=== PATIENT | male | born 1965 | race American Indian/Alaskan Native ===

== ENCOUNTER 2020-07-22 11:46 | Inpatient (IN) | payer MEDICARE ==
--- NOTE | 2020-07-22 12:05 | Emergency Department Report ---
ED Lower Extremity HPI - General Stated Complaint: BLOOD CLOT Time Seen by Provider: 07/22/20 11:51 Source: patient, EMS Limitations: No Limitations - History of Present Illness Initial Comments: Chief complaint: Left leg pain HPI: This is a 54-year-old male with history of hypertension, end-stage renal disease on hemodialysis Wednesday, peripheral artery disease who presents with severe left leg pain 10 out of 10. Patient was transported emergently from vascular center of Dr. Hurt. Patient was diagnosed with left popliteal artery thrombosis. Dr. Hurt determined that patient will need surgical intervention. Patient was transported emergently to the emergency department. Due to severe pain patient was given 100 mcg of fentanyl per EMS. Patient explains that his left leg pain involving foot started several days ago. Unclear if gradual sudden onset. Brian left lower extremity is exquisitely tender. He has decreased movement in his foot. Nature of pain: achy burning. Patient last received hemodialysis on Wednesday. He receives dialysis at the [facility]. Environmental Programs Specialist is Dr. Issac Mcadams. Patient's AV fistula is located at the right superior medial thigh. He lives with his and 2 daughters. Complaint: other (Left popliteal artery thrombosis diagnosed at vascular center of Dr. Hurt) -: Gradual, days(s) (2-3 days) Injury: Leg: Left, Foot: Left, Toes: Left Type of Injury: other (Popliteal artery thrombosis) Place: home Severity: severe Severity scale (0 -10): 10 Worsens With: weight bearing, movement, palpation Context: other (Popliteal artery thrombosis) Other Symptoms: other (No other injuries) Associated Symptoms: unable to bear weight Treatments Prior to Arrival: other (Evaluation at vascular center) - Related Data Allergies Allergy/AdvReac Type Severity Reaction Status Date / Time amoxicillin Allergy Unknown Verified 07/22/20 12:14 ED Review of Systems ROS: Stated complaint: BLOOD CLOT Other details as noted in HPI Comment: All other systems reviewed and negative Constitutional: denies: fever, malaise Respiratory: denies: cough, shortness of breath Cardiovascular: denies: chest pain Gastrointestinal: denies: abdominal pain, nausea, vomiting Skin: denies: rash ED Past Medical Hx - Past Medical History Previous Medical History?: Yes Hx Hypertension: Yes Additional medical history: End-stage renal disease on hemodialysis - Surgical History Past Surgical History?: Yes Additional Surgical History: AV fistula - Social History Smoking Status: Smoker, Current Status Unknown ED Physical Exam - General Limitations: No Limitations General appearance: alert, other (Patient is in severe pain) - Head Head exam: Present: atraumatic, normocephalic - Eye Eye exam: Present: normal appearance - ENT ENT exam: Present: mucous membranes moist - Neck Neck exam: Present: normal inspection, full ROM - Respiratory Respiratory exam: Present: normal lung sounds bilaterally. Absent: respiratory distress, wheezes, rales, rhonchi - Cardiovascular Cardiovascular Exam: Present: regular rate, normal rhythm, normal heart sounds. Absent: systolic murmur, diastolic murmur, rubs, gallop - GI/Abdominal GI/Abdominal exam: Present: soft, normal bowel sounds. Absent: distended, tenderness, guarding, rebound - Rectal Rectal exam: Present: deferred - Extremities Exam Extremities exam: Present: other (Left lower extremity: Exquisitely tender from knee to foot, decreased range of motion at the ankle, unable to palpate DP pulse) - Neurological Exam Neurological exam: Present: alert, oriented X3 - Psychiatric Psychiatric exam: Present: normal affect - Skin Skin exam: Present: warm, dry, intact, normal color. Absent: rash ED Lower Extremity MDM - Lab Data Result diagrams: 07/22/20 12:22 07/22/20 12:22 Laboratory Results - last 24 hr 07/22/20 07/22/20 07/22/20 12:22 12:22 12:22 WBC 10.4 RBC 3.22 L Hgb 11.2 L Hct 32.6 L MCV 101 H MCH 35 H MCHC 34 RDW 19.3 H Plt Count 300 Add Manual Diff Complete Total Counted 100 Seg Neutrophils % Motor Vehicle Representative Seg Neuts % (Manual) 99.0 H Lymphocytes % (Manual) 1.0 L Nucleated RBC % Not Reportable Seg Neutrophils # Man 10.3 H Band Neutrophils # 0.0 Lymphocytes # (Manual) 0.1 L Abs React Lymphs (Man) 0.0 Monocytes # (Manual) 0.0 Eosinophils # (Manual) 0.0 Basophils # (Manual) 0.0 Metamyelocytes # 0.0 Myelocytes # 0.0 Promyelocytes # 0.0 Blast Cells # 0.0 WBC Morphology Not Reportable Hypersegmented Neuts Not Reportable Hyposegmented Neuts Not Reportable Hypogranular Neuts Not Reportable Smudge Cells Not Reportable Toxic Granulation 1+ Toxic Vacuolation Not Reportable Dohle Bodies Not Reportable Pelger-Huet Anomaly Not Reportable Svetlana Rods Not Reportable Platelet Estimate Consistent w auto Clumped Platelets Not Reportable Plt Clumps, EDTA Not Reportable Large Platelets Few Giant Platelets Not Reportable Platelet Satelliting Not Reportable Plt Morphology Comment Not Reportable RBC Morphology Not Reportable Dimorphic RBCs Not Reportable Polychromasia Not Reportable Hypochromasia Not Reportable Poikilocytosis Not Reportable Anisocytosis 1+ Microcytosis Not Reportable Macrocytosis Not Reportable Spherocytes Not Reportable Pappenheimer Bodies Not Reportable Sickle Cells Not Reportable Target Cells Not Reportable Tear Drop Cells Not Reportable Ovalocytes Not Reportable Helmet Cells Not Reportable Seth-Elida Bodies Not Reportable [place] Rings Not Reportable Alicia Cells Not Reportable Bite Cells Not Reportable Crenated Cell Not Reportable Elliptocytes Not Reportable Acanthocytes (Spur) Not Reportable Rouleaux Not Reportable Hemoglobin C Crystals Not Reportable Schistocytes Not Reportable Malaria parasites Not Reportable Malachi Bodies Not Reportable Hem Pathologist Commnt No PT 17.9 H INR 1.48 H APTT 69.7 H* Fibrinogen 1029 H Sodium 137 Potassium 6.0 H Chloride 90.4 L Carbon Dioxide 26 Anion Gap 27 BUN 82 H Creatinine 16.8 H Estimated GFR 4 BUN/Creatinine Ratio 5 Glucose 109 H Calcium 10.2 Total Bilirubin 0.50 AST 26 ALT 13 Alkaline Phosphatase 84 Total Protein 6.5 Albumin 3.4 L Albumin/Globulin Ratio 1.1 - Medical Decision Making Clinical impression: Left popliteal artery thrombosis. I spoke with vascular surgeon immediately upon arrival. Dr. Hurt requested the following labs: fibrinogen as well as CBC chemistry PT PTT labs. Dr. Hurt evaluated patient [id number] in the emergency department. I consulted dog track kennel manager Dr. Peña for hemodialysis management. Also consulted hospitalist for admission. Lab review notable for hyperkalemia 6.0, significant uremia 82 BUN Patient has elevated PT INR. Prior to patient's evaluation in the emergency department he received heparin in the vascular center. Critical Care Time: Yes Critical care time in (mins) excluding proc time.: 40 Critical care attestation.: If time is entered above; I have spent that time in minutes in the direct care of this critically ill patient, excluding procedure time. 40 minutes of critical care time excluding procedures were used in the care of the patient. I came immediately to the bedside upon patient's arrival. I obtained history from EMS at the bedside. I discussed treatment plan with the nursing team members. I reviewed electronic record. I spoke with Dr. Hurt vascular surgeon immediately upon patient's arrival patient required multiple interventions and reassessments. ED Disposition Clinical Impression: Thrombosis of left popliteal artery, End stage renal disease, Peripheral artery disease Hypertension Qualifiers: Hypertension type: essential hypertension Qualified Code(s): I10 - Essential (primary) hypertension Disposition: OP ADMIT IP TO THIS HOSP Is pt being admited?: Yes Does the pt Need Aspirin: No Condition: Stable
[2020-07-22 12:32] LABS: Hematocrit 32.6 % (35.5-45.6); Hemoglobin 11.2 gm/dl (11.8-15.2); Mean Corpuscular HGB Conc 34 % (32-34); Mean Corpuscular Volume 101 fl (84-94); Platelet Count 300 K/mm3 (140-440); Red Blood Count 3.22 M/mm3 (3.65-5.03); Red Cell Distribution Width 19.3 % (13.2-15.2)
--- NOTE | 2020-07-22 12:38 | History and Physical Report ---
History of Present Illness Chief complaint: My leg hurts History of present illness: 54 YO Male with ESRD on HD(M,W,F), HTN, Nicotine Dependence, PAD presents to ED for evaluation. Patient states that he has experienced pain in his left leg over the past 2 to 3 days with persistently worsening symptoms over the same timeframe. Patient was seen and evaluated in the office of his vascular surgeon, Dr. Bul wahl. Patient was found to have left popliteal artery thrombosis complicated by left lower limb ischemia. EMS was notified and upon arrival the patient was transported from his vascular surgeon's office to the emergency department. Patient seen and evaluated in the emergency department. All lab and imaging studies reviewed. Patient reports left leg pain that is 10 out of 10 in severity, constant, worsened with weightbearing, movement and palpation, not relieved with rest. Patient is unable to bear weight on his left lower extremity due to pain. The patient was found to have left lower limb isch emia due to popliteal artery thrombosis. Patient initiated on therapeutic anticoagulation. Nephrology team consulted in ED. Vascular surgery service consulted and the patient was taken emergently to the operating room for surgical intervention. No prior admission for review. No medication listed at time of admission for reconciliation. Patient denies fever, chills, chest pain, palpitation, productive cough, skin rash, recent ill contact, or known exposure to COVID-19. All medication listed at time of admission has been reconciled. Past History Past Medical History: ESRD, hypertension, PVD Past Surgical History: Other (Dialysis access) Medications and Allergies Allergies Allergy/AdvReac Type Severity Reaction Status Date / Time amoxicillin Allergy Unknown Verified 07/22/20 12:14 Review of Systems Constitutional: no weight loss, no weight gain, no fever, no chills Ears, nose, mouth and throat: no ear pain, no ear discharge, no tinnitis, no decreased hearing, no nose pain, no nasal congestion Cardiovascular: no chest pain, no rapid/irregular heart beat, no edema, no syncope Respiratory: no cough, no excessive sputum, no hemoptysis, no shortness of breath Gastrointestinal: no nausea, no vomiting, no diarrhea, no constipation, no hematemesis Genitourinary Male: no hematuria, no flank pain, no discharge, no urinary frequency, no urinary hesitancy, no nocturia Rectal: no pain, no incontinence Musculoskeletal: other (Left leg pain), no neck stiffness, no neck pain Integumentary: no rash, no redness, no wounds Neurological: no head injury, no paralysis, no parathesias, no numbness, no tingling, no seizures, no syncope Psychiatric: no anxiety, no memory loss, no sleep disturbances, no hypersomnia, no change in appetite, no change in libido, no suicidal ideation Endocrine: no cold intolerance, no heat intolerance, no excessive thirst, no polydipsia, no nocturia, no excessive sweating Hematologic/Lymphatic: no easy bruising, no easy bleeding, no lymphadenopathy Allergic/Immunologic: no urticaria, no wheezing, no anaphylaxis Exam - Constitutional General appearance: Present: mild distress - EENT Eyes: Present: PERRL ENT: hearing intact, clear oral mucosa - Neck Neck: Present: supple, normal ROM - Respiratory Respiratory effort: normal Respiratory: bilateral: CTA - Cardiovascular Heart Sounds: Present: S1 & S2. Absent: rub, click - Extremities Extremities: pulses symmetrical, No edema Extremity abnormal: cold, pulses diminished, tenderness Peripheral Pulses: abnormal (Diminished left popliteal) - Abdominal General gastrointestinal: Present: soft, non-tender, non-distended, normal bowel sounds Male genitourinary: Present: normal - Integumentary Integumentary: Present: clear, warm, dry - Musculoskeletal Musculoskeletal: gait normal, strength equal bilaterally - Psychiatric Psychiatric: appropriate mood/affect, intact judgment & insight - Neurologic Neurologic: CNII-XII intact, moves all extremities Results - Labs CBC & Chem 7: 07/22/20 12:22 07/22/20 12:22 Labs: Abnormal lab results 07/22/20 Range/Units 12:22 RBC 3.22 L (3.65-5.03) M/mm3 Hgb 11.2 L (11.8-15.2) gm/dl Hct 32.6 L (35.5-45.6) % MCV 101 H (84-94) fl MCH 35 H (28-32) pg RDW 19.3 H (13.2-15.2) % Assessment and Plan - Patient Problems (1) Thrombosis of left popliteal artery Current Visit: Yes Status: Acute Plan to address problem: Patient taken urgently to the operating room for surgical intervention, vascular surgery service consulted, supportive care. (2) End stage renal disease Current Visit: Yes Status: Acute Plan to address problem: Nephrology team consulted in ED, strict I/O, monitor urine output every shift, avoid nephrotoxic agents. Dialysis as per renal team. (3) Hypertension Current Visit: Yes Status: Acute Qualifiers: Hypertension type: essential hypertension Qualified Code(s): I10 - Essential (primary) hypertension Plan to address problem: Monitor blood pressure every shift, continue medical management (4) Nicotine dependence Current Visit: Yes Status: Acute Qualifiers: Nicotine product type: cigarettes Substance use status: in withdrawal Qualified Code(s): F17.213 - Nicotine dependence, cigarettes, with withdrawal Plan to address problem: Smoking cessation counseling, supportive care, behavior change counseling, +15 minutes. (5) Peripheral artery disease Current Visit: Yes Status: Acute Plan to address problem: Supportive care, risk factor reduction, smoking cessation, vascular surgery ser vice consulted. Patient pending surgical intervention. (6) DVT prophylaxis Current Visit: Yes Status: Acute Plan to address problem: SCDs bilateral lower extremities while in bed, continue therapeutic an ticoagulation
[2020-07-22 12:42] LABS: INR 1.48 (0.87-1.13)
[2020-07-22 12:47] LABS: Partial Thromboplastin Time 69.7 Sec. (24.2-36.6)
[2020-07-22] MEDS ORDERED: HEPARIN/NS 5000 UNIT/500ML 500 ML IR ONE ×2 (12:50→13:26)
[2020-07-22] MEDS ORDERED: LIDOCAINE (2%) 20 MG/1 ML VIAL 20 ML MDV INFILTRATI ONE (12:50)
[2020-07-22] MEDS: HEPARIN 10,000 UNITS/10 ML VIAL ONE ×2 (12:55→13:54)
[2020-07-22] MEDS ORDERED: ALTEPLASE 2 MG INJ ONE (12:57)
[2020-07-22] MEDS ORDERED: WATER FOR INJ Sterile (PF) 10 ML ONE (12:57)
[2020-07-22 13:02] LABS: Total Cells Counted 100
[2020-07-22 13:03] LABS: Anisocytosis 1+; Large Platelets Few; Platelet Estimate Consistent w Auto; Toxic Granulation 1+
[2020-07-22 13:09] LABS: Albumin 3.4 g/dL (3.9-5); Calcium 10.2 mg/dL (8.4-10.2)
[2020-07-22] MEDS ORDERED: diphenhydrAMINE 50 MG/ML VIAL ONE (13:17)
[2020-07-22] MEDS ORDERED: FAMOTIDINE 20 MG/2 ML INJ IV ONE (13:19)
[2020-07-22] MEDS: MIDAZOLAM 2 MG/2 ML INJ ONE ×2 (13:38→13:56)
[2020-07-22] MEDS: fentaNYL 100 MCG/2 ML INJ ONE ×3 (13:38→14:31)
[2020-07-22] MEDS: ALTEPLASE 2 MG INJ ONE ×2 (13:45→13:53)
[2020-07-22] MEDS ORDERED: SODIUM CHLORIDE 0.9% 1000 ML 1,000 ML ONE (13:56)
[2020-07-22] MEDS ORDERED: HEPARIN/ 0.45% NACL DRIP 25,000 UNIT/500 ML BAG ONE (13:56)
[2020-07-22] MEDS ORDERED: SODIUM CHLORIDE 0.9% 1000 ML 1,000 ML SHEATH SCH (14:00)
[2020-07-22] MEDS ORDERED: HEPARIN/ 0.45% NACL DRIP 25,000 UNIT/500 ML BAG SHEATH SCH (14:00)
[2020-07-22] MEDS ORDERED: ALTEPLASE 20 MG in SODIUM CHLORIDE 0.9% 500 ML 500 ML EKOSDLUMEN ONE (14:00)
[2020-07-22] MEDS ORDERED: ALBUTEROL 2.5 MG/3 ML NEBU IH PRN (14:00)
[2020-07-22] MEDS ORDERED: SODIUM CHLORIDE 0.9% 1000 ML 1,000 ML EKOSCLUMEN SCH (14:00)
--- NOTE | 2020-07-22 14:08 | Post Operative Note ---
Date of procedure: 07/22/20 Pre-op diagnosis: Thrombosed left popliteal artery Post-op diagnosis: same Procedure: 1. Angiogram of the left lower extremity (clinical change) 2. Third order selection of the left peroneal artery 3. Percutaneous mechanical thrombectomy of the left popliteal artery, tibioperoneal trunk, and left peroneal artery with a CAT-RX penumbra device 4. Infusion of 2 mg of tPA in the left distal peroneal artery 5. Fluoroscopic guided placement of a 135 cm x 30 cm EKOS thrombolytic catheter in the left tibioperoneal trunk, and left peroneal artery Anesthesia: local (w/ conscious sedation) Surgeon: GILMA SHARMA Estimated blood loss: 50-100ml (from penumbra device, 50 mL blood aspirated with thrombus) Condition: stable Disposition: ICU
--- NOTE | 2020-07-22 14:08 | Consultation ---
History of Present Illness - Reason for Consult Consult date: 07/22/20 Left leg popliteal artery occlusion Requesting physician: TRISTAN GOLD - History of Present Illness 54 YO Male with A fib, ESRD on HD(M,W,F), HTN, Nicotine Dependence, PAD presents to ED for evaluation. Patient states that he has experienced pain in his left leg over the past 3 weeks with persistently worsening symptoms over the same timeframe. Patient was seen and evaluated in the office of his vascular surgeon, Dr. Hansen. The patient was seen in the office on 07/16/2020 and was set up for angiogram by Dr. Hansen which was performed today and revascularization was performed of the dorsalis pedis and peroneal artery. Unfortunately, the procedure was complicated by thrombotic occlusion. Dr. Hansen contacted me and we decided to transfer the patient to [facility] for probable thrombolysis to attempt to salvage the situation. EMS was notified and upon arrival the patient was transported from his vascular surgeon's office to the emergency department. Patient seen and evaluated in the emergency department. All lab and imaging studies reviewed. Patient denies fever, chills, chest pain, palpitation, productive cough, skin rash, recent ill contact, or known exposure to COVID-19. Vascular consulted: the patient was sleepy when I met him secondary to previous sedation. His left forefoot was ischemic, but this appeared to be acute on chronic as there was gangrene of the second and third digit, and a tissue ulceration of the dorsum of the left foot. No palpable left pedal pulse. Could not move the toes of the left foot, chronic (for the last 3 weeks), had limited sensation, chronic (for the last 3 weeks). Has left leg and forefoot pain (worse today). Plan for percutaneous mechanical thrombectomy and subsequent thrombolysis. Past History Past Medical History: ESRD, hypertension, PVD Past Surgical History: Other (Dialysis access) Medications and Allergies Allergies Allergy/AdvReac Type Severity Reaction Status Date / Time amoxicillin Allergy Unknown Verified 07/22/20 12:14 Active Meds: Active Medications Albuterol (Albuterol 2.5 Mg/3 Ml Nebu) 2.5 mg IH Q3HRT PRN PRN Reason: Shortness Of Breath Alteplase, Recombinant 20 mg/ (Sodium Chloride) 500 mls @ 25 mls/hr EKOSDLUMEN DIRECT ONE Stop: 07/23/20 09:59 Sodium Chloride (Nacl 0.9% 1000 Ml) 1,000 mls @ 30 mls/hr SHEATH DIRECT AALIYAH Sodium Chloride (Nacl 0.9% 1000 Ml) 1,000 mls @ 35 mls/hr EKOSCLUMEN DIRECT AALIYAH Heparin Sodium/Sodium Chloride (Heparin/ 0.45% Nacl-25,000 Unit/500 Ml) 25,000 unit in 500 mls @ 10 mls/hr SHEATH DIRECT AALIYAH; Protocol Sodium Chloride (Sodium Chloride 0.9% 10 Ml Flush Syringe) 10 ml IV BID AALIYAH Sodium Chloride (Sodium Chloride 0.9% 10 Ml Flush Syringe) 10 ml IV PRN PRN PRN Reason: LINE FLUSH Review of Systems ROS unobtainable: due to mental status (sedation) Exam - Constitutional General appearance: Present: mild distress (left lower extremity pain) - EENT Eyes: Present: EOM intact ENT: hearing intact - Respiratory Respiratory effort: normal - Extremities Extremity abnormal: other (see HPI) Peripheral Pulses: abnormal (nonpalpable pedal pulses) - Psychiatric Psychiatric: cooperative, other (sleepy) Results - Labs CBC & Chem 7: 07/22/20 12:22 07/22/20 12:22 Labs: Abnormal lab results 07/22/20 07/22/20 07/22/20 Range/Units 12:22 12:22 12:22 RBC 3.22 L (3.65-5.03) M/mm3 Hgb 11.2 L (11.8-15.2) gm/dl Hct 32.6 L (35.5-45.6) % MCV 101 H (84-94) fl MCH 35 H (28-32) pg RDW 19.3 H (13.2-15.2) % Seg Neuts % (Manual) 99.0 H (40.0-70.0) % Lymphocytes % (Manual) 1.0 L (13.4-35.0) % Seg Neutrophils # Man 10.3 H (1.8-7.7) K/mm3 Lymphocytes # (Manual) 0.1 L (1.2-5.4) K/mm3 PT 17.9 H (12.2-14.9) Sec. INR 1.48 H (0.87-1.13) APTT 69.7 H* (24.2-36.6) Sec. Fibrinogen 1029 H (211-480) mg/dl Potassium 6.0 H (3.6-5.0) mmol/L Chloride 90.4 L (98-107) mmol/L BUN 82 H (9-20) mg/dL Creatinine 16.8 H (0.8-1.3) mg/dL Glucose 109 H (75-100) mg/dL Albumin 3.4 L (3.9-5) g/dL Assessment and Plan 54-year-old male with end-stage renal disease and left lower extremity CLI who had revascularization procedure performed by Dr. Hansen on 07/22/2020. Patient had no runoff to the foot. Patient has chronic left toe paresis, chronic left toe numbness, and severe pain. Procedure was complicated by thrombotic occlusion requiring transfer to [facility] for mechanical thrombectomy and thrombolysis. Risks, benefits, and alternatives discussed with the patient's as the patient is too somnolent. Patient understands. Plan for percutaneous mechanical thrombectomy and subsequent thrombolysis.
--- NOTE | 2020-07-22 14:08 | Operative Report ---
Operative Report Operative Report: EXAM: 1. Angiogram of the left lower extremity (clinical change) 2. Third order selection of the left peroneal artery 3. Percutaneous mechanical thrombectomy of the left popliteal artery, and left peroneal artery with a CAT-RX penumbra device 4. Infusion of 2 mg of tPA in the left distal peroneal artery 5. Fluoroscopic guided placement of a 135 cm x 30 cm EKOS thrombolytic catheter in the left tibioperoneal trunk, and left peroneal artery DATE: 07/22/2020 SCHOOL OFFICE ASSISTANT: GILMA SHARMA MD INDICATION: Left popliteal artery thrombus, underlying severe chronic limb ischemia, conversion to acute limb ischemia MEDICATIONS: Please see nursing report for full details. DEVICES: CAT Rx penumbra device 2mg tPA 135 cm x 30 cm EKOS thrombolytic catheter placement CONTRAST: Please see salvage laborer report. PROCEDURE: The risks, benefits, and alternatives were discussed with the patient's ; written informed consent was obtained. The patient was brought to the Small Lot [facility] and the existing right groin sheath was prepped and draped in a sterile fashion. 0.018 inch wire was then passed through the existing sheath which was in the left common femoral artery into the superficial femoral artery.. Digital subtraction angiography was performed to the sheath demonstrating patency of the left common femoral artery, profundofemoral artery, and superficial femoral artery. The popliteal artery FINDINGS: [ ] IMPRESSION: [ ]
[2020-07-22] MEDS ORDERED: ONDANSETRON 4 MG/2 ML INJ IV PRN (14:09)
--- NOTE | 2020-07-22 14:12 | Consultation ---
History of Present Illness - Reason for Consult Consult date: 07/22/20 end stage renal disease - History of Present Illness 54 YO Male with ESRD on HD(M,W,F) last tx was Wednesday was admitted today for left popliteal artery thrombosis complicated by left lower limb ischemia. Vascular surgery service consulted and the patient was taken emergently to the operating room for surgical intervention. renal consult requested for ESRD and HD management while inpatient Past History Past Medical History: ESRD, hypertension, PVD Past Surgical History: Other (Dialysis access) Medications and Allergies Allergies Allergy/AdvReac Type Severity Reaction Status Date / Time amoxicillin Allergy Unknown Verified 07/22/20 12:14 Active Meds: Active Medications Albuterol (Albuterol 2.5 Mg/3 Ml Nebu) 2.5 mg IH Q3HRT PRN PRN Reason: Shortness Of Breath Alteplase, Recombinant 20 mg/ (Sodium Chloride) 500 mls @ 25 mls/hr EKOSDLUMEN DIRECT ONE Stop: 07/23/20 09:59 Sodium Chloride (Nacl 0.9% 1000 Ml) 1,000 mls @ 30 mls/hr SHEATH DIRECT AALIYAH Sodium Chloride (Nacl 0.9% 1000 Ml) 1,000 mls @ 35 mls/hr EKOSCLUMEN DIRECT AALIYAH Heparin Sodium/Sodium Chloride (Heparin/ 0.45% Nacl-25,000 Unit/500 Ml) 25,000 unit in 500 mls @ 10 mls/hr SHEATH DIRECT AALIYAH; Protocol Sodium Chloride (Sodium Chloride 0.9% 10 Ml Flush Syringe) 10 ml IV BID AALIYAH Sodium Chloride (Sodium Chloride 0.9% 10 Ml Flush Syringe) 10 ml IV PRN PRN PRN Reason: LINE FLUSH Review of Systems All systems: negative (weakness) Exam - General Appearance General appearance: well-developed, well-nourished, appears stated age Neck: Present: neck supple Respiratory: Clear to Ascultation, Normal Exam Heart: regular, S1S2 Gastrointestinal: Present: normoactive bowel sounds Integumentary: no rash, warm and dry Neurologic: no focal deficit, no asterixis Psychiatric: mood/affect appropriate, cooperative Results - Lab Results 07/22/20 12:22 07/22/20 12:22 Most recent lab results Calcium 10.2 mg/dL (8.4-10.2) 01/11/21 12:22 Assessment and Plan (1) Thrombosis of left popliteal artery (2) End stage renal disease (3) Hypertension (4) Hyperkalemia (5) Peripheral artery disease (6) DVT prophylaxix HD today ordered for clearance and volume removal will assess dialysis need daily Strict I&O daily weight renally dose meds Alexsander Baltazar MD [phone]
[2020-07-22] MEDS ORDERED: SODIUM CHLORIDE 0.9% 1000 ML 1,000 ML IV SCH (14:15)
[2020-07-22] MEDS ORDERED: diazePAM 5 MG TAB ONE (15:13)
[2020-07-22] MEDS: HYDROmorphone 1 MG/1 ML INJ IV PRN ×2 (15:19→22:55)
[2020-07-22] MEDS: METOPROLOL SUCCINATE XL 25 MG TAB PO SCH (16:47)
[2020-07-22] MEDS: HYDROcodone/ACETAMINOPHEN 5-325 MG TAB PO PRN (17:46)
[2020-07-22] MEDS ORDERED: INSULIN REGULAR, HUMAN 100 UNIT/ML 3ML VIAL IV ONE (18:09)
[2020-07-22 18:29] LABS: Hematocrit 36.3 % (35.5-45.6); Hemoglobin 11.5 gm/dl (11.8-15.2); Mean Corpuscular HGB Conc 32 % (32-34); Mean Corpuscular Volume 104 fl (84-94); Platelet Count 329 K/mm3 (140-440); Red Blood Count 3.49 M/mm3 (3.65-5.03); Red Cell Distribution Width 19.2 % (13.2-15.2)
[2020-07-22 18:35] LABS: Calcium 10.2 mg/dL (8.4-10.2)
[2020-07-22 18:41] LABS: Fibrinogen 814 mg/dl (211-480)
[2020-07-22 18:50] LABS: Hepatitis B Surface Antigen Non-Reactive (Negative); Hepatitis C Virus Antibody Non-Reactive (NonReactive)
[2020-07-22] MEDS ORDERED: CALCIUM GLUCONATE 1,000 MG in SODIUM CHLORIDE 0.9% 100 ML IV ONE (19:09)
[2020-07-22 19:12] LABS: Basophils % (Manual) 0 % (0.0-1.8); Eosinophils % (Manual) 0 % (0.0-4.3); Total Cells Counted 100
[2020-07-22 19:14] LABS: Anisocytosis Few
[2020-07-22] MEDS: DEXTROSE 50% IN WATER (25GM) 50 ML SYRINGE IV SCH ×2 (19:18→20:01)
[2020-07-22] MEDS ORDERED: INSULIN REGULAR, HUMAN 100 UNITS/1 ML ONE (19:24)
[2020-07-23 03:16] LABS: Hemoglobin 11.4 gm/dl (11.8-15.2); Mean Corpuscular HGB Conc 33 % (32-34); Mean Corpuscular Volume 102 fl (84-94); Platelet Count 319 K/mm3 (140-440); Red Blood Count 3.43 M/mm3 (3.65-5.03); Red Cell Distribution Width 18.4 % (13.2-15.2)
[2020-07-23 03:26] LABS: Basophils # (Auto) 0.1 K/mm3 (0.0-0.1); Basophils % (Auto) 0.4 % (0.0-1.8); Eosinophils % (Auto) 0.1 % (0.0-4.3); Lymphocytes # (Auto) 0.4 K/mm3 (1.2-5.4); Monocytes # (Auto) 0.7 K/mm3 (0.0-0.8)
[2020-07-23 03:37] LABS: Albumin 3.5 g/dL (3.9-5); Calcium 10.6 mg/dL (8.4-10.2)
--- NOTE | 2020-07-23 07:56 | Progress Note ---
Assessment and Plan (1) Thrombosis of left popliteal artery (2) End stage renal disease (3) Hypertension (4) Hyperkalemia (5) Peripheral artery disease (6) DVT prophylaxix HD STAT today ordered for clearance and volume removal, discussed with dialysis nurse hyperkalemia cocktail ordered including IV inlulin, IV calcium and kayexelate PO with EKG will assess dialysis need daily Strict I&O daily weight renally dose meds Alexsander Baltazar MD [phone] Subjective Date of service: 07/23/20 Principal diagnosis: ESRD on HD Interval history: patient did not receive HD yesterday because there was no bed available in ICU or IMCU Objective - Vital Signs Vital signs: Vital Signs - 12hr 07/22/20 07/22/20 07/22/20 20:00 21:00 22:00 Pulse Rate 114 H 114 H 113 H Respiratory 22 17 11 L Rate Blood Pressure 120/69 121/79 126/80 O2 Sat by Pulse 93 93 98 Oximetry 07/22/20 07/22/20 07/23/20 22:55 23:00 00:00 Pulse Rate 117 H 111 H Respiratory 18 24 16 Rate Blood Pressure 123/74 128/67 O2 Sat by Pulse 98 93 Oximetry 07/23/20 07/23/20 07/23/20 02:00 04:00 06:00 Pulse Rate 107 H 104 H 105 H Respiratory 21 22 19 Rate Blood Pressure 127/73 121/71 117/73 O2 Sat by Pulse 93 97 97 Oximetry - Lab 07/23/20 02:41 07/23/20 02:41 Most recent lab results Calcium 10.6 mg/dL (8.4-10.2) H 07/23/20 02:41 Medications & Allergies - Medications Allergies/Adverse Reactions: Allergies amoxicillin Allergy (Verified 07/22/20 12:14) Unknown Active Medications: Generic Name Dose Route Start Last Admin Trade Name Freq PRN Reason Stop Dose Admin Acetaminophen 650 mg 07/22/20 14:09 Acetaminophen 325 Mg Tab PO Q6H PRN Pain, Mild (1-3) Hydrocodone Bitart/Acetaminophen 2 each 07/22/20 14:09 07/22/20 17:46 Hydrocodone/Acetaminophen 5-325 Mg Tab PO 2 each Q6H PRN Administration Pain, Moderate (4-6) Albuterol 2.5 mg 07/22/20 14:00 Albuterol 2.5 Mg/3 Ml Nebu IH Q3HRT PRN Shortness Of Breath Aspirin 81 mg 07/22/20 15:00 Aspirin Ec 81 Mg Tab PO QDAY AALIYAH Dextrose 25 ml 07/22/20 19:00 07/22/20 20:01 Dextrose 50% In Water (25gm) 50 Ml Syringe IV 07/23/20 19:01 25 ml Q30MIN AALIYAH Administration Protocol Hydromorphone HCl 0.5 mg 07/22/20 14:09 07/22/20 22:55 Hydromorphone 1 Mg/1 Ml Inj IV 0.5 mg Q3H PRN Administration Pain , Severe (7-10) Alteplase, Recombinant 20 mg/ 500 mls @ 12.5 mls/hr 07/22/20 14:00 07/22/20 14:40 Sodium Chloride EKOSDLUMEN 07/24/20 05:59 12.5 mls DIRECT ONE Administration Sodium Chloride 1,000 mls @ 30 mls/hr 07/22/20 14:00 Nacl 0.9% 1000 Ml SHEATH DIRECT AALIYAH Sodium Chloride 1,000 mls @ 35 mls/hr 07/22/20 14:00 07/22/20 14:20 Nacl 0.9% 1000 Ml EKOSCLUMEN 35 mls DIRECT AALIYAH Administration Heparin Sodium/Sodium Chloride 25,000 unit in 500 mls @ 10 mls/hr 07/22/20 14:00 Heparin/ 0.45% Nacl-25,000 Unit/500 Ml SHEATH DIRECT AALIYAH Protocol 500 UNITS/HR Sodium Chloride 1,000 mls @ 30 mls/hr 07/22/20 14:15 Nacl 0.9% 1000 Ml IV DIRECT AALIYAH Metoprolol Succinate 25 mg 07/22/20 17:00 07/22/20 16:47 Metoprolol Succinate Xl 25 Mg Tab PO 25 mg QDAY AALIYAH Administration Ondansetron HCl 4 mg 07/22/20 14:09 Ondansetron 4 Mg/2 Ml Inj IV Q8H PRN Nausea And Vomiting Sodium Chloride 10 ml 07/22/20 13:00 07/22/20 18:36 Sodium Chloride 0.9% 10 Ml Flush Syringe IV Not Given BID AALIYAH Sodium Chloride 10 ml 07/22/20 13:00 Sodium Chloride 0.9% 10 Ml Flush Syringe IV PRN PRN LINE FLUSH
[2020-07-23] MEDS ORDERED: diphenhydrAMINE 50 MG/ML VIAL ONE (08:54)
[2020-07-23] MEDS ORDERED: FAMOTIDINE 20 MG/2 ML INJ IV ONE (08:55)
[2020-07-23] MEDS ORDERED: methylPREDNISolone Sod Succinate 125 MG/2 ML INJ ONE (08:55)
[2020-07-23] MEDS ORDERED: CALCIUM GLUCONATE 1,000 MG in SODIUM CHLORIDE 0.9% 100 ML IV ONE ×2 (10:00→17:30)
[2020-07-23] MEDS ORDERED: INSULIN REGULAR, HUMAN 100 UNIT/ML 3ML VIAL IV SCH (10:00)
[2020-07-23] MEDS ORDERED: SODIUM POLYSTYRENE 15 GM/60 ML ORAL LIQD PO SCH ×2 (10:00→16:00)
[2020-07-23 10:07] LABS: Hematocrit 35.3 % (35.5-45.6); Hemoglobin 11.4 gm/dl (11.8-15.2); Mean Corpuscular HGB Conc 32 % (32-34); Mean Corpuscular Volume 102 fl (84-94); Red Blood Count 3.47 M/mm3 (3.65-5.03); Red Cell Distribution Width 18.8 % (13.2-15.2)
[2020-07-23 10:08] LABS: Platelet Count 304 K/mm3 (140-440)
[2020-07-23 10:17] LABS: Fibrinogen 494 mg/dl (211-480)
[2020-07-23] MEDS ORDERED: INSULIN REGULAR, HUMAN 100 UNITS/1 ML ONE (10:22)
[2020-07-23] MEDS ORDERED: HEPARIN/NS 5000 UNIT/500ML 1,000 ML IR ONE (10:40)
[2020-07-23] MEDS ORDERED: LIDOCAINE (2%) 20 MG/1 ML VIAL 20 ML MDV INFILTRATI ONE (10:40)
[2020-07-23] MEDS ORDERED: fentaNYL 100 MCG/2 ML INJ ONE (10:41)
[2020-07-23] MEDS ORDERED: MIDAZOLAM 2 MG/2 ML INJ ONE (10:41)
[2020-07-23] MEDS ORDERED: SODIUM CHLORIDE 0.9% 500 ML 500 ML ONE (10:49)
[2020-07-23] MEDS: HEPARIN 10,000 UNITS/10 ML VIAL ONE ×2 (11:05→12:05)
[2020-07-23 11:15] LABS: Band Neutrophils # (Manual) 0.2 K/mm3; Total Cells Counted 100
[2020-07-23 11:16] LABS: Anisocytosis 1+; Platelet Estimate Consistent w Auto
[2020-07-23] MEDS ORDERED: WATER FOR INJ Sterile (PF) 10 ML ONE ×3 (11:32→12:41)
[2020-07-23] MEDS ORDERED: ALTEPLASE 2 MG INJ ONE ×3 (11:33→12:41)
[2020-07-23] MEDS ORDERED: CLINDAMYCIN 600 MG/50 mL 600 MG/50 ML BAG IV NR (12:00)
[2020-07-23] MEDS ORDERED: NITROGLYCERIN SYRINGE 3 ML ONE (12:49)
--- NOTE | 2020-07-23 14:04 | Post Operative Note ---
Date of procedure: 07/23/20 Pre-op diagnosis: Acute limb ischemia of the left lower extremity Post-op diagnosis: same Procedure: 1. Fluoroscopic guided removal of the left lower extremity thrombolytic catheter from the left peroneal artery 2. Angiography of the left lower extremity 3. Penumbra CAT 6 mechanical thrombectomy of the left peroneal artery and dorsalis pedis artery 4. Selection of the left peroneal artery, and dorsalis pedis artery with angiography 5. Infusion of 2 mg of tPA in the left dorsalis pedis and 4 mg of tPA in the left peroneal artery 6. Penumbra CAT 6 mechanical thrombectomy of the left peroneal artery and dorsalis pedis artery 7. Angioplasty of the left dorsalis pedis artery, and mid and distal peroneal artery with a 2.5 mm x 220 mm angioplasty balloon 8. Selection of the left posterior tibial artery with crossing to the ankle, but inability to cross into the medial or lateral plantar artery. 9. Prolonged angioplasty of the left dorsalis pedis artery and distal peroneal artery with 2.5 mm x 150 mm angioplasty balloon 10. Infusion of 2 mg of tPA and 600 micrograms of nitroglycerin in the left dorsalis pedis artery 11. Closure of the right common femoral artery with a 6 Fr proglide Anesthesia: local (w/ conscious sedation) Surgeon: GILMA SHARMA Estimated blood loss: other (150 mL blood aspirated) Condition: stable Disposition: floor
--- NOTE | 2020-07-23 15:31 | Progress Note ---
Assessment and Plan Assessment and plan: (1) Acute limb ischemia with thrombosis of left popliteal artery Current Visit: Yes Status: Acute Plan to address problem: s/p angiogram and angioplasty for left popliteal artery occlusion Vascular surgery following Monitor in step down unit (2) End stage renal disease Current Visit: Yes Status: Acute Plan to address problem: Nephrology team on board Plan for HD today Hyperkalemia management as per protocol. (3) Hypertension Current Visit: Yes Status: Acute Qualifiers: Hypertension type: essential hypertension Qualified Code(s): I10 - Essential (primary) hypertension Plan to address problem: Monitor blood pressure every shift, continue medical management (4) Nicotine dependence Current Visit: Yes Status: Acute Qualifiers: Nicotine product type: cigarettes Substance use status: in withdrawal Qualified Code(s): F17.213 - Nicotine dependence, cigarettes, with withdrawal Plan to address problem: Smoking cessation counseling, supportive care, behavior change counseling, +15 minutes. (5) Peripheral artery disease Current Visit: Yes Status: Acute Plan to address problem: Msnagement as above (6) DVT prophylaxis Current Visit: Yes Status: Acute Plan to address problem: SCDs bilateral lower extremities while in bed, continue therapeutic anticoagulation History Interval history: Has acute limb ischemia and will need urgent revascularization Hospitalist Physical - Physical exam Narrative exam: VITAL SIGNS: Reviewed. GENERAL: Awake HEAD: No signs of head trauma. EYES: Pupils are equal. Extraocular motions intact. MOUTH: Oropharynx is normal. NECK: No adenopathy, no JVD. CHEST: Chest with diminished breath sounds bilaterally. No wheezes, rales, or rhonchi. CARDIAC: normal S1 and S2, without murmurs, gallops, or rubs. ABDOMEN: Soft, non tender and non distended. No rebound or guarding, and no masses palpated. Bowel Sounds normal. MUSCULOSKELETAL: No edema NEUROLOGIC EXAM: Alert and oriented x3. No focal neurologic deficits SKIN: No obvious lesions - Constitutional Vitals: Temp Pulse Resp BP Pulse Ox 97.3 F L 101 H 17 113/74 100 07/22/20 15:10 07/23/20 14:00 07/23/20 14:00 07/23/20 14:00 07/23/20 14:00 Results - Labs CBC & Chem 7: 07/23/20 09:46 07/23/20 02:41 Labs: Laboratory Last Values WBC 17.2 K/mm3 (4.5-11.0) H 07/23/20 09:46 RBC 3.47 M/mm3 (3.65-5.03) L 07/23/20 09:46 Hgb 11.4 gm/dl (11.8-15.2) L 07/23/20 09:46 Hct 35.3 % (35.5-45.6) L 07/23/20 09:46 MCV 102 fl (84-94) H 07/23/20 09:46 MCH 33 pg (28-32) H 07/23/20 09:46 MCHC 32 % (32-34) 07/23/20 09:46 RDW 18.8 % (13.2-15.2) H 07/23/20 09:46 Plt Count 304 K/mm3 (140-440) 07/23/20 09:46 Lymph % (Auto) 3.0 % (13.4-35.0) L 07/23/20 02:41 [place] % (Auto) 5.0 % (0.0-7.3) 07/23/20 02:41 Eos % (Auto) 0.1 % (0.0-4.3) 07/23/20 02:41 Baso % (Auto) 0.4 % (0.0-1.8) 07/23/20 02:41 Lymph # (Auto) 0.4 K/mm3 (1.2-5.4) L 07/23/20 02:41 [place] # (Auto) 0.7 K/mm3 (0.0-0.8) 07/23/20 02:41 Eos # (Auto) 0.0 K/mm3 (0.0-0.4) 07/23/20 02:41 Baso # (Auto) 0.1 K/mm3 (0.0-0.1) 07/23/20 02:41 Add Manual Diff Complete 07/23/20 09:46 Total Counted 100 07/23/20 09:46 Seg Neutrophils % Battery Charger Tester 07/23/20 09:46 Seg Neuts % (Manual) 94.0 % (40.0-70.0) H 07/23/20 09:46 Band Neutrophils % 1.0 % 07/23/20 09:46 Lymphocytes % (Manual) 1.0 % (13.4-35.0) L 07/23/20 09:46 Reactive Lymphs % (Man) 0 % 07/22/20 18:00 Monocytes % (Manual) 4.0 % (0.0-7.3) 07/23/20 09:46 Eosinophils % (Manual) 0 % (0.0-4.3) 07/22/20 18:00 Basophils % (Manual) 0 % (0.0-1.8) 07/22/20 18:00 Metamyelocytes % 0 % 07/22/20 18:00 Myelocytes % 0 % 07/22/20 18:00 Promyelocytes % 0 % 07/22/20 18:00 Blast Cells % 0 % 07/22/20 18:00 Nucleated RBC % Not Reportable 07/23/20 09:46 Seg Neutrophils # 13.4 K/mm3 (1.8-7.7) H 07/23/20 02:41 Seg Neutrophils # Man 16.2 K/mm3 (1.8-7.7) H 07/23/20 09:46 Band Neutrophils # 0.2 K/mm3 07/23/20 09:46 Lymphocytes # (Manual) 0.2 K/mm3 (1.2-5.4) L 07/23/20 09:46 Abs React Lymphs (Man) 0.0 K/mm3 07/23/20 09:46 Monocytes # (Manual) 0.7 K/mm3 (0.0-0.8) 07/23/20 09:46 Eosinophils # (Manual) 0.0 K/mm3 (0.0-0.4) 07/23/20 09:46 Basophils # (Manual) 0.0 K/mm3 (0.0-0.1) 07/23/20 09:46 Metamyelocytes # 0.0 K/mm3 07/23/20 09:46 Myelocytes # 0.0 K/mm3 07/23/20 09:46 Promyelocytes # 0.0 K/mm3 07/23/20 09:46 Blast Cells # 0.0 K/mm3 07/23/20 09:46 WBC Morphology Not Reportable 07/23/20 09:46 Hypersegmented Neuts Not Reportable 07/23/20 09:46 Hyposegmented Neuts Not Reportable 07/23/20 09:46 Hypogranular Neuts Not Reportable 07/23/20 09:46 Smudge Cells Not Reportable 07/23/20 09:46 Toxic Granulation Not Reportable 07/23/20 09:46 Toxic Vacuolation Not Reportable 07/23/20 09:46 Dohle Bodies Not Reportable 07/23/20 09:46 Pelger-Huet Anomaly Not Reportable 07/23/20 09:46 Svetlana Rods Not Reportable 07/23/20 09:46 Platelet Estimate Consistent w auto 07/23/20 09:46 Clumped Platelets Not Reportable 07/23/20 09:46 Plt Clumps, EDTA Not Reportable 07/23/20 09:46 Large Platelets Not Reportable 07/23/20 09:46 Giant Platelets Not Reportable 07/23/20 09:46 Platelet Satelliting Not Reportable 07/23/20 09:46 Plt Morphology Comment Not Reportable 07/23/20 09:46 RBC Morphology Not Reportable 07/23/20 09:46 Dimorphic RBCs Not Reportable 07/23/20 09:46 Polychromasia Not Reportable 07/23/20 09:46 Hypochromasia Not Reportable 07/23/20 09:46 Poikilocytosis Not Reportable 07/23/20 09:46 Anisocytosis 1+ 07/23/20 09:46 Microcytosis Not Reportable 07/23/20 09:46 Macrocytosis Not Reportable 07/23/20 09:46 Spherocytes Not Reportable 07/23/20 09:46 Pappenheimer Bodies Not Reportable 07/23/20 09:46 Sickle Cells Not Reportable 07/23/20 09:46 Target Cells Not Reportable 07/23/20 09:46 Tear Drop Cells Not Reportable 07/23/20 09:46 Ovalocytes Not Reportable 07/23/20 09:46 Helmet Cells Not Reportable 07/23/20 09:46 [place] Bodies Not Reportable 07/23/20 09:46 [place] Rings Not Reportable 07/23/20 09:46 [place] Cells Not Reportable 07/23/20 09:46 Bite Cells Not Reportable 07/23/20 09:46 Crenated Cell Not Reportable 07/23/20 09:46 Elliptocytes Not Reportable 07/23/20 09:46 Acanthocytes (Spur) Not Reportable 07/23/20 09:46 Rouleaux Not Reportable 07/23/20 09:46 Hemoglobin C Crystals Not Reportable 07/23/20 09:46 Schistocytes Not Reportable 07/23/20 09:46 Malaria parasites Not Reportable 07/23/20 09:46 Malachi Bodies Not Reportable 07/23/20 09:46 Hem Pathologist Commnt No 07/23/20 09:46 PT 17.9 Sec. (12.2-14.9) H 07/22/20 12:22 INR 1.48 (0.87-1.13) H 07/22/20 12:22 APTT 69.7 Sec. (24.2-36.6) H* 07/22/20 12:22 Fibrinogen 494 mg/dl (211-480) H 07/23/20 09:46 Heparin Anti-Xa Level < 0.10 U.I./ml (0.3-0.7) L 07/23/20 09:46 Sodium 137 mmol/L (137-145) 07/23/20 02:41 Potassium 6.6 mmol/L (3.6-5.0) H* 07/23/20 02:41 Chloride 89.9 mmol/L (98-107) L 07/23/20 02:41 Carbon Dioxide 24 mmol/L (22-30) 07/23/20 02:41 Anion Gap 30 mmol/L 07/23/20 02:41 BUN 92 mg/dL (9-20) H 07/23/20 02:41 Creatinine 18.8 mg/dL (0.8-1.3) H 07/23/20 02:41 Estimated GFR 3 ml/min 07/23/20 02:41 BUN/Creatinine Ratio 5 % 07/23/20 02:41 Glucose 101 mg/dL (75-100) H 07/23/20 02:41 POC Glucose 90 mg/dL (70-105) 07/23/20 01:32 Calcium 10.6 mg/dL (8.4-10.2) H 07/23/20 02:41 Total Bilirubin 0.30 mg/dL (0.1-1.2) 07/23/20 02:41 AST 16 units/L (5-40) 07/23/20 02:41 ALT 11 units/L (7-56) 07/23/20 02:41 Alkaline Phosphatase 84 units/L (35-129) 07/23/20 02:41 Total Protein 6.5 g/dL (6.3-8.2) 07/23/20 02:41 Albumin 3.5 g/dL (3.9-5) L 07/23/20 02:41 Albumin/Globulin Ratio 1.2 % 07/23/20 02:41 Hepatitis A IgM Ab Non-reactive (NonReactive) 07/22/20 18:00 Hep Bs Antigen Non-reactive (Negative) 07/22/20 18:00 Hep B Core IgM Ab Non-reactive (NonReactive) 07/22/20 18:00 Hepatitis C Antibody Non-reactive (NonReactive) 07/22/20 18:00 Rodriguez/IV: IV Catheter Type [Right INT / Saline Lock Antecubital] Active Medications - Current Medications Current Medications: Generic Name Dose Route Start Last Admin Trade Name Freq PRN Reason Stop Dose Admin Acetaminophen 650 mg 07/22/20 14:09 Acetaminophen 325 Mg Tab PO Q6H PRN Pain, Mild (1-3) Hydrocodone Bitart/Acetaminophen 2 each 07/22/20 14:09 07/22/20 17:46 Hydrocodone/Acetaminophen 5-325 Mg Tab PO 2 each Q6H PRN Administration Pain, Moderate (4-6) Albuterol 2.5 mg 07/22/20 14:00 Albuterol 2.5 Mg/3 Ml Nebu IH Q3HRT PRN Shortness Of Breath Aspirin 81 mg 07/22/20 15:00 Aspirin Ec 81 Mg Tab PO QDAY AALIYAH Dextrose 25 ml 07/22/20 19:00 07/22/20 20:01 Dextrose 50% In Water (25gm) 50 Ml Syringe IV 07/23/20 19:01 25 ml Q30MIN AALIYAH Administration Protocol Heparin Sodium (Porcine) 4,000 unit 07/23/20 14:05 Heparin 10,000 Units/10 Ml Vial 40 unit/kg (4000 unit) IV Q6H PRN Anti-Xa Assay<0.1 units/ml Hydromorphone HCl 0.5 mg 07/22/20 14:09 07/22/20 22:55 Hydromorphone 1 Mg/1 Ml Inj IV 0.5 mg Q3H PRN Administration Pain , Severe (7-10) Sodium Chloride 1,000 mls @ 30 mls/hr 07/22/20 14:15 Nacl 0.9% 1000 Ml IV DIRECT AALIYAH Clindamycin HCl 600 mg in 50 mls @ 100 mls/hr 07/23/20 12:00 07/23/20 11:25 Cleocin 600 Mg/50 Ml IV 07/23/20 20:00 50 mls PREOP NR Administration Protocol Heparin Sodium/Sodium Chloride 25,000 unit in 500 mls @ 29 mls/hr 07/23/20 15:00 Heparin/ 0.45% Nacl-25,000 Unit/500 Ml IV TITR AALIYAH Protocol 1,450 UNITS/HR Metoprolol Succinate 25 mg 07/22/20 17:00 07/22/20 16:47 Metoprolol Succinate Xl 25 Mg Tab PO 25 mg QDAY AALIYAH Administration Ondansetron HCl 4 mg 07/22/20 14:09 Ondansetron 4 Mg/2 Ml Inj IV Q8H PRN Nausea And Vomiting Sodium Chloride 10 ml 07/22/20 13:00 07/22/20 18:36 Sodium Chloride 0.9% 10 Ml Flush Syringe IV Not Given BID AALIYAH Sodium Chloride 10 ml 07/22/20 13:00 Sodium Chloride 0.9% 10 Ml Flush Syringe IV PRN PRN LINE FLUSH
[2020-07-23] MEDS ORDERED: INSULIN REGULAR, HUMAN 100 UNIT/ML 3ML VIAL IV NR (15:36)
[2020-07-23] MEDS ORDERED: DEXTROSE 50% IN WATER (25GM) 50 ML SYRINGE IV NR (15:36)
[2020-07-23] MEDS ORDERED: SODIUM POLYSTYRENE 15 GM/60 ML ORAL LIQD PO ONE ×2 (16:00→18:19)
[2020-07-23] MEDS ORDERED: CALCIUM GLUCONATE 2,000 MG in SODIUM CHLORIDE 0.9% 100 ML IV ONE (16:33)
[2020-07-23] MEDS ORDERED: DEXTROSE 50% IN WATER (25GM) 50 ML SYRINGE IV SCH (17:19)
[2020-07-23] MEDS: METOPROLOL SUCCINATE XL 25 MG TAB PO SCH (17:36)
[2020-07-23] MEDS: ASPIRIN EC 81 MG TAB PO SCH (17:36)
[2020-07-23] MEDS: SEVELAMER CARBONATE 800 MG TAB PO SCH (17:38)
[2020-07-23] MEDS ORDERED: INSULIN REGULAR, HUMAN 100 UNIT/ML 3ML VIAL IV ONE (18:00)
[2020-07-23] MEDS: HEPARIN/ 0.45% NACL DRIP 25,000 UNIT/500 ML BAG IV SCH (19:15)
[2020-07-23] MEDS: HYDROmorphone 1 MG/1 ML INJ IV PRN (23:40)
[2020-07-23 23:51] LABS: Hematocrit 36.7 % (35.5-45.6); Hemoglobin 11.7 gm/dl (11.8-15.2)
[2020-07-24 00:07] LABS: Partial Thromboplastin Time 39.4 Sec. (24.2-36.6)
[2020-07-24 00:11] LABS: Calcium 10.3 mg/dL (8.4-10.2)
[2020-07-24] MEDS: HEPARIN 10,000 UNITS/10 ML VIAL IV PRN (00:34)
[2020-07-24] MEDS: HYDROcodone/ACETAMINOPHEN 5-325 MG TAB PO PRN (01:01)
[2020-07-24] MEDS: HEPARIN/ 0.45% NACL DRIP 25,000 UNIT/500 ML BAG IV SCH ×2 (01:31→22:30)
[2020-07-24 06:38] LABS: Calcium 10.1 mg/dL (8.4-10.2)
[2020-07-24] MEDS ORDERED: DEXTROSE 50% IN WATER (25GM) 50 ML VIAL IV ONE (08:27)
[2020-07-24] MEDS ORDERED: INSULIN REGULAR, HUMAN 100 UNIT/ML 3ML VIAL IV SCH (09:00)
[2020-07-24] MEDS ORDERED: DEXTROSE 50% IN WATER (25GM) 50 ML SYRINGE IV SCH (09:00)
[2020-07-24] MEDS ORDERED: CALCIUM GLUCONATE 1,000 MG in SODIUM CHLORIDE 0.9% 100 ML IV ONE (09:30)
[2020-07-24] MEDS: SODIUM POLYSTYRENE 15 GM/60 ML ORAL LIQD PO SCH ×3 (09:46→22:19)
[2020-07-24] MEDS: METOPROLOL SUCCINATE XL 25 MG TAB PO SCH (09:50)
[2020-07-24] MEDS: ASPIRIN EC 81 MG TAB PO SCH (09:50)
[2020-07-24] MEDS: SEVELAMER CARBONATE 800 MG TAB PO SCH ×3 (09:50→17:33)
--- NOTE | 2020-07-24 12:17 | Progress Note ---
Assessment and Plan Assessment Thrombosis of left popliteal artery End stage renal disease Hypertension Hyperkalemia Peripheral artery disease DVT prophylaxis Plan: S/P hemodialysis yesterday Hemodialysis again today for UF and clearance [id number] coctail, HD again today Fluid restriction of 1 liter per day Strict I&O's daily Obtain daily weights Renally dose medications Assess dialysis needs daily Subjective Date of service: 07/24/20 Principal diagnosis: ESRD on HD Interval history: Patient seen lying in bed. No family at bedside. Objective - Vital Signs Vital signs: Vital Signs - 12hr 07/24/20 07/24/20 07/24/20 00:00 00:10 00:20 Temperature 98.0 F Pulse Rate 117 H 118 H 119 H Respiratory 14 14 14 Rate Blood Pressure 115/70 115/70 118/63 O2 Sat by Pulse 97 97 98 Oximetry 07/24/20 07/24/20 07/24/20 00:30 00:40 00:50 Temperature Pulse Rate 118 H 119 H 119 H Respiratory 13 Rate Blood Pressure 133/64 118/63 97/42 O2 Sat by Pulse 96 100 94 Oximetry 07/24/20 07/24/20 07/24/20 01:00 01:01 01:10 Temperature Pulse Rate 120 H 118 H Respiratory 19 18 13 Rate Blood Pressure 112/49 112/49 O2 Sat by Pulse 97 99 Oximetry 07/24/20 07/24/20 07/24/20 01:20 01:30 01:40 Temperature Pulse Rate 119 H 119 H 119 H Respiratory 20 20 21 Rate Blood Pressure 116/59 96/44 96/44 O2 Sat by Pulse 96 95 99 Oximetry 07/24/20 07/24/20 07/24/20 01:50 02:00 02:01 Temperature Pulse Rate 118 H 117 H Respiratory 14 16 16 Rate Blood Pressure 116/32 107/27 O2 Sat by Pulse 97 94 Oximetry 07/24/20 07/24/20 07/24/20 02:10 02:20 02:30 Temperature Pulse Rate 118 H 117 H 117 H Respiratory 21 18 18 Rate Blood Pressure 107/27 107/44 108/40 O2 Sat by Pulse 100 100 95 Oximetry 07/24/20 07/24/20 07/24/20 02:45 03:00 03:15 Temperature Pulse Rate 111 H 114 H 107 H Respiratory 16 15 21 Rate Blood Pressure 140/58 107/35 130/60 O2 Sat by Pulse 97 100 100 Oximetry 07/24/20 07/24/20 07/24/20 03:30 03:46 04:00 Temperature 97.4 F L Pulse Rate 111 H 112 H 112 H Respiratory 20 17 13 Rate Blood Pressure 105/47 115/37 108/42 O2 Sat by Pulse 100 97 100 Oximetry 07/24/20 07/24/20 07/24/20 04:09 04:15 04:30 Temperature Pulse Rate 112 H 112 H 110 H Respiratory 20 12 Rate Blood Pressure 130/34 131/54 O2 Sat by Pulse 100 100 Oximetry 07/24/20 07/24/20 07/24/20 04:45 05:00 05:15 Temperature Pulse Rate 110 H 111 H 111 H Respiratory 19 18 22 Rate Blood Pressure 126/54 126/45 123/49 O2 Sat by Pulse 91 95 100 Oximetry 07/24/20 07/24/20 07/24/20 05:30 05:45 06:00 Temperature Pulse Rate 110 H 112 H 111 H Respiratory 18 22 13 Rate Blood Pressure 126/54 112/55 96/36 O2 Sat by Pulse 94 94 98 Oximetry 07/24/20 07/24/20 07/24/20 06:15 06:30 06:46 Temperature Pulse Rate 112 H 113 H 113 H Respiratory 21 24 18 Rate Blood Pressure 111/42 122/39 98/35 O2 Sat by Pulse 100 100 100 Oximetry 07/24/20 07/24/20 08:00 09:50 Temperature 97.4 F L Pulse Rate 120 H Respiratory Rate Blood Pressure 106/51 O2 Sat by Pulse Oximetry - General Appearance General appearance: well-developed, appears stated age, fatigue EENT: ATNC, PERRL, hearing intact, vision intact Neck: no JVD, supple Respiratory: Present: Decreased Breath Sounds Cardiology: irregular, S1S2 Gastrointestinal: normoactive bowel sounds Integumentary: warm and dry Neurologic: alert and oriented x3 Musculoskeletal: joint swelling Psychiatric: cooperative - Lab 07/23/20 23:01 07/24/20 05:33 Most recent lab results Calcium 10.1 mg/dL (8.4-10.2) 07/24/20 05:33 Medications & Allergies - Medications Allergies/Adverse Reactions: Allergies amoxicillin Allergy (Verified 07/22/20 12:14) Unknown Active Medications: Generic Name Dose Route Start Last Admin Trade Name Freq PRN Reason Stop Dose Admin Acetaminophen 650 mg 07/22/20 14:09 Acetaminophen 325 Mg Tab PO Q6H PRN Pain, Mild (1-3) Hydrocodone Bitart/Acetaminophen 2 each 07/22/20 14:09 07/24/20 01:01 Hydrocodone/Acetaminophen 5-325 Mg Tab PO 2 each Q6H PRN Administration Pain, Moderate (4-6) Albuterol 2.5 mg 07/22/20 14:00 Albuterol 2.5 Mg/3 Ml Nebu IH Q3HRT PRN Shortness Of Breath Aspirin 81 mg 07/22/20 15:00 07/24/20 09:50 Aspirin Ec 81 Mg Tab PO 81 mg QDAY AALIYAH Administration Dextrose 25 ml 07/23/20 17:19 Dextrose 50% In Water (25gm) 50 Ml Syringe IV 07/24/20 17:20 Q30MIN AALIYAH Protocol Heparin Sodium (Porcine) 4,000 unit 07/23/20 14:05 07/24/20 00:34 Heparin 10,000 Units/10 Ml Vial 40 unit/kg (4000 unit) 4,000 unit IV Administration Q6H PRN Anti-Xa Assay<0.1 units/ml Hydromorphone HCl 0.5 mg 07/22/20 14:09 07/23/20 23:40 Hydromorphone 1 Mg/1 Ml Inj IV 0.5 mg Q3H PRN Administration Pain , Severe (7-10) Sodium Chloride 1,000 mls @ 30 mls/hr 07/22/20 14:15 Nacl 0.9% 1000 Ml IV DIRECT AALIYAH Heparin Sodium/Sodium Chloride 25,000 unit in 500 mls @ 29 mls/hr 07/23/20 15:00 07/24/20 07:16 Heparin/ 0.45% Nacl-25,000 Unit/500 Ml IV 1,250 units/hr TITR AALIYAH 25 mls/hr Titration Protocol 1,450 UNITS/HR Metoprolol Succinate 25 mg 07/22/20 17:00 07/24/20 09:50 Metoprolol Succinate Xl 25 Mg Tab PO 25 mg QDAY AALIYAH Administration Ondansetron HCl 4 mg 07/22/20 14:09 Ondansetron 4 Mg/2 Ml Inj IV Q8H PRN Nausea And Vomiting Sevelamer Carbonate 800 mg 07/23/20 18:30 07/24/20 09:50 Sevelamer Carbonate 800 Mg Tab PO 800 mg AC AALIYAH Administration Sodium Chloride 10 ml 07/22/20 13:00 07/24/20 09:51 Sodium Chloride 0.9% 10 Ml Flush Syringe IV 10 ml BID AALIYAH Administration Sodium Chloride 10 ml 07/22/20 13:00 Sodium Chloride 0.9% 10 Ml Flush Syringe IV PRN PRN LINE FLUSH Sodium Polystyrene Sulfonate 60 gm 07/24/20 09:00 07/24/20 09:46 Sodium Polystyrene 15 Gm/60 Ml Oral Liqd PO 60 gm Q6H AALIYAH Administration
--- NOTE | 2020-07-24 13:04 | Progress Note ---
Assessment and Plan Assessment and plan: (1) Acute limb ischemia with thrombosis of left popliteal artery Current Visit: Yes Status: Acute Plan to address problem: s/p angiogram and angioplasty for left popliteal artery occlusion Vascular surgery following (2) End stage renal disease Current Visit: Yes Status: Acute Plan to address problem: Nephrology team on board HD as per renal Hyperkalemia management as per protocol. (3) Hypertension Current Visit: Yes Status: Acute Qualifiers: Hypertension type: essential hypertension Qualified Code(s): I10 - Essential (primary) hypertension Plan to address problem: Monitor blood pressure every shift, continue medical management (4) Nicotine dependence Current Visit: Yes Status: Acute Qualifiers: Nicotine product type: cigarettes Substance use status: in withdrawal Qualified Code(s): F17.213 - Nicotine dependence, cigarettes, with withdrawal Plan to address problem: Smoking cessation counseling, supportive care, behavior change counseling, +15 minutes. (5) Peripheral artery disease Current Visit: Yes Status: Acute Plan to address problem: Msnagement as above (6) DVT prophylaxis Current Visit: Yes Status: Acute Plan to address problem: SCDs bilateral lower extremities while in bed, continue therapeutic anticoagulation History Interval history: Now s/p limb revascularization Had HD yesterday. Plan for HD today. Still has hyperkalemia. Ordered hyperkalemia cocktail Hospitalist Physical - Physical exam Narrative exam: VITAL SIGNS: Reviewed. GENERAL: Awake HEAD: No signs of head trauma. EYES: Pupils are equal. Extraocular motions intact. MOUTH: Oropharynx is normal. NECK: No adenopathy, no JVD. CHEST: Chest with diminished breath sounds bilaterally. No wheezes, rales, or rhonchi. CARDIAC: normal S1 and S2, without murmurs, gallops, or rubs. ABDOMEN: Soft, non tender and non distended. No rebound or guarding, and no masses palpated. Bowel Sounds normal. MUSCULOSKELETAL: Left leg discomfort NEUROLOGIC EXAM: Alert and oriented x3. No focal neurologic deficits SKIN: No obvious lesions - Constitutional Vitals: Temp Pulse Resp BP Pulse Ox 97.9 F 127 H 25 H 94/44 97 07/24/20 12:00 07/24/20 12:00 07/24/20 12:00 07/24/20 12:00 07/24/20 12:00 Results - Labs CBC & Chem 7: 07/23/20 23:01 07/24/20 05:33 Labs: Laboratory Last Values WBC 17.2 K/mm3 (4.5-11.0) H 07/23/20 09:46 RBC 3.47 M/mm3 (3.65-5.03) L 07/23/20 09:46 Hgb 11.7 gm/dl (11.8-15.2) L 07/23/20 23:01 Hct 36.7 % (35.5-45.6) 07/23/20 23:01 MCV 102 fl (84-94) H 07/23/20 09:46 MCH 33 pg (28-32) H 07/23/20 09:46 MCHC 32 % (32-34) 07/23/20 09:46 RDW 18.8 % (13.2-15.2) H 07/23/20 09:46 Plt Count 359 K/mm3 (140-440) 07/23/20 23:01 Lymph % (Auto) 3.0 % (13.4-35.0) L 07/23/20 02:41 [place] % (Auto) 5.0 % (0.0-7.3) 07/23/20 02:41 Eos % (Auto) 0.1 % (0.0-4.3) 07/23/20 02:41 Baso % (Auto) 0.4 % (0.0-1.8) 07/23/20 02:41 Lymph # (Auto) 0.4 K/mm3 (1.2-5.4) L 07/23/20 02:41 [place] # (Auto) 0.7 K/mm3 (0.0-0.8) 07/23/20 02:41 Eos # (Auto) 0.0 K/mm3 (0.0-0.4) 07/23/20 02:41 Baso # (Auto) 0.1 K/mm3 (0.0-0.1) 07/23/20 02:41 Add Manual Diff Complete 07/23/20 09:46 Total Counted 100 07/23/20 09:46 Seg Neutrophils % Urgent Care Nurse Practitioner 07/23/20 09:46 Seg Neuts % (Manual) 94.0 % (40.0-70.0) H 07/23/20 09:46 Band Neutrophils % 1.0 % 07/23/20 09:46 Lymphocytes % (Manual) 1.0 % (13.4-35.0) L 07/23/20 09:46 Reactive Lymphs % (Man) 0 % 07/22/20 18:00 Monocytes % (Manual) 4.0 % (0.0-7.3) 07/23/20 09:46 Eosinophils % (Manual) 0 % (0.0-4.3) 07/22/20 18:00 Basophils % (Manual) 0 % (0.0-1.8) 07/22/20 18:00 Metamyelocytes % 0 % 07/22/20 18:00 Myelocytes % 0 % 07/22/20 18:00 Promyelocytes % 0 % 07/22/20 18:00 Blast Cells % 0 % 07/22/20 18:00 Nucleated RBC % Not Reportable 07/23/20 09:46 Seg Neutrophils # 13.4 K/mm3 (1.8-7.7) H 07/23/20 02:41 Seg Neutrophils # Man 16.2 K/mm3 (1.8-7.7) H 07/23/20 09:46 Band Neutrophils # 0.2 K/mm3 07/23/20 09:46 Lymphocytes # (Manual) 0.2 K/mm3 (1.2-5.4) L 07/23/20 09:46 Abs React Lymphs (Man) 0.0 K/mm3 07/23/20 09:46 Monocytes # (Manual) 0.7 K/mm3 (0.0-0.8) 07/23/20 09:46 Eosinophils # (Manual) 0.0 K/mm3 (0.0-0.4) 07/23/20 09:46 Basophils # (Manual) 0.0 K/mm3 (0.0-0.1) 07/23/20 09:46 Metamyelocytes # 0.0 K/mm3 07/23/20 09:46 Myelocytes # 0.0 K/mm3 07/23/20 09:46 Promyelocytes # 0.0 K/mm3 07/23/20 09:46 Blast Cells # 0.0 K/mm3 07/23/20 09:46 WBC Morphology Not Reportable 07/23/20 09:46 Hypersegmented Neuts Not Reportable 07/23/20 09:46 Hyposegmented Neuts Not Reportable 07/23/20 09:46 Hypogranular Neuts Not Reportable 07/23/20 09:46 Smudge Cells Not Reportable 07/23/20 09:46 Toxic Granulation Not Reportable 07/23/20 09:46 Toxic Vacuolation Not Reportable 07/23/20 09:46 Dohle Bodies Not Reportable 07/23/20 09:46 Pelger-Huet Anomaly Not Reportable 07/23/20 09:46 Svetlana Rods Not Reportable 07/23/20 09:46 Platelet Estimate Consistent w auto 07/23/20 09:46 Clumped Platelets Not Reportable 07/23/20 09:46 Plt Clumps, EDTA Not Reportable 07/23/20 09:46 Large Platelets Not Reportable 07/23/20 09:46 Giant Platelets Not Reportable 07/23/20 09:46 Platelet Satelliting Not Reportable 07/23/20 09:46 Plt Morphology Comment Not Reportable 07/23/20 09:46 RBC Morphology Not Reportable 07/23/20 09:46 Dimorphic RBCs Not Reportable 07/23/20 09:46 Polychromasia Not Reportable 07/23/20 09:46 Hypochromasia Not Reportable 07/23/20 09:46 Poikilocytosis Not Reportable 07/23/20 09:46 Anisocytosis 1+ 07/23/20 09:46 Microcytosis Not Reportable 07/23/20 09:46 Macrocytosis Not Reportable 07/23/20 09:46 Spherocytes Not Reportable 07/23/20 09:46 Pappenheimer Bodies Not Reportable 07/23/20 09:46 Sickle Cells Not Reportable 07/23/20 09:46 Target Cells Not Reportable 07/23/20 09:46 Tear Drop Cells Not Reportable 07/23/20 09:46 Ovalocytes Not Reportable 07/23/20 09:46 Helmet Cells Not Reportable 07/23/20 09:46 Seth-Mcdonald Bodies Not Reportable 07/23/20 09:46 [place] Rings Not Reportable 07/23/20 09:46 [place] Cells Not Reportable 07/23/20 09:46 Bite Cells Not Reportable 07/23/20 09:46 Crenated Cell Not Reportable 07/23/20 09:46 Elliptocytes Not Reportable 07/23/20 09:46 Acanthocytes (Spur) Not Reportable 07/23/20 09:46 Rouleaux Not Reportable 07/23/20 09:46 Hemoglobin C Crystals Not Reportable 07/23/20 09:46 Schistocytes Not Reportable 07/23/20 09:46 Malaria parasites Not Reportable 07/23/20 09:46 Malachi Bodies Not Reportable 07/23/20 09:46 Hem Pathologist Commnt No 07/23/20 09:46 PT 21.0 Sec. (12.2-14.9) H 07/23/20 23:01 INR 1.80 (0.87-1.13) H 07/23/20 23:01 APTT 39.4 Sec. (24.2-36.6) H 07/23/20 23:01 Fibrinogen 494 mg/dl (211-480) H 07/23/20 09:46 Heparin Anti-Xa Level 0.35 U.I./ml (0.3-0.7) 07/24/20 05:33 Sodium 143 mmol/L (137-145) 07/24/20 05:33 Potassium 7.0 mmol/L (3.6-5.0) H* 07/24/20 05:33 Chloride 96.3 mmol/L (98-107) L 07/24/20 05:33 Carbon Dioxide 22 mmol/L (22-30) 07/24/20 05:33 Anion Gap 32 mmol/L 07/24/20 05:33 BUN 71 mg/dL (9-20) H 07/24/20 05:33 Creatinine 14.7 mg/dL (0.8-1.3) H 07/24/20 05:33 Estimated GFR 4 ml/min 07/24/20 05:33 BUN/Creatinine Ratio 5 % 07/24/20 05:33 Glucose 105 mg/dL (75-100) H 07/24/20 05:33 POC Glucose 90 mg/dL (70-105) 07/23/20 01:32 Calcium 10.1 mg/dL (8.4-10.2) 07/24/20 05:33 Total Bilirubin 0.30 mg/dL (0.1-1.2) 07/23/20 02:41 AST 16 units/L (5-40) 07/23/20 02:41 ALT 11 units/L (7-56) 07/23/20 02:41 Alkaline Phosphatase 84 units/L (35-129) 07/23/20 02:41 Total Protein 6.5 g/dL (6.3-8.2) 07/23/20 02:41 Albumin 3.5 g/dL (3.9-5) L 07/23/20 02:41 Albumin/Globulin Ratio 1.2 % 07/23/20 02:41 Hepatitis A IgM Ab Non-reactive (NonReactive) 07/22/20 18:00 Hep Bs Antigen Non-reactive (Negative) 07/22/20 18:00 Hep B Core IgM Ab Non-reactive (NonReactive) 07/22/20 18:00 Hepatitis C Antibody Non-reactive (NonReactive) 07/22/20 18:00 Rodriguez/IV: IV Catheter Type [Left Forearm INT / Saline Lock ] IV Catheter Type [Right INT / Saline Lock Antecubital] Active Medications - Current Medications Current Medications: Generic Name Dose Route Start Last Admin Trade Name Freq PRN Reason Stop Dose Admin Acetaminophen 650 mg 07/22/20 14:09 Acetaminophen 325 Mg Tab PO Q6H PRN Pain, Mild (1-3) Hydrocodone Bitart/Acetaminophen 2 each 07/22/20 14:09 07/24/20 01:01 Hydrocodone/Acetaminophen 5-325 Mg Tab PO 2 each Q6H PRN Administration Pain, Moderate (4-6) Albuterol 2.5 mg 07/22/20 14:00 Albuterol 2.5 Mg/3 Ml Nebu IH Q3HRT PRN Shortness Of Breath Aspirin 81 mg 07/22/20 15:00 07/24/20 09:50 Aspirin Ec 81 Mg Tab PO 81 mg QDAY AALIYAH Administration Dextrose 25 ml 07/23/20 17:19 Dextrose 50% In Water (25gm) 50 Ml Syringe IV 07/24/20 17:20 Q30MIN [facility] Protocol Heparin Sodium (Porcine) 4,000 unit 07/23/20 14:05 07/24/20 00:34 Heparin 10,000 Units/10 Ml Vial 40 unit/kg (4000 unit) 4,000 unit IV Administration Q6H PRN Anti-Xa Assay<0.1 units/ml Hydromorphone HCl 0.5 mg 07/22/20 14:09 07/23/20 23:40 Hydromorphone 1 Mg/1 Ml Inj IV 0.5 mg Q3H PRN Administration Pain , Severe (7-10) Sodium Chloride 1,000 mls @ 30 mls/hr 07/22/20 14:15 Nacl 0.9% 1000 Ml IV DIRECT AALIYAH Heparin Sodium/Sodium Chloride 25,000 unit in 500 mls @ 29 mls/hr 07/23/20 15:00 07/24/20 07:16 Heparin/ 0.45% Nacl-25,000 Unit/500 Ml IV 1,250 units/hr TITR AALIYAH 25 mls/hr Titration Protocol 1,450 UNITS/HR Metoprolol Succinate 25 mg 07/22/20 17:00 07/24/20 09:50 Metoprolol Succinate Xl 25 Mg Tab PO 25 mg QDAY AALIYAH Administration Ondansetron HCl 4 mg 07/22/20 14:09 Ondansetron 4 Mg/2 Ml Inj IV Q8H PRN Nausea And Vomiting Sevelamer Carbonate 800 mg 07/23/20 18:30 07/24/20 09:50 Sevelamer Carbonate 800 Mg Tab PO 800 mg AC AALIYAH Administration Sodium Chloride 10 ml 07/22/20 13:00 07/24/20 09:51 Sodium Chloride 0.9% 10 Ml Flush Syringe IV 10 ml BID AALIYAH Administration Sodium Chloride 10 ml 07/22/20 13:00 Sodium Chloride 0.9% 10 Ml Flush Syringe IV PRN PRN LINE FLUSH Sodium Polystyrene Sulfonate 60 gm 07/24/20 09:00 07/24/20 09:46 Sodium Polystyrene 15 Gm/60 Ml Oral Liqd PO 60 gm Q6H AALIYAH Administration
[2020-07-24] MEDS: HYDROmorphone 1 MG/1 ML INJ IV PRN (19:34)
--- NOTE | 2020-07-24 21:10 | Progress Note ---
Assessment and Plan 54-year-old male with end-stage renal disease and left lower extremity CLI who was then sent to [facility] for limb ischemia status post thrombolysis and percutaneous mechanical thrombectomy. The issue is the patient had baseline nearly unsalvagable CLI. There was no outflow into the foot at baseline. All pedal vessels were occluded at baseline. Even with opening of the peroneal into the dorsalis pedis, the flow is marginal at best. Has forefoot and midfoot which are ischemic. Discussed with the patient that the best management would be to follow over the next few days to allow demarcation and further exams, as my exam was done during active dialysis, but I am concerned that the patient will ultimately need a BKA. Subjective Date of service: 07/24/20 Principal diagnosis: ESRD on HD Interval history: Late entry: saw at 430 pm during dialysis. Patient was actively receiving dialysis. Right groin without hematoma, or pseudoaneurysm. Right thigh graft being accessed for dialysis. Left calf and hindfoot is warm and well perfused. The midfoot is cool and the forefoot is cold. No motor function of the toes, chronic. No sensory function f rom the midfoot forward, which is worse than baseline. No palpable pedal pulses. Objective - Constitutional Vitals: Vital Signs - 12hr 07/24/20 07/24/20 07/24/20 09:50 10:00 11:00 Temperature Pulse Rate 120 H 119 H 127 H Respiratory 22 21 Rate Blood Pressure 106/51 106/51 115/61 O2 Sat by Pulse 98 98 Oximetry O2 Sat by Pulse Oximetry [ Anterior Bilateral Throughout] 07/24/20 07/24/20 07/24/20 12:00 13:00 14:00 Temperature 97.9 F 97.9 F Pulse Rate 127 H 125 H 124 H Respiratory 25 H 21 24 Rate Blood Pressure 94/44 105/32 97/43 O2 Sat by Pulse 97 98 96 Oximetry O2 Sat by Pulse 98 Oximetry [ Anterior Bilateral Throughout] 07/24/20 07/24/20 07/24/20 14:15 14:30 14:45 Temperature Pulse Rate 124 H 122 H 124 H Respiratory Rate Blood Pressure 91/54 95/59 97/52 O2 Sat by Pulse Oximetry O2 Sat by Pulse Oximetry [ Anterior Bilateral Throughout] 07/24/20 07/24/20 07/24/20 15:00 15:15 15:30 Temperature Pulse Rate 125 H 124 H 123 H Respiratory 15 Rate Blood Pressure 88/43 92/50 84/58 O2 Sat by Pulse 96 Oximetry O2 Sat by Pulse Oximetry [ Anterior Bilateral Throughout] 07/24/20 07/24/20 07/24/20 15:45 16:00 16:05 Temperature 97.9 F Pulse Rate 124 H 124 H 123 H Respiratory 17 Rate Blood Pressure 89/58 79/52 85/56 O2 Sat by Pulse 95 Oximetry O2 Sat by Pulse Oximetry [ Anterior Bilateral Throughout] 07/24/20 07/24/20 07/24/20 16:15 16:30 16:45 Temperature Pulse Rate 124 H 122 H 122 H Respiratory Rate Blood Pressure 89/56 103/70 109/67 O2 Sat by Pulse Oximetry O2 Sat by Pulse Oximetry [ Anterior Bilateral Throughout] 07/24/20 07/24/20 07/24/20 17:00 17:15 17:20 Temperature 97.9 F Pulse Rate 123 H 123 H 123 H Respiratory 15 11 L Rate Blood Pressure 100/62 100/62 102/64 O2 Sat by Pulse 96 Oximetry O2 Sat by Pulse 100 Oximetry [ Anterior Bilateral Throughout] 07/24/20 07/24/20 07/24/20 18:00 20:00 20:04 Temperature 98.4 F Pulse Rate 124 H Respiratory 15 16 Rate Blood Pressure 108/71 O2 Sat by Pulse 97 Oximetry O2 Sat by Pulse Oximetry [ Anterior Bilateral Throughout] General appearance: Present: mild distress (with palpation of the left forefoot and midfoot, pain.) - EENT Eyes: EOM intact ENT: hearing intact - Respiratory Respiratory effort: normal Extremities: abnormal (see subjective) - Psychiatric Psychiatric: appropriate mood/affect, memory intact - Labs CBC & Chem 7: 07/23/20 23:01 07/24/20 13:55 Labs: Abnormal lab results 07/23/20 07/23/20 07/23/20 Range/Units 23:01 23:01 23:01 Hgb 11.7 L (11.8-15.2) gm/dl PT 21.0 H (12.2-14.9) Sec. INR 1.80 H (0.87-1.13) APTT 39.4 H (24.2-36.6) Sec. Heparin Anti-Xa Level < 0.10 L (0.3-0.7) U.I./ml Potassium 6.0 H (3.6-5.0) mmol/L Chloride 92.5 L (98-107) mmol/L BUN 69 H (9-20) mg/dL Creatinine 14.7 H (0.8-1.3) mg/dL Glucose 104 H (75-100) mg/dL Calcium 10.3 H (8.4-10.2) mg/dL 07/24/20 07/24/20 Range/Units 05:33 13:55 Hgb (11.8-15.2) gm/dl PT (12.2-14.9) Sec. INR (0.87-1.13) APTT (24.2-36.6) Sec. Heparin Anti-Xa Level (0.3-0.7) U.I./ml Potassium 7.0 H* 6.0 H (3.6-5.0) mmol/L Chloride 96.3 L 93.5 L (98-107) mmol/L BUN 71 H 77 H (9-20) mg/dL Creatinine 14.7 H 15.5 H (0.8-1.3) mg/dL Glucose 105 H (75-100) mg/dL Calcium (8.4-10.2) mg/dL Medications & Allergies - Medications Allergies/Adverse Reactions: Allergies amoxicillin Allergy (Verified 07/22/20 12:14) Unknown Home Medications: Home Medications Medication Instructions Recorded Confirmed Last Taken Type Metoprolol [Lopressor] 25 mg PO QDAY 07/24/20 07/24/20 07/17/20 History Sevelamer Carbonate [Renvela] 800 mg PO TIDAC 07/24/20 07/24/20 07/19/20 History Sucroferric Oxyhydroxide(Nf) 500 mg PO TIDAC 07/24/20 07/24/20 07/19/20 History [Velphoro (Nf)] Warfarin [Coumadin] 6 mg PO QDAY 07/24/20 07/24/20 07/19/20 History Active Medications: Generic Name Dose Route Start Last Admin Trade Name Freq PRN Reason Stop Dose Admin Acetaminophen 650 mg 07/22/20 14:09 Acetaminophen 325 Mg Tab PO Q6H PRN Pain, Mild (1-3) Hydrocodone Bitart/Acetaminophen 2 each 07/22/20 14:09 07/24/20 01:01 Hydrocodone/Acetaminophen 5-325 Mg Tab PO 2 each Q6H PRN Administration Pain, Moderate (4-6) Albuterol 2.5 mg 07/22/20 14:00 Albuterol 2.5 Mg/3 Ml Nebu IH Q3HRT PRN Shortness Of Breath Aspirin 81 mg 07/22/20 15:00 07/24/20 09:50 Aspirin Ec 81 Mg Tab PO 81 mg QDAY AALIYAH Administration Heparin Sodium (Porcine) 4,000 unit 07/23/20 14:05 07/24/20 00:34 Heparin 10,000 Units/10 Ml Vial 40 unit/kg (4000 unit) 4,000 unit IV Administration Q6H PRN Anti-Xa Assay<0.1 units/ml Hydromorphone HCl 0.5 mg 07/22/20 14:09 07/24/20 19:34 Hydromorphone 1 Mg/1 Ml Inj IV 0.5 mg Q3H PRN Administration Pain , Severe (7-10) Sodium Chloride 1,000 mls @ 30 mls/hr 07/22/20 14:15 Nacl 0.9% 1000 Ml IV DIRECT AALIYAH Heparin Sodium/Sodium Chloride 25,000 unit in 500 mls @ 29 mls/hr 07/23/20 15:00 07/24/20 07:16 Heparin/ 0.45% Nacl-25,000 Unit/500 Ml IV 1,250 units/hr TITR AALIYAH 25 mls/hr Titration Protocol 1,450 UNITS/HR Metoprolol Succinate 25 mg 07/22/20 17:00 07/24/20 09:50 Metoprolol Succinate Xl 25 Mg Tab PO 25 mg QDAY AALIYAH Administration Ondansetron HCl 4 mg 07/22/20 14:09 Ondansetron 4 Mg/2 Ml Inj IV Q8H PRN Nausea And Vomiting Sevelamer Carbonate 800 mg 07/23/20 18:30 07/24/20 17:33 Sevelamer Carbonate 800 Mg Tab PO 800 mg AC AALIYAH Administration Sodium Chloride 10 ml 07/22/20 13:00 07/24/20 09:51 Sodium Chloride 0.9% 10 Ml Flush Syringe IV 10 ml BID AALIYAH Administration Sodium Chloride 10 ml 07/22/20 13:00 Sodium Chloride 0.9% 10 Ml Flush Syringe IV PRN PRN LINE FLUSH Sodium Polystyrene Sulfonate 60 gm 07/24/20 09:00 07/24/20 17:26 Sodium Polystyrene 15 Gm/60 Ml Oral Liqd PO Not Given Q6H AALIYAH
[2020-07-25] MEDS: SODIUM POLYSTYRENE 15 GM/60 ML ORAL LIQD PO SCH (03:19)
[2020-07-25] MEDS: HYDROcodone/ACETAMINOPHEN 5-325 MG TAB PO PRN ×2 (03:19→11:19)
[2020-07-25 05:20] LABS: Basophils % (Auto) 0.5 % (0.0-1.8); Eosinophils # (Auto) 0.1 K/mm3 (0.0-0.4); Eosinophils % (Auto) 0.9 % (0.0-4.3); Hematocrit 35.6 % (35.5-45.6); Hemoglobin 11.4 gm/dl (11.8-15.2); Lymphocytes # (Auto) 0.7 K/mm3 (1.2-5.4); Lymphocytes % (Auto) 9.4 % (13.4-35.0); Mean Corpuscular HGB Conc 32 % (32-34); Mean Corpuscular Volume 102 fl (84-94); Monocytes # (Auto) 0.8 K/mm3 (0.0-0.8); Monocytes % (Auto) 10.4 % (0.0-7.3); Platelet Count 315 K/mm3 (140-440); Red Blood Count 3.48 M/mm3 (3.65-5.03); Red Cell Distribution Width 18.4 % (13.2-15.2)
[2020-07-25 05:27] LABS: Calcium 9.4 mg/dL (8.4-10.2)
[2020-07-25] MEDS: SEVELAMER CARBONATE 800 MG TAB PO SCH ×3 (09:09→18:17)
--- NOTE | 2020-07-25 09:45 | Progress Note ---
Assessment and Plan Thrombosis of left popliteal artery End stage renal disease Hypertension Hyperkalemia Peripheral artery disease DVT prophylaxis Plan: no indication for HD today, ordered for tomorrow Hyperkalemia-resolved Fluid restriction of 1 liter per day Strict I&O's daily Obtain daily weights Renally dose medications Assess dialysis needs daily Subjective Date of service: 07/25/20 Principal diagnosis: ESRD on HD Interval history: tolerated HD yesterday Objective - Vital Signs Vital signs: Vital Signs - 12hr 07/24/20 07/24/20 07/24/20 22:00 23:00 23:46 Temperature Pulse Rate 128 H 128 H 130 H Respiratory 19 19 Rate Respiratory Rate [Left Lower Leg] Blood Pressure 88/58 90/61 O2 Sat by Pulse 97 98 Oximetry 07/25/20 07/25/20 07/25/20 00:00 01:00 02:00 Temperature 98.2 F Pulse Rate 131 H 128 H 127 H Respiratory 20 18 21 Rate Respiratory Rate [Left Lower Leg] Blood Pressure 81/47 90/61 92/47 O2 Sat by Pulse 98 97 96 Oximetry 07/25/20 07/25/20 07/25/20 03:02 03:15 03:19 Temperature Pulse Rate 126 H Respiratory 12 13 Rate Respiratory 16 Rate [Left Lower Leg] Blood Pressure O2 Sat by Pulse 94 Oximetry 07/25/20 07/25/20 07/25/20 04:00 04:19 05:00 Temperature 97.8 F Pulse Rate 127 H 127 H Respiratory 22 18 15 Rate Respiratory Rate [Left Lower Leg] Blood Pressure 99/54 97/45 O2 Sat by Pulse 91 95 Oximetry 07/25/20 06:00 Temperature Pulse Rate 128 H Respiratory 19 Rate Respiratory Rate [Left Lower Leg] Blood Pressure 97/36 O2 Sat by Pulse 91 Oximetry - Lab 07/25/20 04:22 07/25/20 04:22 Most recent lab results Calcium 9.4 mg/dL (8.4-10.2) 07/25/20 04:22 Medications & Allergies - Medications Allergies/Adverse Reactions: Allergies amoxicillin Allergy (Verified 07/22/20 12:14) Unknown Home Medications: Home Medications Medication Instructions Recorded Confirmed Last Taken Type Metoprolol [Lopressor] 25 mg PO QDAY 07/24/20 07/24/20 07/17/20 History Sevelamer Carbonate [Renvela] 800 mg PO TIDAC 07/24/20 07/24/20 07/19/20 History Sucroferric Oxyhydroxide(Nf) 500 mg PO TIDAC 07/24/20 07/24/20 07/19/20 History [Velphoro (Nf)] Warfarin [Coumadin] 6 mg PO QDAY 07/24/20 07/24/20 07/19/20 History Active Medications: Generic Name Dose Route Start Last Admin Trade Name Freq PRN Reason Stop Dose Admin Acetaminophen 650 mg 07/22/20 14:09 Acetaminophen 325 Mg Tab PO Q6H PRN Pain, Mild (1-3) Hydrocodone Bitart/Acetaminophen 2 each 07/22/20 14:09 07/25/20 03:19 Hydrocodone/Acetaminophen 5-325 Mg Tab PO 2 each Q6H PRN Administration Pain, Moderate (4-6) Albuterol 2.5 mg 07/22/20 14:00 Albuterol 2.5 Mg/3 Ml Nebu IH Q3HRT PRN Shortness Of Breath Aspirin 81 mg 07/22/20 15:00 07/24/20 09:50 Aspirin Ec 81 Mg Tab PO 81 mg QDAY AALIYAH Administration Heparin Sodium (Porcine) 4,000 unit 07/23/20 14:05 07/24/20 00:34 Heparin 10,000 Units/10 Ml Vial 40 unit/kg (4000 unit) 4,000 unit IV Administration Q6H PRN Anti-Xa Assay<0.1 units/ml Hydromorphone HCl 0.5 mg 07/22/20 14:09 07/24/20 19:34 Hydromorphone 1 Mg/1 Ml Inj IV 0.5 mg Q3H PRN Administration Pain , Severe (7-10) Sodium Chloride 1,000 mls @ 30 mls/hr 07/22/20 14:15 Nacl 0.9% 1000 Ml IV DIRECT AALIYAH Heparin Sodium/Sodium Chloride 25,000 unit in 500 mls @ 29 mls/hr 07/23/20 15:00 07/25/20 05:37 Heparin/ 0.45% Nacl-25,000 Unit/500 Ml IV 1,450 units/hr TITR AALIYAH 29 mls/hr Titration Protocol 1,450 UNITS/HR Metoprolol Succinate 25 mg 07/25/20 10:00 Metoprolol Succinate Xl 25 Mg Tab PO QDAY [facility] Ondansetron HCl 4 mg 07/22/20 14:09 Ondansetron 4 Mg/2 Ml Inj IV Q8H PRN Nausea And Vomiting Sevelamer Carbonate 800 mg 07/23/20 18:30 07/24/20 17:33 Sevelamer Carbonate 800 Mg Tab PO 800 mg AC AALIYAH Administration Sodium Chloride 10 ml 07/22/20 13:00 07/24/20 22:20 Sodium Chloride 0.9% 10 Ml Flush Syringe IV 10 ml BID AALIYAH Administration Sodium Chloride 10 ml 07/22/20 13:00 Sodium Chloride 0.9% 10 Ml Flush Syringe IV PRN PRN LINE FLUSH
--- NOTE | 2020-07-25 09:46 | Progress Note ---
Assessment and Plan The patient with ischemic changes to the forefoot and midfoot. The patient initially presented with critical limb and nonreconstructable arterial disease. He will likely require a BKA. We will allow the foot to declare itself given his recent revascularization. If a BKA is necessary, this will be done in the first part of next week unless there are additional worsening clinical changes. Subjective Date of service: 07/25/20 Principal diagnosis: Peripheral vascular disease with ischemia Interval history: Patient with a history of peripheral vascular disease with ischemic changes. His physical exam is stable from yesterday with his forefoot being cold, midfoot being cool and ankle and calf being warm. The patient is unable to move his ankle or toes. No significant complaints of any pain. Objective - Constitutional Vitals: Vital Signs - 12hr 07/24/20 07/24/20 07/24/20 22:00 23:00 23:46 Temperature Pulse Rate 128 H 128 H 130 H Respiratory 19 19 Rate Respiratory Rate [Left Lower Leg] Blood Pressure 88/58 90/61 O2 Sat by Pulse 97 98 Oximetry 07/25/20 07/25/20 07/25/20 00:00 01:00 02:00 Temperature 98.2 F Pulse Rate 131 H 128 H 127 H Respiratory 20 18 21 Rate Respiratory Rate [Left Lower Leg] Blood Pressure 81/47 90/61 92/47 O2 Sat by Pulse 98 97 96 Oximetry 07/25/20 07/25/20 07/25/20 03:02 03:15 03:19 Temperature Pulse Rate 126 H Respiratory 12 13 Rate Respiratory 16 Rate [Left Lower Leg] Blood Pressure O2 Sat by Pulse 94 Oximetry 07/25/20 07/25/20 07/25/20 04:00 04:19 05:00 Temperature 97.8 F Pulse Rate 127 H 127 H Respiratory 22 18 15 Rate Respiratory Rate [Left Lower Leg] Blood Pressure 99/54 97/45 O2 Sat by Pulse 91 95 Oximetry 07/25/20 06:00 Temperature Pulse Rate 128 H Respiratory 19 Rate Respiratory Rate [Left Lower Leg] Blood Pressure 97/36 O2 Sat by Pulse 91 Oximetry General appearance: Present: no acute distress - EENT Eyes: EOM intact ENT: hearing intact - Neck Neck: supple, normal ROM - Respiratory Respiratory effort: normal Extremities: abnormal - Gastrointestinal Rectal Exam: deferred - Genitourinary Male genitourinary: deferred - Psychiatric Psychiatric: appropriate mood/affect, cooperative - Labs CBC & Chem 7: 07/25/20 04:22 07/25/20 04:22 Labs: Abnormal lab results 07/24/20 07/25/20 07/25/20 Range/Units 13:55 04:22 04:22 RBC 3.48 L (3.65-5.03) M/mm3 Hgb 11.4 L (11.8-15.2) gm/dl MCV 102 H (84-94) fl MCH 33 H (28-32) pg RDW 18.4 H (13.2-15.2) % Lymph % (Auto) 9.4 L (13.4-35.0) % [place] % (Auto) 10.4 H (0.0-7.3) % Lymph # (Auto) 0.7 L (1.2-5.4) K/mm3 Seg Neutrophils % 78.8 H (40.0-70.0) % Heparin Anti-Xa Level (0.3-0.7) U.I./ml Potassium 6.0 H (3.6-5.0) mmol/L Chloride 93.5 L (98-107) mmol/L BUN 77 H 54 H (9-20) mg/dL Creatinine 15.5 H 12.3 H (0.8-1.3) mg/dL 07/25/20 Range/Units 04:24 RBC (3.65-5.03) M/mm3 Hgb (11.8-15.2) gm/dl MCV (84-94) fl MCH (28-32) pg RDW (13.2-15.2) % Lymph % (Auto) (13.4-35.0) % [place] % (Auto) (0.0-7.3) % Lymph # (Auto) (1.2-5.4) K/mm3 Seg Neutrophils % (40.0-70.0) % Heparin Anti-Xa Level 0.10 L (0.3-0.7) U.I./ml Potassium (3.6-5.0) mmol/L Chloride (98-107) mmol/L BUN (9-20) mg/dL Creatinine (0.8-1.3) mg/dL Medications & Allergies - Medications Allergies/Adverse Reactions: Allergies amoxicillin Allergy (Verified 07/22/20 12:14) Unknown Home Medications: Home Medications Medication Instructions Recorded Confirmed Last Taken Type Metoprolol [Lopressor] 25 mg PO QDAY 07/24/20 07/24/20 07/17/20 History Sevelamer Carbonate [Renvela] 800 mg PO TIDAC 07/24/20 07/24/20 07/19/20 History Sucroferric Oxyhydroxide(Nf) 500 mg PO TIDAC 07/24/20 07/24/20 07/19/20 History [Velphoro (Nf)] Warfarin [Coumadin] 6 mg PO QDAY 07/24/20 07/24/20 07/19/20 History Active Medications: Generic Name Dose Route Start Last Admin Trade Name Freq PRN Reason Stop Dose Admin Acetaminophen 650 mg 07/22/20 14:09 Acetaminophen 325 Mg Tab PO Q6H PRN Pain, Mild (1-3) Hydrocodone Bitart/Acetaminophen 2 each 07/22/20 14:09 07/25/20 03:19 Hydrocodone/Acetaminophen 5-325 Mg Tab PO 2 each Q6H PRN Administration Pain, Moderate (4-6) Albuterol 2.5 mg 07/22/20 14:00 Albuterol 2.5 Mg/3 Ml Nebu IH Q3HRT PRN Shortness Of Breath Aspirin 81 mg 07/22/20 15:00 07/24/20 09:50 Aspirin Ec 81 Mg Tab PO 81 mg QDAY AALIYAH Administration Heparin Sodium (Porcine) 4,000 unit 07/23/20 14:05 07/24/20 00:34 Heparin 10,000 Units/10 Ml Vial 40 unit/kg (4000 unit) 4,000 unit IV Administration Q6H PRN Anti-Xa Assay<0.1 units/ml Hydromorphone HCl 0.5 mg 07/22/20 14:09 07/24/20 19:34 Hydromorphone 1 Mg/1 Ml Inj IV 0.5 mg Q3H PRN Administration Pain , Severe (7-10) Sodium Chloride 1,000 mls @ 30 mls/hr 07/22/20 14:15 Nacl 0.9% 1000 Ml IV DIRECT AALIYAH Heparin Sodium/Sodium Chloride 25,000 unit in 500 mls @ 29 mls/hr 07/23/20 15:00 07/25/20 05:37 Heparin/ 0.45% Nacl-25,000 Unit/500 Ml IV 1,450 units/hr TITR AALIYAH 29 mls/hr Titration Protocol 1,450 UNITS/HR Metoprolol Succinate 25 mg 07/25/20 10:00 Metoprolol Succinate Xl 25 Mg Tab PO QDAY AALIYAH Ondansetron HCl 4 mg 07/22/20 14:09 Ondansetron 4 Mg/2 Ml Inj IV Q8H PRN Nausea And Vomiting Sevelamer Carbonate 800 mg 07/23/20 18:30 07/24/20 17:33 Sevelamer Carbonate 800 Mg Tab PO 800 mg AC AALIYAH Administration Sodium Chloride 10 ml 07/22/20 13:00 07/24/20 22:20 Sodium Chloride 0.9% 10 Ml Flush Syringe IV 10 ml BID AALIYAH Administration Sodium Chloride 10 ml 07/22/20 13:00 Sodium Chloride 0.9% 10 Ml Flush Syringe IV PRN PRN LINE FLUSH
[2020-07-25] MEDS ORDERED: METOPROLOL SUCCINATE XL 50 MG TAB PO SCH (10:00)
[2020-07-25] MEDS: ASPIRIN EC 81 MG TAB PO SCH (11:09)
[2020-07-25] MEDS: METOPROLOL SUCCINATE XL 25 MG TAB PO SCH (11:48)
--- NOTE | 2020-07-25 12:21 | Progress Note ---
Assessment and Plan Assessment and plan: (1) Acute limb ischemia with thrombosis of left popliteal artery Current Visit: Yes Status: Acute Plan to address problem: s/p angiogram and angioplasty for left popliteal artery occlusion Vascular surgery following On heparin drip-plan for amputation pending demarcation of the areas. (2) End stage renal disease Current Visit: Yes Status: Acute Plan to address problem: Nephrology team on board HD as per renal (3) Hypotension Current Visit: Yes Status: Acute Qualifiers: Hypertension type: essential hypertension Qualified Code(s): I10 - Essential (primary) hypertension Plan to address problem: Started on midodrine Continue to monitor blood pressure closely (4) Sinus tachycardia Resume home metoprolol and adjust dose Thyroid function test (5) left lower extremity DVT Current Visit: Yes Status: Acute Plan to address problem: Patient is on Coumadin at home for this Holding Coumadin as patient is on heparin drip (6) DVT prophylaxis Current Visit: Yes Status: Acute Plan to address problem: SCDs bilateral lower extremities while in bed, continue therapeutic anticoagulation History Interval history: s/p limb revascularization BP soft. Started on midodrine Hospitalist Physical - Physical exam Narrative exam: VITAL SIGNS: Reviewed. GENERAL: Awake HEAD: No signs of head trauma. EYES: Pupils are equal. Extraocular motions intact. MOUTH: Oropharynx is normal. NECK: No adenopathy, no JVD. CHEST: Chest with diminished breath sounds bilaterally. No wheezes, rales, or rhonchi. CARDIAC: normal S1 and S2, without murmurs, gallops, or rubs. ABDOMEN: Soft, non tender and non distended. No rebound or guarding, and no masses palpated. Bowel Sounds normal. MUSCULOSKELETAL: Left leg discomfort - distal foot is cold with warmth around the proximal calf NEUROLOGIC EXAM: Alert and oriented x3. No focal neurologic deficits SKIN: No obvious lesions - Constitutional Vitals: Temp Pulse Resp BP Pulse Ox 97.9 F 128 H 19 97/36 91 07/25/20 12:00 07/25/20 06:00 07/25/20 06:00 07/25/20 06:00 07/25/20 06:00 Results - Labs CBC & Chem 7: 07/25/20 04:22 07/25/20 04:22 Labs: Laboratory Last Values WBC 8.0 K/mm3 (4.5-11.0) 07/25/20 04:22 RBC 3.48 M/mm3 (3.65-5.03) L 07/25/20 04:22 Hgb 11.4 gm/dl (11.8-15.2) L 07/25/20 04:22 Hct 35.6 % (35.5-45.6) 07/25/20 04:22 MCV 102 fl (84-94) H 07/25/20 04:22 MCH 33 pg (28-32) H 07/25/20 04:22 MCHC 32 % (32-34) 07/25/20 04:22 RDW 18.4 % (13.2-15.2) H 07/25/20 04:22 Plt Count 315 K/mm3 (140-440) 07/25/20 04:22 Lymph % (Auto) 9.4 % (13.4-35.0) L 07/25/20 04:22 [place] % (Auto) 10.4 % (0.0-7.3) H 07/25/20 04:22 Eos % (Auto) 0.9 % (0.0-4.3) 07/25/20 04:22 Baso % (Auto) 0.5 % (0.0-1.8) 07/25/20 04:22 Lymph # (Auto) 0.7 K/mm3 (1.2-5.4) L 07/25/20 04:22 [place] # (Auto) 0.8 K/mm3 (0.0-0.8) 07/25/20 04:22 Eos # (Auto) 0.1 K/mm3 (0.0-0.4) 07/25/20 04:22 Baso # (Auto) 0.0 K/mm3 (0.0-0.1) 07/25/20 04:22 Add Manual Diff Complete 07/23/20 09:46 Total Counted 100 07/23/20 09:46 Seg Neutrophils % 78.8 % (40.0-70.0) H 07/25/20 04:22 Seg Neuts % (Manual) 94.0 % (40.0-70.0) H 07/23/20 09:46 Band Neutrophils % 1.0 % 07/23/20 09:46 Lymphocytes % (Manual) 1.0 % (13.4-35.0) L 07/23/20 09:46 Reactive Lymphs % (Man) 0 % 07/22/20 18:00 Monocytes % (Manual) 4.0 % (0.0-7.3) 07/23/20 09:46 Eosinophils % (Manual) 0 % (0.0-4.3) 07/22/20 18:00 Basophils % (Manual) 0 % (0.0-1.8) 07/22/20 18:00 Metamyelocytes % 0 % 07/22/20 18:00 Myelocytes % 0 % 07/22/20 18:00 Promyelocytes % 0 % 07/22/20 18:00 Blast Cells % 0 % 07/22/20 18:00 Nucleated RBC % Not Reportable 07/23/20 09:46 Seg Neutrophils # 6.3 K/mm3 (1.8-7.7) 07/25/20 04:22 Seg Neutrophils # Man 16.2 K/mm3 (1.8-7.7) H 07/23/20 09:46 Band Neutrophils # 0.2 K/mm3 07/23/20 09:46 Lymphocytes # (Manual) 0.2 K/mm3 (1.2-5.4) L 07/23/20 09:46 Abs React Lymphs (Man) 0.0 K/mm3 07/23/20 09:46 Monocytes # (Manual) 0.7 K/mm3 (0.0-0.8) 07/23/20 09:46 Eosinophils # (Manual) 0.0 K/mm3 (0.0-0.4) 07/23/20 09:46 Basophils # (Manual) 0.0 K/mm3 (0.0-0.1) 07/23/20 09:46 Metamyelocytes # 0.0 K/mm3 07/23/20 09:46 Myelocytes # 0.0 K/mm3 07/23/20 09:46 Promyelocytes # 0.0 K/mm3 07/23/20 09:46 Blast Cells # 0.0 K/mm3 07/23/20 09:46 WBC Morphology Not Reportable 07/23/20 09:46 Hypersegmented Neuts Not Reportable 07/23/20 09:46 Hyposegmented Neuts Not Reportable 07/23/20 09:46 Hypogranular Neuts Not Reportable 07/23/20 09:46 Smudge Cells Not Reportable 07/23/20 09:46 Toxic Granulation Not Reportable 07/23/20 09:46 Toxic Vacuolation Not Reportable 07/23/20 09:46 Dohle Bodies Not Reportable 07/23/20 09:46 Pelger-Huet Anomaly Not Reportable 07/23/20 09:46 Svetlana Rods Not Reportable 07/23/20 09:46 Platelet Estimate Consistent w auto 07/23/20 09:46 Clumped Platelets Not Reportable 07/23/20 09:46 Plt Clumps, EDTA Not Reportable 07/23/20 09:46 Large Platelets Not Reportable 07/23/20 09:46 Giant Platelets Not Reportable 07/23/20 09:46 Platelet Satelliting Not Reportable 07/23/20 09:46 Plt Morphology Comment Not Reportable 07/23/20 09:46 RBC Morphology Not Reportable 07/23/20 09:46 Dimorphic RBCs Not Reportable 07/23/20 09:46 Polychromasia Not Reportable 07/23/20 09:46 Hypochromasia Not Reportable 07/23/20 09:46 Poikilocytosis Not Reportable 07/23/20 09:46 Anisocytosis 1+ 07/23/20 09:46 Microcytosis Not Reportable 07/23/20 09:46 Macrocytosis Not Reportable 07/23/20 09:46 Spherocytes Not Reportable 07/23/20 09:46 Pappenheimer Bodies Not Reportable 07/23/20 09:46 Sickle Cells Not Reportable 07/23/20 09:46 Target Cells Not Reportable 07/23/20 09:46 Tear Drop Cells Not Reportable 07/23/20 09:46 Ovalocytes Not Reportable 07/23/20 09:46 Helmet Cells Not Reportable 07/23/20 09:46 [place] Bodies Not Reportable 07/23/20 09:46 [place] Rings Not Reportable 07/23/20 09:46 Alicia Cells Not Reportable 07/23/20 09:46 Bite Cells Not Reportable 07/23/20 09:46 Crenated Cell Not Reportable 07/23/20 09:46 Elliptocytes Not Reportable 07/23/20 09:46 Acanthocytes (Spur) Not Reportable 07/23/20 09:46 Rouleaux Not Reportable 07/23/20 09:46 Hemoglobin C Crystals Not Reportable 07/23/20 09:46 Schistocytes Not Reportable 07/23/20 09:46 Malaria parasites Not Reportable 07/23/20 09:46 Malachi Bodies Not Reportable 07/23/20 09:46 Hem Pathologist Commnt No 07/23/20 09:46 PT 21.0 Sec. (12.2-14.9) H 07/23/20 23:01 INR 1.80 (0.87-1.13) H 07/23/20 23:01 APTT 39.4 Sec. (24.2-36.6) H 07/23/20 23:01 Fibrinogen 494 mg/dl (211-480) H 07/23/20 09:46 Heparin Anti-Xa Level 0.10 U.I./ml (0.3-0.7) L 07/25/20 04:24 Sodium 144 mmol/L (137-145) 07/25/20 04:22 Potassium 4.9 mmol/L (3.6-5.0) 07/25/20 04:22 Chloride 101.5 mmol/L (98-107) 07/25/20 04:22 Carbon Dioxide 26 mmol/L (22-30) 07/25/20 04:22 Anion Gap 21 mmol/L 07/25/20 04:22 BUN 54 mg/dL (9-20) H 07/25/20 04:22 Creatinine 12.3 mg/dL (0.8-1.3) H 07/25/20 04:22 Estimated GFR 5 ml/min 07/25/20 04:22 BUN/Creatinine Ratio 4 % 07/25/20 04:22 Glucose 97 mg/dL (75-100) 07/25/20 04:22 POC Glucose 90 mg/dL (70-105) 07/23/20 01:32 Calcium 9.4 mg/dL (8.4-10.2) 07/25/20 04:22 Total Bilirubin 0.30 mg/dL (0.1-1.2) 07/23/20 02:41 AST 16 units/L (5-40) 07/23/20 02:41 ALT 11 units/L (7-56) 07/23/20 02:41 Alkaline Phosphatase 84 units/L (35-129) 07/23/20 02:41 Total Protein 6.5 g/dL (6.3-8.2) 07/23/20 02:41 Albumin 3.5 g/dL (3.9-5) L 07/23/20 02:41 Albumin/Globulin Ratio 1.2 % 07/23/20 02:41 Hepatitis A IgM Ab Non-reactive (NonReactive) 07/22/20 18:00 Hep Bs Antigen Non-reactive (Negative) 07/22/20 18:00 Hep B Core IgM Ab Non-reactive (NonReactive) 07/22/20 18:00 Hepatitis C Antibody Non-reactive (NonReactive) 07/22/20 18:00 Rodriguez/IV: IV Catheter Type [Left Forearm INT / Saline Lock ] IV Catheter Type [Right INT / Saline Lock Antecubital] Active Medications - Current Medications Current Medications: Generic Name Dose Route Start Last Admin Trade Name Freq PRN Reason Stop Dose Admin Acetaminophen 650 mg 07/22/20 14:09 Acetaminophen 325 Mg Tab PO Q6H PRN Pain, Mild (1-3) Hydrocodone Bitart/Acetaminophen 2 each 07/22/20 14:09 07/25/20 11:19 Hydrocodone/Acetaminophen 5-325 Mg Tab PO 2 each Q6H PRN Administration Pain, Moderate (4-6) Albuterol 2.5 mg 07/22/20 14:00 Albuterol 2.5 Mg/3 Ml Nebu IH Q3HRT PRN Shortness Of Breath Aspirin 81 mg 07/22/20 15:00 07/25/20 11:09 Aspirin Ec 81 Mg Tab PO 81 mg QDAY AALIYAH Administration Heparin Sodium (Porcine) 4,000 unit 07/23/20 14:05 07/24/20 00:34 Heparin 10,000 Units/10 Ml Vial 40 unit/kg (4000 unit) 4,000 unit IV Administration Q6H PRN Anti-Xa Assay<0.1 units/ml Hydromorphone HCl 0.5 mg 07/22/20 14:09 07/24/20 19:34 Hydromorphone 1 Mg/1 Ml Inj IV 0.5 mg Q3H PRN Administration Pain , Severe (7-10) Sodium Chloride 1,000 mls @ 30 mls/hr 07/22/20 14:15 Nacl 0.9% 1000 Ml IV DIRECT AALIYAH Heparin Sodium/Sodium Chloride 25,000 unit in 500 mls @ 29 mls/hr 07/23/20 15:00 07/25/20 05:37 Heparin/ 0.45% Nacl-25,000 Unit/500 Ml IV 1,450 units/hr TITR AALIYAH 29 mls/hr Titration Protocol 1,450 UNITS/HR Metoprolol Succinate 25 mg 07/25/20 10:00 07/25/20 11:48 Metoprolol Succinate Xl 25 Mg Tab PO 25 mg QDAY AALIYAH Administration Midodrine 10 mg 07/25/20 16:00 Midodrine 5 Mg Tab PO TID@0800,1200,1600 AALIYAH Ondansetron HCl 4 mg 07/22/20 14:09 Ondansetron 4 Mg/2 Ml Inj IV Q8H PRN Nausea And Vomiting Sevelamer Carbonate 800 mg 07/23/20 18:30 07/25/20 11:21 Sevelamer Carbonate 800 Mg Tab PO 800 mg AC AALIYAH Administration Sodium Chloride 10 ml 07/22/20 13:00 07/25/20 11:10 Sodium Chloride 0.9% 10 Ml Flush Syringe IV 10 ml BID AALIYAH Administration Sodium Chloride 10 ml 07/22/20 13:00 Sodium Chloride 0.9% 10 Ml Flush Syringe IV PRN PRN LINE FLUSH
[2020-07-25] MEDS: MIDODRINE 5 MG TAB PO SCH (18:17)
[2020-07-25] MEDS: HEPARIN/ 0.45% NACL DRIP 25,000 UNIT/500 ML BAG IV SCH (18:18)
[2020-07-26 02:39] LABS: Basophils # (Auto) 0.1 K/mm3 (0.0-0.1); Basophils % (Auto) 0.7 % (0.0-1.8); Eosinophils # (Auto) 0.1 K/mm3 (0.0-0.4); Eosinophils % (Auto) 1.2 % (0.0-4.3); Hematocrit 34.7 % (35.5-45.6); Hemoglobin 11.1 gm/dl (11.8-15.2); Lymphocytes # (Auto) 0.9 K/mm3 (1.2-5.4); Lymphocytes % (Auto) 9.2 % (13.4-35.0); Mean Corpuscular HGB Conc 32 % (32-34); Mean Corpuscular Volume 104 fl (84-94); Monocytes # (Auto) 0.7 K/mm3 (0.0-0.8); Monocytes % (Auto) 7.1 % (0.0-7.3); Platelet Count 308 K/mm3 (140-440); Red Blood Count 3.35 M/mm3 (3.65-5.03); Red Cell Distribution Width 18.9 % (13.2-15.2)
[2020-07-26 03:17] LABS: Calcium 9.6 mg/dL (8.4-10.2)
[2020-07-26] MEDS: SEVELAMER CARBONATE 800 MG TAB PO SCH ×3 (08:28→15:37)
[2020-07-26] MEDS: MIDODRINE 5 MG TAB PO SCH ×3 (08:28→15:37)
[2020-07-26] MEDS ORDERED: ALBUTEROL 2.5 MG/3 ML NEBU IH PRN (08:34)
--- NOTE | 2020-07-26 10:45 | Progress Note ---
Assessment and Plan Thrombosis of left popliteal artery End stage renal disease Hypertension Hyperkalemia Peripheral artery disease DVT prophylaxis Plan: HD today for clearance and volume removal Hyperkalemia-resolved Fluid restriction of 1 liter per day Strict I&O's daily Obtain daily weights Renally dose medications Assess dialysis needs daily Alexsander Baltazar MD [phone] Subjective Date of service: 07/26/20 Principal diagnosis: ESRD on HD Interval history: weak but comfortable Objective - Vital Signs Vital signs: Vital Signs - 12hr 07/25/20 07/25/20 07/26/20 23:00 23:43 00:00 Temperature 99.3 F Pulse Rate 124 H 126 H Pulse Rate [ 126 H From Monitor] Respiratory 23 18 Rate Blood Pressure 105/69 102/69 O2 Sat by Pulse 97 99 Oximetry 07/26/20 07/26/20 07/26/20 01:00 02:00 03:00 Temperature Pulse Rate 125 H 108 H 125 H Pulse Rate [ From Monitor] Respiratory 17 21 12 Rate Blood Pressure 101/66 103/65 96/58 O2 Sat by Pulse Oximetry 07/26/20 07/26/20 07/26/20 04:00 05:00 06:00 Temperature 98.2 F Pulse Rate 124 H 125 H 116 H Pulse Rate [ 124 H From Monitor] Respiratory 29 H 20 18 Rate Blood Pressure 104/57 99/68 107/63 O2 Sat by Pulse 96 100 93 Oximetry 07/26/20 07/26/20 07:00 08:33 Temperature Pulse Rate 124 H Pulse Rate [ From Monitor] Respiratory 17 Rate Blood Pressure 108/70 O2 Sat by Pulse 95 95 Oximetry - General Appearance General appearance: well-developed, well-nourished, appears stated age EENT: ATNC, PERRL Neck: no JVD, no carotid bruit Respiratory: Present: Clear to Ascultation. Absent: Rales, Ronchi Cardiology: regular, S1S2 Gastrointestinal: normoactive bowel sounds, no tenderness, no distended Integumentary: no rash, warm and dry Neurologic: no focal deficit, no asterixis Psychiatric: mood/affect appropriate - Lab 07/26/20 02:22 07/26/20 02:22 Most recent lab results Calcium 9.6 mg/dL (8.4-10.2) 07/26/20 02:22 Medications & Allergies - Medications Allergies/Adverse Reactions: Allergies amoxicillin Allergy (Verified 07/22/20 12:14) Unknown Home Medications: Home Medications Medication Instructions Recorded Confirmed Last Taken Type Metoprolol [Lopressor] 25 mg PO QDAY 07/24/20 07/24/20 07/17/20 History Sevelamer Carbonate [Renvela] 800 mg PO TIDAC 07/24/20 07/24/20 07/19/20 History Sucroferric Oxyhydroxide(Nf) 500 mg PO TIDAC 07/24/20 07/24/20 07/19/20 History [Velphoro (Nf)] Warfarin [Coumadin] 6 mg PO QDAY 07/24/20 07/24/20 07/19/20 History Active Medications: Generic Name Dose Route Start Last Admin Trade Name Freq PRN Reason Stop Dose Admin Acetaminophen 650 mg 07/22/20 14:09 Acetaminophen 325 Mg Tab PO Q6H PRN Pain, Mild (1-3) Hydrocodone Bitart/Acetaminophen 2 each 07/22/20 14:09 07/25/20 11:19 Hydrocodone/Acetaminophen 5-325 Mg Tab PO 2 each Q6H PRN Administration Pain, Moderate (4-6) Albuterol 2.5 mg 07/26/20 08:34 Albuterol 2.5 Mg/3 Ml Nebu IH Q4HRT PRN Shortness Of Breath Aspirin 81 mg 07/22/20 15:00 07/25/20 11:09 Aspirin Ec 81 Mg Tab PO 81 mg QDAY AALIYAH Administration Heparin Sodium (Porcine) 4,000 unit 07/23/20 14:05 07/24/20 00:34 Heparin 10,000 Units/10 Ml Vial 40 unit/kg (4000 unit) 4,000 unit IV Administration Q6H PRN Anti-Xa Assay<0.1 units/ml Hydromorphone HCl 0.5 mg 07/22/20 14:09 07/24/20 19:34 Hydromorphone 1 Mg/1 Ml Inj IV 0.5 mg Q3H PRN Administration Pain , Severe (7-10) Sodium Chloride 1,000 mls @ 30 mls/hr 07/22/20 14:15 Nacl 0.9% 1000 Ml IV DIRECT AALIYAH Heparin Sodium/Sodium Chloride 25,000 unit in 500 mls @ 29 mls/hr 07/23/20 15:00 07/26/20 03:12 Heparin/ 0.45% Nacl-25,000 Unit/500 Ml IV 1,650 units/hr TITR AALIYAH 33 mls/hr Titration Protocol 1,450 UNITS/HR Metoprolol Succinate 25 mg 07/25/20 10:00 07/25/20 11:48 Metoprolol Succinate Xl 25 Mg Tab PO 25 mg QDAY AALIAYH Administration Midodrine 10 mg 07/25/20 16:00 07/26/20 08:28 Midodrine 5 Mg Tab PO 10 mg TID@0800,1200,1600 AALIYAH Administration Ondansetron HCl 4 mg 07/22/20 14:09 Ondansetron 4 Mg/2 Ml Inj IV Q8H PRN Nausea And Vomiting Sevelamer Carbonate 800 mg 07/23/20 18:30 07/26/20 08:28 Sevelamer Carbonate 800 Mg Tab PO 800 mg AC AALIYAH Administration Sodium Chloride 10 ml 07/22/20 13:00 07/25/20 22:44 Sodium Chloride 0.9% 10 Ml Flush Syringe IV 10 ml BID AALIYAH Administration Sodium Chloride 10 ml 07/22/20 13:00 Sodium Chloride 0.9% 10 Ml Flush Syringe IV PRN PRN LINE FLUSH
[2020-07-26] MEDS: HYDROcodone/ACETAMINOPHEN 5-325 MG TAB PO PRN ×2 (10:58→21:07)
[2020-07-26] MEDS: ASPIRIN EC 81 MG TAB PO SCH (10:59)
[2020-07-26] MEDS: METOPROLOL SUCCINATE XL 25 MG TAB PO SCH (10:59)
[2020-07-26] MEDS: HEPARIN 10,000 UNITS/10 ML VIAL IV PRN (11:24)
--- NOTE | 2020-07-26 11:26 | Progress Note ---
Assessment and Plan Assessment and plan: (1) Acute limb ischemia with thrombosis of left popliteal artery Current Visit: Yes Status: Acute Plan to address problem: s/p angiogram and angioplasty for left popliteal artery occlusion Vascular surgery following. Plan for amputation when there is a clear skin demarcation (2) End stage renal disease Current Visit: Yes Status: Acute Plan to address problem: Nephrology team on board HD as per renal (3) Hypotension Current Visit: Yes Status: Acute Qualifiers: Hypertension type: essential hypertension Qualified Code(s): I10 - Essential (primary) hypertension Plan to address problem: Started on midodrine. BP better Continue to monitor blood pressure closely (4) Sinus tachycardia Resume home metoprolol and adjust dose Thyroid function test wnl (5) left lower extremity DVT Current Visit: Yes Status: Acute Plan to address problem: Patient is on Coumadin at home for this Holding Coumadin as patient is on heparin drip (6) DVT prophylaxis Current Visit: Yes Status: Acute Plan to address problem: SCDs bilateral lower extremities while in bed, continue therapeutic anticoagulation History Interval history: Now s/p limb revascularization BP better with midodrine Remains on heparin drip Hospitalist Physical - Physical exam Narrative exam: VITAL SIGNS: Reviewed. GENERAL: Awake HEAD: No signs of head trauma. EYES: Pupils are equal. Extraocular motions intact. MOUTH: Oropharynx is normal. NECK: No adenopathy, no JVD. CHEST: Chest with diminished breath sounds bilaterally. No wheezes, rales, or rhonchi. CARDIAC: normal S1 and S2, without murmurs, gallops, or rubs. ABDOMEN: Soft, non tender and non distended. No rebound or guarding, and no masses palpated. Bowel Sounds normal. MUSCULOSKELETAL: Left leg discomfort NEUROLOGIC EXAM: Alert and oriented x3. No focal neurologic deficits SKIN: No obvious lesions - Constitutional Vitals: Temp Pulse Resp BP Pulse Ox 98.2 F 122 H 19 126/50 95 07/26/20 04:00 07/26/20 10:59 07/26/20 10:58 07/26/20 10:59 07/26/20 08:33 Results - Labs CBC & Chem 7: 07/26/20 02:22 07/26/20 02:22 Labs: Laboratory Last Values WBC 10.2 K/mm3 (4.5-11.0) 07/26/20 02:22 RBC 3.35 M/mm3 (3.65-5.03) L 07/26/20 02:22 Hgb 11.1 gm/dl (11.8-15.2) L 07/26/20 02:22 Hct 34.7 % (35.5-45.6) L 07/26/20 02:22 MCV 104 fl (84-94) H 07/26/20 02:22 MCH 33 pg (28-32) H 07/26/20 02:22 MCHC 32 % (32-34) 07/26/20 02:22 RDW 18.9 % (13.2-15.2) H 07/26/20 02:22 Plt Count 308 K/mm3 (140-440) 07/26/20 02:22 Lymph % (Auto) 9.2 % (13.4-35.0) L 07/26/20 02:22 [place] % (Auto) 7.1 % (0.0-7.3) 07/26/20 02:22 Eos % (Auto) 1.2 % (0.0-4.3) 07/26/20 02:22 Baso % (Auto) 0.7 % (0.0-1.8) 07/26/20 02:22 Lymph # (Auto) 0.9 K/mm3 (1.2-5.4) L 07/26/20 02:22 [place] # (Auto) 0.7 K/mm3 (0.0-0.8) 07/26/20 02:22 Eos # (Auto) 0.1 K/mm3 (0.0-0.4) 07/26/20 02:22 Baso # (Auto) 0.1 K/mm3 (0.0-0.1) 07/26/20 02:22 Add Manual Diff Complete 07/23/20 09:46 Total Counted 100 07/23/20 09:46 Seg Neutrophils % 81.8 % (40.0-70.0) H 07/26/20 02:22 Seg Neuts % (Manual) 94.0 % (40.0-70.0) H 07/23/20 09:46 Band Neutrophils % 1.0 % 07/23/20 09:46 Lymphocytes % (Manual) 1.0 % (13.4-35.0) L 07/23/20 09:46 Reactive Lymphs % (Man) 0 % 07/22/20 18:00 Monocytes % (Manual) 4.0 % (0.0-7.3) 07/23/20 09:46 Eosinophils % (Manual) 0 % (0.0-4.3) 07/22/20 18:00 Basophils % (Manual) 0 % (0.0-1.8) 07/22/20 18:00 Metamyelocytes % 0 % 07/22/20 18:00 Myelocytes % 0 % 07/22/20 18:00 Promyelocytes % 0 % 07/22/20 18:00 Blast Cells % 0 % 07/22/20 18:00 Nucleated RBC % Not Reportable 07/23/20 09:46 Seg Neutrophils # 8.3 K/mm3 (1.8-7.7) H 07/26/20 02:22 Seg Neutrophils # Man 16.2 K/mm3 (1.8-7.7) H 07/23/20 09:46 Band Neutrophils # 0.2 K/mm3 07/23/20 09:46 Lymphocytes # (Manual) 0.2 K/mm3 (1.2-5.4) L 07/23/20 09:46 Abs React Lymphs (Man) 0.0 K/mm3 07/23/20 09:46 Monocytes # (Manual) 0.7 K/mm3 (0.0-0.8) 07/23/20 09:46 Eosinophils # (Manual) 0.0 K/mm3 (0.0-0.4) 07/23/20 09:46 Basophils # (Manual) 0.0 K/mm3 (0.0-0.1) 07/23/20 09:46 Metamyelocytes # 0.0 K/mm3 07/23/20 09:46 Myelocytes # 0.0 K/mm3 07/23/20 09:46 Promyelocytes # 0.0 K/mm3 07/23/20 09:46 Blast Cells # 0.0 K/mm3 07/23/20 09:46 WBC Morphology Not Reportable 07/23/20 09:46 Hypersegmented Neuts Not Reportable 07/23/20 09:46 Hyposegmented Neuts Not Reportable 07/23/20 09:46 Hypogranular Neuts Not Reportable 07/23/20 09:46 Smudge Cells Not Reportable 07/23/20 09:46 Toxic Granulation Not Reportable 07/23/20 09:46 Toxic Vacuolation Not Reportable 07/23/20 09:46 Dohle Bodies Not Reportable 07/23/20 09:46 Pelger-Huet Anomaly Not Reportable 07/23/20 09:46 Svetlana Rods Not Reportable 07/23/20 09:46 Platelet Estimate Consistent w auto 07/23/20 09:46 Clumped Platelets Not Reportable 07/23/20 09:46 Plt Clumps, EDTA Not Reportable 07/23/20 09:46 Large Platelets Not Reportable 07/23/20 09:46 Giant Platelets Not Reportable 07/23/20 09:46 Platelet Satelliting Not Reportable 07/23/20 09:46 Plt Morphology Comment Not Reportable 07/23/20 09:46 RBC Morphology Not Reportable 07/23/20 09:46 Dimorphic RBCs Not Reportable 07/23/20 09:46 Polychromasia Not Reportable 07/23/20 09:46 Hypochromasia Not Reportable 07/23/20 09:46 Poikilocytosis Not Reportable 07/23/20 09:46 Anisocytosis 1+ 07/23/20 09:46 Microcytosis Not Reportable 07/23/20 09:46 Macrocytosis Not Reportable 07/23/20 09:46 Spherocytes Not Reportable 07/23/20 09:46 Pappenheimer Bodies Not Reportable 07/23/20 09:46 Sickle Cells Not Reportable 07/23/20 09:46 Target Cells Not Reportable 07/23/20 09:46 Tear Drop Cells Not Reportable 07/23/20 09:46 Ovalocytes Not Reportable 07/23/20 09:46 Helmet Cells Not Reportable 07/23/20 09:46 Seth-Orofino Bodies Not Reportable 07/23/20 09:46 [place] Rings Not Reportable 07/23/20 09:46 [place] Cells Not Reportable 07/23/20 09:46 Bite Cells Not Reportable 07/23/20 09:46 Crenated Cell Not Reportable 07/23/20 09:46 Elliptocytes Not Reportable 07/23/20 09:46 Acanthocytes (Spur) Not Reportable 07/23/20 09:46 Rouleaux Not Reportable 07/23/20 09:46 Hemoglobin C Crystals Not Reportable 07/23/20 09:46 Schistocytes Not Reportable 07/23/20 09:46 Malaria parasites Not Reportable 07/23/20 09:46 Malachi Bodies Not Reportable 07/23/20 09:46 Hem Pathologist Commnt No 07/23/20 09:46 PT 21.0 Sec. (12.2-14.9) H 07/23/20 23:01 INR 1.80 (0.87-1.13) H 07/23/20 23:01 APTT 39.4 Sec. (24.2-36.6) H 07/23/20 23:01 Fibrinogen 494 mg/dl (211-480) H 07/23/20 09:46 Heparin Anti-Xa Level < 0.10 U.I./ml (0.3-0.7) L 07/26/20 10:16 Sodium 138 mmol/L (137-145) 07/26/20 02:22 Potassium 4.8 mmol/L (3.6-5.0) 07/26/20 02:22 Chloride 95.2 mmol/L (98-107) L 07/26/20 02:22 Carbon Dioxide 24 mmol/L (22-30) 07/26/20 02:22 Anion Gap 24 mmol/L 07/26/20 02:22 BUN 66 mg/dL (9-20) H 07/26/20 02:22 Creatinine 14.7 mg/dL (0.8-1.3) H 07/26/20 02:22 Estimated GFR 4 ml/min 07/26/20 02:22 BUN/Creatinine Ratio 4 % 07/26/20 02:22 Glucose 108 mg/dL (75-100) H 07/26/20 02:22 POC Glucose 90 mg/dL (70-105) 07/23/20 01:32 Calcium 9.6 mg/dL (8.4-10.2) 07/26/20 02:22 Total Bilirubin 0.30 mg/dL (0.1-1.2) 07/23/20 02:41 AST 16 units/L (5-40) 07/23/20 02:41 ALT 11 units/L (7-56) 07/23/20 02:41 Alkaline Phosphatase 84 units/L (35-129) 07/23/20 02:41 Total Protein 6.5 g/dL (6.3-8.2) 07/23/20 02:41 Albumin 3.5 g/dL (3.9-5) L 07/23/20 02:41 Albumin/Globulin Ratio 1.2 % 07/23/20 02:41 TSH 3.770 mlU/mL (0.270-4.200) 07/26/20 02:22 Free T4 1.01 ng/dL (0.76-1.46) 07/26/20 02:22 Hepatitis A IgM Ab Non-reactive (NonReactive) 07/22/20 18:00 Hep Bs Antigen Non-reactive (Negative) 07/22/20 18:00 Hep B Core IgM Ab Non-reactive (NonReactive) 07/22/20 18:00 Hepatitis C Antibody Non-reactive (NonReactive) 07/22/20 18:00 Rodriguez/IV: IV Catheter Type [Left Forearm INT / Saline Lock ] IV Catheter Type [Right INT / Saline Lock Antecubital] Active Medications - Current Medications Current Medications: Generic Name Dose Route Start Last Admin Trade Name Freq PRN Reason Stop Dose Admin Acetaminophen 650 mg 07/22/20 14:09 Acetaminophen 325 Mg Tab PO Q6H PRN Pain, Mild (1-3) Hydrocodone Bitart/Acetaminophen 2 each 07/22/20 14:09 07/26/20 10:58 Hydrocodone/Acetaminophen 5-325 Mg Tab PO 2 each Q6H PRN Administration Pain, Moderate (4-6) Albuterol 2.5 mg 07/26/20 08:34 Albuterol 2.5 Mg/3 Ml Nebu IH Q4HRT PRN Shortness Of Breath Aspirin 81 mg 07/22/20 15:00 07/26/20 10:59 Aspirin Ec 81 Mg Tab PO 81 mg QDAY AALIYAH Administration Heparin Sodium (Porcine) 4,000 unit 07/23/20 14:05 07/24/20 00:34 Heparin 10,000 Units/10 Ml Vial 40 unit/kg (4000 unit) 4,000 unit IV Administration Q6H PRN Anti-Xa Assay<0.1 units/ml Hydromorphone HCl 0.5 mg 07/22/20 14:09 07/24/20 19:34 Hydromorphone 1 Mg/1 Ml Inj IV 0.5 mg Q3H PRN Administration Pain , Severe (7-10) Sodium Chloride 1,000 mls @ 30 mls/hr 07/22/20 14:15 Nacl 0.9% 1000 Ml IV DIRECT AALIYAH Heparin Sodium/Sodium Chloride 25,000 unit in 500 mls @ 29 mls/hr 07/23/20 15:00 07/26/20 03:12 Heparin/ 0.45% Nacl-25,000 Unit/500 Ml IV 1,650 units/hr TITR AALIYAH 33 mls/hr Titration Protocol 1,450 UNITS/HR Metoprolol Tartrate 25 mg 07/26/20 12:00 Metoprolol Tartrate 25 Mg Tab PO BID AALIYAH Midodrine 10 mg 07/25/20 16:00 07/26/20 10:59 Midodrine 5 Mg Tab PO 10 mg TID@0800,1200,1600 AALIYAH Administration Ondansetron HCl 4 mg 07/22/20 14:09 Ondansetron 4 Mg/2 Ml Inj IV Q8H PRN Nausea And Vomiting Sevelamer Carbonate 800 mg 07/23/20 18:30 07/26/20 10:58 Sevelamer Carbonate 800 Mg Tab PO 800 mg AC AALIYAH Administration Sodium Chloride 10 ml 07/22/20 13:00 07/26/20 11:00 Sodium Chloride 0.9% 10 Ml Flush Syringe IV 10 ml BID AALIYAH Administration Sodium Chloride 10 ml 07/22/20 13:00 Sodium Chloride 0.9% 10 Ml Flush Syringe IV PRN PRN LINE FLUSH
[2020-07-26] MEDS: METOPROLOL TARTRATE 25 MG TAB PO SCH ×2 (11:32→21:10)
[2020-07-26] MEDS: HEPARIN/ 0.45% NACL DRIP 25,000 UNIT/500 ML BAG IV SCH (14:30)
--- NOTE | 2020-07-26 16:05 | Progress Note ---
Assessment and Plan The patient is a 54-year-old male with a history of end-stage renal disease, atrial fibrillation, and peripheral vascular disease. He has a nonsalvageable foot and is in need of a left below-knee amputation. I discussed this with the patient in detail including the need for the operation as well as the risk, benefits, and alternatives. I also discussed the expected postoperative course. The patient expressed understanding and has agreed to proceed with the below knee amputation which will occur on Wednesday of next week. Subjective Date of service: 07/26/20 Principal diagnosis: ESRD on HD Interval history: The patient has no new complaints at this time. Objective - Constitutional Vitals: Vital Signs - 12hr 07/26/20 07/26/20 07/26/20 05:00 06:00 07:00 Temperature Pulse Rate 125 H 116 H 124 H Pulse Rate [ From Monitor] Respiratory 20 18 17 Rate Blood Pressure 99/68 107/63 108/70 O2 Sat by Pulse 100 93 95 Oximetry 07/26/20 07/26/20 07/26/20 08:00 08:33 09:00 Temperature 98.7 F Pulse Rate 101 H 125 H Pulse Rate [ 119 H From Monitor] Respiratory 24 14 Rate Blood Pressure 91/57 100/57 O2 Sat by Pulse 99 95 99 Oximetry 07/26/20 07/26/20 07/26/20 10:00 10:58 10:59 Temperature Pulse Rate 124 H 122 H Pulse Rate [ From Monitor] Respiratory 17 19 Rate Blood Pressure 112/26 126/50 O2 Sat by Pulse 90 Oximetry 07/26/20 07/26/20 07/26/20 11:00 12:00 13:00 Temperature 99.3 F Pulse Rate 122 H 117 H 117 H Pulse Rate [ 112 H From Monitor] Respiratory 14 12 16 Rate Blood Pressure 125/32 117/27 137/33 O2 Sat by Pulse 99 100 Oximetry 07/26/20 14:00 Temperature Pulse Rate 118 H Pulse Rate [ From Monitor] Respiratory 20 Rate Blood Pressure 144/53 O2 Sat by Pulse Oximetry General appearance: Present: no acute distress - Cardiovascular Rhythm: irregularly irregular Extremities: abnormal (The patient's forefoot is cool with sloughing of the skin on the plantar surface and gangrenous changes of all the toes. The hindfoot is warm. There is a clear demarcation in the midfoot.) - Labs CBC & Chem 7: 07/26/20 02:22 07/26/20 02:22 Labs: Abnormal lab results 07/25/20 07/26/20 07/26/20 Range/Units 18:13 02:22 02:22 RBC 3.35 L (3.65-5.03) M/mm3 Hgb 11.1 L (11.8-15.2) gm/dl Hct 34.7 L (35.5-45.6) % MCV 104 H (84-94) fl MCH 33 H (28-32) pg RDW 18.9 H (13.2-15.2) % Lymph % (Auto) 9.2 L (13.4-35.0) % Lymph # (Auto) 0.9 L (1.2-5.4) K/mm3 Seg Neutrophils % 81.8 H (40.0-70.0) % Seg Neutrophils # 8.3 H (1.8-7.7) K/mm3 Heparin Anti-Xa Level 0.16 L (0.3-0.7) U.I./ml Chloride 95.2 L (98-107) mmol/L BUN 66 H (9-20) mg/dL Creatinine 14.7 H (0.8-1.3) mg/dL Glucose 108 H (75-100) mg/dL 07/26/20 07/26/20 Range/Units 02:22 10:16 RBC (3.65-5.03) M/mm3 Hgb (11.8-15.2) gm/dl Hct (35.5-45.6) % MCV (84-94) fl MCH (28-32) pg RDW (13.2-15.2) % Lymph % (Auto) (13.4-35.0) % Lymph # (Auto) (1.2-5.4) K/mm3 Seg Neutrophils % (40.0-70.0) % Seg Neutrophils # (1.8-7.7) K/mm3 Heparin Anti-Xa Level 0.28 L < 0.10 L (0.3-0.7) U.I./ml Chloride (98-107) mmol/L BUN (9-20) mg/dL Creatinine (0.8-1.3) mg/dL Glucose (75-100) mg/dL Medications & Allergies - Medications Allergies/Adverse Reactions: Allergies amoxicillin Allergy (Verified 07/22/20 12:14) Unknown Home Medications: Home Medications Medication Instructions Recorded Confirmed Last Taken Type Metoprolol [Lopressor] 25 mg PO QDAY 07/24/20 07/24/20 07/17/20 History Sevelamer Carbonate [Renvela] 800 mg PO TIDAC 07/24/20 07/24/20 07/19/20 History Sucroferric Oxyhydroxide(Nf) 500 mg PO TIDAC 07/24/20 07/24/20 07/19/20 History [Velphoro (Nf)] Warfarin [Coumadin] 6 mg PO QDAY 07/24/20 07/24/20 07/19/20 History Active Medications: Generic Name Dose Route Start Last Admin Trade Name Freq PRN Reason Stop Dose Admin Acetaminophen 650 mg 07/22/20 14:09 Acetaminophen 325 Mg Tab PO Q6H PRN Pain, Mild (1-3) Hydrocodone Bitart/Acetaminophen 2 each 07/22/20 14:09 07/26/20 10:58 Hydrocodone/Acetaminophen 5-325 Mg Tab PO 2 each Q6H PRN Administration Pain, Moderate (4-6) Albuterol 2.5 mg 07/26/20 08:34 Albuterol 2.5 Mg/3 Ml Nebu IH Q4HRT PRN Shortness Of Breath Aspirin 81 mg 07/22/20 15:00 07/26/20 10:59 Aspirin Ec 81 Mg Tab PO 81 mg QDAY AALIYAH Administration Heparin Sodium (Porcine) 4,000 unit 07/23/20 14:05 07/26/20 11:24 Heparin 10,000 Units/10 Ml Vial 40 unit/kg (4000 unit) 4,000 unit IV Administration Q6H PRN Anti-Xa Assay<0.1 units/ml Hydromorphone HCl 0.5 mg 07/22/20 14:09 07/24/20 19:34 Hydromorphone 1 Mg/1 Ml Inj IV 0.5 mg Q3H PRN Administration Pain , Severe (7-10) Sodium Chloride 1,000 mls @ 30 mls/hr 07/22/20 14:15 Nacl 0.9% 1000 Ml IV DIRECT AALIYAH Heparin Sodium/Sodium Chloride 25,000 unit in 500 mls @ 29 mls/hr 07/23/20 15:00 07/26/20 14:30 Heparin/ 0.45% Nacl-25,000 Unit/500 Ml IV 1,900 units/hr TITR AALIYAH 38 mls/hr Administration Protocol 1,450 UNITS/HR Metoprolol Tartrate 25 mg 07/26/20 12:00 07/26/20 11:32 Metoprolol Tartrate 25 Mg Tab PO Not Given BID AALIYAH Midodrine 10 mg 07/25/20 16:00 07/26/20 15:37 Midodrine 5 Mg Tab PO 10 mg TID@0800,1200,1600 AALIYAH Administration Ondansetron HCl 4 mg 07/22/20 14:09 Ondansetron 4 Mg/2 Ml Inj IV Q8H PRN Nausea And Vomiting Sevelamer Carbonate 800 mg 07/23/20 18:30 07/26/20 15:37 Sevelamer Carbonate 800 Mg Tab PO 800 mg AC AALIYAH Administration Sodium Chloride 10 ml 07/22/20 13:00 07/26/20 11:00 Sodium Chloride 0.9% 10 Ml Flush Syringe IV 10 ml BID AALIYAH Administration Sodium Chloride 10 ml 07/22/20 13:00 Sodium Chloride 0.9% 10 Ml Flush Syringe IV PRN PRN LINE FLUSH
[2020-07-27 02:36] LABS: Hematocrit 34.3 % (35.5-45.6); Hemoglobin 10.8 gm/dl (11.8-15.2); Mean Corpuscular HGB Conc 32 % (32-34); Mean Corpuscular Volume 104 fl (84-94); Platelet Count 321 K/mm3 (140-440); Red Blood Count 3.29 M/mm3 (3.65-5.03); Red Cell Distribution Width 19.5 % (13.2-15.2)
[2020-07-27 02:40] LABS: Basophils # (Auto) 0.1 K/mm3 (0.0-0.1); Basophils % (Auto) 0.5 % (0.0-1.8); Eosinophils # (Auto) 0.2 K/mm3 (0.0-0.4); Eosinophils % (Auto) 1.3 % (0.0-4.3); Lymphocytes # (Auto) 0.8 K/mm3 (1.2-5.4); Lymphocytes % (Auto) 6.1 % (13.4-35.0); Monocytes % (Auto) 7.8 % (0.0-7.3)
[2020-07-27] MEDS: HYDROcodone/ACETAMINOPHEN 5-325 MG TAB PO PRN ×3 (03:06→22:10)
[2020-07-27] MEDS: HEPARIN/ 0.45% NACL DRIP 25,000 UNIT/500 ML BAG IV SCH ×2 (03:11→16:25)
[2020-07-27 03:42] LABS: Calcium 9.5 mg/dL (8.4-10.2)
[2020-07-27] MEDS: MIDODRINE 5 MG TAB PO SCH ×3 (09:10→16:34)
[2020-07-27] MEDS: METOPROLOL TARTRATE 25 MG TAB PO SCH ×2 (09:10→22:11)
[2020-07-27] MEDS: SEVELAMER CARBONATE 800 MG TAB PO SCH ×3 (09:10→16:34)
[2020-07-27] MEDS: ASPIRIN EC 81 MG TAB PO SCH (09:10)
--- NOTE | 2020-07-27 12:03 | Progress Note ---
Assessment and Plan Assessment and Plan Thrombosis of left popliteal artery End stage renal disease Hypertension Hyperkalemia Peripheral artery disease DVT prophylaxis Plan: s/p HD yesterday, no HD today. Hyperkalemia-resolved Fluid restriction of 1 liter per day Strict I&O's daily Obtain daily weights Renally dose medications Assess dialysis needs daily Subjective Date of service: 07/27/20 Principal diagnosis: ESRD on HD Interval history: Tolerated HD yesterday. Objective - Exam Narrative Exam: General appearance: well-developed, well-nourished, appears stated age EENT: ATNC, PERRL Neck: no JVD, no carotid bruit Respiratory: Present: Clear to Ascultation. Absent: Rales, Ronchi Cardiology: regular, S1S2 Gastrointestinal: normoactive bowel sounds, no tenderness, no distended Integumentary: no rash, warm and dry Neurologic: no focal deficit, no asterixis Psychiatric: mood/affect appropriate - Vital Signs Vital signs: Vital Signs - 12hr 07/27/20 07/27/20 07/27/20 01:00 02:00 03:00 Temperature Pulse Rate 101 H 111 H 101 H Pulse Rate [ From Monitor] Respiratory 19 10 L 22 Rate Blood Pressure 106/69 110/72 117/75 O2 Sat by Pulse 98 97 99 Oximetry 07/27/20 07/27/20 07/27/20 03:06 04:00 05:00 Temperature 98.4 F Pulse Rate 118 H 103 H Pulse Rate [ 118 H From Monitor] Respiratory 13 17 16 Rate Blood Pressure 122/71 107/64 O2 Sat by Pulse 97 99 Oximetry 07/27/20 07/27/20 07/27/20 06:00 07:00 09:10 Temperature Pulse Rate 117 H 87 113 H Pulse Rate [ From Monitor] Respiratory 19 17 Rate Blood Pressure 103/66 112/59 118/67 O2 Sat by Pulse 96 95 Oximetry - Lab 07/27/20 02:15 07/27/20 02:15 Most recent lab results Calcium 9.5 mg/dL (8.4-10.2) 07/27/20 02:15 Medications & Allergies - Medications Allergies/Adverse Reactions: Allergies amoxicillin Allergy (Verified 07/22/20 12:14) Unknown Home Medications: Home Medications Medication Instructions Recorded Confirmed Last Taken Type Metoprolol [Lopressor] 25 mg PO QDAY 01/07/24/20 07/17/20 History Sevelamer Carbonate [Renvela] 800 mg PO TIDAC 07/24/20 07/24/20 07/19/20 History Sucroferric Oxyhydroxide(Nf) 500 mg PO TIDAC 07/24/20 07/24/20 07/19/20 History [Velphoro (Nf)] Warfarin [Coumadin] 6 mg PO QDAY 07/24/20 07/24/20 07/19/20 History Active Medications: Generic Name Dose Route Start Last Admin Trade Name Freq PRN Reason Stop Dose Admin Acetaminophen 650 mg 07/22/20 14:09 Acetaminophen 325 Mg Tab PO Q6H PRN Pain, Mild (1-3) Hydrocodone Bitart/Acetaminophen 2 each 07/22/20 14:09 07/27/20 03:06 Hydrocodone/Acetaminophen 5-325 Mg Tab PO 2 each Q6H PRN Administration Pain, Moderate (4-6) Albuterol 2.5 mg 07/26/20 08:34 Albuterol 2.5 Mg/3 Ml Nebu IH Q4HRT PRN Shortness Of Breath Aspirin 81 mg 07/22/20 15:00 07/27/20 09:10 Aspirin Ec 81 Mg Tab PO 81 mg QDAY AALIYAH Administration Heparin Sodium (Porcine) 4,000 unit 07/23/20 14:05 07/26/20 11:24 Heparin 10,000 Units/10 Ml Vial 40 unit/kg (4000 unit) 4,000 unit IV Administration Q6H PRN Anti-Xa Assay<0.1 units/ml Hydromorphone HCl 0.5 mg 07/22/20 14:09 07/24/20 19:34 Hydromorphone 1 Mg/1 Ml Inj IV 0.5 mg Q3H PRN Administration Pain , Severe (7-10) Sodium Chloride 1,000 mls @ 30 mls/hr 07/22/20 14:15 Nacl 0.9% 1000 Ml IV DIRECT AALIYAH Heparin Sodium/Sodium Chloride 25,000 unit in 500 mls @ 29 mls/hr 07/23/20 15:00 07/27/20 03:11 Heparin/ 0.45% Nacl-25,000 Unit/500 Ml IV 1,900 units/hr TITR AALIYAH 38 mls/hr Administration Protocol 1,450 UNITS/HR Metoprolol Tartrate 25 mg 07/26/20 12:00 07/27/20 09:10 Metoprolol Tartrate 25 Mg Tab PO 25 mg BID AALIYAH Administration Midodrine 10 mg 07/25/20 16:00 07/27/20 09:10 Midodrine 5 Mg Tab PO 10 mg TID@0800,1200,1600 AALIYAH Administration Ondansetron HCl 4 mg 07/22/20 14:09 Ondansetron 4 Mg/2 Ml Inj IV Q8H PRN Nausea And Vomiting Sevelamer Carbonate 800 mg 07/23/20 18:30 07/27/20 09:10 Sevelamer Carbonate 800 Mg Tab PO 800 mg AC AALIYAH Administration Sodium Chloride 10 ml 07/22/20 13:00 07/27/20 09:12 Sodium Chloride 0.9% 10 Ml Flush Syringe IV 10 ml BID AALIYAH Administration Sodium Chloride 10 ml 07/22/20 13:00 Sodium Chloride 0.9% 10 Ml Flush Syringe IV PRN PRN LINE FLUSH
--- NOTE | 2020-07-27 12:33 | Progress Note ---
Assessment and Plan Assessment and plan: (1) Acute limb ischemia with thrombosis of left popliteal artery Current Visit: Yes Status: Acute Plan to address problem: s/p angiogram and angioplasty for left popliteal artery occlusion Vascular surgery following. Plan for amputation next week. (2) End stage renal disease Current Visit: Yes Status: Acute Plan to address problem: Nephrology team on board HD as per renal (3) Hypotension Current Visit: Yes Status: Acute Qualifiers: Hypertension type: essential hypertension Qualified Code(s): I10 - Essential (primary) hypertension Plan to address problem: Now on midodrine. BP better Continue to monitor blood pressure closely (4) Sinus tachycardia Resume home metoprolol and adjust dose Thyroid function test wnl (5) left lower extremity DVT Current Visit: Yes Status: Acute Plan to address problem: Patient is on Coumadin at home for this Holding Coumadin as patient is on heparin drip (6) DVT prophylaxis Current Visit: Yes Status: Acute Plan to address problem: SCDs bilateral lower extremities while in bed, continue therapeutic a nticoagulation History Interval history: Now s/p limb revascularization. Plan for below knee amputation next week BP better with midodrine Remains on heparin drip Hospitalist Physical - Physical exam Narrative exam: VITAL SIGNS: Reviewed. GENERAL: Awake HEAD: No signs of head trauma. EYES: Pupils are equal. Extraocular motions intact. MOUTH: Oropharynx is normal. NECK: No adenopathy, no JVD. CHEST: Chest with diminished breath sounds bilaterally. No wheezes, rales, or rhonchi. CARDIAC: normal S1 and S2, without murmurs, gallops, or rubs. ABDOMEN: Soft, non tender and non distended. No rebound or guarding, and no masses palpated. Bowel Sounds normal. MUSCULOSKELETAL: Left leg discomfort NEUROLOGIC EXAM: Alert and oriented x3. No focal neurologic deficits SKIN: No obvious lesions - Constitutional Vitals: Temp Pulse Resp BP Pulse Ox 98.4 F 113 H 17 118/67 95 07/27/20 04:00 07/27/20 09:10 07/27/20 07:00 07/27/20 09:10 07/27/20 07:00 Results - Labs CBC & Chem 7: 07/27/20 02:15 07/27/20 02:15 Labs: Laboratory Last Values WBC 13.0 K/mm3 (4.5-11.0) H 07/27/20 02:15 RBC 3.29 M/mm3 (3.65-5.03) L 07/27/20 02:15 Hgb 10.8 gm/dl (11.8-15.2) L 07/27/20 02:15 Hct 34.3 % (35.5-45.6) L 07/27/20 02:15 MCV 104 fl (84-94) H 07/27/20 02:15 MCH 33 pg (28-32) H 07/27/20 02:15 MCHC 32 % (32-34) 07/27/20 02:15 RDW 19.5 % (13.2-15.2) H 07/27/20 02:15 Plt Count 321 K/mm3 (140-440) 07/27/20 02:15 Lymph % (Auto) 6.1 % (13.4-35.0) L 07/27/20 02:15 Island % (Auto) 7.8 % (0.0-7.3) H 07/27/20 02:15 Eos % (Auto) 1.3 % (0.0-4.3) 07/27/20 02:15 Baso % (Auto) 0.5 % (0.0-1.8) 07/27/20 02:15 Lymph # (Auto) 0.8 K/mm3 (1.2-5.4) L 07/27/20 02:15 Island # (Auto) 1.0 K/mm3 (0.0-0.8) H 07/27/20 02:15 Eos # (Auto) 0.2 K/mm3 (0.0-0.4) 07/27/20 02:15 Baso # (Auto) 0.1 K/mm3 (0.0-0.1) 07/27/20 02:15 Add Manual Diff Complete 07/23/20 09:46 Total Counted 100 07/23/20 09:46 Seg Neutrophils % 84.3 % (40.0-70.0) H 07/27/20 02:15 Seg Neuts % (Manual) 94.0 % (40.0-70.0) H 07/23/20 09:46 Band Neutrophils % 1.0 % 07/23/20 09:46 Lymphocytes % (Manual) 1.0 % (13.4-35.0) L 07/23/20 09:46 Reactive Lymphs % (Man) 0 % 07/22/20 18:00 Monocytes % (Manual) 4.0 % (0.0-7.3) 07/23/20 09:46 Eosinophils % (Manual) 0 % (0.0-4.3) 07/22/20 18:00 Basophils % (Manual) 0 % (0.0-1.8) 07/22/20 18:00 Metamyelocytes % 0 % 07/22/20 18:00 Myelocytes % 0 % 07/22/20 18:00 Promyelocytes % 0 % 07/22/20 18:00 Blast Cells % 0 % 07/22/20 18:00 Nucleated RBC % Not Reportable 07/23/20 09:46 Seg Neutrophils # 10.9 K/mm3 (1.8-7.7) H 07/27/20 02:15 Seg Neutrophils # Man 16.2 K/mm3 (1.8-7.7) H 07/23/20 09:46 Band Neutrophils # 0.2 K/mm3 07/23/20 09:46 Lymphocytes # (Manual) 0.2 K/mm3 (1.2-5.4) L 07/23/20 09:46 Abs React Lymphs (Man) 0.0 K/mm3 07/23/20 09:46 Monocytes # (Manual) 0.7 K/mm3 (0.0-0.8) 07/23/20 09:46 Eosinophils # (Manual) 0.0 K/mm3 (0.0-0.4) 07/23/20 09:46 Basophils # (Manual) 0.0 K/mm3 (0.0-0.1) 07/23/20 09:46 Metamyelocytes # 0.0 K/mm3 07/23/20 09:46 Myelocytes # 0.0 K/mm3 07/23/20 09:46 Promyelocytes # 0.0 K/mm3 07/23/20 09:46 Blast Cells # 0.0 K/mm3 07/23/20 09:46 WBC Morphology Not Reportable 07/23/20 09:46 Hypersegmented Neuts Not Reportable 07/23/20 09:46 Hyposegmented Neuts Not Reportable 07/23/20 09:46 Hypogranular Neuts Not Reportable 07/23/20 09:46 Smudge Cells Not Reportable 07/23/20 09:46 Toxic Granulation Not Reportable 07/23/20 09:46 Toxic Vacuolation Not Reportable 07/23/20 09:46 Dohle Bodies Not Reportable 07/23/20 09:46 Pelger-Huet Anomaly Not Reportable 07/23/20 09:46 Svetlana Rods Not Reportable 07/23/20 09:46 Platelet Estimate Consistent w auto 07/23/20 09:46 Clumped Platelets Not Reportable 07/23/20 09:46 Plt Clumps, EDTA Not Reportable 07/23/20 09:46 Large Platelets Not Reportable 07/23/20 09:46 Giant Platelets Not Reportable 07/23/20 09:46 Platelet Satelliting Not Reportable 07/23/20 09:46 Plt Morphology Comment Not Reportable 07/23/20 09:46 RBC Morphology Not Reportable 07/23/20 09:46 Dimorphic RBCs Not Reportable 07/23/20 09:46 Polychromasia Not Reportable 07/23/20 09:46 Hypochromasia Not Reportable 07/23/20 09:46 Poikilocytosis Not Reportable 07/23/20 09:46 Anisocytosis 1+ 07/23/20 09:46 Microcytosis Not Reportable 07/23/20 09:46 Macrocytosis Not Reportable 07/23/20 09:46 Spherocytes Not Reportable 07/23/20 09:46 Pappenheimer Bodies Not Reportable 07/23/20 09:46 Sickle Cells Not Reportable 07/23/20 09:46 Target Cells Not Reportable 07/23/20 09:46 Tear Drop Cells Not Reportable 07/23/20 09:46 Ovalocytes Not Reportable 07/23/20 09:46 Helmet Cells Not Reportable 07/23/20 09:46 Seth-Newtonia Bodies Not Reportable 07/23/20 09:46 Crane Rings Not Reportable 07/23/20 09:46 Tunas Cells Not Reportable 07/23/20 09:46 Bite Cells Not Reportable 07/23/20 09:46 Crenated Cell Not Reportable 07/23/20 09:46 Elliptocytes Not Reportable 07/23/20 09:46 Acanthocytes (Spur) Not Reportable 07/23/20 09:46 Rouleaux Not Reportable 07/23/20 09:46 Hemoglobin C Crystals Not Reportable 07/23/20 09:46 Schistocytes Not Reportable 07/23/20 09:46 Malaria parasites Not Reportable 07/23/20 09:46 Malachi Bodies Not Reportable 07/23/20 09:46 Hem Pathologist Commnt No 07/23/20 09:46 PT 21.0 Sec. (12.2-14.9) H 07/23/20 23:01 INR 1.80 (0.87-1.13) H 07/23/20 23:01 APTT 39.4 Sec. (24.2-36.6) H 07/23/20 23:01 Fibrinogen 494 mg/dl (211-480) H 07/23/20 09:46 Heparin Anti-Xa Level 0.47 U.I./ml (0.3-0.7) 07/26/20 23:25 Sodium 142 mmol/L (137-145) 07/27/20 02:15 Potassium 4.0 mmol/L (3.6-5.0) 07/27/20 02:15 Chloride 98.5 mmol/L (98-107) 07/27/20 02:15 Carbon Dioxide 26 mmol/L (22-30) 07/27/20 02:15 Anion Gap 22 mmol/L 07/27/20 02:15 BUN 43 mg/dL (9-20) H 07/27/20 02:15 Creatinine 10.7 mg/dL (0.8-1.3) H 07/27/20 02:15 Estimated GFR 6 ml/min 07/27/20 02:15 BUN/Creatinine Ratio 4 % 07/27/20 02:15 Glucose 68 mg/dL (75-100) L 07/27/20 02:15 POC Glucose 79 mg/dL (70-105) 07/26/20 18:29 Calcium 9.5 mg/dL (8.4-10.2) 07/27/20 02:15 Total Bilirubin 0.30 mg/dL (0.1-1.2) 07/23/20 02:41 AST 16 units/L (5-40) 07/23/20 02:41 ALT 11 units/L (7-56) 07/23/20 02:41 Alkaline Phosphatase 84 units/L (35-129) 07/23/20 02:41 Total Protein 6.5 g/dL (6.3-8.2) 07/23/20 02:41 Albumin 3.5 g/dL (3.9-5) L 07/23/20 02:41 Albumin/Globulin Ratio 1.2 % 07/23/20 02:41 TSH 3.770 mlU/mL (0.270-4.200) 07/26/20 02:22 Free T4 1.01 ng/dL (0.76-1.46) 07/26/20 02:22 Hepatitis A IgM Ab Non-reactive (NonReactive) 07/22/20 18:00 Hep Bs Antigen Non-reactive (Negative) 07/22/20 18:00 Hep B Core IgM Ab Non-reactive (NonReactive) 07/22/20 18:00 Hepatitis C Antibody Non-reactive (NonReactive) 07/22/20 18:00 - Diagnostic Impressions Diagnostic Impressions: Echocardiogram 07/26/20 08:06 Transthoracic Echocardiogram Indication: Tachycardia BP: 108/70 HR: 100 Conclusions *Global left ventricular systolic function is normal. *The estimated ejection fraction is 60-65%. *Mild concentric left ventricular hypertrophy is observed. *The left atrium is mildly dilated. *There is mild mitral regurgitation. *The right heart chambers are both mildly dilated. *There is mild to moderate tricuspid regurgitation. *There is evidence of moderate pulmonary hypertension. *The right ventricular systolic pressure is calculated at 46 mmHg. Findings Left Ventricle: The left ventricular chamber size is normal. Mild concentric left ventricular hypertrophy is observed. Global left ventricular systolic function is normal. The estimated ejection fraction is 60-65%. Left Atrium: The left atrium is mildly dilated. Right Ventricle: The right ventricle is mildly dilated. The right ventricular global systolic function is mildly reduced. Right Atrium: The right atrium is mildly dilated. Aortic Valve: The aortic valve is trileaflet. The aortic valve leaflets are mildly thickened. There is no evidence of aortic regurgitation. There is no evidence of aortic stenosis. Mitral Valve: The mitral valve leaflets are mildly thickened. There is mild mitral regurgitation. There is no evidence of mitral stenosis. Tricuspid Valve: There is mild to moderate tricuspid regurgitation. The right ventricular systolic pressure is calculated at 46 mmHg. There is evidence of moderate pulmonary hypertension. Pulmonic Valve: There is trace pulmonic regurgitation. Pericardium: There is no pericardial effusion. Aorta: There is no dilatation of the ascending aorta. There is no dilatation of the aortic root. Venous: The inferior vena cava appears normal in size. Measurements Chambers 2D Name Value Normal Range IVSd (2D) 1.03 cm (0.6 - 1.1) LVPWd (2D) 0.91 cm (0.6 - 1.1) LVIDd (2D) 4.7 cm (3.7 - 5.6) LVIDs (2D) 3.36 cm (2 - 3.8) LV FS (2D) 28.6 % - EF Teichholz (2D) 55.1 % - Ao root diameter (2D) 3.06 cm (2 - 3.7) Volumes/Mass Name Value Normal Range LA ESV SP 4CH (A/L) 47.57 ml - LA ESV SP 2CH (A/L) 41.21 ml - LA ESV BP (A/L) 45.97 ml - LA ESV BP (A/L) index 20.8 ml/m2 - LA ESV SP 4CH (MOD) 43.06 ml - LA ESV SP 2CH (MOD) 41.81 ml - LA ESV BP (MOD) 43.59 ml - LA ESV BP (MOD) index 19.72 ml/m2 - Diastolic/Systolic Function Name Value Normal Range MV E-wave Vmax 0.81 m/sec - MV deceleration time 179.23 msec - Aortic Valve Name Value Normal Range AV Vmax 1.25 m/sec - AV VTI 19.57 cm - AV peak gradient 6.28 mmHg - AV mean gradient 3.55 mmHg - LVOT diameter 2.06 cm - LVOT Vmax 0.92 m/sec - LVOT VTI 13.2 cm - LVOT peak gradient 3.38 mmHg - LVOT mean gradient 1.86 mmHg - SV LVOT 44.13 ml - JOSE EDUARDO (continuity Vmax) 2.45 cm2 - JOSE EDUARDO (continuity VTI) 2.25 cm2 - Tricuspid Valve Name Value Normal Range TR Vmax 3.31 m/sec - TR peak gradient 43 mmHg - RAP 3 mmHg - RVSP 46 mmHg - IVC diameter 1.79 cm (1.2 - 2.3) Pulmonic Valve/Qp:Qs Name Value Normal Range PV Vmax 0.82 m/sec - PV peak gradient 2.66 mmHg - PV acceleration time 98.95 msec - Rodriguez/IV: IV Catheter Type [Left Forearm INT / Saline Lock ] IV Catheter Type [Right INT / Saline Lock Antecubital] Active Medications - Current Medications Current Medications: Generic Name Dose Route Start Last Admin Trade Name Freq PRN Reason Stop Dose Admin Acetaminophen 650 mg 07/22/20 14:09 Acetaminophen 325 Mg Tab PO Q6H PRN Pain, Mild (1-3) Hydrocodone Bitart/Acetaminophen 2 each 07/22/20 14:09 07/27/20 03:06 Hydrocodone/Acetaminophen 5-325 Mg Tab PO 2 each Q6H PRN Administration Pain, Moderate (4-6) Albuterol 2.5 mg 07/26/20 08:34 Albuterol 2.5 Mg/3 Ml Nebu IH Q4HRT PRN Shortness Of Breath Aspirin 81 mg 07/22/20 15:00 07/27/20 09:10 Aspirin Ec 81 Mg Tab PO 81 mg QDAY AALIYAH Administration Heparin Sodium (Porcine) 4,000 unit 07/23/20 14:05 07/26/20 11:24 Heparin 10,000 Units/10 Ml Vial 40 unit/kg (4000 unit) 4,000 unit IV Administration Q6H PRN Anti-Xa Assay<0.1 units/ml Hydromorphone HCl 0.5 mg 07/22/20 14:09 07/24/20 19:34 Hydromorphone 1 Mg/1 Ml Inj IV 0.5 mg Q3H PRN Administration Pain , Severe (7-10) Sodium Chloride 1,000 mls @ 30 mls/hr 07/22/20 14:15 Nacl 0.9% 1000 Ml IV DIRECT AALIYAH Heparin Sodium/Sodium Chloride 25,000 unit in 500 mls @ 29 mls/hr 07/23/20 15:00 07/27/20 03:11 Heparin/ 0.45% Nacl-25,000 Unit/500 Ml IV 1,900 units/hr TITR AALIYAH 38 mls/hr Administration Protocol 1,450 UNITS/HR Metoprolol Tartrate 25 mg 07/26/20 12:00 07/27/20 09:10 Metoprolol Tartrate 25 Mg Tab PO 25 mg BID AALIYAH Administration Midodrine 10 mg 07/25/20 16:00 07/27/20 09:10 Midodrine 5 Mg Tab PO 10 mg TID@0800,1200,1600 AALIYAH Administration Ondansetron HCl 4 mg 07/22/20 14:09 Ondansetron 4 Mg/2 Ml Inj IV Q8H PRN Nausea And Vomiting Sevelamer Carbonate 800 mg 07/23/20 18:30 07/27/20 09:10 Sevelamer Carbonate 800 Mg Tab PO 800 mg AC AALIYAH Administration Sodium Chloride 10 ml 07/22/20 13:00 07/27/20 09:12 Sodium Chloride 0.9% 10 Ml Flush Syringe IV 10 ml BID AALIYAH Administration Sodium Chloride 10 ml 07/22/20 13:00 Sodium Chloride 0.9% 10 Ml Flush Syringe IV PRN PRN LINE FLUSH
[2020-07-27] MEDS: ACETAMINOPHEN 325 MG TAB PO PRN ×2 (16:33→22:12)
[2020-07-28] MEDS: HYDROcodone/ACETAMINOPHEN 5-325 MG TAB PO PRN ×3 (04:47→17:32)
[2020-07-28] MEDS: HEPARIN/ 0.45% NACL DRIP 25,000 UNIT/500 ML BAG IV SCH ×2 (06:50→17:25)
[2020-07-28] MEDS: SEVELAMER CARBONATE 800 MG TAB PO SCH ×3 (08:47→16:45)
[2020-07-28 09:18] LABS: Basophils # (Auto) 0.1 K/mm3 (0.0-0.1); Basophils % (Auto) 0.9 % (0.0-1.8); Eosinophils # (Auto) 0.1 K/mm3 (0.0-0.4); Eosinophils % (Auto) 0.9 % (0.0-4.3); Hematocrit 33.2 % (35.5-45.6); Hemoglobin 10.5 gm/dl (11.8-15.2); Lymphocytes # (Auto) 1.1 K/mm3 (1.2-5.4); Lymphocytes % (Auto) 7.5 % (13.4-35.0); Mean Corpuscular HGB Conc 32 % (32-34); Mean Corpuscular Volume 104 fl (84-94); Monocytes # (Auto) 1.3 K/mm3 (0.0-0.8); Monocytes % (Auto) 8.7 % (0.0-7.3); Platelet Count 336 K/mm3 (140-440); Red Blood Count 3.19 M/mm3 (3.65-5.03); Red Cell Distribution Width 19.1 % (13.2-15.2)
[2020-07-28] MEDS: MIDODRINE 5 MG TAB PO SCH ×3 (09:55→16:45)
[2020-07-28] MEDS: METOPROLOL TARTRATE 25 MG TAB PO SCH ×2 (09:56→21:33)
[2020-07-28] MEDS: ASPIRIN EC 81 MG TAB PO SCH (09:56)
[2020-07-28 09:58] LABS: Calcium 10.3 mg/dL (8.4-10.2)
[2020-07-28] MEDS ORDERED: SODIUM POLYSTYRENE 15 GM/60 ML ORAL LIQD PO ONE (10:59)
--- NOTE | 2020-07-28 11:00 | Progress Note ---
Assessment and Plan Assessment and Plan Thrombosis of left popliteal artery End stage renal disease Hypertension Hyperkalemia Peripheral artery disease DVT prophylaxis Plan: s/p HD Wednesday, no HD today. Hyperkalemia-Kayxelate ordered Fluid restriction of 1 liter per day Strict I&O's daily Obtain daily weights Renally dose medications Assess dialysis needs daily Subjective Date of service: 07/28/20 Principal diagnosis: ESRD on HD Interval history: Tolerated HD Wednesday. K is 5.2. Objective - Exam Narrative Exam: General appearance: well-developed, well-nourished, appears stated age EENT: ATNC, PERRL Neck: no JVD, no carotid bruit Respiratory: Present: Clear to Ascultation. Absent: Rales, Ronchi Cardiology: regular, S1S2 Gastrointestinal: normoactive bowel sounds, no tenderness, no distended Integumentary: no rash, warm and dry Neurologic: no focal deficit, no asterixis Psychiatric: mood/affect appropriate - Vital Signs Vital signs: Vital Signs - 12hr 07/28/20 07/28/20 07/28/20 00:00 00:09 04:00 Temperature 99.1 F Pulse Rate 96 H 96 H 96 H Respiratory 18 Rate Blood Pressure 119/73 O2 Sat by Pulse 100 Oximetry 07/28/20 07/28/20 07/28/20 04:36 04:40 08:23 Temperature 98.8 F 98.8 F 98.1 F Pulse Rate 83 Respiratory 18 20 Rate Blood Pressure 114/73 107/68 O2 Sat by Pulse 96 Oximetry 07/28/20 09:56 Temperature Pulse Rate 83 Respiratory Rate Blood Pressure 107/68 O2 Sat by Pulse Oximetry - Lab 07/28/20 07:53 07/28/20 07:53 Most recent lab results Calcium 10.3 mg/dL (8.4-10.2) H 07/28/20 07:53 Medications & Allergies - Medications Allergies/Adverse Reactions: Allergies amoxicillin Allergy (Verified 07/22/20 12:14) Unknown Home Medications: Home Medications Medication Instructions Recorded Confirmed Last Taken Type Metoprolol [Lopressor] 25 mg PO QDAY 07/24/20 07/24/20 07/17/20 History Sevelamer Carbonate [Renvela] 800 mg PO TIDAC 07/24/20 07/24/20 07/19/20 History Sucroferric Oxyhydroxide(Nf) 500 mg PO TIDAC 07/24/20 07/24/20 07/19/20 History [Velphoro (Nf)] Warfarin [Coumadin] 6 mg PO QDAY 07/24/20 07/24/20 07/19/20 History Active Medications: Generic Name Dose Route Start Last Admin Trade Name Freq PRN Reason Stop Dose Admin Acetaminophen 650 mg 07/22/20 14:09 07/27/20 22:12 Acetaminophen 325 Mg Tab PO 650 mg Q6H PRN Administration Pain, Mild (1-3) Hydrocodone Bitart/Acetaminophen 2 each 07/22/20 14:09 07/28/20 04:47 Hydrocodone/Acetaminophen 5-325 Mg Tab PO 2 each Q6H PRN Administration Pain, Moderate (4-6) Albuterol 2.5 mg 07/26/20 08:34 Albuterol 2.5 Mg/3 Ml Nebu IH Q4HRT PRN Shortness Of Breath Aspirin 81 mg 07/22/20 15:00 07/28/20 09:56 Aspirin Ec 81 Mg Tab PO 81 mg QDAY AALIYAH Administration Heparin Sodium (Porcine) 4,000 unit 07/23/20 14:05 07/26/20 11:24 Heparin 10,000 Units/10 Ml Vial 40 unit/kg (4000 unit) 4,000 unit IV Administration Q6H PRN Anti-Xa Assay<0.1 units/ml Hydromorphone HCl 0.5 mg 07/22/20 14:09 07/24/20 19:34 Hydromorphone 1 Mg/1 Ml Inj IV 0.5 mg Q3H PRN Administration Pain , Severe (7-10) Sodium Chloride 1,000 mls @ 30 mls/hr 07/22/20 14:15 Nacl 0.9% 1000 Ml IV DIRECT AALIYAH Heparin Sodium/Sodium Chloride 25,000 unit in 500 mls @ 29 mls/hr 07/23/20 15:00 07/28/20 06:50 Heparin/ 0.45% Nacl-25,000 Unit/500 Ml IV 1,900 units/hr TITR AALIYAH 38 mls/hr Administration Protocol 1,450 UNITS/HR Metoprolol Tartrate 25 mg 07/26/20 12:00 07/28/20 09:56 Metoprolol Tartrate 25 Mg Tab PO 25 mg BID AALIYAH Administration Midodrine 10 mg 07/25/20 16:00 07/28/20 09:55 Midodrine 5 Mg Tab PO 10 mg TID@0800,1200,1600 AALIYAH Administration Ondansetron HCl 4 mg 07/22/20 14:09 Ondansetron 4 Mg/2 Ml Inj IV Q8H PRN Nausea And Vomiting Sevelamer Carbonate 800 mg 07/23/20 18:30 07/28/20 08:47 Sevelamer Carbonate 800 Mg Tab PO 800 mg AC AALIYAH Administration Sodium Chloride 10 ml 07/22/20 13:00 07/28/20 09:59 Sodium Chloride 0.9% 10 Ml Flush Syringe IV 10 ml BID AALIYAH Administration Sodium Chloride 10 ml 07/22/20 13:00 Sodium Chloride 0.9% 10 Ml Flush Syringe IV PRN PRN LINE FLUSH Sodium Polystyrene Sulfonate 30 gm 07/28/20 10:59 Sodium Polystyrene 15 Gm/60 Ml Oral Liqd PO 07/28/20 11:00 ONCE ONE
--- NOTE | 2020-07-28 12:34 | Event Note ---
Date: 07/28/20 Patient consented for left below-knee amputation. Will schedule him for the amputation on Wednesday.
--- NOTE | 2020-07-28 14:12 | Progress Note ---
Assessment and Plan Assessment and plan: -- Acute limb ischemia with thrombosis of left popliteal artery Current Visit: Yes Status: Acute Plan to address problem: s/p angiogram and angioplasty for left popliteal artery occlusion Vascular surgery following. Plan for amputation next week. -- End stage renal disease Current Visit: Yes Status: Acute Plan to address problem: Nephrology team on board HD as per renal -- Hypotension Current Visit: Yes Status: Acute Qualifiers: Hypertension type: essential hypertension Qualified Code(s): I10 - Essential (primary) hypertension Plan to address problem: Now on midodrine. 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 Likely source of fever Procalcitonin is >4. Though not accurate in the setting of ESRD Blood culture was sent Start vancomycin to cover GP Will get ID to evaluate. Consult placed --DVT prophylaxis Current Visit: Yes Status: Acute Plan to address problem: SCDs bilateral lower extremities while in bed, continue therapeutic anticoagulation History Interval history: Now s/p limb revascularization. Plan for below knee amputation next week BP better with midodrine Remains on heparin drip Spiked fever - 101.4. BC sent. Procalcitonin is elevated. Started on antibiotics - vancomycin. Will get ID to follow Hospitalist Physical - Physical exam Narrative exam: VITAL SIGNS: Reviewed. GENERAL: Awake HEAD: No signs of head trauma. EYES: Pupils are equal. Extraocular motions intact. MOUTH: Oropharynx is normal. NECK: No adenopathy, no JVD. CHEST: Chest with diminished breath sounds bilaterally. No wheezes, rales, or rhonchi. CARDIAC: normal S1 and S2, without murmurs, gallops, or rubs. ABDOMEN: Soft, non tender and non distended. No rebound or guarding, and no masses palpated. Bowel Sounds normal. MUSCULOSKELETAL: Left leg discomfort NEUROLOGIC EXAM: Alert and oriented x3. No focal neurologic deficits SKIN: No obvious lesions - Constitutional Vitals: Temp Pulse Resp BP Pulse Ox 98.1 F 97 H 20 101/76 92 07/28/20 08:23 07/28/20 11:40 07/28/20 08:23 07/28/20 11:40 07/28/20 11:40 Results - Labs CBC & Chem 7: 07/28/20 07:53 07/28/20 07:53 Labs: Laboratory Last Values WBC 15.3 K/mm3 (4.5-11.0) H 07/28/20 07:53 RBC 3.19 M/mm3 (3.65-5.03) L 07/28/20 07:53 Hgb 10.5 gm/dl (11.8-15.2) L 07/28/20 07:53 Hct 33.2 % (35.5-45.6) L 07/28/20 07:53 MCV 104 fl (84-94) H 07/28/20 07:53 MCH 33 pg (28-32) H 07/28/20 07:53 MCHC 32 % (32-34) 07/28/20 07:53 RDW 19.1 % (13.2-15.2) H 07/28/20 07:53 Plt Count 336 K/mm3 (140-440) 07/28/20 07:53 Lymph % (Auto) 7.5 % (13.4-35.0) L 07/28/20 07:53 [place] % (Auto) 8.7 % (0.0-7.3) H 07/28/20 07:53 Eos % (Auto) 0.9 % (0.0-4.3) 07/28/20 07:53 Baso % (Auto) 0.9 % (0.0-1.8) 07/28/20 07:53 Lymph # (Auto) 1.1 K/mm3 (1.2-5.4) L 07/28/20 07:53 [place] # (Auto) 1.3 K/mm3 (0.0-0.8) H 07/28/20 07:53 Eos # (Auto) 0.1 K/mm3 (0.0-0.4) 07/28/20 07:53 Baso # (Auto) 0.1 K/mm3 (0.0-0.1) 07/28/20 07:53 Add Manual Diff Complete 07/23/20 09:46 Total Counted 100 07/23/20 09:46 Seg Neutrophils % 82.0 % (40.0-70.0) H 07/28/20 07:53 Seg Neuts % (Manual) 94.0 % (40.0-70.0) H 07/23/20 09:46 Band Neutrophils % 1.0 % 07/23/20 09:46 Lymphocytes % (Manual) 1.0 % (13.4-35.0) L 07/23/20 09:46 Reactive Lymphs % (Man) 0 % 07/22/20 18:00 Monocytes % (Manual) 4.0 % (0.0-7.3) 07/23/20 09:46 Eosinophils % (Manual) 0 % (0.0-4.3) 07/22/20 18:00 Basophils % (Manual) 0 % (0.0-1.8) 07/22/20 18:00 Metamyelocytes % 0 % 07/22/20 18:00 Myelocytes % 0 % 07/22/20 18:00 Promyelocytes % 0 % 07/22/20 18:00 Blast Cells % 0 % 07/22/20 18:00 Nucleated RBC % Not Reportable 07/23/20 09:46 Seg Neutrophils # 12.6 K/mm3 (1.8-7.7) H 07/28/20 07:53 Seg Neutrophils # Man 16.2 K/mm3 (1.8-7.7) H 07/23/20 09:46 Band Neutrophils # 0.2 K/mm3 07/23/20 09:46 Lymphocytes # (Manual) 0.2 K/mm3 (1.2-5.4) L 07/23/20 09:46 Abs React Lymphs (Man) 0.0 K/mm3 07/23/20 09:46 Monocytes # (Manual) 0.7 K/mm3 (0.0-0.8) 07/23/20 09:46 Eosinophils # (Manual) 0.0 K/mm3 (0.0-0.4) 07/23/20 09:46 Basophils # (Manual) 0.0 K/mm3 (0.0-0.1) 07/23/20 09:46 Metamyelocytes # 0.0 K/mm3 07/23/20 09:46 Myelocytes # 0.0 K/mm3 07/23/20 09:46 Promyelocytes # 0.0 K/mm3 07/23/20 09:46 Blast Cells # 0.0 K/mm3 07/23/20 09:46 WBC Morphology Not Reportable 07/23/20 09:46 Hypersegmented Neuts Not Reportable 07/23/20 09:46 Hyposegmented Neuts Not Reportable 07/23/20 09:46 Hypogranular Neuts Not Reportable 07/23/20 09:46 Smudge Cells Not Reportable 07/23/20 09:46 Toxic Granulation Not Reportable 07/23/20 09:46 Toxic Vacuolation Not Reportable 07/23/20 09:46 Dohle Bodies Not Reportable 07/23/20 09:46 Pelger-Huet Anomaly Not Reportable 07/23/20 09:46 Svetlana Rods Not Reportable 07/23/20 09:46 Platelet Estimate Consistent w auto 07/23/20 09:46 Clumped Platelets Not Reportable 07/23/20 09:46 Plt Clumps, EDTA Not Reportable 07/23/20 09:46 Large Platelets Not Reportable 07/23/20 09:46 Giant Platelets Not Reportable 07/23/20 09:46 Platelet Satelliting Not Reportable 07/23/20 09:46 Plt Morphology Comment Not Reportable 07/23/20 09:46 RBC Morphology Not Reportable 07/23/20 09:46 Dimorphic RBCs Not Reportable 07/23/20 09:46 Polychromasia Not Reportable 07/23/20 09:46 Hypochromasia Not Reportable 07/23/20 09:46 Poikilocytosis Not Reportable 07/23/20 09:46 Anisocytosis 1+ 07/23/20 09:46 Microcytosis Not Reportable 07/23/20 09:46 Macrocytosis Not Reportable 07/23/20 09:46 Spherocytes Not Reportable 07/23/20 09:46 Pappenheimer Bodies Not Reportable 07/23/20 09:46 Sickle Cells Not Reportable 07/23/20 09:46 Target Cells Not Reportable 07/23/20 09:46 Tear Drop Cells Not Reportable 07/23/20 09:46 Ovalocytes Not Reportable 07/23/20 09:46 Helmet Cells Not Reportable 07/23/20 09:46 Seth-Grapeland Bodies Not Reportable 07/23/20 09:46 Emerson Rings Not Reportable 07/23/20 09:46 Alicia Cells Not Reportable 07/23/20 09:46 Bite Cells Not Reportable 07/23/20 09:46 Crenated Cell Not Reportable 07/23/20 09:46 Elliptocytes Not Reportable 07/23/20 09:46 Acanthocytes (Spur) Not Reportable 07/23/20 09:46 Rouleaux Not Reportable 07/23/20 09:46 Hemoglobin C Crystals Not Reportable 07/23/20 09:46 Schistocytes Not Reportable 07/23/20 09:46 Malaria parasites Not Reportable 07/23/20 09:46 Malachi Bodies Not Reportable 07/23/20 09:46 Hem Pathologist Commnt No 07/23/20 09:46 PT 21.0 Sec. (12.2-14.9) H 07/23/20 23:01 INR 1.80 (0.87-1.13) H 07/23/20 23:01 APTT 39.4 Sec. (24.2-36.6) H 07/23/20 23:01 Fibrinogen 494 mg/dl (211-480) H 07/23/20 09:46 Heparin Anti-Xa Level 0.37 U.I./ml (0.3-0.7) 07/28/20 00:29 Sodium 142 mmol/L (137-145) 07/28/20 07:53 Potassium 5.2 mmol/L (3.6-5.0) H D 07/28/20 07:53 Chloride 98.6 mmol/L (98-107) 07/28/20 07:53 Carbon Dioxide 29 mmol/L (22-30) 07/28/20 07:53 Anion Gap 20 mmol/L 07/28/20 07:53 BUN 57 mg/dL (9-20) H 07/28/20 07:53 Creatinine 14.3 mg/dL (0.8-1.3) H 07/28/20 07:53 Estimated GFR 4 ml/min 07/28/20 07:53 BUN/Creatinine Ratio 4 % 07/28/20 07:53 Glucose 59 mg/dL (75-100) L 07/28/20 07:53 POC Glucose 79 mg/dL (70-105) 07/26/20 18:29 Calcium 10.3 mg/dL (8.4-10.2) H 07/28/20 07:53 Total Bilirubin 0.30 mg/dL (0.1-1.2) 07/23/20 02:41 AST 16 units/L (5-40) 07/23/20 02:41 ALT 11 units/L (7-56) 07/23/20 02:41 Alkaline Phosphatase 84 units/L (35-129) 07/23/20 02:41 Total Protein 6.5 g/dL (6.3-8.2) 07/23/20 02:41 Albumin 3.5 g/dL (3.9-5) L 07/23/20 02:41 Albumin/Globulin Ratio 1.2 % 07/23/20 02:41 Procalcitonin 4.28 ng/mL (<0.15) 07/28/20 07:53 TSH 3.770 mlU/mL (0.270-4.200) 07/26/20 02:22 Free T4 1.01 ng/dL (0.76-1.46) 07/26/20 02:22 Hepatitis A IgM Ab Non-reactive (NonReactive) 07/22/20 18:00 Hep Bs Antigen Non-reactive (Negative) 07/22/20 18:00 Hep B Core IgM Ab Non-reactive (NonReactive) 07/22/20 18:00 Hepatitis C Antibody Non-reactive (NonReactive) 07/22/20 18:00 Microbiology: Microbiology 07/28/20 07:53 Peripheral/Venous Blood Culture - Preliminary Culture in Progress 07/28/20 00:29 Peripheral/Venous Blood Culture - Preliminary Culture in Progress - Diagnostic Impressions Diagnostic Impressions: Echocardiogram 07/26/20 08:06 Transthoracic Echocardiogram Indication: Tachycardia BP: 108/70 HR: 100 Conclusions *Global left ventricular systolic function is normal. *The estimated ejection fraction is 60-65%. *Mild concentric left ventricular hypertrophy is observed. *The left atrium is mildly dilated. *There is mild mitral regurgitation. *The right heart chambers are both mildly dilated. *There is mild to moderate tricuspid regurgitation. *There is evidence of moderate pulmonary hypertension. *The right ventricular systolic pressure is calculated at 46 mmHg. Findings Left Ventricle: The left ventricular chamber size is normal. Mild concentric left ventricular hypertrophy is observed. Global left ventricular systolic function is normal. The estimated ejection fraction is 60-65%. Left Atrium: The left atrium is mildly dilated. Right Ventricle: The right ventricle is mildly dilated. The right ventricular global systolic function is mildly reduced. Right Atrium: The right atrium is mildly dilated. Aortic Valve: The aortic valve is trileaflet. The aortic valve leaflets are mildly thickened. There is no evidence of aortic regurgitation. There is no evidence of aortic stenosis. Mitral Valve: The mitral valve leaflets are mildly thickened. There is mild mitral regurgitation. There is no evidence of mitral stenosis. Tricuspid Valve: There is mild to moderate tricuspid regurgitation. The right ventricular systolic pressure is calculated at 46 mmHg. There is evidence of moderate pulmonary hypertension. Pulmonic Valve: There is trace pulmonic regurgitation. Pericardium: There is no pericardial effusion. Aorta: There is no dilatation of the ascending aorta. There is no dilatation of the aortic root. Venous: The inferior vena cava appears normal in size. Measurements Chambers 2D Name Value Normal Range IVSd (2D) 1.03 cm (0.6 - 1.1) LVPWd (2D) 0.91 cm (0.6 - 1.1) LVIDd (2D) 4.7 cm (3.7 - 5.6) LVIDs (2D) 3.36 cm (2 - 3.8) LV FS (2D) 28.6 % - EF Teichholz (2D) 55.1 % - Ao root diameter (2D) 3.06 cm (2 - 3.7) Volumes/Mass Name Value Normal Range LA ESV SP 4CH (A/L) 47.57 ml - LA ESV SP 2CH (A/L) 41.21 ml - LA ESV BP (A/L) 45.97 ml - LA ESV BP (A/L) index 20.8 ml/m2 - LA ESV SP 4CH (MOD) 43.06 ml - LA ESV SP 2CH (MOD) 41.81 ml - LA ESV BP (MOD) 43.59 ml - LA ESV BP (MOD) index 19.72 ml/m2 - Diastolic/Systolic Function Name Value Normal Range MV E-wave Vmax 0.81 m/sec - MV deceleration time 179.23 msec - Aortic Valve Name Value Normal Range AV Vmax 1.25 m/sec - AV VTI 19.57 cm - AV peak gradient 6.28 mmHg - AV mean gradient 3.55 mmHg - LVOT diameter 2.06 cm - LVOT Vmax 0.92 m/sec - LVOT VTI 13.2 cm - LVOT peak gradient 3.38 mmHg - LVOT mean gradient 1.86 mmHg - SV LVOT 44.13 ml - JOSE EDUARDO (continuity Vmax) 2.45 cm2 - JOSE EUDARDO (continuity VTI) 2.25 cm2 - Tricuspid Valve Name Value Normal Range TR Vmax 3.31 m/sec - TR peak gradient 43 mmHg - RAP 3 mmHg - RVSP 46 mmHg - IVC diameter 1.79 cm (1.2 - 2.3) Pulmonic Valve/Qp:Qs Name Value Normal Range PV Vmax 0.82 m/sec - PV peak gradient 2.66 mmHg - PV acceleration time 98.95 msec - Rodriguez/IV: Voiding Method Urinal IV Catheter Type [Left Forearm INT / Saline Lock ] IV Catheter Type [Right INT / Saline Lock Antecubital] Active Medications - Current Medications Current Medications: Generic Name Dose Route Start Last Admin Trade Name Freq PRN Reason Stop Dose Admin Acetaminophen 650 mg 07/22/20 14:09 07/27/20 22:12 Acetaminophen 325 Mg Tab PO 650 mg Q6H PRN Administration Pain, Mild (1-3) Hydrocodone Bitart/Acetaminophen 2 each 07/22/20 14:09 07/28/20 11:36 Hydrocodone/Acetaminophen 5-325 Mg Tab PO 2 each Q6H PRN Administration Pain, Moderate (4-6) Albuterol 2.5 mg 07/26/20 08:34 Albuterol 2.5 Mg/3 Ml Nebu IH Q4HRT PRN Shortness Of Breath Aspirin 81 mg 07/22/20 15:00 07/28/20 09:56 Aspirin Ec 81 Mg Tab PO 81 mg QDAY AALIYAH Administration Heparin Sodium (Porcine) 4,000 unit 07/23/20 14:05 07/26/20 11:24 Heparin 10,000 Units/10 Ml Vial 40 unit/kg (4000 unit) 4,000 unit IV Administration Q6H PRN Anti-Xa Assay<0.1 units/ml Hydromorphone HCl 0.5 mg 07/22/20 14:09 07/24/20 19:34 Hydromorphone 1 Mg/1 Ml Inj IV 0.5 mg Q3H PRN Administration Pain , Severe (7-10) Sodium Chloride 1,000 mls @ 30 mls/hr 07/22/20 14:15 Nacl 0.9% 1000 Ml IV DIRECT AALIYAH Heparin Sodium/Sodium Chloride 25,000 unit in 500 mls @ 29 mls/hr 07/23/20 15:00 07/28/20 06:50 Heparin/ 0.45% Nacl-25,000 Unit/500 Ml IV 1,900 units/hr TITR AALIYAH 38 mls/hr Administration Protocol 1,450 UNITS/HR Metoprolol Tartrate 25 mg 07/26/20 12:00 07/28/20 09:56 Metoprolol Tartrate 25 Mg Tab PO 25 mg BID AALIYAH Administration Midodrine 10 mg 07/25/20 16:00 07/28/20 11:38 Midodrine 5 Mg Tab PO 10 mg TID@0800,1200,1600 AALIYAH Administration Ondansetron HCl 4 mg 07/22/20 14:09 Ondansetron 4 Mg/2 Ml Inj IV Q8H PRN Nausea And Vomiting Sevelamer Carbonate 800 mg 07/23/20 18:30 07/28/20 11:44 Sevelamer Carbonate 800 Mg Tab PO 800 mg AC AALIYAH Administration Sodium Chloride 10 ml 07/22/20 13:00 07/28/20 09:59 Sodium Chloride 0.9% 10 Ml Flush Syringe IV 10 ml BID AALIYAH Administration Sodium Chloride 10 ml 07/22/20 13:00 Sodium Chloride 0.9% 10 Ml Flush Syringe IV PRN PRN LINE FLUSH
[2020-07-28] MEDS ORDERED: VANCOMYCIN 2,000 MG in SODIUM CHLORIDE 0.9% 500 ML 500 ML IV ONE (15:00)
[2020-07-28] MEDS ORDERED: VANCOMYCIN PHARMACY TO DOSE IV SCH (15:00)
[2020-07-29] MEDS: HYDROcodone/ACETAMINOPHEN 5-325 MG TAB PO PRN ×4 (00:45→20:31)
[2020-07-29 06:26] LABS: Hematocrit 32.7 % (35.5-45.6); Hemoglobin 10.2 gm/dl (11.8-15.2); Mean Corpuscular HGB Conc 31 % (32-34); Mean Corpuscular Volume 103 fl (84-94); Platelet Count 327 K/mm3 (140-440); Red Blood Count 3.17 M/mm3 (3.65-5.03); Red Cell Distribution Width 19.3 % (13.2-15.2)
[2020-07-29 06:40] LABS: Calcium 9.8 mg/dL (8.4-10.2)
[2020-07-29 07:29] LABS: Basophils # (Auto) 0.1 K/mm3 (0.0-0.1); Eosinophils # (Auto) 0.2 K/mm3 (0.0-0.4); Eosinophils % (Auto) 1.4 % (0.0-4.3); Lymphocytes % (Auto) 7.4 % (13.4-35.0); Monocytes # (Auto) 1.3 K/mm3 (0.0-0.8); Monocytes % (Auto) 9.3 % (0.0-7.3)
[2020-07-29 07:30] LABS: Basophils % (Auto) 0.6 % (0.0-1.8)
[2020-07-29] MEDS ORDERED: METOPROLOL TARTRATE 25 MG TAB PO SCH (07:45)
[2020-07-29] MEDS: SEVELAMER CARBONATE 800 MG TAB PO SCH ×3 (09:19→17:12)
[2020-07-29] MEDS: ASPIRIN EC 81 MG TAB PO SCH (09:19)
[2020-07-29] MEDS: HEPARIN/ 0.45% NACL DRIP 25,000 UNIT/500 ML BAG IV SCH (09:19)
[2020-07-29] MEDS: MIDODRINE 5 MG TAB PO SCH ×3 (09:19→17:12)
[2020-07-29] MEDS: HEPARIN 10,000 UNITS/10 ML VIAL IV PRN (10:10)
--- NOTE | 2020-07-29 11:06 | Progress Note ---
Assessment and Plan Assessment and plan: -- Acute limb ischemia with thrombosis of left popliteal artery Current Visit: Yes Status: Acute Plan to address problem: s/p angiogram and angioplasty for left popliteal artery occlusion Vascular surgery following. Plan for amputation 0n 07/30 -- End stage renal disease Current Visit: Yes Status: Acute Plan to address problem: Nephrology team on board HD as per renal -- Hypotension Current Visit: Yes Status: Acute Qualifiers: Hypertension type: essential hypertension Qualified Code(s): I10 - Essential (primary) hypertension Plan to address problem: Now on midodrine. 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 Likely source of fever Procalcitonin is >4. Though not accurate in the setting of ESRD Blood culture NTD Started vancomycin to cover GP ID consulted. --DVT prophylaxis Current Visit: Yes Status: Acute Plan to address problem: SCDs bilateral lower extremities while in bed, continue therapeutic anticoagulation History Interval history: Now s/p limb revascularization. BP better with midodrine Plan for left BK amputation 07/30 Hospitalist Physical - Physical exam Narrative exam: VITAL SIGNS: Reviewed. GENERAL: Awake HEAD: No signs of head trauma. EYES: Pupils are equal. Extraocular motions intact. MOUTH: Oropharynx is normal. NECK: No adenopathy, no JVD. CHEST: Chest with diminished breath sounds bilaterally. No wheezes, rales, or rhonchi. CARDIAC: normal S1 and S2, without murmurs, gallops, or rubs. ABDOMEN: Soft, non tender and non distended. No rebound or guarding, and no masses palpated. Bowel Sounds normal. MUSCULOSKELETAL: Left foot dressing intact - gangrenous digits NEUROLOGIC EXAM: Alert and oriented x3. No focal neurologic deficits SKIN: No obvious lesions - Constitutional Vitals: Temp Pulse Resp BP Pulse Ox 98.9 F 114 H 18 128/81 96 07/29/20 09:55 07/29/20 09:55 07/29/20 09:55 07/29/20 09:55 07/29/20 08:00 Results - Labs CBC & Chem 7: 07/29/20 05:36 07/29/20 05:36 Labs: Laboratory Last Values WBC 13.5 K/mm3 (4.5-11.0) H 07/29/20 05:36 RBC 3.17 M/mm3 (3.65-5.03) L 07/29/20 05:36 Hgb 10.2 gm/dl (11.8-15.2) L 07/29/20 05:36 Hct 32.7 % (35.5-45.6) L 07/29/20 05:36 MCV 103 fl (84-94) H 07/29/20 05:36 MCH 32 pg (28-32) 07/29/20 05:36 MCHC 31 % (32-34) L 07/29/20 05:36 RDW 19.3 % (13.2-15.2) H 07/29/20 05:36 Plt Count 327 K/mm3 (140-440) 07/29/20 05:36 Lymph % (Auto) 7.4 % (13.4-35.0) L 07/29/20 05:36 [place] % (Auto) 9.3 % (0.0-7.3) H 07/29/20 05:36 Eos % (Auto) 1.4 % (0.0-4.3) 07/29/20 05:36 Baso % (Auto) 0.6 % (0.0-1.8) 07/29/20 05:36 Lymph # (Auto) 1.0 K/mm3 (1.2-5.4) L 07/29/20 05:36 [place] # (Auto) 1.3 K/mm3 (0.0-0.8) H 07/29/20 05:36 Eos # (Auto) 0.2 K/mm3 (0.0-0.4) 07/29/20 05:36 Baso # (Auto) 0.1 K/mm3 (0.0-0.1) 07/29/20 05:36 Add Manual Diff Complete 07/29/20 05:36 Total Counted 100 07/23/20 09:46 Seg Neutrophils % 81.3 % (40.0-70.0) H 07/29/20 05:36 Seg Neuts % (Manual) 94.0 % (40.0-70.0) H 07/23/20 09:46 Band Neutrophils % 1.0 % 07/23/20 09:46 Lymphocytes % (Manual) 1.0 % (13.4-35.0) L 07/23/20 09:46 Reactive Lymphs % (Man) 0 % 07/22/20 18:00 Monocytes % (Manual) 4.0 % (0.0-7.3) 07/23/20 09:46 Eosinophils % (Manual) 0 % (0.0-4.3) 07/22/20 18:00 Basophils % (Manual) 0 % (0.0-1.8) 07/22/20 18:00 Metamyelocytes % 0 % 07/22/20 18:00 Myelocytes % 0 % 07/22/20 18:00 Promyelocytes % 0 % 07/22/20 18:00 Blast Cells % 0 % 07/22/20 18:00 Nucleated RBC % Not Reportable 07/29/20 05:36 Seg Neutrophils # 11.0 K/mm3 (1.8-7.7) H 07/29/20 05:36 Seg Neutrophils # Man 16.2 K/mm3 (1.8-7.7) H 07/23/20 09:46 Band Neutrophils # 0.2 K/mm3 07/23/20 09:46 Lymphocytes # (Manual) 0.2 K/mm3 (1.2-5.4) L 07/23/20 09:46 Abs React Lymphs (Man) 0.0 K/mm3 07/23/20 09:46 Monocytes # (Manual) 0.7 K/mm3 (0.0-0.8) 07/23/20 09:46 Eosinophils # (Manual) 0.0 K/mm3 (0.0-0.4) 07/23/20 09:46 Basophils # (Manual) 0.0 K/mm3 (0.0-0.1) 07/23/20 09:46 Metamyelocytes # 0.0 K/mm3 07/23/20 09:46 Myelocytes # 0.0 K/mm3 07/23/20 09:46 Promyelocytes # 0.0 K/mm3 07/23/20 09:46 Blast Cells # 0.0 K/mm3 07/23/20 09:46 WBC Morphology Not Reportable 07/29/20 05:36 Hypersegmented Neuts Not Reportable 07/29/20 05:36 Hyposegmented Neuts Not Reportable 07/29/20 05:36 Hypogranular Neuts Not Reportable 07/29/20 05:36 Smudge Cells Not Reportable 07/29/20 05:36 Toxic Granulation Not Reportable 07/29/20 05:36 Toxic Vacuolation Not Reportable 07/29/20 05:36 Dohle Bodies Not Reportable 07/29/20 05:36 Pelger-Huet Anomaly Not Reportable 07/29/20 05:36 Svetlana Rods Not Reportable 07/29/20 05:36 Platelet Estimate Not Reportable 07/29/20 05:36 Clumped Platelets Not Reportable 07/29/20 05:36 Plt Clumps, EDTA Not Reportable 07/29/20 05:36 Large Platelets Not Reportable 07/29/20 05:36 Giant Platelets Not Reportable 07/29/20 05:36 Platelet Satelliting Not Reportable 07/29/20 05:36 Plt Morphology Comment Not Reportable 07/29/20 05:36 RBC Morphology Not Reportable 07/29/20 05:36 Dimorphic RBCs Not Reportable 07/29/20 05:36 Polychromasia Not Reportable 07/29/20 05:36 Hypochromasia Not Reportable 07/29/20 05:36 Poikilocytosis Not Reportable 07/29/20 05:36 Anisocytosis Not Reportable 07/29/20 05:36 Microcytosis Not Reportable 07/29/20 05:36 Macrocytosis Not Reportable 07/29/20 05:36 Spherocytes Not Reportable 07/29/20 05:36 Pappenheimer Bodies Not Reportable 07/29/20 05:36 Sickle Cells Not Reportable 07/29/20 05:36 Target Cells Not Reportable 07/29/20 05:36 Tear Drop Cells Not Reportable 07/29/20 05:36 Ovalocytes Not Reportable 07/29/20 05:36 Helmet Cells Not Reportable 07/29/20 05:36 Seth-Yaurel Bodies Not Reportable 07/29/20 05:36 [place] Rings Not Reportable 07/29/20 05:36 Alicia Cells Not Reportable 07/29/20 05:36 Bite Cells Not Reportable 07/29/20 05:36 Crenated Cell Not Reportable 07/29/20 05:36 Elliptocytes Not Reportable 07/29/20 05:36 Acanthocytes (Spur) Not Reportable 07/29/20 05:36 Rouleaux Not Reportable 07/29/20 05:36 Hemoglobin C Crystals Not Reportable 07/29/20 05:36 Schistocytes Not Reportable 07/29/20 05:36 Malaria parasites Not Reportable 07/29/20 05:36 Malachi Bodies Not Reportable 07/29/20 05:36 Hem Pathologist Commnt Not Reportable 07/29/20 05:36 PT 21.0 Sec. (12.2-14.9) H 07/23/20 23:01 INR 1.80 (0.87-1.13) H 07/23/20 23:01 APTT 39.4 Sec. (24.2-36.6) H 07/23/20 23:01 Fibrinogen 494 mg/dl (211-480) H 07/23/20 09:46 Heparin Anti-Xa Level 0.29 U.I./ml (0.3-0.7) L 07/29/20 09:45 Sodium 140 mmol/L (137-145) 07/29/20 05:36 Potassium 5.1 mmol/L (3.6-5.0) H 07/29/20 05:36 Chloride 98.8 mmol/L (98-107) 07/29/20 05:36 Carbon Dioxide 23 mmol/L (22-30) 07/29/20 05:36 Anion Gap 23 mmol/L 07/29/20 05:36 BUN 67 mg/dL (9-20) H 07/29/20 05:36 Creatinine 15.5 mg/dL (0.8-1.3) H 07/29/20 05:36 Estimated GFR 4 ml/min 07/29/20 05:36 BUN/Creatinine Ratio 4 % 07/29/20 05:36 Glucose 74 mg/dL (75-100) L 07/29/20 05:36 POC Glucose 79 mg/dL (70-105) 07/26/20 18:29 Calcium 9.8 mg/dL (8.4-10.2) 07/29/20 05:36 Total Bilirubin 0.30 mg/dL (0.1-1.2) 07/23/20 02:41 AST 16 units/L (5-40) 07/23/20 02:41 ALT 11 units/L (7-56) 07/23/20 02:41 Alkaline Phosphatase 84 units/L (35-129) 07/23/20 02:41 Total Protein 6.5 g/dL (6.3-8.2) 07/23/20 02:41 Albumin 3.5 g/dL (3.9-5) L 07/23/20 02:41 Albumin/Globulin Ratio 1.2 % 07/23/20 02:41 Procalcitonin 4.28 ng/mL (<0.15) 07/28/20 07:53 TSH 3.770 mlU/mL (0.270-4.200) 07/26/20 02:22 Free T4 1.01 ng/dL (0.76-1.46) 07/26/20 02:22 Hepatitis A IgM Ab Non-reactive (NonReactive) 07/22/20 18:00 Hep Bs Antigen Non-reactive (Negative) 07/22/20 18:00 Hep B Core IgM Ab Non-reactive (NonReactive) 07/22/20 18:00 Hepatitis C Antibody Non-reactive (NonReactive) 07/22/20 18:00 Microbiology: Microbiology 07/28/20 00:29 Peripheral/Venous Blood Culture - Preliminary NO GROWTH AFTER 24 HOURS 07/28/20 07:53 Peripheral/Venous Blood Culture - Preliminary Culture in Progress - Diagnostic Impressions Diagnostic Impressions: Echocardiogram 07/26/20 08:06 Transthoracic Echocardiogram Indication: Tachycardia BP: 108/70 HR: 100 Conclusions *Global left ventricular systolic function is normal. *The estimated ejection fraction is 60-65%. *Mild concentric left ventricular hypertrophy is observed. *The left atrium is mildly dilated. *There is mild mitral regurgitation. *The right heart chambers are both mildly dilated. *There is mild to moderate tricuspid regurgitation. *There is evidence of moderate pulmonary hypertension. *The right ventricular systolic pressure is calculated at 46 mmHg. Findings Left Ventricle: The left ventricular chamber size is normal. Mild concentric left ventricular hypertrophy is observed. Global left ventricular systolic function is normal. The estimated ejection fraction is 60-65%. Left Atrium: The left atrium is mildly dilated. Right Ventricle: The right ventricle is mildly dilated. The right ventricular global systolic function is mildly reduced. Right Atrium: The right atrium is mildly dilated. Aortic Valve: The aortic valve is trileaflet. The aortic valve leaflets are mildly thickened. There is no evidence of aortic regurgitation. There is no evidence of aortic stenosis. Mitral Valve: The mitral valve leaflets are mildly thickened. There is mild mitral regurgitation. There is no evidence of mitral stenosis. Tricuspid Valve: There is mild to moderate tricuspid regurgitation. The right ventricular systolic pressure is calculated at 46 mmHg. There is evidence of moderate pulmonary hypertension. Pulmonic Valve: There is trace pulmonic regurgitation. Pericardium: There is no pericardial effusion. Aorta: There is no dilatation of the ascending aorta. There is no dilatation of the aortic root. Venous: The inferior vena cava appears normal in size. Measurements Chambers 2D Name Value Normal Range IVSd (2D) 1.03 cm (0.6 - 1.1) LVPWd (2D) 0.91 cm (0.6 - 1.1) LVIDd (2D) 4.7 cm (3.7 - 5.6) LVIDs (2D) 3.36 cm (2 - 3.8) LV FS (2D) 28.6 % - EF Teichholz (2D) 55.1 % - Ao root diameter (2D) 3.06 cm (2 - 3.7) Volumes/Mass Name Value Normal Range LA ESV SP 4CH (A/L) 47.57 ml - LA ESV SP 2CH (A/L) 41.21 ml - LA ESV BP (A/L) 45.97 ml - LA ESV BP (A/L) index 20.8 ml/m2 - LA ESV SP 4CH (MOD) 43.06 ml - LA ESV SP 2CH (MOD) 41.81 ml - LA ESV BP (MOD) 43.59 ml - LA ESV BP (MOD) index 19.72 ml/m2 - Diastolic/Systolic Function Name Value Normal Range MV E-wave Vmax 0.81 m/sec - MV deceleration time 179.23 msec - Aortic Valve Name Value Normal Range AV Vmax 1.25 m/sec - AV VTI 19.57 cm - AV peak gradient 6.28 mmHg - AV mean gradient 3.55 mmHg - LVOT diameter 2.06 cm - LVOT Vmax 0.92 m/sec - LVOT VTI 13.2 cm - LVOT peak gradient 3.38 mmHg - LVOT mean gradient 1.86 mmHg - SV LVOT 44.13 ml - JOSE EDUARDO (continuity Vmax) 2.45 cm2 - JOSE EDUARDO (continuity VTI) 2.25 cm2 - Tricuspid Valve Name Value Normal Range TR Vmax 3.31 m/sec - TR peak gradient 43 mmHg - RAP 3 mmHg - RVSP 46 mmHg - IVC diameter 1.79 cm (1.2 - 2.3) Pulmonic Valve/Qp:Qs Name Value Normal Range PV Vmax 0.82 m/sec - PV peak gradient 2.66 mmHg - PV acceleration time 98.95 msec - Rodriguez/IV: Voiding Method Urinal IV Catheter Type [Right INT / Saline Lock Forearm] IV Catheter Type [Left Forearm INT / Saline Lock ] IV Catheter Type [Right INT / Saline Lock Antecubital] Active Medications - Current Medications Current Medications: Generic Name Dose Route Start Last Admin Trade Name Freq PRN Reason Stop Dose Admin Acetaminophen 650 mg 07/22/20 14:09 07/27/20 22:12 Acetaminophen 325 Mg Tab PO 650 mg Q6H PRN Administration Pain, Mild (1-3) Hydrocodone Bitart/Acetaminophen 2 each 07/22/20 14:09 07/29/20 06:19 Hydrocodone/Acetaminophen 5-325 Mg Tab PO 2 each Q6H PRN Administration Pain, Moderate (4-6) Albuterol 2.5 mg 07/26/20 08:34 Albuterol 2.5 Mg/3 Ml Nebu IH Q4HRT PRN Shortness Of Breath Aspirin 81 mg 07/22/20 15:00 07/29/20 09:19 Aspirin Ec 81 Mg Tab PO 81 mg QDAY AALIYAH Administration Heparin Sodium (Porcine) 4,000 unit 07/23/20 14:05 07/26/20 11:24 Heparin 10,000 Units/10 Ml Vial 40 unit/kg (4000 unit) 4,000 unit IV Administration Q6H PRN Anti-Xa Assay<0.1 units/ml Hydromorphone HCl 0.5 mg 07/22/20 14:09 07/24/20 19:34 Hydromorphone 1 Mg/1 Ml Inj IV 0.5 mg Q3H PRN Administration Pain , Severe (7-10) Sodium Chloride 1,000 mls @ 30 mls/hr 07/22/20 14:15 Nacl 0.9% 1000 Ml IV DIRECT AALIYAH Heparin Sodium/Sodium Chloride 25,000 unit in 500 mls @ 29 mls/hr 07/23/20 15:00 07/29/20 09:19 Heparin/ 0.45% Nacl-25,000 Unit/500 Ml IV 2,100 units/hr TITR AALIYAH 42 mls/hr Administration Protocol 1,450 UNITS/HR Metoprolol Tartrate 50 mg 07/29/20 10:00 Metoprolol Tartrate 50 Mg Tab PO BID AALIYAH Midodrine 10 mg 07/25/20 16:00 07/29/20 09:19 Midodrine 5 Mg Tab PO 10 mg TID@0800,1200,1600 AALIYAH Administration Ondansetron HCl 4 mg 07/22/20 14:09 Ondansetron 4 Mg/2 Ml Inj IV Q8H PRN Nausea And Vomiting Sevelamer Carbonate 800 mg 07/23/20 18:30 07/29/20 09:19 Sevelamer Carbonate 800 Mg Tab PO 800 mg AC AALIYAH Administration Sodium Chloride 10 ml 07/22/20 13:00 07/28/20 21:34 Sodium Chloride 0.9% 10 Ml Flush Syringe IV 10 ml BID AALIYAH Administration Sodium Chloride 10 ml 07/22/20 13:00 Sodium Chloride 0.9% 10 Ml Flush Syringe IV PRN PRN LINE FLUSH
[2020-07-29] MEDS: METOPROLOL TARTRATE 50 MG TAB PO SCH ×2 (14:05→22:30)
--- NOTE | 2020-07-29 14:25 | Event Note ---
Date: 07/29/20 54-year-old male with end-stage renal disease and left lower extremity which is nonsalvageable set up for BKA tomorrow. Discontinued heparin drip. Continue aspirin. N.p.o. after midnight except sips of water with meds.
--- NOTE | 2020-07-29 14:28 | Anesthesia Consultation ---
<DEION BURGESS - Last Filed: 07/29/20 14:24> Anesthesia Consult and Med Hx Date of service: 07/30/20 - Airway Anesthetic Teeth Evaluation: Good ROM Head & Neck: Adequate Mental/Hyoid Distance: Adequate Mallampati Class: Class I Intubation Access Assessment: Good - Pulmonary Exam CTA: Yes - Pre-Operative Health Status ASA Pre-Surgery Classification: ASA3 Proposed Anesthetic Plan: General - Pulmonary Hx Smoking: No Hx Respiratory Symptoms: No Hx Sleep Apnea: No - Cardiovascular System Hx Hypertension: Yes Hx Heart Murmur: Yes Hx Peripheral Vascular Disease: Yes (Thrombosis left Pooliteal artery; DVTx 2; Hx. PE) - Central Nervous System Hx Neuromuscular Disorder: No Hx Seizures: No CVA: No Hx Psychiatric Problems: No - Gastrointestinal Hx Gastroesophageal Reflux Disease: No - Endocrine Hx Renal Disease: Yes Hx End Stage Renal Disease: Yes Hx Liver Disease: No Hx Insulin Dependent Diabetes: No Hx Non-Insulin Dependent Diabetes: No Hx Thyroid Disease: No - Hematic Hx Anemia: Yes (H/H- 10.2/32.7) Hx Sickle Cell Disease: No - Other Systems Hx Alcohol Use: No Hx Substance Use: No Hx Cancer: No Hx Obesity: No - Additional Comments Anesthesia Medical History Comments: Patient denied previous anesthesia complications. As of 07/29/2020- BUN- 67; K- 5.1; Creatinine 15.5. <AFTAB HERNANDEZ - Last Filed: 07/30/20 10:00> Anesthesia Consult and Med Hx - Additional Comments Anesthesia Medical History Comments: Examined immediately prior to procedure. No clinical change overnight. Received HD yesterday. Reviewed today's labs. ASA 3. Plan GA.
--- NOTE | 2020-07-29 14:42 | Progress Note ---
Assessment and Plan Assessment Thrombosis of left popliteal artery End stage renal disease Hypertension Hyperkalemia Peripheral artery disease DVT prophylaxis Plan: Hemodialysis today for UF and clearance Scheduled for left BKA tomorrow Fluid restriction of 1 liter per day Strict I&O's daily Obtain daily weights Renally dose medications Assess dialysis needs daily Subjective Date of service: 07/29/20 Principal diagnosis: ESRD on HD Interval history: Patient seen lying in bed. Had hemodialysis this morning. Objective - Vital Signs Vital signs: Vital Signs - 12hr 07/29/20 07/29/20 07/29/20 04:00 04:24 08:00 Temperature 98.3 F 98.5 F Pulse Rate 118 H 115 H 114 H Respiratory 20 18 Rate Blood Pressure 129/81 117/75 O2 Sat by Pulse 95 96 Oximetry 07/29/20 07/29/20 07/29/20 09:55 10:00 10:15 Temperature 98.9 F Pulse Rate 114 H 113 H 112 H Respiratory 18 Rate Blood Pressure 128/81 125/77 122/80 O2 Sat by Pulse Oximetry 07/29/20 07/29/20 07/29/20 10:30 10:45 11:00 Temperature Pulse Rate 112 H 112 H 112 H Respiratory Rate Blood Pressure 117/96 105/73 102/71 O2 Sat by Pulse Oximetry 07/29/20 07/29/20 07/29/20 11:15 11:30 11:45 Temperature Pulse Rate 112 H 112 H 111 H Respiratory Rate Blood Pressure 111/75 118/79 115/73 O2 Sat by Pulse Oximetry 07/29/20 07/29/20 07/29/20 12:00 12:15 12:30 Temperature Pulse Rate 111 H 111 H 111 H Respiratory Rate Blood Pressure 129/83 128/87 135/87 O2 Sat by Pulse Oximetry 07/29/20 07/29/20 07/29/20 12:45 13:00 13:15 Temperature Pulse Rate 111 H 111 H 112 H Respiratory Rate Blood Pressure 129/82 123/78 123/80 O2 Sat by Pulse Oximetry 07/29/20 07/29/20 13:20 14:05 Temperature 98.8 F Pulse Rate 110 H 110 H Respiratory 18 Rate Blood Pressure 131/79 131/71 O2 Sat by Pulse Oximetry - General Appearance General appearance: well-developed, appears stated age, fatigue EENT: ATNC, PERRL, hearing intact, vision intact Neck: no JVD, supple Respiratory: Present: Decreased Breath Sounds Cardiology: regular, S1S2 Gastrointestinal: normoactive bowel sounds Integumentary: warm and dry Neurologic: alert and oriented x3 Musculoskeletal: joint swelling, other (left foot gangrenous toes and edema) - Lab 07/29/20 05:36 07/29/20 05:36 Most recent lab results Calcium 9.8 mg/dL (8.4-10.2) 07/29/20 05:36 Medications & Allergies - Medications Allergies/Adverse Reactions: Allergies amoxicillin Allergy (Verified 07/22/20 12:14) Unknown Home Medications: Home Medications Medication Instructions Recorded Confirmed Last Taken Type Metoprolol [Lopressor] 25 mg PO QDAY 07/24/20 07/24/20 07/17/20 History Sevelamer Carbonate [Renvela] 800 mg PO TIDAC 07/24/20 07/24/20 07/19/20 History Sucroferric Oxyhydroxide(Nf) 500 mg PO TIDAC 07/24/20 07/24/20 07/19/20 History [Velphoro (Nf)] Warfarin [Coumadin] 6 mg PO QDAY 07/24/20 07/24/20 07/19/20 History Active Medications: Generic Name Dose Route Start Last Admin Trade Name Freq PRN Reason Stop Dose Admin Acetaminophen 650 mg 07/22/20 14:09 07/27/20 22:12 Acetaminophen 325 Mg Tab PO 650 mg Q6H PRN Administration Pain, Mild (1-3) Hydrocodone Bitart/Acetaminophen 2 each 07/22/20 14:09 07/29/20 14:06 Hydrocodone/Acetaminophen 5-325 Mg Tab PO 2 each Q6H PRN Administration Pain, Moderate (4-6) Albuterol 2.5 mg 07/26/20 08:34 Albuterol 2.5 Mg/3 Ml Nebu IH Q4HRT PRN Shortness Of Breath Aspirin 81 mg 07/22/20 15:00 07/29/20 09:19 Aspirin Ec 81 Mg Tab PO 81 mg QDAY AALIYAH Administration Hydromorphone HCl 0.5 mg 07/22/20 14:09 07/24/20 19:34 Hydromorphone 1 Mg/1 Ml Inj IV 0.5 mg Q3H PRN Administration Pain , Severe (7-10) Sodium Chloride 1,000 mls @ 30 mls/hr 07/22/20 14:15 Nacl 0.9% 1000 Ml IV DIRECT AALIYAH Metoprolol Tartrate 50 mg 07/29/20 10:00 07/29/20 14:05 Metoprolol Tartrate 50 Mg Tab PO 50 mg BID AALIYAH Administration Midodrine 10 mg 07/25/20 16:00 07/29/20 14:07 Midodrine 5 Mg Tab PO 10 mg TID@0800,1200,1600 AALIYAH Administration Ondansetron HCl 4 mg 07/22/20 14:09 Ondansetron 4 Mg/2 Ml Inj IV Q8H PRN Nausea And Vomiting Sevelamer Carbonate 800 mg 07/23/20 18:30 07/29/20 14:07 Sevelamer Carbonate 800 Mg Tab PO 800 mg AC AALIYAH Administration Sodium Chloride 10 ml 07/22/20 13:00 07/29/20 14:29 Sodium Chloride 0.9% 10 Ml Flush Syringe IV 10 ml BID AALIYAH Administration Sodium Chloride 10 ml 07/22/20 13:00 Sodium Chloride 0.9% 10 Ml Flush Syringe IV PRN PRN LINE FLUSH
--- NOTE | 2020-07-30 06:57 | Consultation ---
History of Present Illness - Reason for Consult Consult date: 07/30/20 cellulitis Requesting physician: SCOTT CRUZ - History of Present Illness 54 years old male with history of ESRD on hemodialysis, hypertension, tobacco abuse, PAD status post previous revascularization, admitted on 07/22/2020 secondary to worsening left leg pain for 3 days. Pain is 10 out of 10. Patient is unable to walk. Patient was seen at Dr. Hurt's office, vascular surgeon, and was found to have a left popliteal artery thrombosis complicated by a left lower limb ischemia was sent to the ED. Patient had revascularization May 2020 due to mild ischemic toes and since then discoloration of the toes has worsened. On arrival, initial temperature 97.3, HR 107, RR 16, O2 100, BP 163/92. Initial WBC 8. Hemoglobin 11.7. Procalcitonin 4.2. Patient underwent angioplasty on 07/22/2020. By 07/27/2020 patient spiked a fever 101. Blood cultures 07/28/2020 no growth today. Patient is planned to have a left BKA for nonsalvageable left leg per vascular. Review of Systems: positive in bold print General: fever, chills, malaise Cutaneous: rash, pruritus Head: headaches or injury Eyes: changes in vision, eye pain, double vision Ears: ear pain, ear discharge, ringing or hearing loss Nose: nose bleeding, stuffiness Mouth & throat: bleeding gums, horseness, no dental problems, or swollen glands Neck: no pain, node enlargement/lumps, tyroid enlargement or tenderness Respiratory: SOB, cough, LUIS, wheezing, sputum, hemoptysis, pleuritic chest jelly n Cardiovascular: chest pain, leg edema, cyanosis, LUIS, orthopnea Musculoskeletal: Severe left leg/foot pain Gastrointestinal: nausea, vomiting, hematemesis, diarrhea, constipation, melena, bright red blood in stools, fecal incontinence, jaundice Genitourinary/Reproductive: frequent urination, dysuria, hematuria, incontinence Neurogical: seizures, headaches, weakness, paresthesias, loss of speech or vision; memory loss, vertigo, tremors, numbness Psychiatric: stable mood; excessive anxiety, sadness or moodiness Past History Past Medical History: ESRD, hypertension, PVD Past Surgical History: Other (Dialysis access) Medications and Allergies Allergies Allergy/AdvReac Type Severity Reaction Status Date / Time amoxicillin Allergy Unknown Verified 07/22/20 12:14 Home Medications Medication Instructions Recorded Confirmed Last Taken Type Metoprolol [Lopressor] 25 mg PO QDAY 07/24/20 07/24/20 07/17/20 History Sevelamer Carbonate [Renvela] 800 mg PO TIDAC 07/24/20 07/24/20 07/19/20 History Sucroferric Oxyhydroxide(Nf) 500 mg PO TIDAC 07/24/20 07/24/20 07/19/20 History [Velphoro (Nf)] Warfarin [Coumadin] 6 mg PO QDAY 07/24/20 07/24/20 07/19/20 History Active Meds: Active Medications Acetaminophen (Acetaminophen 325 Mg Tab) 650 mg PO Q6H PRN PRN Reason: Pain, Mild (1-3) Last Admin: 07/27/20 22:12 Dose: 650 mg Documented by: Hydrocodone Bitart/Acetaminophen (Hydrocodone/Acetaminophen 5-325 Mg Tab) 2 each PO Q6H PRN PRN Reason: Pain, Moderate (4-6) Last Admin: 07/29/20 20:31 Dose: 2 each Documented by: Albuterol (Albuterol 2.5 Mg/3 Ml Nebu) 2.5 mg IH Q4HRT PRN PRN Reason: Shortness Of Breath Aspirin (Aspirin Ec 81 Mg Tab) 81 mg PO QDAY [facility] Last Admin: 07/29/20 09:19 Dose: 81 mg Documented by: Hydromorphone HCl (Hydromorphone 1 Mg/1 Ml Inj) 0.5 mg IV Q3H PRN PRN Reason: Pain , Severe (7-10) Last Admin: 07/24/20 19:34 Dose: 0.5 mg Documented by: Sodium Chloride (Nacl 0.9% 1000 Ml) 1,000 mls @ 30 mls/hr IV DIRECT [facility] Metoprolol Tartrate (Metoprolol Tartrate 50 Mg Tab) 50 mg PO BID [facility] Last Admin: 07/29/20 22:30 Dose: 50 mg Documented by: Midodrine (Midodrine 5 Mg Tab) 10 mg PO TID@0800,1200,1600 [facility] Last Admin: 07/29/20 17:12 Dose: 10 mg Documented by: Ondansetron HCl (Ondansetron 4 Mg/2 Ml Inj) 4 mg IV Q8H PRN PRN Reason: Nausea And Vomiting Sevelamer Carbonate (Sevelamer Carbonate 800 Mg Tab) 800 mg PO AC [facility] Last Admin: 07/29/20 17:12 Dose: 800 mg Documented by: Sodium Chloride (Sodium Chloride 0.9% 10 Ml Flush Syringe) 10 ml IV BID [facility] Last Admin: 07/29/20 22:32 Dose: 10 ml Documented by: Sodium Chloride (Sodium Chloride 0.9% 10 Ml Flush Syringe) 10 ml IV PRN PRN PRN Reason: LINE FLUSH Physical Examination - Physical Exam Narrative exam: eneral appearance: Alert in NAD pleasant Eyes: anicteric sclerae, moist conjunctivae; no lid-lag; PERRLA HENT: Normocephalic, Atraumatic; normal external ears, nares open, oropharynx clear. Neck: supple, tracheal midline, no JVD Lungs: aleena rhonchi CV: RRR no murmur Abdomen: Soft, non-tender; no masses or hepatosplenomegaly Extremities: Left foot with necrotic toes, extensive blackish discoloration and skin sloughing Skin: No rash. Psych: no agitated Neuro: alert and oriented x 3. Moving all extermities - Constitutional Vitals: Vital Signs Temp Pulse Resp BP Pulse Ox 98.4 F 114 H 18 135/102 98 07/29/20 23:15 07/30/20 04:00 07/30/20 03:40 07/30/20 03:40 07/30/20 03:40 Temperature -Last 24 Hours Temperature 98.4 F Temperature 98.0 F Temperature 98.3 F Temperature 98.8 F Temperature 98.9 F Temperature 98.5 F Results - Labs CBC & Chem 7: 07/29/20 05:36 07/29/20 05:36 Labs: Abnormal lab results 07/29/20 07/29/20 Range/Units 05:36 09:45 Lymph % (Auto) 7.4 L (13.4-35.0) % [place] % (Auto) 9.3 H (0.0-7.3) % Lymph # (Auto) 1.0 L (1.2-5.4) K/mm3 [place] # (Auto) 1.3 H (0.0-0.8) K/mm3 Seg Neutrophils % 81.3 H (40.0-70.0) % Seg Neutrophils # 11.0 H (1.8-7.7) K/mm3 Heparin Anti-Xa Level 0.29 L (0.3-0.7) U.I./ml Assessment and Plan Cultures: Blood cultures 07/28/2020 no growth today. Assessment: 54 years old male with history of ESRD on hemodialysis, hypertension, tobacco abuse, PAD status post previous revascularization, admitted on 07/22/2020 secondary to worsening left leg pain for 3 days: #SIRS: Not present on admission, now with tachycardia, recent fever, elevated leukocytosis, likely secondary to left foot gangrene. Procalcitonin elevated likely in the setting of renal failure. #Left foot dry gangrene: With severe peripheral vascular disease. Patient is planned to have a left BKA for nonsalvageable left leg per vascular. #End-stage renal disease: On hemodialysis. #Amoxicillin allergy Recommendations: -Start levaquin renally adjusted -Start vancomycin with PK consult -Obtain chest x-ray and urinalysis, r/o HAP/UTI -Patient is to have left BKA, monitor for fever and leukocytosis post surgery, if clinically improve will stop antibiotics Will follow. Amparo Collins MD Infectious Diseases [employer] [facility] M [phone] O [phone]
[2020-07-30] MEDS ORDERED: VANCOMYCIN PHARMACY TO DOSE IV SCH (08:00)
[2020-07-30 08:22] LABS: Basophils # (Auto) 0.1 K/mm3 (0.0-0.1); Basophils % (Auto) 0.9 % (0.0-1.8); Eosinophils # (Auto) 0.1 K/mm3 (0.0-0.4); Eosinophils % (Auto) 1.1 % (0.0-4.3); Hematocrit 33.1 % (35.5-45.6); Hemoglobin 10.5 gm/dl (11.8-15.2); Lymphocytes # (Auto) 0.8 K/mm3 (1.2-5.4); Lymphocytes % (Auto) 7.5 % (13.4-35.0); Mean Corpuscular HGB Conc 32 % (32-34); Mean Corpuscular Volume 104 fl (84-94); Monocytes # (Auto) 1.1 K/mm3 (0.0-0.8); Monocytes % (Auto) 10.5 % (0.0-7.3); Platelet Count 324 K/mm3 (140-440); Red Blood Count 3.19 M/mm3 (3.65-5.03); Red Cell Distribution Width 19.5 % (13.2-15.2)
--- NOTE | 2020-07-30 08:27 | XRay Report ---
CHEST 1 VIEW INDICATION: eval for infiltrates. COMPARISON: None FINDINGS: Support devices: None. Heart: Within normal limits. Lungs/Pleura: There appears to be moderate fluid loculated laterally in the mid to inferior right ple ural space. There is compressive atelectasis in the right lower lung but no convincing infiltrate. Th e remainder of the lungs are clear. No pneumothorax. Additional findings: None. IMPRESSION: Right pleural effusion which appears loculated. Signer Name: Danilo Corey Jr, MD Signed: 07/30/2020 8:23 AM Workstation Name: [id number]
[2020-07-30] MEDS: SEVELAMER CARBONATE 800 MG TAB PO SCH ×3 (08:35→17:37)
[2020-07-30] MEDS: MIDODRINE 5 MG TAB PO SCH ×3 (08:36→17:37)
[2020-07-30 08:39] LABS: Calcium 10.4 mg/dL (8.4-10.2)
[2020-07-30] MEDS ORDERED: VANCOMYCIN 2,000 MG in SODIUM CHLORIDE 0.9% 500 ML 500 ML IV ONE (09:00)
--- NOTE | 2020-07-30 09:31 | Progress Note ---
Assessment and Plan Thrombosis of left popliteal artery End stage renal disease Hypertension Hyperkalemia Peripheral artery disease DVT prophylaxis Plan: no indication for [employer] Scheduled for left BKA today Fluid restriction of 1 liter per day Strict I&O's daily Obtain daily weights Renally dose medications Assess dialysis needs daily Alexsander Baltazar MD [phone] Subjective Date of service: 07/30/20 Principal diagnosis: ESRD on HD Interval history: tolerated HD yesterday Objective - Vital Signs Vital signs: Vital Signs - 12hr 07/29/20 07/29/20 07/29/20 22:00 22:30 23:15 Temperature 98.4 F Pulse Rate 116 H 115 H Pulse Rate [ 114 H From Monitor] Pulse Rate [ 114 H Left Popliteal] Respiratory 18 18 Rate Blood Pressure 114/74 145/83 O2 Sat by Pulse 91 Oximetry 07/30/20 07/30/20 07/30/20 00:00 03:34 03:40 Temperature Pulse Rate 114 H 115 H 115 H Pulse Rate [ From Monitor] Pulse Rate [ Left Popliteal] Respiratory 18 Rate Blood Pressure 137/85 135/102 O2 Sat by Pulse 98 98 Oximetry 07/30/20 07/30/20 04:00 08:08 Temperature 99.1 F Pulse Rate 114 H 117 H Pulse Rate [ From Monitor] Pulse Rate [ Left Popliteal] Respiratory 18 Rate Blood Pressure 124/77 O2 Sat by Pulse 99 Oximetry - Lab 07/30/20 07:18 07/30/20 07:18 Most recent lab results Calcium 10.4 mg/dL (8.4-10.2) H 07/30/20 07:18 Medications & Allergies - Medications Allergies/Adverse Reactions: Allergies amoxicillin Allergy (Verified 07/22/20 12:14) Unknown Home Medications: Home Medications Medication Instructions Recorded Confirmed Last Taken Type Metoprolol [Lopressor] 25 mg PO QDAY 07/24/20 07/24/20 07/17/20 History Sevelamer Carbonate [Renvela] 800 mg PO TIDAC 07/24/20 07/24/20 07/19/20 History Sucroferric Oxyhydroxide(Nf) 500 mg PO TIDAC 07/24/20 07/24/20 07/19/20 History [Velphoro (Nf)] Warfarin [Coumadin] 6 mg PO QDAY 07/24/20 07/24/20 07/19/20 History Active Medications: Generic Name Dose Route Start Last Admin Trade Name Freq PRN Reason Stop Dose Admin Acetaminophen 650 mg 07/22/20 14:09 07/27/20 22:12 Acetaminophen 325 Mg Tab PO 650 mg Q6H PRN Administration Pain, Mild (1-3) Hydrocodone Bitart/Acetaminophen 2 each 07/22/20 14:09 07/29/20 20:31 Hydrocodone/Acetaminophen 5-325 Mg Tab PO 2 each Q6H PRN Administration Pain, Moderate (4-6) Albuterol 2.5 mg 07/26/20 08:34 Albuterol 2.5 Mg/3 Ml Nebu IH Q4HRT PRN Shortness Of Breath Aspirin 81 mg 07/22/20 15:00 07/29/20 09:19 Aspirin Ec 81 Mg Tab PO 81 mg QDAY [facility]ALIYAH Administration Hydromorphone HCl 0.5 mg 07/22/20 14:09 07/24/20 19:34 Hydromorphone 1 Mg/1 Ml Inj IV 0.5 mg Q3H PRN Administration Pain , Severe (7-10) Sodium Chloride 1,000 mls @ 30 mls/hr 07/22/20 14:15 Nacl 0.9% 1000 Ml IV DIRECT AALIYAH Levofloxacin/Dextrose 500 mg in 100 mls @ 100 mls/hr 07/30/20 08:00 07/30/20 08:35 Levaquin 500mg/100ml IV 100 mls/hr Q48H AALIYAH Administration Protocol Metoprolol Tartrate 50 mg 07/29/20 10:00 07/29/20 22:30 Metoprolol Tartrate 50 Mg Tab PO 50 mg BID AALIYAH Administration Midodrine 10 mg 07/25/20 16:00 07/30/20 08:36 Midodrine 5 Mg Tab PO 10 mg TID@0800,1200,1600 [facility] Administration Ondansetron HCl 4 mg 07/22/20 14:09 Ondansetron 4 Mg/2 Ml Inj IV Q8H PRN Nausea And Vomiting Sevelamer Carbonate 800 mg 07/23/20 18:30 07/30/20 08:35 Sevelamer Carbonate 800 Mg Tab PO 800 mg AC [facility]ALIY[facility] Administration Sodium Chloride 10 ml 07/22/20 13:00 07/29/20 22:32 Sodium Chloride 0.9% 10 Ml Flush Syringe IV 10 ml BID [facility]IY[facility] Administration Sodium Chloride 10 ml 07/22/20 13:00 Sodium Chloride 0.9% 10 Ml Flush Syringe IV PRN PRN LINE FLUSH
[2020-07-30] MEDS ORDERED: ONDANSETRON 4 MG/2 ML INJ IV PRN ×2 (09:58→13:00)
[2020-07-30] MEDS ORDERED: fentaNYL 100 MCG/2 ML INJ IV PRN (09:58)
[2020-07-30] MEDS: ASPIRIN EC 81 MG TAB PO SCH (10:00)
[2020-07-30] MEDS: METOPROLOL TARTRATE 50 MG TAB PO SCH ×2 (10:00→22:19)
[2020-07-30] MEDS ORDERED: SODIUM CHLORIDE 0.9% 1000 ML 1,000 ML IV SCH (10:00)
[2020-07-30] MEDS ORDERED: MIDAZOLAM 2 MG/2 ML INJ IV NR (10:00)
--- NOTE | 2020-07-30 10:00 | Anesthesia Day of Surgery ---
Anesthesia Day of Surgery - Day of Surgery Patient Examined: Yes Patient H&P Reviewed: Yes Patient is NPO: Yes
--- NOTE | 2020-07-30 10:24 | Progress Note ---
Assessment and Plan Assessment and plan: 54 years old male with history of ESRD on hemodialysis, hypertension, tobacco abuse, PAD status post previous revascularization, admitted on 07/22/2020 secondary to worsening left leg pain for 3 days. Pain is 10 out of 10. Patient is unable to walk. Patient was seen at Dr. Hurt's office, vascular surgeon, and was found to have a left popliteal artery thrombosis complicated by a left lower limb ischemia was sent to the ED. Patient had revascularization May 2020 due to mild ischemic toes and since then discoloration of the toes has worsened. On arrival, initial temperature 97.3, HR 107, RR 16, O2 100, BP 163/92. Initial WBC 8. Hemoglobin 11.7. Procalcitonin 4.2. Patient underwent angiopl asty on 07/22/2020. By 07/27/2020 patient spiked a fever 101. Blood cultures 07/28/2020 no growth. Patient is planned to have a left BKA for nonsalvageable left leg per vascular -- Acute limb ischemia with thrombosis of left popliteal artery s/p angiogram and angioplasty for left popliteal artery occlusion Vascular surgery following. Plan for amputation 0n 07/30 -- End stage renal disease Nephrology team on board HD as per renal -- Hypotension Now on midodrine. BP better Continue to monitor blood pressure closely --SIRS on Levaquin, vanc Has left lower extremity swelling. Likely source of fever Procalcitonin is >4. Though not accurate in the setting of ESRD Blood culture NTD ID consulted -- Left lower extremity DVT Patient is on Coumadin at home for this Holding Coumadin as patient is on heparin drip --DVT prophylaxis SCDs bilateral lower extremities while in bed, continue therapeutic anticoagulation 07/30. ID started Vanc and levaquin. Left BKA per Surgery History Interval history: no new issues Hospitalist Physical - Constitutional Vitals: Temp Pulse Resp BP Pulse Ox 99.1 F 117 H 18 124/77 99 07/30/20 08:08 07/30/20 08:08 07/30/20 08:08 07/30/20 08:08 07/30/20 08:08 General appearance: Present: no acute distress - EENT Eyes: Present: PERRL, EOM intact ENT: hearing intact, clear oral mucosa, dentition normal - Neck Neck: Present: supple, normal ROM - Respiratory Respiratory effort: normal Respiratory: bilateral: CTA - Cardiovascular Rhythm: regular Heart Sounds: Present: S1 & S2. Absent: gallop, rub - Extremities Extremities: no ischemia, No edema, Full ROM - Abdominal General gastrointestinal: soft, non-tender, non-distended, normal bowel sounds - Integumentary Integumentary: Present: clear, warm, dry - Neurologic Neurologic: CNII-XII intact, moves all extremities Results - Labs CBC & Chem 7: 07/30/20 07:18 07/30/20 07:18 Labs: Laboratory Last Values WBC 10.5 K/mm3 (4.5-11.0) 07/30/20 07:18 RBC 3.19 M/mm3 (3.65-5.03) L 07/30/20 07:18 Hgb 10.5 gm/dl (11.8-15.2) L 07/30/20 07:18 Hct 33.1 % (35.5-45.6) L 07/30/20 07:18 MCV 104 fl (84-94) H 07/30/20 07:18 MCH 33 pg (28-32) H 07/30/20 07:18 MCHC 32 % (32-34) 07/30/20 07:18 RDW 19.5 % (13.2-15.2) H 07/30/20 07:18 Plt Count 324 K/mm3 (140-440) 07/30/20 07:18 Lymph % (Auto) 7.5 % (13.4-35.0) L 07/30/20 07:18 Sanborn % (Auto) 10.5 % (0.0-7.3) H 07/30/20 07:18 Eos % (Auto) 1.1 % (0.0-4.3) 07/30/20 07:18 Baso % (Auto) 0.9 % (0.0-1.8) 07/30/20 07:18 Lymph # (Auto) 0.8 K/mm3 (1.2-5.4) L 07/30/20 07:18 Sanborn # (Auto) 1.1 K/mm3 (0.0-0.8) H 07/30/20 07:18 Eos # (Auto) 0.1 K/mm3 (0.0-0.4) 07/30/20 07:18 Baso # (Auto) 0.1 K/mm3 (0.0-0.1) 07/30/20 07:18 Add Manual Diff Complete 07/29/20 05:36 Total Counted 100 07/23/20 09:46 Seg Neutrophils % 80.0 % (40.0-70.0) H 07/30/20 07:18 Seg Neuts % (Manual) 94.0 % (40.0-70.0) H 07/23/20 09:46 Band Neutrophils % 1.0 % 07/23/20 09:46 Lymphocytes % (Manual) 1.0 % (13.4-35.0) L 07/23/20 09:46 Reactive Lymphs % (Man) 0 % 07/22/20 18:00 Monocytes % (Manual) 4.0 % (0.0-7.3) 07/23/20 09:46 Eosinophils % (Manual) 0 % (0.0-4.3) 07/22/20 18:00 Basophils % (Manual) 0 % (0.0-1.8) 07/22/20 18:00 Metamyelocytes % 0 % 07/22/20 18:00 Myelocytes % 0 % 07/22/20 18:00 Promyelocytes % 0 % 07/22/20 18:00 Blast Cells % 0 % 07/22/20 18:00 Nucleated RBC % Not Reportable 07/29/20 05:36 Seg Neutrophils # 8.4 K/mm3 (1.8-7.7) H 07/30/20 07:18 Seg Neutrophils # Man 16.2 K/mm3 (1.8-7.7) H 07/23/20 09:46 Band Neutrophils # 0.2 K/mm3 07/23/20 09:46 Lymphocytes # (Manual) 0.2 K/mm3 (1.2-5.4) L 07/23/20 09:46 Abs React Lymphs (Man) 0.0 K/mm3 07/23/20 09:46 Monocytes # (Manual) 0.7 K/mm3 (0.0-0.8) 07/23/20 09:46 Eosinophils # (Manual) 0.0 K/mm3 (0.0-0.4) 07/23/20 09:46 Basophils # (Manual) 0.0 K/mm3 (0.0-0.1) 07/23/20 09:46 Metamyelocytes # 0.0 K/mm3 07/23/20 09:46 Myelocytes # 0.0 K/mm3 07/23/20 09:46 Promyelocytes # 0.0 K/mm3 07/23/20 09:46 Blast Cells # 0.0 K/mm3 07/23/20 09:46 WBC Morphology Not Reportable 07/29/20 05:36 Hypersegmented Neuts Not Reportable 07/29/20 05:36 Hyposegmented Neuts Not Reportable 07/29/20 05:36 Hypogranular Neuts Not Reportable 07/29/20 05:36 Smudge Cells Not Reportable 07/29/20 05:36 Toxic Granulation Not Reportable 07/29/20 05:36 Toxic Vacuolation Not Reportable 07/29/20 05:36 Dohle Bodies Not Reportable 07/29/20 05:36 Pelger-Huet Anomaly Not Reportable 07/29/20 05:36 Svetlana Rods Not Reportable 07/29/20 05:36 Platelet Estimate Not Reportable 07/29/20 05:36 Clumped Platelets Not Reportable 07/29/20 05:36 Plt Clumps, EDTA Not Reportable 07/29/20 05:36 Large Platelets Not Reportable 07/29/20 05:36 Giant Platelets Not Reportable 07/29/20 05:36 Platelet Satelliting Not Reportable 07/29/20 05:36 Plt Morphology Comment Not Reportable 07/29/20 05:36 RBC Morphology Not Reportable 07/29/20 05:36 Dimorphic RBCs Not Reportable 07/29/20 05:36 Polychromasia Not Reportable 07/29/20 05:36 Hypochromasia Not Reportable 07/29/20 05:36 Poikilocytosis Not Reportable 07/29/20 05:36 Anisocytosis Not Reportable 07/29/20 05:36 Microcytosis Not Reportable 07/29/20 05:36 Macrocytosis Not Reportable 07/29/20 05:36 Spherocytes Not Reportable 07/29/20 05:36 Pappenheimer Bodies Not Reportable 07/29/20 05:36 Sickle Cells Not Reportable 07/29/20 05:36 Target Cells Not Reportable 07/29/20 05:36 Tear Drop Cells Not Reportable 07/29/20 05:36 Ovalocytes Not Reportable 07/29/20 05:36 Helmet Cells Not Reportable 07/29/20 05:36 Seth-Eastland Bodies Not Reportable 07/29/20 05:36 [place] Rings Not Reportable 07/29/20 05:36 [place] Cells Not Reportable 07/29/20 05:36 Bite Cells Not Reportable 07/29/20 05:36 Crenated Cell Not Reportable 07/29/20 05:36 Elliptocytes Not Reportable 07/29/20 05:36 Acanthocytes (Spur) Not Reportable 07/29/20 05:36 Rouleaux Not Reportable 07/29/20 05:36 Hemoglobin C Crystals Not Reportable 07/29/20 05:36 Schistocytes Not Reportable 07/29/20 05:36 Malaria parasites Not Reportable 07/29/20 05:36 Malachi Bodies Not Reportable 07/29/20 05:36 Hem Pathologist Commnt Not Reportable 07/29/20 05:36 PT 21.0 Sec. (12.2-14.9) H 07/23/20 23:01 INR 1.80 (0.87-1.13) H 07/23/20 23:01 APTT 39.4 Sec. (24.2-36.6) H 07/23/20 23:01 Fibrinogen 494 mg/dl (211-480) H 07/23/20 09:46 Heparin Anti-Xa Level 0.29 U.I./ml (0.3-0.7) L 07/29/20 09:45 Sodium 145 mmol/L (137-145) 07/30/20 07:18 Potassium 4.4 mmol/L (3.6-5.0) 07/30/20 07:18 Chloride 100.9 mmol/L (98-107) 07/30/20 07:18 Carbon Dioxide 30 mmol/L (22-30) D 07/30/20 07:18 Anion Gap 19 mmol/L 07/30/20 07:18 BUN 37 mg/dL (9-20) H 07/30/20 07:18 Creatinine 11.3 mg/dL (0.8-1.3) H 07/30/20 07:18 Estimated GFR 6 ml/min 07/30/20 07:18 BUN/Creatinine Ratio 3 % 07/30/20 07:18 Glucose 78 mg/dL (75-100) 07/30/20 07:18 POC Glucose 76 mg/dL (70-105) 07/30/20 08:36 Calcium 10.4 mg/dL (8.4-10.2) H 07/30/20 07:18 Total Bilirubin 0.30 mg/dL (0.1-1.2) 07/23/20 02:41 AST 16 units/L (5-40) 07/23/20 02:41 ALT 11 units/L (7-56) 07/23/20 02:41 Alkaline Phosphatase 84 units/L (35-129) 07/23/20 02:41 Total Protein 6.5 g/dL (6.3-8.2) 07/23/20 02:41 Albumin 3.5 g/dL (3.9-5) L 07/23/20 02:41 Albumin/Globulin Ratio 1.2 % 07/23/20 02:41 Procalcitonin 4.28 ng/mL (<0.15) 07/28/20 07:53 TSH 3.770 mlU/mL (0.270-4.200) 07/26/20 02:22 Free T4 1.01 ng/dL (0.76-1.46) 07/26/20 02:22 Random Vancomycin 13.9 ug/mL (0-40.0) 07/30/20 07:18 Hepatitis A IgM Ab Non-reactive (NonReactive) 07/22/20 18:00 Hep Bs Antigen Non-reactive (Negative) 07/22/20 18:00 Hep B Core IgM Ab Non-reactive (NonReactive) 07/22/20 18:00 Hepatitis C Antibody Non-reactive (NonReactive) 07/22/20 18:00 Microbiology: Microbiology 07/28/20 00:29 Peripheral/Venous Blood Culture - Preliminary NO GROWTH AFTER 48 HOURS 07/28/20 07:53 Peripheral/Venous Blood Culture - Preliminary NO GROWTH AFTER 24 HOURS - Diagnostic Impressions Diagnostic Impressions: Echocardiogram 07/26/20 08:06 Transthoracic Echocardiogram Indication: Tachycardia BP: 108/70 HR: 100 Conclusions *Global left ventricular systolic function is normal. *The estimated ejection fraction is 60-65%. *Mild concentric left ventricular hypertrophy is observed. *The left atrium is mildly dilated. *There is mild mitral regurgitation. *The right heart chambers are both mildly dilated. *There is mild to moderate tricuspid regurgitation. *There is evidence of moderate pulmonary hypertension. *The right ventricular systolic pressure is calculated at 46 mmHg. Findings Left Ventricle: The left ventricular chamber size is normal. Mild concentric left ventricular hypertrophy is observed. Global left ventricular systolic function is normal. The estimated ejection fraction is 60-65%. Left Atrium: The left atrium is mildly dilated. Right Ventricle: The right ventricle is mildly dilated. The right ventricular global systolic function is mildly reduced. Right Atrium: The right atrium is mildly dilated. Aortic Valve: The aortic valve is trileaflet. The aortic valve leaflets are mildly thickened. There is no evidence of aortic regurgitation. There is no evidence of aortic stenosis. Mitral Valve: The mitral valve leaflets are mildly thickened. There is mild mitral regurgitation. There is no evidence of mitral stenosis. Tricuspid Valve: There is mild to moderate tricuspid regurgitation. The right ventricular systolic pressure is calculated at 46 mmHg. There is evidence of moderate pulmonary hypertension. Pulmonic Valve: There is trace pulmonic regurgitation. Pericardium: There is no pericardial effusion. Aorta: There is no dilatation of the ascending aorta. There is no dilatation of the aortic root. Venous: The inferior vena cava appears normal in size. Measurements Chambers 2D Name Value Normal Range IVSd (2D) 1.03 cm (0.6 - 1.1) LVPWd (2D) 0.91 cm (0.6 - 1.1) LVIDd (2D) 4.7 cm (3.7 - 5.6) LVIDs (2D) 3.36 cm (2 - 3.8) LV FS (2D) 28.6 % - EF Teichholz (2D) 55.1 % - Ao root diameter (2D) 3.06 cm (2 - 3.7) Volumes/Mass Name Value Normal Range LA ESV SP 4CH (A/L) 47.57 ml - LA ESV SP 2CH (A/L) 41.21 ml - LA ESV BP (A/L) 45.97 ml - LA ESV BP (A/L) index 20.8 ml/m2 - LA ESV SP 4CH (MOD) 43.06 ml - LA ESV SP 2CH (MOD) 41.81 ml - LA ESV BP (MOD) 43.59 ml - LA ESV BP (MOD) index 19.72 ml/m2 - Diastolic/Systolic Function Name Value Normal Range MV E-wave Vmax 0.81 m/sec - MV deceleration time 179.23 msec - Aortic Valve Name Value Normal Range AV Vmax 1.25 m/sec - AV VTI 19.57 cm - AV peak gradient 6.28 mmHg - AV mean gradient 3.55 mmHg - LVOT diameter 2.06 cm - LVOT Vmax 0.92 m/sec - LVOT VTI 13.2 cm - LVOT peak gradient 3.38 mmHg - LVOT mean gradient 1.86 mmHg - SV LVOT 44.13 ml - JOSE EDUARDO (continuity Vmax) 2.45 cm2 - JOSE EDUARDO (continuity VTI) 2.25 cm2 - Tricuspid Valve Name Value Normal Range TR Vmax 3.31 m/sec - TR peak gradient 43 mmHg - RAP 3 mmHg - RVSP 46 mmHg - IVC diameter 1.79 cm (1.2 - 2.3) Pulmonic Valve/Qp:Qs Name Value Normal Range PV Vmax 0.82 m/sec - PV peak gradient 2.66 mmHg - PV acceleration time 98.95 msec - Rodriguez/IV: Voiding Method Urinal IV Catheter Type [Right INT / Saline Lock Forearm] IV Catheter Type [Left Forearm INT / Saline Lock ] IV Catheter Type [Right VAS Cath Femoral] IV Catheter Type [Right INT / Saline Lock Antecubital] Active Medications - Current Medications Current Medications: Generic Name Dose Route Start Last Admin Trade Name Nainq PRN Reason Stop Dose Admin Acetaminophen 650 mg 07/22/20 14:09 07/27/20 22:12 Acetaminophen 325 Mg Tab PO 650 mg Q6H PRN Administration Pain, Mild (1-3) Hydrocodone Bitart/Acetaminophen 2 each 07/22/20 14:09 07/29/20 20:31 Hydrocodone/Acetaminophen 5-325 Mg Tab PO 2 each Q6H PRN Administration Pain, Moderate (4-6) Albuterol 2.5 mg 07/26/20 08:34 Albuterol 2.5 Mg/3 Ml Nebu IH Q4HRT PRN Shortness Of Breath Aspirin 81 mg 07/22/20 15:00 07/29/20 09:19 Aspirin Ec 81 Mg Tab PO 81 mg QDAY AALIYAH Administration Fentanyl 50 mcg 07/30/20 09:58 Fentanyl 100 Mcg/2 Ml Inj IV 07/30/20 23:00 Q5MIN PRN Pain , Severe (7-10) Hydromorphone HCl 0.5 mg 07/22/20 14:09 07/24/20 19:34 Hydromorphone 1 Mg/1 Ml Inj IV 0.5 mg Q3H PRN Administration Pain , Severe (7-10) Levofloxacin/Dextrose 500 mg in 100 mls @ 100 mls/hr 07/30/20 08:00 07/30/20 08:35 Levaquin 500mg/100ml IV 100 mls/hr Q48H AALIYAH Administration Protocol Sodium Chloride 1,000 mls @ 42 mls/hr 07/30/20 10:00 Nacl 0.9% 1000 Ml IV 07/30/20 15:00 DIRECT AALIYAH Metoprolol Tartrate 50 mg 07/29/20 10:00 07/29/20 22:30 Metoprolol Tartrate 50 Mg Tab PO 50 mg BID AALIYAH Administration Midazolam HCl 2 mg 07/30/20 10:00 Midazolam 2 Mg/2 Ml Inj IV 07/30/20 23:59 PREOP NR Midodrine 10 mg 07/25/20 16:00 07/30/20 08:36 Midodrine 5 Mg Tab PO 10 mg TID@0800,1200,1600 AALIYAH Administration Ondansetron HCl 4 mg 07/22/20 14:09 Ondansetron 4 Mg/2 Ml Inj IV Q8H PRN Nausea And Vomiting Ondansetron HCl 4 mg 07/30/20 09:58 Ondansetron 4 Mg/2 Ml Inj IV 07/30/20 13:00 ONCE PRN Nausea And Vomiting Sevelamer Carbonate 800 mg 07/23/20 18:30 07/30/20 08:35 Sevelamer Carbonate 800 Mg Tab PO 800 mg AC AALIYAH Administration Sodium Chloride 10 ml 07/22/20 13:00 07/29/20 22:32 Sodium Chloride 0.9% 10 Ml Flush Syringe IV 10 ml BID AALIYAH Administration Sodium Chloride 10 ml 07/22/20 13:00 Sodium Chloride 0.9% 10 Ml Flush Syringe IV PRN PRN LINE FLUSH Nutrition/Malnutrition Assess - Dietary Evaluation Nutrition/Malnutrition Findings: Nutrition Notes Start: 07/29/20 13:17 Freq: Status: Active Protocol: Document 07/29/20 13:17 LARRY (Rec: 07/29/20 13:20 LARRY [id number]) Nutrition Notes Need for Assessment generated from: LOS Initial or Follow up Brief Note Current Diagnosis CKD (stage V CKD) Other Pertinent Diagnosis acute limb isschmemia, on HD Current Diet NPO Subjective/Other Information Screen for LOS. Pt in HD at time of visit. RN states pt did not eat breakfast and is unsure of past intakes. Pt getting L BKA tomorrow. Nutrition Intervention Add Supplement/Snack (indicate name/kcal Nepro daily when diet advances /protein ) Provides kCal: 425 Provides Protein (gm) 19 Follow-Up By: 07/31/20 Additional Comments FU for intakes
[2020-07-30] MEDS ORDERED: fentaNYL 100 MCG/2 ML INJ ONE ×2 (10:28→11:31)
[2020-07-30] MEDS ORDERED: SUCCINYLCHOLINE CHLORIDE 200 MG/10 ML INJ MDV ONE (10:28)
[2020-07-30] MEDS ORDERED: ONDANSETRON 4 MG/2 ML INJ ONE (10:28)
[2020-07-30] MEDS ORDERED: LIDOCAINE MPF (2%) 20 MG/1 ML VIAL 5 ML ONE (10:28)
[2020-07-30] MEDS ORDERED: dexAMETHasone 20 MG/5 ML VIAL ONE (10:28)
[2020-07-30] MEDS ORDERED: propofoL 200 MG/20 ML VIAL IV ONE (10:28)
[2020-07-30] MEDS ORDERED: PHENYLEPHRINE/NS 1,000 MCG/10 ML SYRINGE (OR USE) IV ONE (10:28)
[2020-07-30] MEDS ORDERED: GLYCOPYRROLATE 0.4 MG/2 ML INJ ONE (10:28)
[2020-07-30] MEDS ORDERED: BUPIVACAINE-EPINEPHRINE/PF 0.25%-1:200,000 (30 ML) VIAL INFILTRATI ONE ×2 (10:42→11:50)
[2020-07-30] MEDS ORDERED: NEOMY 40 MG/POLYMYXIN B 200,000 UNITS/ML (GU) AMPULE IR ONE ×2 (10:42→10:52)
[2020-07-30] MEDS ORDERED: SODIUM CHLORIDE 0.9% IRR 1,500 ML BOTTLE IR ONE (11:49)
--- NOTE | 2020-07-30 12:28 | Operative Report ---
Operative Report Operative Report: Date of procedure: 07/30/2019 Pre-operative diagnosis: Peripheral Vascular Disease with Left Lower Extremity C ritical Limb Ischemia Post-operative diagnosis: Same Procedure(s): Left Below Knee Amputation Surgeon: Karthikeyan Hansen MD Fruit I Farmworker: None Anesthesia: General Endotracheal Anesthesia EBL: 50 mL Counts: Correct Complications: None Condition: Stable Findings: All remaining tissue was healthy and viable and the wound closed without tension. Specimen: Left Leg Sent to Pathology Indication: The patient is a 54-year-old male with a history of end-stage renal disease and peripheral vascular disease who has a history of a left thigh arteriovenous graft. He had previous intervention for nonhealing wound of his left lower extremity performed at an outside facility. He then had a procedure performed at my outpatient procedure for embolization of his left leg arteriovenous graft. He initially did well but has some neuropathic pain and then represented approximately 4 to 6 weeks later with complaints of worsening pain and gangrene of the forefoot. Despite attempts at salvaging the foot the foot continued to deteriorate and it was determined that it was not salvageable and he will require a below-knee amputation. He was given the risk, benefits, and alternative procedures and consented to the procedure Description of Procedure: The patient was brought to the operating room and laid in supine position after general endotracheal anesthesia the patient's left leg was prepped and draped in normal sterile fashion. An Esmarch was placed on the lower calf and the leg was raised to drain the venous blood from the left leg. A tourniquet on the left thigh was then inflated to 300 mmHg. A transverse incision was then created approximately 3 fingerbreadths below the tibial tuberosity and carried the incision down distally to create a posterior flap, using a 10 blade. Elec trocautery was then used to divide the muscle down to the tibia and then down to the fibula. I then used a periosteal elevator to elevate the periosteum on the tibia approximately 2 cm above the incision and then I used an oscillating saw to divide the tibia. I then used a double-action bone cutter to divide the fibula approximately 2 cm above the tibia. I divided the remainder of the soft tissue using electrocautery and passed the specimen off. I identified the neurovascular bundle and ligated both the vein and artery using 0 silk stick ties. I then used 0 silk to perform high ligation of the nerve. The tourniquet was then released after approximately 10 minutes of inflation. I explored the wound for any evidence of bleeding. I achieved hemostasis using electrocautery and direct pressure. Once hemostasis was achieved I used a rasps to smooth the tibia and then copiously irrigated the wound with saline. I anesthetized the wound using 0.5% Marcaine with epinephrine. I then closed the wound in 2 layers using 0 Vicryl to reapproximate the fascia and jewel to close the skin. I dressed the wound with Xeroform gauze, fluffs, ABDs, Kerlix, and an Yandel bandage. I placed an appropriately sized knee immobilizer. The patient tolerated the procedure well all sponge needle and instrument counts were the patient was taken to recovery in stable condition.
[2020-07-30] MEDS: HYDROmorphone 1 MG/1 ML INJ IV PRN ×4 (12:42→13:12)
[2020-07-30] MEDS: HYDROcodone/ACETAMINOPHEN 5-325 MG TAB PO PRN ×2 (14:03→22:20)
--- NOTE | 2020-07-30 14:05 | Post Anesthesia Evaluation ---
- Post Anesthesia Evaluation Patient Participated: Yes Airway Patent: Yes Stable Respiratory Function: Yes Nausea/Vomiting: No Temp > 96.8F: Yes Pain Manageable: Yes Adequeate Hydration: Yes Anesthesia Complications: No
[2020-07-30] MEDS: APIXABAN 5 MG TAB PO SCH (22:18)
[2020-07-31] MEDS: HYDROmorphone 1 MG/1 ML INJ IV PRN ×3 (00:41→11:16)
[2020-07-31 05:35] LABS: Basophils # (Auto) 0.1 K/mm3 (0.0-0.1); Basophils % (Auto) 1.3 % (0.0-1.8); Hematocrit 31.7 % (35.5-45.6); Hemoglobin 10.3 gm/dl (11.8-15.2); Lymphocytes # (Auto) 0.7 K/mm3 (1.2-5.4); Lymphocytes % (Auto) 7.7 % (13.4-35.0); Mean Corpuscular HGB Conc 33 % (32-34); Mean Corpuscular Volume 104 fl (84-94); Monocytes # (Auto) 0.7 K/mm3 (0.0-0.8); Monocytes % (Auto) 7.8 % (0.0-7.3); Platelet Count 275 K/mm3 (140-440); Red Blood Count 3.04 M/mm3 (3.65-5.03); Red Cell Distribution Width 19.8 % (13.2-15.2)
[2020-07-31 05:44] LABS: Calcium 9.9 mg/dL (8.4-10.2)
[2020-07-31] MEDS: HYDROcodone/ACETAMINOPHEN 5-325 MG TAB PO PRN ×3 (08:28→21:20)
[2020-07-31] MEDS: MIDODRINE 5 MG TAB PO SCH ×3 (08:29→16:50)
[2020-07-31] MEDS: SEVELAMER CARBONATE 800 MG TAB PO SCH ×3 (08:29→16:50)
[2020-07-31] MEDS: METOPROLOL TARTRATE 50 MG TAB PO SCH ×2 (10:00→21:21)
--- NOTE | 2020-07-31 10:05 | Progress Note ---
Assessment and Plan Assessment and plan: 54 years old male with history of ESRD on hemodialysis, hypertension, tobacco abuse, PAD status post previous revascularization, admitted on 07/22/2020 secondary to worsening left leg pain for 3 days. Pain is 10 out of 10. Patient is unable to walk. Patient was seen at Dr. Hurt's office, vascular surgeon, and was found to have a left popliteal artery thrombosis complicated by a left lower limb ischemia was sent to the ED. Patient had revascularization May 2020 due to mild ischemic toes and since then discoloration of the toes has worsened. On arrival, initial temperature 97.3, HR 107, RR 16, O2 100, BP 163/92. Initial WBC 8. Hemoglobin 11.7. Procalcitonin 4.2. Patient underwent angiopl asty on 07/22/2020. By 07/27/2020 patient spiked a fever 101. Blood cultures 07/28/2020 no growth. Patient is planned to have a left BKA for nonsalvageable left leg per vascular -- Acute limb ischemia with thrombosis of left popliteal artery s/p angiogram and angioplasty for left popliteal artery occlusion Vascular surgery following. Plan for amputation 0n 07/30 -- End stage renal disease Nephrology team on board HD as per renal -- Hypotension Now on midodrine. BP better Continue to monitor blood pressure closely --SIRS on Levaquin, vanc Has left lower extremity swelling. Likely source of fever Procalcitonin is >4. Though not accurate in the setting of ESRD Blood culture NTD ID consulted -- Left lower extremity DVT Patient is on Coumadin at home for this Holding Coumadin as patient is on heparin drip --DVT prophylaxis SCDs bilateral lower extremities while in bed, continue therapeutic anticoagulation 07/30. ID started Vanc and levaquin. Left BKA per Surgery 07/31. Continue IV antibiotics per ID recommendations. Patient is s/p left BKA yesterday (07/30). Physical therapy evaluation pending. Continue hemodialysis per nephrology recommendations. History Interval history: no new issues Hospitalist Physical - Constitutional Vitals: Temp Pulse Resp BP Pulse Ox 98.1 F 108 H 18 128/85 100 07/31/20 08:10 07/31/20 08:10 07/31/20 08:10 07/31/20 08:10 07/31/20 08:10 General appearance: Present: no acute distress - EENT Eyes: Present: PERRL, EOM intact ENT: hearing intact, clear oral mucosa, dentition normal - Neck Neck: Present: supple, normal ROM - Respiratory Respiratory effort: normal Respiratory: bilateral: CTA - Cardiovascular Rhythm: regular Heart Sounds: Present: S1 & S2. Absent: gallop, rub - Extremities Extremities: No edema, Full ROM Extremity abnormal: other (s/p BKA, dressing clean dry and intact) - Abdominal General gastrointestinal: soft, non-tender, non-distended, normal bowel sounds - Integumentary Integumentary: Present: clear, warm, dry - Neurologic Neurologic: CNII-XII intact, moves all extremities Results - Labs CBC & Chem 7: 07/31/20 04:54 07/31/20 04:54 Labs: Laboratory Last Values WBC 8.4 K/mm3 (4.5-11.0) 07/31/20 04:54 RBC 3.04 M/mm3 (3.65-5.03) L 07/31/20 04:54 Hgb 10.3 gm/dl (11.8-15.2) L 07/31/20 04:54 Hct 31.7 % (35.5-45.6) L 07/31/20 04:54 MCV 104 fl (84-94) H 07/31/20 04:54 MCH 34 pg (28-32) H 07/31/20 04:54 MCHC 33 % (32-34) 07/31/20 04:54 RDW 19.8 % (13.2-15.2) H 07/31/20 04:54 Plt Count 275 K/mm3 (140-440) 07/31/20 04:54 Lymph % (Auto) 7.7 % (13.4-35.0) L 07/31/20 04:54 [place] % (Auto) 7.8 % (0.0-7.3) H 07/31/20 04:54 Eos % (Auto) 0.0 % (0.0-4.3) 07/31/20 04:54 Baso % (Auto) 1.3 % (0.0-1.8) 07/31/20 04:54 Lymph # (Auto) 0.7 K/mm3 (1.2-5.4) L 07/31/20 04:54 [place] # (Auto) 0.7 K/mm3 (0.0-0.8) 07/31/20 04:54 Eos # (Auto) 0.0 K/mm3 (0.0-0.4) 07/31/20 04:54 Baso # (Auto) 0.1 K/mm3 (0.0-0.1) 07/31/20 04:54 Add Manual Diff Complete 07/29/20 05:36 Total Counted 100 07/23/20 09:46 Seg Neutrophils % 83.2 % (40.0-70.0) H 07/31/20 04:54 Seg Neuts % (Manual) 94.0 % (40.0-70.0) H 07/23/20 09:46 Band Neutrophils % 1.0 % 07/23/20 09:46 Lymphocytes % (Manual) 1.0 % (13.4-35.0) L 07/23/20 09:46 Reactive Lymphs % (Man) 0 % 07/22/20 18:00 Monocytes % (Manual) 4.0 % (0.0-7.3) 07/23/20 09:46 Eosinophils % (Manual) 0 % (0.0-4.3) 07/22/20 18:00 Basophils % (Manual) 0 % (0.0-1.8) 07/22/20 18:00 Metamyelocytes % 0 % 07/22/20 18:00 Myelocytes % 0 % 07/22/20 18:00 Promyelocytes % 0 % 07/22/20 18:00 Blast Cells % 0 % 07/22/20 18:00 Nucleated RBC % Not Reportable 07/29/20 05:36 Seg Neutrophils # 7.0 K/mm3 (1.8-7.7) 07/31/20 04:54 Seg Neutrophils # Man 16.2 K/mm3 (1.8-7.7) H 07/23/20 09:46 Band Neutrophils # 0.2 K/mm3 07/23/20 09:46 Lymphocytes # (Manual) 0.2 K/mm3 (1.2-5.4) L 07/23/20 09:46 Abs React Lymphs (Man) 0.0 K/mm3 07/23/20 09:46 Monocytes # (Manual) 0.7 K/mm3 (0.0-0.8) 07/23/20 09:46 Eosinophils # (Manual) 0.0 K/mm3 (0.0-0.4) 07/23/20 09:46 Basophils # (Manual) 0.0 K/mm3 (0.0-0.1) 07/23/20 09:46 Metamyelocytes # 0.0 K/mm3 07/23/20 09:46 Myelocytes # 0.0 K/mm3 07/23/20 09:46 Promyelocytes # 0.0 K/mm3 07/23/20 09:46 Blast Cells # 0.0 K/mm3 07/23/20 09:46 WBC Morphology Not Reportable 07/29/20 05:36 Hypersegmented Neuts Not Reportable 07/29/20 05:36 Hyposegmented Neuts Not Reportable 07/29/20 05:36 Hypogranular Neuts Not Reportable 07/29/20 05:36 Smudge Cells Not Reportable 07/29/20 05:36 Toxic Granulation Not Reportable 07/29/20 05:36 Toxic Vacuolation Not Reportable 07/29/20 05:36 Dohle Bodies Not Reportable 07/29/20 05:36 Pelger-Huet Anomaly Not Reportable 07/29/20 05:36 Svetlana Rods Not Reportable 07/29/20 05:36 Platelet Estimate Not Reportable 07/29/20 05:36 Clumped Platelets Not Reportable 07/29/20 05:36 Plt Clumps, EDTA Not Reportable 07/29/20 05:36 Large Platelets Not Reportable 07/29/20 05:36 Giant Platelets Not Reportable 07/29/20 05:36 Platelet Satelliting Not Reportable 07/29/20 05:36 Plt Morphology Comment Not Reportable 07/29/20 05:36 RBC Morphology Not Reportable 07/29/20 05:36 Dimorphic RBCs Not Reportable 07/29/20 05:36 Polychromasia Not Reportable 07/29/20 05:36 Hypochromasia Not Reportable 07/29/20 05:36 Poikilocytosis Not Reportable 07/29/20 05:36 Anisocytosis Not Reportable 07/29/20 05:36 Microcytosis Not Reportable 07/29/20 05:36 Macrocytosis Not Reportable 07/29/20 05:36 Spherocytes Not Reportable 07/29/20 05:36 Pappenheimer Bodies Not Reportable 07/29/20 05:36 Sickle Cells Not Reportable 07/29/20 05:36 Target Cells Not Reportable 07/29/20 05:36 Tear Drop Cells Not Reportable 07/29/20 05:36 Ovalocytes Not Reportable 07/29/20 05:36 Helmet Cells Not Reportable 07/29/20 05:36 Seth-Quimby Bodies Not Reportable 07/29/20 05:36 Hope Rings Not Reportable 07/29/20 05:36 Alicia Cells Not Reportable 07/29/20 05:36 Bite Cells Not Reportable 07/29/20 05:36 Crenated Cell Not Reportable 07/29/20 05:36 Elliptocytes Not Reportable 07/29/20 05:36 Acanthocytes (Spur) Not Reportable 07/29/20 05:36 Rouleaux Not Reportable 07/29/20 05:36 Hemoglobin C Crystals Not Reportable 07/29/20 05:36 Schistocytes Not Reportable 07/29/20 05:36 Malaria parasites Not Reportable 07/29/20 05:36 Malachi Bodies Not Reportable 07/29/20 05:36 Hem Pathologist Commnt Not Reportable 07/29/20 05:36 PT 21.0 Sec. (12.2-14.9) H 07/23/20 23:01 INR 1.80 (0.87-1.13) H 07/23/20 23:01 APTT 39.4 Sec. (24.2-36.6) H 07/23/20 23:01 Fibrinogen 494 mg/dl (211-480) H 07/23/20 09:46 Heparin Anti-Xa Level 0.29 U.I./ml (0.3-0.7) L 07/29/20 09:45 Sodium 142 mmol/L (137-145) 07/31/20 04:54 Potassium 5.0 mmol/L (3.6-5.0) 07/31/20 04:54 Chloride 98.7 mmol/L (98-107) 07/31/20 04:54 Carbon Dioxide 29 mmol/L (22-30) 07/31/20 04:54 Anion Gap 19 mmol/L 07/31/20 04:54 BUN 46 mg/dL (9-20) H 07/31/20 04:54 Creatinine 13.3 mg/dL (0.8-1.3) H 07/31/20 04:54 Estimated GFR 5 ml/min 07/31/20 04:54 BUN/Creatinine Ratio 3 % 07/31/20 04:54 Glucose 104 mg/dL (75-100) H 07/31/20 04:54 POC Glucose 73 mg/dL (70-105) 07/31/20 07:14 Calcium 9.9 mg/dL (8.4-10.2) 07/31/20 04:54 Total Bilirubin 0.30 mg/dL (0.1-1.2) 07/23/20 02:41 AST 16 units/L (5-40) 07/23/20 02:41 ALT 11 units/L (7-56) 07/23/20 02:41 Alkaline Phosphatase 84 units/L (35-129) 07/23/20 02:41 Total Protein 6.5 g/dL (6.3-8.2) 07/23/20 02:41 Albumin 3.5 g/dL (3.9-5) L 07/23/20 02:41 Albumin/Globulin Ratio 1.2 % 07/23/20 02:41 Procalcitonin 4.28 ng/mL (<0.15) 07/28/20 07:53 TSH 3.770 mlU/mL (0.270-4.200) 07/26/20 02:22 Free T4 1.01 ng/dL (0.76-1.46) 07/26/20 02:22 Random Vancomycin 13.9 ug/mL (0-40.0) 07/30/20 07:18 Hepatitis A IgM Ab Non-reactive (NonReactive) 07/22/20 18:00 Hep Bs Antigen Non-reactive (Negative) 07/22/20 18:00 Hep B Core IgM Ab Non-reactive (NonReactive) 07/22/20 18:00 Hepatitis C Antibody Non-reactive (NonReactive) 07/22/20 18:00 Blood Type O POSITIVE 07/30/20 07:24 Antibody Screen Negative 07/30/20 07:24 Microbiology: Microbiology 07/28/20 00:29 Peripheral/Venous Blood Culture - Preliminary NO GROWTH AFTER 72 HOURS 07/28/20 07:53 Peripheral/Venous Blood Culture - Preliminary NO GROWTH AFTER 48 HOURS - Diagnostic Impressions Diagnostic Impressions: Echocardiogram 07/26/20 08:06 Transthoracic Echocardiogram Indication: Tachycardia BP: 108/70 HR: 100 Conclusions *Global left ventricular systolic function is normal. *The estimated ejection fraction is 60-65%. *Mild concentric left ventricular hypertrophy is observed. *The left atrium is mildly dilated. *There is mild mitral regurgitation. *The right heart chambers are both mildly dilated. *There is mild to moderate tricuspid regurgitation. *There is evidence of moderate pulmonary hypertension. *The right ventricular systolic pressure is calculated at 46 mmHg. Findings Left Ventricle: The left ventricular chamber size is normal. Mild concentric left ventricular hypertrophy is observed. Global left ventricular systolic function is normal. The estimated ejection fraction is 60-65%. Left Atrium: The left atrium is mildly dilated. Right Ventricle: The right ventricle is mildly dilated. The right ventricular global systolic function is mildly reduced. Right Atrium: The right atrium is mildly dilated. Aortic Valve: The aortic valve is trileaflet. The aortic valve leaflets are mildly thickened. There is no evidence of aortic regurgitation. There is no evidence of aortic stenosis. Mitral Valve: The mitral valve leaflets are mildly thickened. There is mild mitral regurgitation. There is no evidence of mitral stenosis. Tricuspid Valve: There is mild to moderate tricuspid regurgitation. The right ventricular systolic pressure is calculated at 46 mmHg. There is evidence of moderate pulmonary hypertension. Pulmonic Valve: There is trace pulmonic regurgitation. Pericardium: There is no pericardial effusion. Aorta: There is no dilatation of the ascending aorta. There is no dilatation of the aortic root. Venous: The inferior vena cava appears normal in size. Measurements Chambers 2D Name Value Normal Range IVSd (2D) 1.03 cm (0.6 - 1.1) LVPWd (2D) 0.91 cm (0.6 - 1.1) LVIDd (2D) 4.7 cm (3.7 - 5.6) LVIDs (2D) 3.36 cm (2 - 3.8) LV FS (2D) 28.6 % - EF Teichholz (2D) 55.1 % - Ao root diameter (2D) 3.06 cm (2 - 3.7) Volumes/Mass Name Value Normal Range LA ESV SP 4CH (A/L) 47.57 ml - LA ESV SP 2CH (A/L) 41.21 ml - LA ESV BP (A/L) 45.97 ml - LA ESV BP (A/L) index 20.8 ml/m2 - LA ESV SP 4CH (MOD) 43.06 ml - LA ESV SP 2CH (MOD) 41.81 ml - LA ESV BP (MOD) 43.59 ml - LA ESV BP (MOD) index 19.72 ml/m2 - Diastolic/Systolic Function Name Value Normal Range MV E-wave Vmax 0.81 m/sec - MV deceleration time 179.23 msec - Aortic Valve Name Value Normal Range AV Vmax 1.25 m/sec - AV VTI 19.57 cm - AV peak gradient 6.28 mmHg - AV mean gradient 3.55 mmHg - LVOT diameter 2.06 cm - LVOT Vmax 0.92 m/sec - LVOT VTI 13.2 cm - LVOT peak gradient 3.38 mmHg - LVOT mean gradient 1.86 mmHg - SV LVOT 44.13 ml - JOSE EDUARDO (continuity Vmax) 2.45 cm2 - JOSE EDUARDO (continuity VTI) 2.25 cm2 - Tricuspid Valve Name Value Normal Range TR Vmax 3.31 m/sec - TR peak gradient 43 mmHg - RAP 3 mmHg - RVSP 46 mmHg - IVC diameter 1.79 cm (1.2 - 2.3) Pulmonic Valve/Qp:Qs Name Value Normal Range PV Vmax 0.82 m/sec - PV peak gradient 2.66 mmHg - PV acceleration time 98.95 msec - Rodriguez/IV: Voiding Method Urinal IV Catheter Type [Right INT / Saline Lock Forearm] IV Catheter Type [Left Forearm INT / Saline Lock ] IV Catheter Type [Right Graft Femoral] IV Catheter Type [Right INT / Saline Lock Antecubital] Active Medications - Current Medications Current Medications: Generic Name Dose Route Start Last Admin Trade Name Freq PRN Reason Stop Dose Admin Acetaminophen 650 mg 07/22/20 14:09 07/27/20 22:12 Acetaminophen 325 Mg Tab PO 650 mg Q6H PRN Administration Pain, Mild (1-3) Hydrocodone Bitart/Acetaminophen 2 each 07/22/20 14:09 07/31/20 08:28 Hydrocodone/Acetaminophen 5-325 Mg Tab PO 2 each Q6H PRN Administration Pain, Moderate (4-6) Albuterol 2.5 mg 07/26/20 08:34 Albuterol 2.5 Mg/3 Ml Nebu IH Q4HRT PRN Shortness Of Breath Apixaban 5 mg 07/30/20 22:00 07/30/20 22:18 Apixaban 5 Mg Tab PO 5 mg Q12HR AALIYAH Administration Protocol Aspirin 81 mg 07/22/20 15:00 07/30/20 10:00 Aspirin Ec 81 Mg Tab PO Not Given QDAY AALIYAH Hydromorphone HCl 1 mg 07/30/20 13:00 07/31/20 06:49 Hydromorphone 1 Mg/1 Ml Inj IV 1 mg Q4H PRN Administration Pain , Severe (7-10) Levofloxacin/Dextrose 500 mg in 100 mls @ 100 mls/hr 07/30/20 08:00 07/30/20 08:35 Levaquin 500mg/100ml IV 100 mls/hr Q48H AALIYAH Administration Protocol Metoprolol Tartrate 50 mg 07/29/20 10:00 07/30/20 22:19 Metoprolol Tartrate 50 Mg Tab PO 50 mg BID AALIYAH Administration Midodrine 10 mg 07/25/20 16:00 07/31/20 08:29 Midodrine 5 Mg Tab PO 10 mg TID@0800,1200,1600 AALIYAH Administration Ondansetron HCl 4 mg 07/22/20 14:09 Ondansetron 4 Mg/2 Ml Inj IV Q8H PRN Nausea And Vomiting Sevelamer Carbonate 800 mg 07/23/20 18:30 07/31/20 08:29 Sevelamer Carbonate 800 Mg Tab PO 800 mg AC AALIYAH Administration Sodium Chloride 10 ml 07/22/20 13:00 07/30/20 22:21 Sodium Chloride 0.9% 10 Ml Flush Syringe IV 10 ml BID AALIYAH Administration Sodium Chloride 10 ml 07/22/20 13:00 07/31/20 06:49 Sodium Chloride 0.9% 10 Ml Flush Syringe IV 10 ml PRN PRN Administration LINE FLUSH Nutrition/Malnutrition Assess - Dietary Evaluation Nutrition/Malnutrition Findings: Nutrition Notes Start: 07/29/20 13:17 Freq: Status: Active Protocol: Document 07/29/20 13:17 (Rec: 07/29/20 13:20 LARRY [id number]) Nutrition Notes Need for Assessment generated from: LOS Initial or Follow up Brief Note Current Diagnosis CKD (stage V CKD) Other Pertinent Diagnosis acute limb isschmemia, on HD Current Diet NPO Subjective/Other Information Screen for LOS. Pt in HD at time of visit. RN states pt did not eat breakfast and is unsure of past intakes. Pt getting L BKA tomorrow. Nutrition Intervention Add Supplement/Snack (indicate name/kcal Nepro daily when diet advances /protein ) Provides kCal: 425 Provides Protein (gm) 19 Follow-Up By: 07/31/20 Additional Comments FU for intakes
--- NOTE | 2020-07-31 10:59 | Progress Note ---
Assessment and Plan Assessment Thrombosis of left popliteal artery End stage renal disease Hypertension S/P Hyperkalemia Peripheral artery disease DVT prophylaxis Plan: Hemodialysis today for UF and clearance S/P left BKA yesterday Fluid restriction of 1 liter per day Strict I&O's daily Obtain daily weights Renally dose medications Assess dialysis needs daily Subjective Date of service: 07/31/20 Principal diagnosis: ESRD on HD Interval history: Patient seen in dialysis unit. Just received Dilaudid for pain. Objective - Vital Signs Vital signs: Vital Signs - 12hr 07/31/20 07/31/20 07/31/20 00:00 04:55 08:10 Temperature 98.2 F 98.4 F 98.1 F Pulse Rate 101 H 98 H 108 H Respiratory 18 18 18 Rate Blood Pressure 141/82 129/87 128/85 O2 Sat by Pulse 100 100 100 Oximetry - General Appearance General appearance: well-developed, appears stated age EENT: ATNC, PERRL, hearing intact, vision intact Neck: no JVD, supple Respiratory: Present: Decreased Breath Sounds Cardiology: S1S2 Gastrointestinal: normoactive bowel sounds Integumentary: warm and dry Neurologic: alert and oriented x3 Musculoskeletal: other (Left BKA) Psychiatric: cooperative - Lab 07/31/20 04:54 07/31/20 04:54 Most recent lab results Calcium 9.9 mg/dL (8.4-10.2) 07/31/20 04:54 Medications & Allergies - Medications Allergies/Adverse Reactions: Allergies amoxicillin Allergy (Severe, Verified 07/30/20 10:27) Unknown PT STATES LIPS SWELLED CONTRAST DYE Adverse Reaction (Severe, Uncoded 07/30/20 10:27) Swelling PT STATES GROIN AREA HAD SWELLING ALSO STATES HE SWELLING OTHER AREAS OF BODY Home Medications: Home Medications Medication Instructions Recorded Confirmed Last Taken Type Metoprolol [Lopressor] 25 mg PO QDAY 07/24/20 07/24/20 07/17/20 History Sevelamer Carbonate [Renvela] 800 mg PO TIDAC 07/24/20 07/24/20 07/19/20 History Sucroferric Oxyhydroxide(Nf) 500 mg PO TIDAC 07/24/20 07/24/20 07/19/20 History [Velphoro (Nf)] Warfarin [Coumadin] 6 mg PO QDAY 01/07/24/20 07/19/20 History Active Medications: Generic Name Dose Route Start Last Admin Trade Name Freq PRN Reason Stop Dose Admin Acetaminophen 650 mg 07/22/20 14:09 07/27/20 22:12 Acetaminophen 325 Mg Tab PO 650 mg Q6H PRN Administration Pain, Mild (1-3) Hydrocodone Bitart/Acetaminophen 2 each 07/22/20 14:09 07/31/20 08:28 Hydrocodone/Acetaminophen 5-325 Mg Tab PO 2 each Q6H PRN Administration Pain, Moderate (4-6) Albuterol 2.5 mg 07/26/20 08:34 Albuterol 2.5 Mg/3 Ml Nebu IH Q4HRT PRN Shortness Of Breath Apixaban 5 mg 07/30/20 22:00 07/30/20 22:18 Apixaban 5 Mg Tab PO 5 mg Q12HR AALIYAH Administration Protocol Aspirin 81 mg 07/22/20 15:00 07/30/20 10:00 Aspirin Ec 81 Mg Tab PO Not Given QDAY AALIYAH Hydromorphone HCl 1 mg 07/30/20 13:00 07/31/20 06:49 Hydromorphone 1 Mg/1 Ml Inj IV 1 mg Q4H PRN Administration Pain , Severe (7-10) Levofloxacin/Dextrose 500 mg in 100 mls @ 100 mls/hr 07/30/20 08:00 07/30/20 08:35 Levaquin 500mg/100ml IV 100 mls/hr Q48H AALIYAH Administration Protocol Metoprolol Tartrate 50 mg 07/29/20 10:00 07/30/20 22:19 Metoprolol Tartrate 50 Mg Tab PO 50 mg BID AALIYAH Administration Midodrine 10 mg 07/25/20 16:00 07/31/20 08:29 Midodrine 5 Mg Tab PO 10 mg TID@0800,1200,1600 AALIYAH Administration Ondansetron HCl 4 mg 07/22/20 14:09 Ondansetron 4 Mg/2 Ml Inj IV Q8H PRN Nausea And Vomiting Sevelamer Carbonate 800 mg 07/23/20 18:30 07/31/20 08:29 Sevelamer Carbonate 800 Mg Tab PO 800 mg AC AALIYAH Administration Sodium Chloride 10 ml 07/22/20 13:00 07/30/20 22:21 Sodium Chloride 0.9% 10 Ml Flush Syringe IV 10 ml BID AALIYAH Administration Sodium Chloride 10 ml 07/22/20 13:00 07/31/20 06:49 Sodium Chloride 0.9% 10 Ml Flush Syringe IV 10 ml PRN PRN Administration LINE FLUSH
[2020-07-31] MEDS: APIXABAN 5 MG TAB PO SCH ×2 (13:30→21:20)
[2020-07-31] MEDS: ASPIRIN EC 81 MG TAB PO SCH (14:25)
--- NOTE | 2020-07-31 14:34 | Progress Note ---
Assessment and Plan Postoperative day #1 status post left below-knee amputation. Will start Lyrica to assist with phantom pain. PT OT for eval and treatment. Acute rehab evaluation for possible placement. Subjective Date of service: 07/31/20 Principal diagnosis: ESRD on HD Interval history: The patient is complaining of some phantom pain in left foot however he has no additional complaints at this time. Objective - Constitutional Vitals: Vital Signs - 12hr 07/31/20 07/31/20 07/31/20 04:55 08:10 09:10 Temperature 98.4 F 98.1 F 98.2 F Pulse Rate 98 H 108 H 72 Respiratory 18 18 20 Rate Blood Pressure 129/87 128/85 144/81 O2 Sat by Pulse 100 100 Oximetry 07/31/20 07/31/20 07/31/20 09:30 09:45 10:00 Temperature Pulse Rate 89 83 73 Respiratory Rate Blood Pressure 148/83 166/69 154/84 O2 Sat by Pulse Oximetry 07/31/20 07/31/20 07/31/20 10:15 10:30 10:45 Temperature Pulse Rate 80 106 H 91 H Respiratory Rate Blood Pressure 132/74 128/80 148/73 O2 Sat by Pulse Oximetry 07/31/20 07/31/20 07/31/20 11:00 11:15 11:16 Temperature Pulse Rate 103 H 102 H Respiratory 18 Rate Blood Pressure 135/86 127/81 O2 Sat by Pulse Oximetry 07/31/20 07/31/20 07/31/20 11:30 11:45 12:00 Temperature Pulse Rate 102 H 104 H 104 H Respiratory Rate Blood Pressure 127/81 149/77 126/79 O2 Sat by Pulse Oximetry 07/31/20 07/31/20 07/31/20 12:15 12:30 13:00 Temperature 98.2 F Pulse Rate 112 H 100 H 111 H Respiratory 18 Rate Blood Pressure 129/93 140/70 144/66 O2 Sat by Pulse Oximetry General appearance: Present: no acute distress - Respiratory Respiratory effort: normal Extremities: abnormal (Left stump dressing is clean dry and intact) - Labs CBC & Chem 7: 07/31/20 04:54 07/31/20 04:54 Labs: Abnormal lab results 07/30/20 07/31/20 07/31/20 Range/Units 21:37 04:54 04:54 RBC 3.04 L (3.65-5.03) M/mm3 Hgb 10.3 L (11.8-15.2) gm/dl Hct 31.7 L (35.5-45.6) % MCV 104 H (84-94) fl MCH 34 H (28-32) pg RDW 19.8 H (13.2-15.2) % Lymph % (Auto) 7.7 L (13.4-35.0) % [place] % (Auto) 7.8 H (0.0-7.3) % Lymph # (Auto) 0.7 L (1.2-5.4) K/mm3 Seg Neutrophils % 83.2 H (40.0-70.0) % BUN 46 H (9-20) mg/dL Creatinine 13.3 H (0.8-1.3) mg/dL Glucose 104 H (75-100) mg/dL POC Glucose 120 H (70-105) mg/dL Medications & Allergies - Medications Allergies/Adverse Reactions: Allergies amoxicillin Allergy (Severe, Verified 07/30/20 10:27) Unknown PT STATES LIPS SWELLED CONTRAST DYE Adverse Reaction (Severe, Uncoded 07/30/20 10:27) Swelling PT STATES GROIN AREA HAD SWELLING ALSO STATES HE SWELLING OTHER AREAS OF BODY Home Medications: Home Medications Medication Instructions Recorded Confirmed Last Taken Type Metoprolol [Lopressor] 25 mg PO QDAY 07/24/20 07/24/20 07/17/20 History Sevelamer Carbonate [Renvela] 800 mg PO TIDAC 07/24/20 07/24/20 07/19/20 History Sucroferric Oxyhydroxide(Nf) 500 mg PO TIDAC 07/24/20 07/24/20 07/19/20 History [Velphoro (Nf)] Warfarin [Coumadin] 6 mg PO QDAY 07/24/20 07/24/20 07/19/20 History Active Medications: Generic Name Dose Route Start Last Admin Trade Name Freq PRN Reason Stop Dose Admin Acetaminophen 650 mg 07/22/20 14:09 07/27/20 22:12 Acetaminophen 325 Mg Tab PO 650 mg Q6H PRN Administration Pain, Mild (1-3) Hydrocodone Bitart/Acetaminophen 2 each 07/22/20 14:09 07/31/20 14:24 Hydrocodone/Acetaminophen 5-325 Mg Tab PO 2 each Q6H PRN Administration Pain, Moderate (4-6) Albuterol 2.5 mg 07/26/20 08:34 Albuterol 2.5 Mg/3 Ml Nebu IH Q4HRT PRN Shortness Of Breath Apixaban 5 mg 07/30/20 22:00 07/31/20 13:30 Apixaban 5 Mg Tab PO 5 mg Q12HR AALIYAH Administration Protocol Aspirin 81 mg 07/22/20 15:00 07/31/20 14:25 Aspirin Ec 81 Mg Tab PO 81 mg QDAY AALIYAH Administration Hydromorphone HCl 1 mg 07/30/20 13:00 07/31/20 11:16 Hydromorphone 1 Mg/1 Ml Inj IV 1 mg Q4H PRN Administration Pain , Severe (7-10) Vancomycin HCl 1 gm in 250 mls @ 167.007 mls/hr 07/31/20 22:00 Vancomycin/Ns 1 Gm/250 Ml IV 07/31/20 23:29 ONCE ONE Metoprolol Tartrate 50 mg 07/29/20 10:00 07/31/20 10:00 Metoprolol Tartrate 50 Mg Tab PO Not Given BID AALIYAH Midodrine 10 mg 07/25/20 16:00 07/31/20 13:27 Midodrine 5 Mg Tab PO 10 mg TID@0800,1200,1600 AALIYAH Administration Ondansetron HCl 4 mg 07/22/20 14:09 Ondansetron 4 Mg/2 Ml Inj IV Q8H PRN Nausea And Vomiting Sevelamer Carbonate 800 mg 07/23/20 18:30 07/31/20 13:27 Sevelamer Carbonate 800 Mg Tab PO 800 mg AC AALIYAH Administration Sodium Chloride 10 ml 07/22/20 13:00 07/31/20 13:28 Sodium Chloride 0.9% 10 Ml Flush Syringe IV 10 ml BID AALIYAH Administration Sodium Chloride 10 ml 07/22/20 13:00 07/31/20 06:49 Sodium Chloride 0.9% 10 Ml Flush Syringe IV 10 ml PRN PRN Administration LINE FLUSH
--- NOTE | 2020-07-31 14:54 | Progress Note ---
Assessment and Plan Cultures: Blood cultures 07/28/2020 no growth today. Assessment: 54 years old male with history of ESRD on hemodialysis, hypertension, tobacco abuse, PAD status post previous revascularization, admitted on 07/22/2020 secondary to worsening left leg pain for 3 days: #SIRS: Not present on admission, now with tachycardia, recent fever, elevated leukocytosis, likely secondary to left foot gangrene. Procalcitonin elevated likely in the setting of renal failure. #Left foot dry gangrene: With severe peripheral vascular disease. S/p left BKA #Right loculated pleural effusion #End-stage renal disease: On hemodialysis. #Amoxicillin allergy Recommendations: -Pulmonary consult re: right loculated pleural effusion -Consider chest CT -Stop levaquin and vancomycin after amputuation -monitor off abx Will follow. Amparo Collins MD Infectious Diseases Language Path [facility] ([facility]) M [phone] O [phone] Subjective Date of service: 07/31/20 Principal diagnosis: ESRD on HD Interval history: No new fever Objective - Exam Narrative Exam: eneral appearance: Alert in NAD pleasant Eyes: anicteric sclerae, moist conjunctivae; no lid-lag; PERRLA HENT: Normocephalic, Atraumatic; normal external ears, nares open, oropharynx clear. Neck: supple, tracheal midline, no JVD Lungs: aleena rhonchi CV: RRR no murmur Abdomen: Soft, non-tender; no masses or hepatosplenomegaly Extremities: Left foot with necrotic toes, extensive blackish discoloration and skin sloughing Skin: No rash. Psych: no agitated Neuro: alert and oriented x 3. Moving all extermities - Constitutional Vitals: Vital Signs Temp Pulse Resp BP Pulse Ox 98.2 F 111 H 18 144/66 100 07/31/20 13:00 07/31/20 13:00 07/31/20 13:00 07/31/20 13:00 07/31/20 08:10 Temperature -Last 24 Hours Temperature 98.2 F Temperature 98.2 F Temperature 98.1 F Temperature 98.4 F Temperature 98.2 F Temperature 98.8 F Temperature 97.9 F - Labs CBC & Chem 7: 07/31/20 04:54 07/31/20 04:54 Labs: Abnormal lab results 07/30/20 07/31/20 07/31/20 Range/Units 21:37 04:54 04:54 RBC 3.04 L (3.65-5.03) M/mm3 Hgb 10.3 L (11.8-15.2) gm/dl Hct 31.7 L (35.5-45.6) % MCV 104 H (84-94) fl MCH 34 H (28-32) pg RDW 19.8 H (13.2-15.2) % Lymph % (Auto) 7.7 L (13.4-35.0) % Fleming % (Auto) 7.8 H (0.0-7.3) % Lymph # (Auto) 0.7 L (1.2-5.4) K/mm3 Seg Neutrophils % 83.2 H (40.0-70.0) % BUN 46 H (9-20) mg/dL Creatinine 13.3 H (0.8-1.3) mg/dL Glucose 104 H (75-100) mg/dL POC Glucose 120 H (70-105) mg/dL
[2020-07-31] MEDS ORDERED: VANCOMYCIN/NS 1 GM/250 ML 1 GM/250 ML BAG IV ONE (22:00)
[2020-08-01] MEDS: HYDROmorphone 1 MG/1 ML INJ IV PRN (03:05)
[2020-08-01 06:16] LABS: Calcium 9.9 mg/dL (8.4-10.2)
--- NOTE | 2020-08-01 07:51 | Progress Note ---
Assessment and Plan Patient is doing well following amputation of his left lower leg. He will need to begin evaluation and treatment with physical therapy. He will likely require a stay in acute rehab. From a vascular point of view, the patient is doing very well. Subjective Date of service: 08/01/20 Principal diagnosis: ESRD on HD Interval history: Patient is postop day 2 status post left below the knee amputation. Ampu-shield and knee immobilizer in place. Dressing change. The staple line is intact with no significant eschars. No significant drainage. Patient is not complaining of any baseline pain. He has not yet been out of bed. Objective - Constitutional Vitals: Vital Signs - 12hr 07/31/20 08/01/20 08/01/20 20:18 00:00 00:17 Temperature 97.3 F L 98.2 F Pulse Rate 113 H 113 H 107 H Respiratory 18 18 Rate Blood Pressure 111/81 120/75 O2 Sat by Pulse 100 100 Oximetry 08/01/20 05:39 Temperature 97.8 F Pulse Rate 111 H Respiratory 18 Rate Blood Pressure 111/73 O2 Sat by Pulse 99 Oximetry General appearance: Present: no acute distress - EENT Eyes: EOM intact ENT: hearing intact - Neck Neck: supple, normal ROM - Respiratory Respiratory effort: normal Extremities: abnormal (Postsurgical changes to left below the knee amputation) - Gastrointestinal General gastrointestinal: Present: deferred Rectal Exam: deferred - Genitourinary Male genitourinary: deferred - Psychiatric Psychiatric: appropriate mood/affect, cooperative - Labs CBC & Chem 7: 07/31/20 04:54 08/01/20 05:05 Labs: Abnormal lab results 08/01/20 08/01/20 Range/Units 05:05 07:34 BUN 35 H (9-20) mg/dL Creatinine 9.8 H (0.8-1.3) mg/dL POC Glucose 69 L (70-105) mg/dL Medications & Allergies - Medications Allergies/Adverse Reactions: Allergies amoxicillin Allergy (Severe, Verified 07/30/20 10:27) Unknown PT STATES LIPS SWELLED CONTRAST DYE Adverse Reaction (Severe, Uncoded 07/30/20 10:27) Swelling PT STATES GROIN AREA HAD SWELLING ALSO STATES HE SWELLING OTHER AREAS OF BODY Home Medications: Home Medications Medication Instructions Recorded Confirmed Last Taken Type Metoprolol [Lopressor] 25 mg PO QDAY 07/24/20 07/24/20 07/17/20 History Sevelamer Carbonate [Renvela] 800 mg PO TIDAC 07/24/20 07/24/20 07/19/20 History Sucroferric Oxyhydroxide(Nf) 500 mg PO TIDAC 07/24/20 07/24/20 07/19/20 History [Velphoro (Nf)] Warfarin [Coumadin] 6 mg PO QDAY 07/24/20 07/24/20 07/19/20 History Active Medications: Generic Name Dose Route Start Last Admin Trade Name Freq PRN Reason Stop Dose Admin Acetaminophen 650 mg 07/22/20 14:09 07/27/20 22:12 Acetaminophen 325 Mg Tab PO 650 mg Q6H PRN Administration Pain, Mild (1-3) Hydrocodone Bitart/Acetaminophen 2 each 07/22/20 14:09 07/31/20 21:20 Hydrocodone/Acetaminophen 5-325 Mg Tab PO 2 each Q6H PRN Administration Pain, Moderate (4-6) Albuterol 2.5 mg 07/26/20 08:34 Albuterol 2.5 Mg/3 Ml Nebu IH Q4HRT PRN Shortness Of Breath Apixaban 5 mg 07/30/20 22:00 07/31/20 21:20 Apixaban 5 Mg Tab PO 5 mg Q12HR AALIYAH Administration Protocol Aspirin 81 mg 07/22/20 15:00 07/31/20 14:25 Aspirin Ec 81 Mg Tab PO 81 mg QDAY AALIYAH Administration Hydromorphone HCl 1 mg 07/30/20 13:00 08/01/20 03:05 Hydromorphone 1 Mg/1 Ml Inj IV 1 mg Q4H PRN Administration Pain , Severe (7-10) Metoprolol Tartrate 50 mg 07/29/20 10:00 07/31/20 21:21 Metoprolol Tartrate 50 Mg Tab PO 50 mg BID AALIYAH Administration Midodrine 10 mg 07/25/20 16:00 07/31/20 16:50 Midodrine 5 Mg Tab PO 10 mg TID@0800,1200,1600 AALIYAH Administration Ondansetron HCl 4 mg 07/22/20 14:09 Ondansetron 4 Mg/2 Ml Inj IV Q8H PRN Nausea And Vomiting Pregabalin 50 mg 08/01/20 10:00 Pregabalin 25 Mg Cap PO QDAY AALIYAH Sevelamer Carbonate 800 mg 07/23/20 18:30 07/31/20 16:50 Sevelamer Carbonate 800 Mg Tab PO 800 mg AC AALIYAH Administration Sodium Chloride 10 ml 07/22/20 13:00 08/01/20 03:05 Sodium Chloride 0.9% 10 Ml Flush Syringe IV 10 ml BID AALIYAH Administration Sodium Chloride 10 ml 07/22/20 13:00 07/31/20 06:49 Sodium Chloride 0.9% 10 Ml Flush Syringe IV 10 ml PRN PRN Administration LINE FLUSH
--- NOTE | 2020-08-01 08:05 | Progress Note ---
Assessment and Plan Thrombosis of left popliteal artery End stage renal disease Hypertension Hyperkalemia Peripheral artery disease DVT prophylaxis Plan: no indication for [employer] Fluid restriction of 1 liter per day Strict I&O's daily Obtain daily weights Renally dose medications Assess dialysis needs daily Alexsander Baltazar MD [phone] Subjective Date of service: 08/01/20 Principal diagnosis: ESRD on HD Interval history: tolerated HD yesterday Objective - Vital Signs Vital signs: Vital Signs - 12hr 07/31/20 08/01/20 08/01/20 20:18 00:00 00:17 Temperature 97.3 F L 98.2 F Pulse Rate 113 H 113 H 107 H Respiratory 18 18 Rate Blood Pressure 111/81 120/75 O2 Sat by Pulse 100 100 Oximetry 08/01/20 05:39 Temperature 97.8 F Pulse Rate 111 H Respiratory 18 Rate Blood Pressure 111/73 O2 Sat by Pulse 99 Oximetry - Lab 07/31/20 04:54 08/01/20 05:05 Most recent lab results Calcium 9.9 mg/dL (8.4-10.2) 08/01/20 05:05 Medications & Allergies - Medications Allergies/Adverse Reactions: Allergies amoxicillin Allergy (Severe, Verified 07/30/20 10:27) Unknown PT STATES LIPS SWELLED CONTRAST DYE Adverse Reaction (Severe, Uncoded 07/30/20 10:27) Swelling PT STATES GROIN AREA HAD SWELLING ALSO STATES HE SWELLING OTHER AREAS OF BODY Home Medications: Home Medications Medication Instructions Recorded Confirmed Last Taken Type Metoprolol [Lopressor] 25 mg PO QDAY 07/24/20 07/24/20 07/17/20 History Sevelamer Carbonate [Renvela] 800 mg PO TIDAC 07/24/20 07/24/20 07/19/20 History Sucroferric Oxyhydroxide(Nf) 500 mg PO TIDAC 07/24/20 07/24/20 07/19/20 History [Velphoro (Nf)] Warfarin [Coumadin] 6 mg PO QDAY 07/24/20 07/24/20 07/19/20 History Active Medications: Generic Name Dose Route Start Last Admin Trade Name Freq PRN Reason Stop Dose Admin Acetaminophen 650 mg 07/22/20 14:09 07/27/20 22:12 Acetaminophen 325 Mg Tab PO 650 mg Q6H PRN Administration Pain, Mild (1-3) Hydrocodone Bitart/Acetaminophen 2 each 07/22/20 14:09 07/31/20 21:20 Hydrocodone/Acetaminophen 5-325 Mg Tab PO 2 each Q6H PRN Administration Pain, Moderate (4-6) Albuterol 2.5 mg 07/26/20 08:34 Albuterol 2.5 Mg/3 Ml Nebu IH Q4HRT PRN Shortness Of Breath Apixaban 5 mg 07/30/20 22:00 07/31/20 21:20 Apixaban 5 Mg Tab PO 5 mg Q12HR AALIYAH Administration Protocol Aspirin 81 mg 07/22/20 15:00 07/31/20 14:25 Aspirin Ec 81 Mg Tab PO 81 mg QDAY AALIYAH Administration Hydromorphone HCl 1 mg 07/30/20 13:00 08/01/20 03:05 Hydromorphone 1 Mg/1 Ml Inj IV 1 mg Q4H PRN Administration Pain , Severe (7-10) Metoprolol Tartrate 50 mg 07/29/20 10:00 07/31/20 21:21 Metoprolol Tartrate 50 Mg Tab PO 50 mg BID AALIYAH Administration Midodrine 10 mg 07/25/20 16:00 07/31/20 16:50 Midodrine 5 Mg Tab PO 10 mg TID@0800,1200,1600 AALIYAH Administration Ondansetron HCl 4 mg 07/22/20 14:09 Ondansetron 4 Mg/2 Ml Inj IV Q8H PRN Nausea And Vomiting Pregabalin 50 mg 08/01/20 10:00 Pregabalin 25 Mg Cap PO QDAY AALIYAH Sevelamer Carbonate 800 mg 07/23/20 18:30 07/31/20 16:50 Sevelamer Carbonate 800 Mg Tab PO 800 mg AC AALIYAH Administration Sodium Chloride 10 ml 07/22/20 13:00 08/01/20 03:05 Sodium Chloride 0.9% 10 Ml Flush Syringe IV 10 ml BID AALIYAH Administration Sodium Chloride 10 ml 07/22/20 13:00 07/31/20 06:49 Sodium Chloride 0.9% 10 Ml Flush Syringe IV 10 ml PRN PRN Administration LINE FLUSH
[2020-08-01] MEDS: ASPIRIN EC 81 MG TAB PO SCH (09:20)
[2020-08-01] MEDS: SEVELAMER CARBONATE 800 MG TAB PO SCH ×3 (09:20→17:14)
[2020-08-01] MEDS: MIDODRINE 5 MG TAB PO SCH ×3 (09:20→17:14)
[2020-08-01] MEDS: PREGABALIN 25 MG CAP PO SCH (09:20)
[2020-08-01] MEDS: HYDROcodone/ACETAMINOPHEN 5-325 MG TAB PO PRN ×2 (09:20→23:23)
[2020-08-01] MEDS: APIXABAN 5 MG TAB PO SCH ×2 (09:21→22:50)
[2020-08-01] MEDS: METOPROLOL TARTRATE 50 MG TAB PO SCH ×2 (09:21→22:45)
--- NOTE | 2020-08-01 10:37 | Progress Note ---
Assessment and Plan Assessment and plan: 54 years old male with history of ESRD on hemodialysis, hypertension, tobacco abuse, PAD status post previous revascularization, admitted on 07/22/2020 secondary to worsening left leg pain for 3 days. Pain is 10 out of 10. Patient is unable to walk. Patient was seen at Dr. Hurt's office, vascular surgeon, and was found to have a left popliteal artery thrombosis complicated by a left lower limb ischemia was sent to the ED. Patient had revascularization May 2020 due to mild ischemic toes and since then discoloration of the toes has worsened. On arrival, initial temperature 97.3, HR 107, RR 16, O2 100, BP 163/92. Initial WBC 8. Hemoglobin 11.7. Procalcitonin 4.2. Patient underwent angiopl asty on 07/22/2020. By 07/27/2020 patient spiked a fever 101. Blood cultures 07/28/2020 no growth. Patient is planned to have a left BKA for nonsalvageable left leg per vascular -- Acute limb ischemia with thrombosis of left popliteal artery s/p angiogram and angioplasty for left popliteal artery occlusion Vascular surgery following. Plan for amputation 0n 07/30 -- End stage renal disease Nephrology team on board HD as per renal -- Hypotension Now on midodrine. BP better Continue to monitor blood pressure closely --SIRS on Levaquin, vanc Has left lower extremity swelling. Likely source of fever Procalcitonin is >4. Though not accurate in the setting of ESRD Blood culture NTD ID consulted -- Left lower extremity DVT Patient is on Coumadin at home for this Holding Coumadin as patient is on heparin drip --DVT prophylaxis SCDs bilateral lower extremities while in bed, continue therapeutic anticoagulation 07/30. ID started Vanc and levaquin. Left BKA per Surgery 07/31. Continue IV antibiotics per ID recommendations. Patient is s/p left BKA yesterday (07/30). Physical therapy evaluation pending. Continue hemodialysis per nephrology recommendations. 08/01. Patient with what appears to be a right loculated pleural effusion. Check CT of chest. ID to monitor off antibiotics s/p amputation physical therapy recommends acute rehab. Continue hemodialysis per nephrology recommendations. History Interval history: no new issues Hospitalist Physical - Constitutional Vitals: Temp Pulse Resp BP Pulse Ox 97.5 F L 85 18 120/70 98 08/01/20 08:26 08/01/20 09:21 08/01/20 05:39 08/01/20 09:21 08/01/20 08:26 General appearance: Present: no acute distress - EENT Eyes: Present: PERRL, EOM intact ENT: hearing intact, clear oral mucosa, dentition normal - Neck Neck: Present: supple, normal ROM - Respiratory Respiratory effort: normal Respiratory: bilateral: CTA - Cardiovascular Rhythm: regular Heart Sounds: Present: S1 & S2. Absent: gallop, rub - Extremities Extremities: no ischemia, No edema, Full ROM - Abdominal General gastrointestinal: soft, non-tender, non-distended, normal bowel sounds - Integumentary Integumentary: Present: clear, warm, dry - Neurologic Neurologic: CNII-XII intact, moves all extremities Results - Labs CBC & Chem 7: 07/31/20 04:54 08/01/20 05:05 Labs: Laboratory Last Values WBC 8.4 K/mm3 (4.5-11.0) 07/31/20 04:54 RBC 3.04 M/mm3 (3.65-5.03) L 07/31/20 04:54 Hgb 10.3 gm/dl (11.8-15.2) L 07/31/20 04:54 Hct 31.7 % (35.5-45.6) L 07/31/20 04:54 MCV 104 fl (84-94) H 07/31/20 04:54 MCH 34 pg (28-32) H 07/31/20 04:54 MCHC 33 % (32-34) 07/31/20 04:54 RDW 19.8 % (13.2-15.2) H 07/31/20 04:54 Plt Count 275 K/mm3 (140-440) 07/31/20 04:54 Lymph % (Auto) 7.7 % (13.4-35.0) L 07/31/20 04:54 Bleckley % (Auto) 7.8 % (0.0-7.3) H 07/31/20 04:54 Eos % (Auto) 0.0 % (0.0-4.3) 07/31/20 04:54 Baso % (Auto) 1.3 % (0.0-1.8) 07/31/20 04:54 Lymph # (Auto) 0.7 K/mm3 (1.2-5.4) L 07/31/20 04:54 Bleckley # (Auto) 0.7 K/mm3 (0.0-0.8) 07/31/20 04:54 Eos # (Auto) 0.0 K/mm3 (0.0-0.4) 07/31/20 04:54 Baso # (Auto) 0.1 K/mm3 (0.0-0.1) 07/31/20 04:54 Add Manual Diff Complete 07/29/20 05:36 Total Counted 100 07/23/20 09:46 Seg Neutrophils % 83.2 % (40.0-70.0) H 07/31/20 04:54 Seg Neuts % (Manual) 94.0 % (40.0-70.0) H 07/23/20 09:46 Band Neutrophils % 1.0 % 07/23/20 09:46 Lymphocytes % (Manual) 1.0 % (13.4-35.0) L 07/23/20 09:46 Reactive Lymphs % (Man) 0 % 07/22/20 18:00 Monocytes % (Manual) 4.0 % (0.0-7.3) 07/23/20 09:46 Eosinophils % (Manual) 0 % (0.0-4.3) 07/22/20 18:00 Basophils % (Manual) 0 % (0.0-1.8) 07/22/20 18:00 Metamyelocytes % 0 % 07/22/20 18:00 Myelocytes % 0 % 07/22/20 18:00 Promyelocytes % 0 % 07/22/20 18:00 Blast Cells % 0 % 07/22/20 18:00 Nucleated RBC % Not Reportable 07/29/20 05:36 Seg Neutrophils # 7.0 K/mm3 (1.8-7.7) 07/31/20 04:54 Seg Neutrophils # Man 16.2 K/mm3 (1.8-7.7) H 07/23/20 09:46 Band Neutrophils # 0.2 K/mm3 07/23/20 09:46 Lymphocytes # (Manual) 0.2 K/mm3 (1.2-5.4) L 07/23/20 09:46 Abs React Lymphs (Man) 0.0 K/mm3 07/23/20 09:46 Monocytes # (Manual) 0.7 K/mm3 (0.0-0.8) 07/23/20 09:46 Eosinophils # (Manual) 0.0 K/mm3 (0.0-0.4) 07/23/20 09:46 Basophils # (Manual) 0.0 K/mm3 (0.0-0.1) 07/23/20 09:46 Metamyelocytes # 0.0 K/mm3 07/23/20 09:46 Myelocytes # 0.0 K/mm3 07/23/20 09:46 Promyelocytes # 0.0 K/mm3 07/23/20 09:46 Blast Cells # 0.0 K/mm3 07/23/20 09:46 WBC Morphology Not Reportable 07/29/20 05:36 Hypersegmented Neuts Not Reportable 07/29/20 05:36 Hyposegmented Neuts Not Reportable 07/29/20 05:36 Hypogranular Neuts Not Reportable 07/29/20 05:36 Smudge Cells Not Reportable 07/29/20 05:36 Toxic Granulation Not Reportable 07/29/20 05:36 Toxic Vacuolation Not Reportable 07/29/20 05:36 Dohle Bodies Not Reportable 07/29/20 05:36 Pelger-Huet Anomaly Not Reportable 07/29/20 05:36 Svetlana Rods Not Reportable 07/29/20 05:36 Platelet Estimate Not Reportable 07/29/20 05:36 Clumped Platelets Not Reportable 07/29/20 05:36 Plt Clumps, EDTA Not Reportable 07/29/20 05:36 Large Platelets Not Reportable 07/29/20 05:36 Giant Platelets Not Reportable 07/29/20 05:36 Platelet Satelliting Not Reportable 07/29/20 05:36 Plt Morphology Comment Not Reportable 07/29/20 05:36 RBC Morphology Not Reportable 07/29/20 05:36 Dimorphic RBCs Not Reportable 07/29/20 05:36 Polychromasia Not Reportable 07/29/20 05:36 Hypochromasia Not Reportable 07/29/20 05:36 Poikilocytosis Not Reportable 07/29/20 05:36 Anisocytosis Not Reportable 07/29/20 05:36 Microcytosis Not Reportable 07/29/20 05:36 Macrocytosis Not Reportable 07/29/20 05:36 Spherocytes Not Reportable 07/29/20 05:36 Pappenheimer Bodies Not Reportable 07/29/20 05:36 Sickle Cells Not Reportable 07/29/20 05:36 Target Cells Not Reportable 07/29/20 05:36 Tear Drop Cells Not Reportable 07/29/20 05:36 Ovalocytes Not Reportable 07/29/20 05:36 Helmet Cells Not Reportable 07/29/20 05:36 Seth-Clemson Bodies Not Reportable 07/29/20 05:36 Nenzel Rings Not Reportable 07/29/20 05:36 Alicia Cells Not Reportable 07/29/20 05:36 Bite Cells Not Reportable 07/29/20 05:36 Crenated Cell Not Reportable 07/29/20 05:36 Elliptocytes Not Reportable 07/29/20 05:36 Acanthocytes (Spur) Not Reportable 07/29/20 05:36 Rouleaux Not Reportable 07/29/20 05:36 Hemoglobin C Crystals Not Reportable 07/29/20 05:36 Schistocytes Not Reportable 07/29/20 05:36 Malaria parasites Not Reportable 07/29/20 05:36 Malachi Bodies Not Reportable 07/29/20 05:36 Hem Pathologist Commnt Not Reportable 07/29/20 05:36 PT 21.0 Sec. (12.2-14.9) H 07/23/20 23:01 INR 1.80 (0.87-1.13) H 07/23/20 23:01 APTT 39.4 Sec. (24.2-36.6) H 07/23/20 23:01 Fibrinogen 494 mg/dl (211-480) H 07/23/20 09:46 Heparin Anti-Xa Level 0.29 U.I./ml (0.3-0.7) L 07/29/20 09:45 Sodium 144 mmol/L (137-145) 08/01/20 05:05 Potassium 4.4 mmol/L (3.6-5.0) 08/01/20 05:05 Chloride 101.5 mmol/L (98-107) 08/01/20 05:05 Carbon Dioxide 26 mmol/L (22-30) 08/01/20 05:05 Anion Gap 21 mmol/L 08/01/20 05:05 BUN 35 mg/dL (9-20) H 08/01/20 05:05 Creatinine 9.8 mg/dL (0.8-1.3) H 08/01/20 05:05 Estimated GFR 7 ml/min 08/01/20 05:05 BUN/Creatinine Ratio 4 % 08/01/20 05:05 Glucose 83 mg/dL (75-100) 08/01/20 05:05 POC Glucose 69 mg/dL (70-105) L 08/01/20 07:34 Calcium 9.9 mg/dL (8.4-10.2) 08/01/20 05:05 Total Bilirubin 0.30 mg/dL (0.1-1.2) 07/23/20 02:41 AST 16 units/L (5-40) 07/23/20 02:41 ALT 11 units/L (7-56) 07/23/20 02:41 Alkaline Phosphatase 84 units/L (35-129) 07/23/20 02:41 Total Protein 6.5 g/dL (6.3-8.2) 07/23/20 02:41 Albumin 3.5 g/dL (3.9-5) L 07/23/20 02:41 Albumin/Globulin Ratio 1.2 % 07/23/20 02:41 Procalcitonin 4.28 ng/mL (<0.15) 07/28/20 07:53 TSH 3.770 mlU/mL (0.270-4.200) 07/26/20 02:22 Free T4 1.01 ng/dL (0.76-1.46) 07/26/20 02:22 Random Vancomycin 13.9 ug/mL (0-40.0) 07/30/20 07:18 Hepatitis A IgM Ab Non-reactive (NonReactive) 07/22/20 18:00 Hep Bs Antigen Non-reactive (Negative) 07/22/20 18:00 Hep B Core IgM Ab Non-reactive (NonReactive) 07/22/20 18:00 Hepatitis C Antibody Non-reactive (NonReactive) 07/22/20 18:00 Blood Type O POSITIVE 07/30/20 07:24 Antibody Screen Negative 07/30/20 07:24 Microbiology: Microbiology 07/28/20 00:29 Peripheral/Venous Blood Culture - Preliminary NO GROWTH AFTER 4 DAYS 07/28/20 07:53 Peripheral/Venous Blood Culture - Preliminary NO GROWTH AFTER 72 HOURS - Diagnostic Impressions Diagnostic Impressions: Echocardiogram 07/26/20 08:06 Transthoracic Echocardiogram Indication: Tachycardia BP: 108/70 HR: 100 Conclusions *Global left ventricular systolic function is normal. *The estimated ejection fraction is 60-65%. *Mild concentric left ventricular hypertrophy is observed. *The left atrium is mildly dilated. *There is mild mitral regurgitation. *The right heart chambers are both mildly dilated. *There is mild to moderate tricuspid regurgitation. *There is evidence of moderate pulmonary hypertension. *The right ventricular systolic pressure is calculated at 46 mmHg. Findings Left Ventricle: The left ventricular chamber size is normal. Mild concentric left ventricular hypertrophy is observed. Global left ventricular systolic function is normal. The estimated ejection fraction is 60-65%. Left Atrium: The left atrium is mildly dilated. Right Ventricle: The right ventricle is mildly dilated. The right ventricular global systolic function is mildly reduced. Right Atrium: The right atrium is mildly dilated. Aortic Valve: The aortic valve is trileaflet. The aortic valve leaflets are mildly thickened. There is no evidence of aortic regurgitation. There is no evidence of aortic stenosis. Mitral Valve: The mitral valve leaflets are mildly thickened. There is mild mitral regurgitation. There is no evidence of mitral stenosis. Tricuspid Valve: There is mild to moderate tricuspid regurgitation. The right ventricular systolic pressure is calculated at 46 mmHg. There is evidence of moderate pulmonary hypertension. Pulmonic Valve: There is trace pulmonic regurgitation. Pericardium: There is no pericardial effusion. Aorta: There is no dilatation of the ascending aorta. There is no dilatation of the aortic root. Venous: The inferior vena cava appears normal in size. Measurements Chambers 2D Name Value Normal Range IVSd (2D) 1.03 cm (0.6 - 1.1) LVPWd (2D) 0.91 cm (0.6 - 1.1) LVIDd (2D) 4.7 cm (3.7 - 5.6) LVIDs (2D) 3.36 cm (2 - 3.8) LV FS (2D) 28.6 % - EF Teichholz (2D) 55.1 % - Ao root diameter (2D) 3.06 cm (2 - 3.7) Volumes/Mass Name Value Normal Range LA ESV SP 4CH (A/L) 47.57 ml - LA ESV SP 2CH (A/L) 41.21 ml - LA ESV BP (A/L) 45.97 ml - LA ESV BP (A/L) index 20.8 ml/m2 - LA ESV SP 4CH (MOD) 43.06 ml - LA ESV SP 2CH (MOD) 41.81 ml - LA ESV BP (MOD) 43.59 ml - LA ESV BP (MOD) index 19.72 ml/m2 - Diastolic/Systolic Function Name Value Normal Range MV E-wave Vmax 0.81 m/sec - MV deceleration time 179.23 msec - Aortic Valve Name Value Normal Range AV Vmax 1.25 m/sec - AV VTI 19.57 cm - AV peak gradient 6.28 mmHg - AV mean gradient 3.55 mmHg - LVOT diameter 2.06 cm - LVOT Vmax 0.92 m/sec - LVOT VTI 13.2 cm - LVOT peak gradient 3.38 mmHg - LVOT mean gradient 1.86 mmHg - SV LVOT 44.13 ml - JOSE EDUARDO (continuity Vmax) 2.45 cm2 - JOSE EDUARDO (continuity VTI) 2.25 cm2 - Tricuspid Valve Name Value Normal Range TR Vmax 3.31 m/sec - TR peak gradient 43 mmHg - RAP 3 mmHg - RVSP 46 mmHg - IVC diameter 1.79 cm (1.2 - 2.3) Pulmonic Valve/Qp:Qs Name Value Normal Range PV Vmax 0.82 m/sec - PV peak gradient 2.66 mmHg - PV acceleration time 98.95 msec - Rodriguez/IV: Voiding Method Urinal IV Catheter Type [Right INT / Saline Lock Forearm] IV Catheter Type [Left Forearm INT / Saline Lock ] IV Catheter Type [Right Graft Femoral] IV Catheter Type [Right INT / Saline Lock Antecubital] Active Medications - Current Medications Current Medications: Generic Name Dose Route Start Last Admin Trade Name Freq PRN Reason Stop Dose Admin Acetaminophen 650 mg 07/22/20 14:09 07/27/20 22:12 Acetaminophen 325 Mg Tab PO 650 mg Q6H PRN Administration Pain, Mild (1-3) Hydrocodone Bitart/Acetaminophen 2 each 07/22/20 14:09 08/01/20 09:20 Hydrocodone/Acetaminophen 5-325 Mg Tab PO 2 each Q6H PRN Administration Pain, Moderate (4-6) Albuterol 2.5 mg 07/26/20 08:34 Albuterol 2.5 Mg/3 Ml Nebu IH Q4HRT PRN Shortness Of Breath Apixaban 5 mg 07/30/20 22:00 08/01/20 09:21 Apixaban 5 Mg Tab PO 5 mg Q12HR AALIYAH Administration Protocol Aspirin 81 mg 07/22/20 15:00 08/01/20 09:20 Aspirin Ec 81 Mg Tab PO 81 mg QDAY AALIYAH Administration Hydromorphone HCl 1 mg 07/30/20 13:00 08/01/20 03:05 Hydromorphone 1 Mg/1 Ml Inj IV 1 mg Q4H PRN Administration Pain , Severe (7-10) Metoprolol Tartrate 50 mg 07/29/20 10:00 08/01/20 09:21 Metoprolol Tartrate 50 Mg Tab PO 50 mg BID AALIYAH Administration Midodrine 10 mg 07/25/20 16:00 08/01/20 09:20 Midodrine 5 Mg Tab PO 10 mg TID@0800,1200,1600 AALIYAH Administration Ondansetron HCl 4 mg 07/22/20 14:09 Ondansetron 4 Mg/2 Ml Inj IV Q8H PRN Nausea And Vomiting Pregabalin 50 mg 08/01/20 10:00 08/01/20 09:20 Pregabalin 25 Mg Cap PO 50 mg QDAY AALIYAH Administration Sevelamer Carbonate 800 mg 07/23/20 18:30 08/01/20 09:20 Sevelamer Carbonate 800 Mg Tab PO 800 mg AC AALIYAH Administration Sodium Chloride 10 ml 07/22/20 13:00 08/01/20 09:22 Sodium Chloride 0.9% 10 Ml Flush Syringe IV 10 ml BID AALIYAH Administration Sodium Chloride 10 ml 07/22/20 13:00 07/31/20 06:49 Sodium Chloride 0.9% 10 Ml Flush Syringe IV 10 ml PRN PRN Administration LINE FLUSH Nutrition/Malnutrition Assess - Dietary Evaluation Nutrition/Malnutrition Findings: Nutrition Notes Start: 07/29/20 13:17 Freq: Status: Active Protocol: Document 07/31/20 13:06 BENTLEY (Rec: 07/31/20 13:22 BENTLEY [id number]) Co-Sign 07/31/20 13:06 LP Nutrition Notes Need for Assessment generated from: Education Initial or Follow up Reassessment Current Diagnosis CKD (stage V CKD) Other Pertinent Diagnosis ESRD w/ HD, thrombosis, HTN, peripheral artery dz s/p L BKA Current Diet Renal Labs/Tests BUN 46 Cr 13.3 no Phos record Pertinent Medications Renvela Height 6 ft 1 in Weight 97.1 kg [place] Body Weight (kg) 83.63 BMI 28.2 Weight change and time frame Noted dialysis Weight Status Overweight Subjective/Other Information F/u intakes. Pt reported dialysis treatment ongoing for years. Unaware of fluid restriction and provided education. Pt had no other questions about nutritional needs. Reported good intakes. Percent of energy/protein needs met: 100%/66% Burn Absent Trauma Absent GI Symptoms None Current % PO Good (75-100%) Minimum of two criteria No Fluid Accumulation Mild (non-severe) #1 Nutrition Diagnosis Increased nutrient needs ( specify in comment below) Comments: protein Etiology wound healing and dialysis As Evidenced by Signs and Symptoms pt on dialysis, had L BKA operation yesterday, and diet order provides 66% of protein needs Is patient on ventilator? No Is Patient Ambulatory and/or Out of Bed Yes REE-([place]-ambulatory/OOB) [ [id number] [id number]] [facility] Additional Notes Protein: at least 117 g (>1.2 g/kg with 50% HBV) Fluid: 1 Liter per MD fluid restriction Nutrition Intervention Change Diet Order: Continue Renal diet Add Supplement/Snack (indicate name/kcal ONS to Ensure High Protein for /protein ) less calories and to meet protein needs (no chocolate flavor) Provides kCal: 480 Provides Protein (gm) 48 Teaching Recipient Patient Learning Readiness Fair Teaching Methods Discussion,Handout Response to Teaching Verbalize understanding, Reinforcement needed Education Handouts Provided Fluid restrition therapy Renal MyPlate Barriers to Learning No Barriers RD phone number provided Yes Patient aware of follow up options Yes Goal #1 Meet at least 75% of energy and protein needs Goal #2 ONS tolerance Goal #3 Assist with wound healing Goal #4 Reinforcement of protein education and ONS. Anticipated Discharge Needs: Renal diet and protein oral supplements as needed (no chocolate flavor) Follow-Up By: 08/06/20 Additional Comments F/u intakes, ONS acceptance, and diet education about protein and dialysis.
--- NOTE | 2020-08-01 11:25 | Progress Note ---
Assessment and Plan Cultures: Blood cultures 07/28/2020 no growth today. Assessment: 54 years old male with history of ESRD on hemodialysis, hypertension, tobacco abuse, PAD status post previous revascularization, admitted on 07/22/2020 secondary to worsening left leg pain for 3 days: #SIRS: Not present on admission, now with tachycardia, recent fever, elevated leukocytosis, likely secondary to left foot gangrene. Procalcitonin elevated likely in the setting of renal failure. #Left foot dry gangrene: With severe peripheral vascular disease. S/p left BKA on 07/30 #Right loculated pleural effusion: unclear etiology, he reports he has been cough some for a while. #End-stage renal disease: On hemodialysis. #Amoxicillin allergy Recommendations: -Consider Pulmonary consult re: right loculated pleural effusion -F/u chest CT -CRP -Stop levaquin and vancomycin after amputuation -monitor off abx Will follow. Amparo Collins MD Infectious Diseases Parking Enforcement Specialist [facility] M [phone] O [phone] Subjective Date of service: 08/01/20 Principal diagnosis: ESRD on HD Interval history: No new fever feels ok reports some cough non productive Objective - Exam Narrative Exam: eneral appearance: Alert in NAD pleasant Eyes: anicteric sclerae, moist conjunctivae; no lid-lag; PERRLA HENT: Normocephalic, Atraumatic; normal external ears, nares open, oropharynx clear. Neck: supple, tracheal midline, no JVD Lungs: right sided decreased BS CV: RRR no murmur Abdomen: Soft, non-tender; no masses or hepatosplenomegaly Extremities: Left BKA with surgical dressings Skin: No rash. Psych: no agitated Neuro: alert and oriented x 3. Moving all extermities - Constitutional Vitals: Vital Signs Temp Pulse Resp BP Pulse Ox 97.5 F L 85 18 120/70 98 08/01/20 08:26 08/01/20 09:21 08/01/20 05:39 08/01/20 09:21 08/01/20 08:26 Temperature -Last 24 Hours Temperature 97.5 F Temperature 97.8 F Temperature 98.2 F Temperature 97.3 F Temperature 97.8 F Temperature 98.2 F - Labs CBC & Chem 7: 07/31/20 04:54 08/01/20 05:05 Labs: Abnormal lab results 08/01/20 08/01/20 Range/Units 05:05 07:34 BUN 35 H (9-20) mg/dL Creatinine 9.8 H (0.8-1.3) mg/dL POC Glucose 69 L (70-105) mg/dL
--- NOTE | 2020-08-01 13:57 | Cat Scan Report ---
CT CHEST WITHOUT IV CONTRAST INDICATION: loculated pleural effusion. COMPARISON: Chest radiograph 2 days prior TECHNIQUE: All CT scans at this location are performed using CT dose reduction for ALARA by means of automated e xposure control. Axial CT images were obtained through the chest. FINDINGS: Upper Abdomen: Polycystic kidneys are noted. Skeletal System: No acute abnormality. 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 There are several collaterals in the neto st wall and mediastinum. Heart: Enlarged. There is advanced coronary artery calcification. There is trace pericardial fluid. Mediastinum & Maeve: No adenopathy. The left lung is clear aside from atelectasis in the bases. There is chronic/round atelectasis throughout the right middle and right lower lobes. Right upper lobe is c lear. Lungs: There is a thick-walled right pleural effusion with evidence of loculation inferiorly and late rally. No left pleural effusion. Pleura: No significant pleural effusion. No pneumothorax. Additional Findings: None. IMPRESSION: 1. Chronic, partially loculated right pleural effusion with associated pleural thickening with adjace nt underlying chronic/round atelectasis in the right middle and right lower lobes. 2. 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 3. Cardiomegaly. Additional, incidental findings as above.. Signer Name: Leonard Ruby MD Signed: 08/01/2020 1:53 PM Workstation Name: [id number]
--- NOTE | 2020-08-01 14:11 | Consultation ---
History of Present Illness Consult date: 08/01/20 Requesting physician: KENTRELL SWAN Reason for consult: pleural effusion, abnormal CXR/CT History of present illness: 54 y/o male with severe PVD, found to have a right sided loculated pleural effusion. ID was working him up for elevated WBC and found to have loculated pleural effusion on the right. No respiratory symptoms. Spoke with IR about this case as they were already on from a vascular standpoint. Past History Past Medical History: ESRD, hypertension, PVD Past Surgical History: Other (Dialysis access) Medications and Allergies Allergies Allergy/AdvReac Type Severity Reaction Status Date / Time amoxicillin Allergy Severe Unknown Verified 07/30/20 10:27 CONTRAST DYE AdvReac Severe Swelling Uncoded 07/30/20 10:27 Home Medications Medication Instructions Recorded Confirmed Last Taken Type Metoprolol [Lopressor] 25 mg PO QDAY 07/24/20 07/24/20 07/17/20 History Sevelamer Carbonate [Renvela] 800 mg PO TIDAC 07/24/20 07/24/20 07/19/20 History Sucroferric Oxyhydroxide(Nf) 500 mg PO TIDAC 07/24/20 07/24/20 07/19/20 History [Velphoro (Nf)] Warfarin [Coumadin] 6 mg PO QDAY 07/24/20 07/24/20 07/19/20 History Active Meds: Active Medications Acetaminophen (Acetaminophen 325 Mg Tab) 650 mg PO Q6H PRN PRN Reason: Pain, Mild (1-3) Last Admin: 07/27/20 22:12 Dose: 650 mg Documented by: Hydrocodone Bitart/Acetaminophen (Hydrocodone/Acetaminophen 5-325 Mg Tab) 2 each PO Q6H PRN PRN Reason: Pain, Moderate (4-6) Last Admin: 08/01/20 09:20 Dose: 2 each Documented by: Albuterol (Albuterol 2.5 Mg/3 Ml Nebu) 2.5 mg IH Q4HRT PRN PRN Reason: Shortness Of Breath Apixaban (Apixaban 5 Mg Tab) 5 mg PO Q12HR [facility]; Protocol Last Admin: 08/01/20 09:21 Dose: 5 mg Documented by: Aspirin (Aspirin Ec 81 Mg Tab) 81 mg PO QDAY AALIYAH Last Admin: 08/01/20 09:20 Dose: 81 mg Documented by: Hydromorphone HCl (Hydromorphone 1 Mg/1 Ml Inj) 1 mg IV Q4H PRN PRN Reason: Pain , Severe (7-10) Last Admin: 08/01/20 03:05 Dose: 1 mg Documented by: Metoprolol Tartrate (Metoprolol Tartrate 50 Mg Tab) 50 mg PO BID [facility] Last Admin: 08/01/20 09:21 Dose: 50 mg Documented by: Midodrine (Midodrine 5 Mg Tab) 10 mg PO TID@0800,1200,1600 [facility] Last Admin: 08/01/20 12:36 Dose: 10 mg Documented by: Ondansetron HCl (Ondansetron 4 Mg/2 Ml Inj) 4 mg IV Q8H PRN PRN Reason: Nausea And Vomiting Pregabalin (Pregabalin 25 Mg Cap) 50 mg PO QDAY [facility] Last Admin: 08/01/20 09:20 Dose: 50 mg Documented by: Sevelamer Carbonate (Sevelamer Carbonate 800 Mg Tab) 800 mg PO AC [facility] Last Admin: 08/01/20 12:36 Dose: 800 mg Documented by: Sodium Chloride (Sodium Chloride 0.9% 10 Ml Flush Syringe) 10 ml IV BID [facility] Last Admin: 08/01/20 09:22 Dose: 10 ml Documented by: Sodium Chloride (Sodium Chloride 0.9% 10 Ml Flush Syringe) 10 ml IV PRN PRN PRN Reason: LINE FLUSH Last Admin: 07/31/20 06:49 Dose: 10 ml Documented by: Physical Examination Vital signs: Vital Signs Temp Pulse Resp BP Pulse Ox 97.3 F L 107 H 16 163/92 100 07/22/20 15:10 07/22/20 15:10 07/22/20 15:10 07/22/20 15:10 07/22/20 15:10 Results - Laboratory Findings CBC and BMP: 07/31/20 04:54 08/01/20 05:05 PT/INR, D-dimer PT 21.0 Sec. (12.2-14.9) H 07/23/20 23:01 INR 1.80 (0.87-1.13) H 07/23/20 23:01 Abnormal lab findings: Abnormal Labs 07/22/20 07/22/20 07/22/20 12:22 12:22 12:22 WBC RBC 3.22 L Hgb 11.2 L Hct 32.6 L MCV 101 H MCH 35 H MCHC RDW 19.3 H Lymph % (Auto) [place] % (Auto) Lymph # (Auto) [place] # (Auto) Seg Neutrophils % Seg Neuts % (Manual) 99.0 H Lymphocytes % (Manual) 1.0 L Seg Neutrophils # Seg Neutrophils # Man 10.3 H Lymphocytes # (Manual) 0.1 L PT 17.9 H INR 1.48 H APTT 69.7 H* Fibrinogen 1029 H Heparin Anti-Xa Level Potassium 6.0 H Chloride 90.4 L BUN 82 H Creatinine 16.8 H Glucose 109 H POC Glucose Calcium Albumin 3.4 L 07/22/20 07/22/20 07/22/20 18:00 18:00 18:00 WBC 12.2 H RBC 3.49 L Hgb 11.5 L Hct MCV 104 H MCH 33 H MCHC RDW 19.2 H Lymph % (Auto) [place] % (Auto) Lymph # (Auto) [place] # (Auto) Seg Neutrophils % Seg Neuts % (Manual) 97.0 H Lymphocytes % (Manual) 2.0 L Seg Neutrophils # Seg Neutrophils # Man 11.8 H Lymphocytes # (Manual) 0.2 L PT INR APTT Fibrinogen 814 H Heparin Anti-Xa Level < 0.10 L Potassium 6.3 H* Chloride 91.0 L BUN 87 H Creatinine 17.1 H Glucose 117 H POC Glucose Calcium Albumin 07/22/20 07/23/20 07/23/20 21:01 02:41 02:41 WBC 14.7 H RBC 3.43 L Hgb 11.4 L Hct 35.0 L MCV 102 H MCH 33 H MCHC RDW 18.4 H Lymph % (Auto) 3.0 L [place] % (Auto) Lymph # (Auto) 0.4 L [place] # (Auto) Seg Neutrophils % 91.5 H Seg Neuts % (Manual) Lymphocytes % (Manual) Seg Neutrophils # 13.4 H Seg Neutrophils # Man Lymphocytes # (Manual) PT INR APTT Fibrinogen Heparin Anti-Xa Level Potassium 6.6 H* Chloride 89.9 L BUN 92 H Creatinine 18.8 H Glucose 101 H POC Glucose 107 H Calcium 10.6 H Albumin 3.5 L 07/23/20 07/23/20 07/23/20 02:41 09:46 09:46 WBC 17.2 H RBC 3.47 L Hgb 11.4 L Hct 35.3 L MCV 102 H MCH 33 H MCHC RDW 18.8 H Lymph % (Auto) [place] % (Auto) Lymph # (Auto) [place] # (Auto) Seg Neutrophils % Seg Neuts % (Manual) 94.0 H Lymphocytes % (Manual) 1.0 L Seg Neutrophils # Seg Neutrophils # Man 16.2 H Lymphocytes # (Manual) 0.2 L PT INR APTT Fibrinogen 688 H 494 H Heparin Anti-Xa Level 0.10 L < 0.10 L Potassium Chloride BUN Creatinine Glucose POC Glucose Calcium Albumin 07/23/20 07/23/20 07/23/20 23:01 23:01 23:01 WBC RBC Hgb 11.7 L Hct MCV MCH MCHC RDW Lymph % (Auto) [place] % (Auto) Lymph # (Auto) [place] # (Auto) Seg Neutrophils % Seg Neuts % (Manual) Lymphocytes % (Manual) Seg Neutrophils # Seg Neutrophils # Man Lymphocytes # (Manual) PT 21.0 H INR 1.80 H APTT 39.4 H Fibrinogen Heparin Anti-Xa Level < 0.10 L Potassium 6.0 H Chloride 92.5 L BUN 69 H Creatinine 14.7 H Glucose 104 H POC Glucose Calcium 10.3 H Albumin 07/24/20 07/24/20 07/25/20 05:33 13:55 04:22 WBC RBC Hgb Hct MCV MCH MCHC RDW Lymph % (Auto) [place] % (Auto) Lymph # (Auto) [place] # (Auto) Seg Neutrophils % Seg Neuts % (Manual) Lymphocytes % (Manual) Seg Neutrophils # Seg Neutrophils # Man Lymphocytes # (Manual) PT INR APTT Fibrinogen Heparin Anti-Xa Level Potassium 7.0 H* 6.0 H Chloride 96.3 L 93.5 L BUN 71 H 77 H 54 H Creatinine 14.7 H 15.5 H 12.3 H Glucose 105 H POC Glucose Calcium Albumin 07/25/20 07/25/20 07/25/20 04:22 04:24 18:13 WBC RBC 3.48 L Hgb 11.4 L Hct MCV 102 H MCH 33 H MCHC RDW 18.4 H Lymph % (Auto) 9.4 L [place] % (Auto) 10.4 H Lymph # (Auto) 0.7 L [place] # (Auto) Seg Neutrophils % 78.8 H Seg Neuts % (Manual) Lymphocytes % (Manual) Seg Neutrophils # Seg Neutrophils # Man Lymphocytes # (Manual) PT INR APTT Fibrinogen Heparin Anti-Xa Level 0.10 L 0.16 L Potassium Chloride BUN Creatinine Glucose POC Glucose Calcium Albumin 07/26/20 07/26/20 07/26/20 02:22 02:22 02:22 WBC RBC 3.35 L Hgb 11.1 L Hct 34.7 L MCV 104 H MCH 33 H MCHC RDW 18.9 H Lymph % (Auto) 9.2 L [place] % (Auto) Lymph # (Auto) 0.9 L [place] # (Auto) Seg Neutrophils % 81.8 H Seg Neuts % (Manual) Lymphocytes % (Manual) Seg Neutrophils # 8.3 H Seg Neutrophils # Man Lymphocytes # (Manual) PT INR APTT Fibrinogen Heparin Anti-Xa Level 0.28 L Potassium Chloride 95.2 L BUN 66 H Creatinine 14.7 H Glucose 108 H POC Glucose Calcium Albumin 07/26/20 07/26/20 07/27/20 10:16 17:25 02:15 WBC 13.0 H RBC 3.29 L Hgb 10.8 L Hct 34.3 L MCV 104 H MCH 33 H MCHC RDW 19.5 H Lymph % (Auto) 6.1 L [place] % (Auto) 7.8 H Lymph # (Auto) 0.8 L [place] # (Auto) 1.0 H Seg Neutrophils % 84.3 H Seg Neuts % (Manual) Lymphocytes % (Manual) Seg Neutrophils # 10.9 H Seg Neutrophils # Man Lymphocytes # (Manual) PT INR APTT Fibrinogen Heparin Anti-Xa Level < 0.10 L Potassium Chloride BUN Creatinine Glucose POC Glucose 64 L Calcium Albumin 07/27/20 07/28/20 07/28/20 02:15 07:53 07:53 WBC 15.3 H RBC 3.19 L Hgb 10.5 L Hct 33.2 L MCV 104 H MCH 33 H MCHC RDW 19.1 H Lymph % (Auto) 7.5 L [place] % (Auto) 8.7 H Lymph # (Auto) 1.1 L [place] # (Auto) 1.3 H Seg Neutrophils % 82.0 H Seg Neuts % (Manual) Lymphocytes % (Manual) Seg Neutrophils # 12.6 H Seg Neutrophils # Man Lymphocytes # (Manual) PT INR APTT Fibrinogen Heparin Anti-Xa Level Potassium 5.2 H D Chloride BUN 43 H 57 H Creatinine 10.7 H 14.3 H Glucose 68 L 59 L POC Glucose Calcium 10.3 H Albumin 07/29/20 07/29/20 07/29/20 01:28 05:36 05:36 WBC 13.5 H RBC 3.17 L Hgb 10.2 L Hct 32.7 L MCV 103 H MCH MCHC 31 L RDW 19.3 H Lymph % (Auto) 7.4 L [place] % (Auto) 9.3 H Lymph # (Auto) 1.0 L [place] # (Auto) 1.3 H Seg Neutrophils % 81.3 H Seg Neuts % (Manual) Lymphocytes % (Manual) Seg Neutrophils # 11.0 H Seg Neutrophils # Man Lymphocytes # (Manual) PT INR APTT Fibrinogen Heparin Anti-Xa Level 0.10 L Potassium 5.1 H Chloride BUN 67 H Creatinine 15.5 H Glucose 74 L POC Glucose Calcium Albumin 07/29/20 07/30/20 07/30/20 09:45 07:18 07:18 WBC RBC 3.19 L Hgb 10.5 L Hct 33.1 L MCV 104 H MCH 33 H MCHC RDW 19.5 H Lymph % (Auto) 7.5 L [place] % (Auto) 10.5 H Lymph # (Auto) 0.8 L [place] # (Auto) 1.1 H Seg Neutrophils % 80.0 H Seg Neuts % (Manual) Lymphocytes % (Manual) Seg Neutrophils # 8.4 H Seg Neutrophils # Man Lymphocytes # (Manual) PT INR APTT Fibrinogen Heparin Anti-Xa Level 0.29 L Potassium Chloride BUN 37 H Creatinine 11.3 H Glucose POC Glucose Calcium 10.4 H Albumin 07/30/20 07/31/20 07/31/20 21:37 04:54 04:54 WBC RBC 3.04 L Hgb 10.3 L Hct 31.7 L MCV 104 H MCH 34 H MCHC RDW 19.8 H Lymph % (Auto) 7.7 L [place] % (Auto) 7.8 H Lymph # (Auto) 0.7 L [place] # (Auto) Seg Neutrophils % 83.2 H Seg Neuts % (Manual) Lymphocytes % (Manual) Seg Neutrophils # Seg Neutrophils # Man Lymphocytes # (Manual) PT INR APTT Fibrinogen Heparin Anti-Xa Level Potassium Chloride BUN 46 H Creatinine 13.3 H Glucose 104 H POC Glucose 120 H Calcium Albumin 08/01/20 08/01/20 05:05 07:34 WBC RBC Hgb Hct MCV MCH MCHC RDW Lymph % (Auto) [place] % (Auto) Lymph # (Auto) [place] # (Auto) Seg Neutrophils % Seg Neuts % (Manual) Lymphocytes % (Manual) Seg Neutrophils # Seg Neutrophils # Man Lymphocytes # (Manual) PT INR APTT Fibrinogen Heparin Anti-Xa Level Potassium Chloride BUN 35 H Creatinine 9.8 H Glucose POC Glucose 69 L Calcium Albumin - Diagnostic Findings Chest x-ray: image reviewed CT scan - chest: image reviewed Assessment and Plan 54 y/o male with PVD, now found to have loculated right sided effusion. 1. Spoke with IR and asked them to place a CT guided catheter so that It could be in good position to drain space. May need TPA if not able to drain space. 2. Once placed, please send fluid for LDH, protein, cell count with diff, gram stain and culture, afb, fungal and glucose. Please send for pathology as well. 3. Will continue to follow.
--- NOTE | 2020-08-01 16:44 | Post Anesthesia Evaluation ---
- Post Anesthesia Evaluation Patient Participated: Yes Airway Patent: Yes Stable Respiratory Function: Yes Nausea/Vomiting: No Temp > 96.8F: Yes Pain Manageable: Yes Adequeate Hydration: Yes Anesthesia Complications: No Block Receding Appropriately: Not Applicable Patient on Ventilator: No Other Comments: 48 hrs post op
[2020-08-01 17:14] LABS: Alanine Aminotransferase 27 units/L (7-56); Albumin 3.2 g/dL (3.9-5)
[2020-08-01 17:15] LABS: Bilirubin,Direct < 0.2 mg/dL (0-0.2)
[2020-08-02 05:52] LABS: Basophils % (Auto) 0.2 % (0.0-1.8); Eosinophils # (Auto) 0.1 K/mm3 (0.0-0.4); Hematocrit 35.4 % (35.5-45.6); Lymphocytes # (Auto) 1.1 K/mm3 (1.2-5.4); Mean Corpuscular HGB Conc 31 % (32-34); Mean Corpuscular Volume 103 fl (84-94); Monocytes # (Auto) 1.2 K/mm3 (0.0-0.8); Monocytes % (Auto) 11.5 % (0.0-7.3); Platelet Count 262 K/mm3 (140-440); Red Blood Count 3.43 M/mm3 (3.65-5.03); Red Cell Distribution Width 19.3 % (13.2-15.2)
[2020-08-02 06:02] LABS: Calcium 9.6 mg/dL (8.4-10.2)
--- NOTE | 2020-08-02 08:35 | Progress Note ---
Assessment and Plan Thrombosis of left popliteal artery End stage renal disease Hypertension Hyperkalemia Peripheral artery disease DVT prophylaxis Plan: HD today for clearance and volume removal Fluid restriction of 1 liter per day Strict I&O's daily Obtain daily weights Renally dose medications Assess dialysis needs daily Alexsander Baltazar MD [phone] Subjective Date of service: 08/02/20 Principal diagnosis: ESRD on HD Interval history: denies acute issues Objective - Vital Signs Vital signs: Vital Signs - 12hr 08/01/20 08/01/20 08/02/20 22:00 22:45 00:00 Temperature Pulse Rate 81 90 Pulse Rate [ 81 Left Radial] Pulse Rate [ 81 Right Radial] Respiratory Rate Respiratory 18 Rate [Left Lower Leg] Blood Pressure 124/74 Blood Pressure [Left] O2 Sat by Pulse 96 Oximetry 08/02/20 08/02/20 03:57 04:00 Temperature 98.2 F Pulse Rate 90 90 Pulse Rate [ Left Radial] Pulse Rate [ Right Radial] Respiratory 18 Rate Respiratory Rate [Left Lower Leg] Blood Pressure Blood Pressure 118/86 [Left] O2 Sat by Pulse 95 Oximetry - Lab 08/02/20 05:22 08/02/20 05:22 Most recent lab results Calcium 9.6 mg/dL (8.4-10.2) 08/02/20 05:22 Medications & Allergies - Medications Allergies/Adverse Reactions: Allergies amoxicillin Allergy (Severe, Verified 07/30/20 10:27) Unknown PT STATES LIPS SWELLED CONTRAST DYE Adverse Reaction (Severe, Uncoded 07/30/20 10:27) Swelling PT STATES GROIN AREA HAD SWELLING ALSO STATES HE SWELLING OTHER AREAS OF BODY Home Medications: Home Medications Medication Instructions Recorded Confirmed Last Taken Type Metoprolol [Lopressor] 25 mg PO QDAY 07/24/20 07/24/20 07/17/20 History Sevelamer Carbonate [Renvela] 800 mg PO TIDAC 07/24/20 07/24/20 07/19/20 History Sucroferric Oxyhydroxide(Nf) 500 mg PO TIDAC 07/24/20 07/24/20 07/19/20 History [Velphoro (Nf)] Warfarin [Coumadin] 6 mg PO QDAY 07/24/20 07/24/20 07/19/20 History Active Medications: Generic Name Dose Route Start Last Admin Trade Name Freq PRN Reason Stop Dose Admin Acetaminophen 650 mg 07/22/20 14:09 07/27/20 22:12 Acetaminophen 325 Mg Tab PO 650 mg Q6H PRN Administration Pain, Mild (1-3) Hydrocodone Bitart/Acetaminophen 2 each 07/22/20 14:09 08/01/20 23:23 Hydrocodone/Acetaminophen 5-325 Mg Tab PO 2 each Q6H PRN Administration Pain, Moderate (4-6) Albuterol 2.5 mg 07/26/20 08:34 Albuterol 2.5 Mg/3 Ml Nebu IH Q4HRT PRN Shortness Of Breath Apixaban 5 mg 07/30/20 22:00 08/01/20 22:50 Apixaban 5 Mg Tab PO 5 mg Q12HR AALIYAH Administration Protocol Aspirin 81 mg 07/22/20 15:00 08/01/20 09:20 Aspirin Ec 81 Mg Tab PO 81 mg QDAY AALIYAH Administration Hydromorphone HCl 1 mg 07/30/20 13:00 08/01/20 03:05 Hydromorphone 1 Mg/1 Ml Inj IV 1 mg Q4H PRN Administration Pain , Severe (7-10) Metoprolol Tartrate 50 mg 07/29/20 10:00 08/01/20 22:45 Metoprolol Tartrate 50 Mg Tab PO 50 mg BID AALIYAH Administration Midodrine 10 mg 07/25/20 16:00 08/01/20 17:14 Midodrine 5 Mg Tab PO 10 mg TID@0800,1200,1600 A[facility] Administration Ondansetron HCl 4 mg 07/22/20 14:09 Ondansetron 4 Mg/2 Ml Inj IV Q8H PRN Nausea And Vomiting Pregabalin 50 mg 08/01/20 10:00 08/01/20 09:20 Pregabalin 25 Mg Cap PO 50 mg QDAY AALIYAH Administration Sevelamer Carbonate 800 mg 07/23/20 18:30 08/01/20 17:14 Sevelamer Carbonate 800 Mg Tab PO 800 mg AC AALIYAH Administration Sodium Chloride 10 ml 07/22/20 13:00 08/01/20 22:45 Sodium Chloride 0.9% 10 Ml Flush Syringe IV 10 ml BID [facility]AH Administration Sodium Chloride 10 ml 07/22/20 13:00 07/31/20 06:49 Sodium Chloride 0.9% 10 Ml Flush Syringe IV 10 ml PRN PRN Administration LINE FLUSH
[2020-08-02] MEDS: MIDODRINE 5 MG TAB PO SCH ×3 (09:12→16:43)
[2020-08-02] MEDS: SEVELAMER CARBONATE 800 MG TAB PO SCH ×3 (09:13→16:42)
[2020-08-02] MEDS: PREGABALIN 25 MG CAP PO SCH (09:13)
[2020-08-02] MEDS: HYDROcodone/ACETAMINOPHEN 5-325 MG TAB PO PRN ×3 (09:15→22:57)
--- NOTE | 2020-08-02 10:46 | Consultation ---
History of Present Illness Consult date: 08/02/20 Consult reason: atrial fibrillation History of present illness: This is a 54-year old M with Hypertension, End-stage renal disease, PAD treated with warfarin as an outpatient. There is a cardiac history of paroxysmal SVT which is followed by out hematology specialist as an outpatient. Patient was admitted over a week ago with left popliteal artery thrombosis complicated by left lower limb ischemia. He is now 3 days post left below-knee amputation. His anticoagulation has been changed from warfarin to eliquis. A cardiac consultation has been requested for atrial fibrillation. Atrial fibrillation has been persistent since admission. Patient denies chest pain, denies palpitations, and denies shortness of breath. Normal TSH at 3.7. An echocardiogram done this admission shows normal left ventricular systolic function with an ejection fraction 60-65%. There is mild dilatation of the right heart chambers with moderate pulmonary hypertension, RVSP of 46 mmHg. Past History Past Medical History: ESRD, hypertension, PVD, other (pSVT) Past Surgical History: Other (Dialysis access) Medications and Allergies Allergies Allergy/AdvReac Type Severity Reaction Status Date / Time amoxicillin Allergy Severe Unknown Verified 07/30/20 10:27 CONTRAST DYE AdvReac Severe Swelling Uncoded 07/30/20 10:27 Home Medications Medication Instructions Recorded Confirmed Last Taken Type Metoprolol [Lopressor] 25 mg PO QDAY 07/24/20 07/24/20 07/17/20 History Sevelamer Carbonate [Renvela] 800 mg PO TIDAC 07/24/20 07/24/20 07/19/20 History Sucroferric Oxyhydroxide(Nf) 500 mg PO TIDAC 07/24/20 07/24/20 07/19/20 History [Velphoro (Nf)] Warfarin [Coumadin] 6 mg PO QDAY 07/24/20 07/24/20 07/19/20 History Active Meds: Active Medications Acetaminophen (Acetaminophen 325 Mg Tab) 650 mg PO Q6H PRN PRN Reason: Pain, Mild (1-3) Last Admin: 07/27/20 22:12 Dose: 650 mg Documented by: Hydrocodone Bitart/Acetaminophen (Hydrocodone/Acetaminophen 5-325 Mg Tab) 2 each PO Q6H PRN PRN Reason: Pain, Moderate (4-6) Last Admin: 08/02/20 09:15 Dose: 2 each Documented by: Albuterol (Albuterol 2.5 Mg/3 Ml Nebu) 2.5 mg IH Q4HRT PRN PRN Reason: Shortness Of Breath Apixaban (Apixaban 5 Mg Tab) 5 mg PO Q12HR [facility]; Protocol Last Admin: 08/01/20 22:50 Dose: 5 mg Documented by: Aspirin (Aspirin Ec 81 Mg Tab) 81 mg PO QDAY [facility] Last Admin: 08/01/20 09:20 Dose: 81 mg Documented by: Hydromorphone HCl (Hydromorphone 1 Mg/1 Ml Inj) 1 mg IV Q4H PRN PRN Reason: Pain , Severe (7-10) Last Admin: 08/01/20 03:05 Dose: 1 mg Documented by: Metoprolol Tartrate (Metoprolol Tartrate 50 Mg Tab) 50 mg PO BID [facility] Last Admin: 08/01/20 22:45 Dose: 50 mg Documented by: Midodrine (Midodrine 5 Mg Tab) 10 mg PO TID@0800,1200,1600 [facility] Last Admin: 08/02/20 09:12 Dose: 10 mg Documented by: Ondansetron HCl (Ondansetron 4 Mg/2 Ml Inj) 4 mg IV Q8H PRN PRN Reason: Nausea And Vomiting Pregabalin (Pregabalin 25 Mg Cap) 50 mg PO QDAY [facility] Last Admin: 08/02/20 09:13 Dose: 50 mg Documented by: Sevelamer Carbonate (Sevelamer Carbonate 800 Mg Tab) 800 mg PO AC [facility] Last Admin: 08/02/20 09:13 Dose: 800 mg Documented by: Sodium Chloride (Sodium Chloride 0.9% 10 Ml Flush Syringe) 10 ml IV BID [facility] Last Admin: 08/01/20 22:45 Dose: 10 ml Documented by: Sodium Chloride (Sodium Chloride 0.9% 10 Ml Flush Syringe) 10 ml IV PRN PRN PRN Reason: LINE FLUSH Last Admin: 07/31/20 06:49 Dose: 10 ml Documented by: Review of Systems Cardiovascular: no chest pain, no palpitations, no edema, no syncope, no lightheadedness, no shortness of breath Physical Examination Vital Signs Temp Pulse Resp BP Pulse Ox 97.3 F L 107 H 16 163/92 100 07/22/20 15:10 07/22/20 15:10 07/22/20 15:10 07/22/20 15:10 07/22/20 15:10 General appearance: no acute distress HEENT: Positive: PERRL Neck: Positive: trachea midline Cardiac: Positive: irregularly irregular Lungs: Positive: Decreased Breath Sounds Neuro: Positive: Grossly Intact, Other (s/p left BKA) Results 08/02/20 05:22 08/02/20 05:22 Cardiac Enzymes 08/01/20 Range/Units 16:10 AST 37 (5-40) units/L Lactate Dehydrogenase 226 H (91-180) units/L CBC 08/02/20 Range/Units 05:22 WBC 10.6 (4.5-11.0) K/mm3 RBC 3.43 L (3.65-5.03) M/mm3 Hgb 11.0 L (11.8-15.2) gm/dl Hct 35.4 L (35.5-45.6) % Plt Count 262 (140-440) K/mm3 Lymph # (Auto) 1.1 L (1.2-5.4) K/mm3 [place] # (Auto) 1.2 H (0.0-0.8) K/mm3 Eos # (Auto) 0.1 (0.0-0.4) K/mm3 Baso # (Auto) 0.0 (0.0-0.1) K/mm3 Comprehensive Metabolic Panel 08/01/20 08/02/20 Range/Units 16:10 05:22 Sodium 141 (137-145) mmol/L Potassium 4.6 (3.6-5.0) mmol/L Chloride 98.6 (98-107) mmol/L Carbon Dioxide 31 H (22-30) mmol/L BUN 46 H (9-20) mg/dL Creatinine 12.4 H (0.8-1.3) mg/dL Glucose 83 (75-100) mg/dL Calcium 9.6 (8.4-10.2) mg/dL Direct Bilirubin < 0.2 (0-0.2) mg/dL Indirect Bilirubin 0.1 mg/dL AST 37 (5-40) units/L ALT 27 (7-56) units/L Alkaline Phosphatase 63 (35-129) units/L Total Protein 6.0 L (6.3-8.2) g/dL Albumin 3.2 L (3.9-5) g/dL Assessment and Plan Atrial fibrillation, persists PAD, left popliteal artery thrombosis complicated by left lower limb ischemia status post left BKA this admission now on Eliquis for anticoagulation Hypotension on midodrine End-stage renal disease An echocardiogram done this admission shows normal left ventricular systolic function with an ejection fraction 60-65%. There is mild dilatation of the right heart chambers with moderate pulmonary hypertension, RVSP of 46 mmHg.
--- NOTE | 2020-08-02 11:36 | Progress Note ---
Assessment and Plan Cultures: Blood cultures 07/28/2020 no growth today. Assessment: 54 years old male with history of ESRD on hemodialysis, hypertension, tobacco abuse, PAD status post previous revascularization, admitted on 07/22/2020 secondary to worsening left leg pain for 3 days: #SIRS: Not present on admission, now with tachycardia, recent fever, elevated leukocytosis, likely secondary to left foot gangrene. Procalcitonin elevated likely in the setting of renal failure. #Left foot dry gangrene: With severe peripheral vascular disease. S/p left BKA on 07/30 #Right loculated pleural effusion: unclear etiology, he reports he has been cough some for a while. CT with thick-wall right pleural effusion loculated. CRP=7.2 #End-stage renal disease: On hemodialysis. #Amoxicillin allergy #Chronic SVC thrombosis Recommendations: -Appreciate Pulmonary input - IR to place CT guided cath and send specimen for culture, cytology -monitor off abx for now, pt stable -check quantiferon TB gold Will follow. Amparo Collins MD Infectious Diseases [facility] ([facility]) M [phone] O [phone] Subjective Date of service: 08/02/20 Principal diagnosis: ESRD on HD Objective - Exam Narrative Exam: eneral appearance: Alert in NAD pleasant Eyes: anicteric sclerae, moist conjunctivae; no lid-lag; PERRLA HENT: Normocephalic, Atraumatic; normal external ears, nares open, oropharynx clear. Neck: supple, tracheal midline, no JVD Lungs: right sided decreased BS CV: RRR no murmur Abdomen: Soft, non-tender; no masses or hepatosplenomegaly Extremities: Left BKA with surgical dressings Skin: No rash. Psych: no agitated Neuro: alert and oriented x 3. Moving all extermities - Constitutional Vitals: Vital Signs Temp Pulse Resp BP Pulse Ox 97.7 F 117 H 18 118/69 96 08/02/20 09:06 08/02/20 09:06 08/02/20 03:57 08/02/20 09:06 08/02/20 09:06 Temperature -Last 24 Hours Temperature 97.7 F Temperature 98.2 F Temperature 98.6 F Temperature 97.4 F Temperature 98.7 F Temperature 98.9 F - Labs CBC & Chem 7: 01/22/21 05:22 08/02/20 05:22 Labs: Abnormal lab results 08/01/20 08/01/20 08/01/20 Range/Units 14:16 15:56 16:10 RBC (3.65-5.03) M/mm3 Hgb (11.8-15.2) gm/dl Hct (35.5-45.6) % MCV (84-94) fl MCHC (32-34) % RDW (13.2-15.2) % Lymph % (Auto) (13.4-35.0) % [place] % (Auto) (0.0-7.3) % Lymph # (Auto) (1.2-5.4) K/mm3 [place] # (Auto) (0.0-0.8) K/mm3 Seg Neutrophils % (40.0-70.0) % Seg Neutrophils # (1.8-7.7) K/mm3 Carbon Dioxide (22-30) mmol/L BUN (9-20) mg/dL Creatinine (0.8-1.3) mg/dL POC Glucose 110 H (70-105) mg/dL Lactate Dehydrogenase 226 H (91-180) units/L C-Reactive Protein 7.20 H (0.00-1.30) mg/dL Total Protein 6.0 L (6.3-8.2) g/dL Albumin 3.2 L (3.9-5) g/dL 08/02/20 08/02/20 Range/Units 05:22 05:22 RBC 3.43 L (3.65-5.03) M/mm3 Hgb 11.0 L (11.8-15.2) gm/dl Hct 35.4 L (35.5-45.6) % MCV 103 H (84-94) fl MCHC 31 L (32-34) % RDW 19.3 H (13.2-15.2) % Lymph % (Auto) 10.0 L (13.4-35.0) % [place] % (Auto) 11.5 H (0.0-7.3) % Lymph # (Auto) 1.1 L (1.2-5.4) K/mm3 [place] # (Auto) 1.2 H (0.0-0.8) K/mm3 Seg Neutrophils % 77.3 H (40.0-70.0) % Seg Neutrophils # 8.2 H (1.8-7.7) K/mm3 Carbon Dioxide 31 H (22-30) mmol/L BUN 46 H (9-20) mg/dL Creatinine 12.4 H (0.8-1.3) mg/dL POC Glucose (70-105) mg/dL Lactate Dehydrogenase (91-180) units/L C-Reactive Protein (0.00-1.30) mg/dL Total Protein (6.3-8.2) g/dL Albumin (3.9-5) g/dL
--- NOTE | 2020-08-02 11:38 | Event Note ---
Date: 08/02/20 Planned to bring patient down today to CT and perform CT-guided placement of chest tube. Secondary to scheduling issues, unable to do so today. We will plan on doing this on Wednesday. Patient is currently completely asymptomatic from his right loculated pleural effusion.
--- NOTE | 2020-08-02 11:41 | Progress Note ---
Assessment and Plan 54 y/o male with PVD, now found to have loculated right sided effusion. 08/02/20: IR unable to do CT guided chest tube today secondary to scheduling. Plan for Wednesday. Pulm status is stable. Will follow back up on Wednesday after chest tube is placed. 1. Spoke with IR and asked them to place a CT guided catheter so that It could be in good position to drain space. May need TPA if not able to drain space. 2. Once placed, please send fluid for LDH, protein, cell count with diff, gram stain and culture, afb, fungal and glucose. Please send for pathology as well. 3. Will continue to follow. Subjective Date of service: 08/02/20 Principal diagnosis: ESRD on HD Interval history: No acute events. Stable. No distress. Objective Vital Signs - 12hr 08/01/20 08/02/20 08/02/20 23:59 00:00 03:57 Temperature 98.6 F 98.2 F Pulse Rate 109 H 90 90 Respiratory 20 18 Rate Blood Pressure 124/71 Blood Pressure 118/86 [Left] O2 Sat by Pulse 95 95 Oximetry 08/02/20 08/02/20 04:00 09:06 Temperature 97.7 F Pulse Rate 90 117 H Respiratory Rate Blood Pressure 118/69 Blood Pressure [Left] O2 Sat by Pulse 96 Oximetry CBC and BMP: 08/02/20 05:22 08/02/20 05:22 ABG, PT/INR, D-dimer: PT/INR, D-dimer PT 21.0 Sec. (12.2-14.9) H 07/23/20 23:01 INR 1.80 (0.87-1.13) H 07/23/20 23:01 Abnormal lab findings: Abnormal Labs 07/22/20 07/22/20 07/22/20 12:22 12:22 12:22 WBC RBC 3.22 L Hgb 11.2 L Hct 32.6 L MCV 101 H MCH 35 H MCHC RDW 19.3 H Lymph % (Auto) Elbert % (Auto) Lymph # (Auto) Elbert # (Auto) Seg Neutrophils % Seg Neuts % (Manual) 99.0 H Lymphocytes % (Manual) 1.0 L Seg Neutrophils # Seg Neutrophils # Man 10.3 H Lymphocytes # (Manual) 0.1 L PT 17.9 H INR 1.48 H APTT 69.7 H* Fibrinogen 1029 H Heparin Anti-Xa Level Potassium 6.0 H Chloride 90.4 L Carbon Dioxide BUN 82 H Creatinine 16.8 H Glucose 109 H POC Glucose Calcium Lactate Dehydrogenase C-Reactive Protein Total Protein Albumin 3.4 L 07/22/20 07/22/20 07/22/20 18:00 18:00 18:00 WBC 12.2 H RBC 3.49 L Hgb 11.5 L Hct MCV 104 H MCH 33 H MCHC RDW 19.2 H Lymph % (Auto) Elbert % (Auto) Lymph # (Auto) Elbert # (Auto) Seg Neutrophils % Seg Neuts % (Manual) 97.0 H Lymphocytes % (Manual) 2.0 L Seg Neutrophils # Seg Neutrophils # Man 11.8 H Lymphocytes # (Manual) 0.2 L PT INR APTT Fibrinogen 814 H Heparin Anti-Xa Level < 0.10 L Potassium 6.3 H* Chloride 91.0 L Carbon Dioxide BUN 87 H Creatinine 17.1 H Glucose 117 H POC Glucose Calcium Lactate Dehydrogenase C-Reactive Protein Total Protein Albumin 07/22/20 07/23/20 07/23/20 21:01 02:41 02:41 WBC 14.7 H RBC 3.43 L Hgb 11.4 L Hct 35.0 L MCV 102 H MCH 33 H MCHC RDW 18.4 H Lymph % (Auto) 3.0 L Elbert % (Auto) Lymph # (Auto) 0.4 L Elbert # (Auto) Seg Neutrophils % 91.5 H Seg Neuts % (Manual) Lymphocytes % (Manual) Seg Neutrophils # 13.4 H Seg Neutrophils # Man Lymphocytes # (Manual) PT INR APTT Fibrinogen Heparin Anti-Xa Level Potassium 6.6 H* Chloride 89.9 L Carbon Dioxide BUN 92 H Creatinine 18.8 H Glucose 101 H POC Glucose 107 H Calcium 10.6 H Lactate Dehydrogenase C-Reactive Protein Total Protein Albumin 3.5 L 07/23/20 07/23/20 07/23/20 02:41 09:46 09:46 WBC 17.2 H RBC 3.47 L Hgb 11.4 L Hct 35.3 L MCV 102 H MCH 33 H MCHC RDW 18.8 H Lymph % (Auto) Elbert % (Auto) Lymph # (Auto) Elbert # (Auto) Seg Neutrophils % Seg Neuts % (Manual) 94.0 H Lymphocytes % (Manual) 1.0 L Seg Neutrophils # Seg Neutrophils # Man 16.2 H Lymphocytes # (Manual) 0.2 L PT INR APTT Fibrinogen 688 H 494 H Heparin Anti-Xa Level 0.10 L < 0.10 L Potassium Chloride Carbon Dioxide BUN Creatinine Glucose POC Glucose Calcium Lactate Dehydrogenase C-Reactive Protein Total Protein Albumin 07/23/20 07/23/20 07/23/20 23:01 23:01 23:01 WBC RBC Hgb 11.7 L Hct MCV MCH MCHC RDW Lymph % (Auto) Elbert % (Auto) Lymph # (Auto) Elbert # (Auto) Seg Neutrophils % Seg Neuts % (Manual) Lymphocytes % (Manual) Seg Neutrophils # Seg Neutrophils # Man Lymphocytes # (Manual) PT 21.0 H INR 1.80 H APTT 39.4 H Fibrinogen Heparin Anti-Xa Level < 0.10 L Potassium 6.0 H Chloride 92.5 L Carbon Dioxide BUN 69 H Creatinine 14.7 H Glucose 104 H POC Glucose Calcium 10.3 H Lactate Dehydrogenase C-Reactive Protein Total Protein Albumin 07/24/20 07/24/20 07/25/20 05:33 13:55 04:22 WBC RBC Hgb Hct MCV MCH MCHC RDW Lymph % (Auto) Elbert % (Auto) Lymph # (Auto) Elbert # (Auto) Seg Neutrophils % Seg Neuts % (Manual) Lymphocytes % (Manual) Seg Neutrophils # Seg Neutrophils # Man Lymphocytes # (Manual) PT INR APTT Fibrinogen Heparin Anti-Xa Level Potassium 7.0 H* 6.0 H Chloride 96.3 L 93.5 L Carbon Dioxide BUN 71 H 77 H 54 H Creatinine 14.7 H 15.5 H 12.3 H Glucose 105 H POC Glucose Calcium Lactate Dehydrogenase C-Reactive Protein Total Protein Albumin 07/25/20 07/25/20 07/25/20 04:22 04:24 18:13 WBC RBC 3.48 L Hgb 11.4 L Hct MCV 102 H MCH 33 H MCHC RDW 18.4 H Lymph % (Auto) 9.4 L Elbert % (Auto) 10.4 H Lymph # (Auto) 0.7 L Elbert # (Auto) Seg Neutrophils % 78.8 H Seg Neuts % (Manual) Lymphocytes % (Manual) Seg Neutrophils # Seg Neutrophils # Man Lymphocytes # (Manual) PT INR APTT Fibrinogen Heparin Anti-Xa Level 0.10 L 0.16 L Potassium Chloride Carbon Dioxide BUN Creatinine Glucose POC Glucose Calcium Lactate Dehydrogenase C-Reactive Protein Total Protein Albumin 07/26/20 07/26/20 07/26/20 02:22 02:22 02:22 WBC RBC 3.35 L Hgb 11.1 L Hct 34.7 L MCV 104 H MCH 33 H MCHC RDW 18.9 H Lymph % (Auto) 9.2 L Elbert % (Auto) Lymph # (Auto) 0.9 L Elbert # (Auto) Seg Neutrophils % 81.8 H Seg Neuts % (Manual) Lymphocytes % (Manual) Seg Neutrophils # 8.3 H Seg Neutrophils # Man Lymphocytes # (Manual) PT INR APTT Fibrinogen Heparin Anti-Xa Level 0.28 L Potassium Chloride 95.2 L Carbon Dioxide BUN 66 H Creatinine 14.7 H Glucose 108 H POC Glucose Calcium Lactate Dehydrogenase C-Reactive Protein Total Protein Albumin 07/26/20 07/26/20 07/27/20 10:16 17:25 02:15 WBC 13.0 H RBC 3.29 L Hgb 10.8 L Hct 34.3 L MCV 104 H MCH 33 H MCHC RDW 19.5 H Lymph % (Auto) 6.1 L Elbert % (Auto) 7.8 H Lymph # (Auto) 0.8 L Elbert # (Auto) 1.0 H Seg Neutrophils % 84.3 H Seg Neuts % (Manual) Lymphocytes % (Manual) Seg Neutrophils # 10.9 H Seg Neutrophils # Man Lymphocytes # (Manual) PT INR APTT Fibrinogen Heparin Anti-Xa Level < 0.10 L Potassium Chloride Carbon Dioxide BUN Creatinine Glucose POC Glucose 64 L Calcium Lactate Dehydrogenase C-Reactive Protein Total Protein Albumin 07/27/20 07/28/20 07/28/20 02:15 07:53 07:53 WBC 15.3 H RBC 3.19 L Hgb 10.5 L Hct 33.2 L MCV 104 H MCH 33 H MCHC RDW 19.1 H Lymph % (Auto) 7.5 L Elbert % (Auto) 8.7 H Lymph # (Auto) 1.1 L Elbert # (Auto) 1.3 H Seg Neutrophils % 82.0 H Seg Neuts % (Manual) Lymphocytes % (Manual) Seg Neutrophils # 12.6 H Seg Neutrophils # Man Lymphocytes # (Manual) PT INR APTT Fibrinogen Heparin Anti-Xa Level Potassium 5.2 H D Chloride Carbon Dioxide BUN 43 H 57 H Creatinine 10.7 H 14.3 H Glucose 68 L 59 L POC Glucose Calcium 10.3 H Lactate Dehydrogenase C-Reactive Protein Total Protein Albumin 07/29/20 07/29/20 07/29/20 01:28 05:36 05:36 WBC 13.5 H RBC 3.17 L Hgb 10.2 L Hct 32.7 L MCV 103 H MCH MCHC 31 L RDW 19.3 H Lymph % (Auto) 7.4 L Elbert % (Auto) 9.3 H Lymph # (Auto) 1.0 L Elbert # (Auto) 1.3 H Seg Neutrophils % 81.3 H Seg Neuts % (Manual) Lymphocytes % (Manual) Seg Neutrophils # 11.0 H Seg Neutrophils # Man Lymphocytes # (Manual) PT INR APTT Fibrinogen Heparin Anti-Xa Level 0.10 L Potassium 5.1 H Chloride Carbon Dioxide BUN 67 H Creatinine 15.5 H Glucose 74 L POC Glucose Calcium Lactate Dehydrogenase C-Reactive Protein Total Protein Albumin 07/29/20 07/30/20 07/30/20 09:45 07:18 07:18 WBC RBC 3.19 L Hgb 10.5 L Hct 33.1 L MCV 104 H MCH 33 H MCHC RDW 19.5 H Lymph % (Auto) 7.5 L Elbert % (Auto) 10.5 H Lymph # (Auto) 0.8 L Elbert # (Auto) 1.1 H Seg Neutrophils % 80.0 H Seg Neuts % (Manual) Lymphocytes % (Manual) Seg Neutrophils # 8.4 H Seg Neutrophils # Man Lymphocytes # (Manual) PT INR APTT Fibrinogen Heparin Anti-Xa Level 0.29 L Potassium Chloride Carbon Dioxide BUN 37 H Creatinine 11.3 H Glucose POC Glucose Calcium 10.4 H Lactate Dehydrogenase C-Reactive Protein Total Protein Albumin 07/30/20 07/31/20 07/31/20 21:37 04:54 04:54 WBC RBC 3.04 L Hgb 10.3 L Hct 31.7 L MCV 104 H MCH 34 H MCHC RDW 19.8 H Lymph % (Auto) 7.7 L Elbert % (Auto) 7.8 H Lymph # (Auto) 0.7 L Elbert # (Auto) Seg Neutrophils % 83.2 H Seg Neuts % (Manual) Lymphocytes % (Manual) Seg Neutrophils # Seg Neutrophils # Man Lymphocytes # (Manual) PT INR APTT Fibrinogen Heparin Anti-Xa Level Potassium Chloride Carbon Dioxide BUN 46 H Creatinine 13.3 H Glucose 104 H POC Glucose 120 H Calcium Lactate Dehydrogenase C-Reactive Protein Total Protein Albumin 08/01/20 08/01/20 08/01/20 05:05 07:34 14:16 WBC RBC Hgb Hct MCV MCH MCHC RDW Lymph % (Auto) Elbert % (Auto) Lymph # (Auto) Elbert # (Auto) Seg Neutrophils % Seg Neuts % (Manual) Lymphocytes % (Manual) Seg Neutrophils # Seg Neutrophils # Man Lymphocytes # (Manual) PT INR APTT Fibrinogen Heparin Anti-Xa Level Potassium Chloride Carbon Dioxide BUN 35 H Creatinine 9.8 H Glucose POC Glucose 69 L Calcium Lactate Dehydrogenase C-Reactive Protein 7.20 H Total Protein Albumin 08/01/20 08/01/20 08/02/20 15:56 16:10 05:22 WBC RBC 3.43 L Hgb 11.0 L Hct 35.4 L MCV 103 H MCH MCHC 31 L RDW 19.3 H Lymph % (Auto) 10.0 L Elbert % (Auto) 11.5 H Lymph # (Auto) 1.1 L Elbert # (Auto) 1.2 H Seg Neutrophils % 77.3 H Seg Neuts % (Manual) Lymphocytes % (Manual) Seg Neutrophils # 8.2 H Seg Neutrophils # Man Lymphocytes # (Manual) PT INR APTT Fibrinogen Heparin Anti-Xa Level Potassium Chloride Carbon Dioxide BUN Creatinine Glucose POC Glucose 110 H Calcium Lactate Dehydrogenase 226 H C-Reactive Protein Total Protein 6.0 L Albumin 3.2 L 08/02/20 05:22 WBC RBC Hgb Hct MCV MCH MCHC RDW Lymph % (Auto) Elbert % (Auto) Lymph # (Auto) Elbert # (Auto) Seg Neutrophils % Seg Neuts % (Manual) Lymphocytes % (Manual) Seg Neutrophils # Seg Neutrophils # Man Lymphocytes # (Manual) PT INR APTT Fibrinogen Heparin Anti-Xa Level Potassium Chloride Carbon Dioxide 31 H BUN 46 H Creatinine 12.4 H Glucose POC Glucose Calcium Lactate Dehydrogenase C-Reactive Protein Total Protein Albumin
--- NOTE | 2020-08-02 13:23 | Progress Note ---
Assessment and Plan Assessment and plan: 54 years old male with history of ESRD on hemodialysis, hypertension, tobacco abuse, PAD status post previous revascularization, admitted on 07/22/2020 secondary to worsening left leg pain for 3 days. Pain is 10 out of 10. Patient is unable to walk. Patient was seen at Dr. Hurt's office, vascular surgeon, and was found to have a left popliteal artery thrombosis complicated by a left lower limb ischemia was sent to the ED. Patient had revascularization May 2020 due to mild ischemic toes and since then discoloration of the toes has worsened. On arrival, initial temperature 97.3, HR 107, RR 16, O2 100, BP 163/92. Initial WBC 8. Hemoglobin 11.7. Procalcitonin 4.2. Patient underwent angiopl asty on 07/22/2020. By 07/27/2020 patient spiked a fever 101. Blood cultures 07/28/2020 no growth. Patient is planned to have a left BKA for nonsalvageable left leg per vascular -- Acute limb ischemia with thrombosis of left popliteal artery s/p angiogram and angioplasty for left popliteal artery occlusion Vascular surgery following. Plan for amputation 0n 07/30 -- End stage renal disease Nephrology team on board HD as per renal --Chronic hypotension Now on midodrine. BP better Continue to monitor blood pressure closely --Right loculated pleural effusion CT scan reveals right thick-walled loculated pleural effusion --Atrial flutter/fibrillation --left lower extremity DVT Patient is on Coumadin at home for this Holding Coumadin as patient is on heparin drip --DVT prophylaxis SCDs bilateral lower extremities while in bed, continue therapeutic anticoagulation 07/30. ID started Vanc and levaquin. Left BKA per Surgery 07/31. Continue IV antibiotics per ID recommendations. Patient is s/p left BKA yesterday (07/30). Physical therapy evaluation pending. Continue hemodialysis per nephrology recommendations. 08/01. Patient with what appears to be a right loculated pleural effusion. Check CT of chest. ID to monitor off antibiotics s/p amputation physical therapy recommends acute rehab. Continue hemodialysis per nephrology recommendations. 08/02. CT scan reveals thick-walled right loculated pleural effusion. IR to place CT-guided catheter and send specimen for culture/cytology Wednesday. ID to monitor off antibiotics for now. Follow-up quantiferon TB gold. pvc monitor reports atrial flutter/fibrillation. Patient reports previous history and is followed by [facility]. Consult cardiology for further evaluation. History Interval history: no new issues Hospitalist Physical - Constitutional Vitals: Temp Pulse Resp BP Pulse Ox 97.8 F 83 16 127/77 96 08/02/20 12:10 08/02/20 13:00 08/02/20 12:10 08/02/20 13:00 08/02/20 09:06 General appearance: Present: no acute distress - EENT Eyes: Present: PERRL, EOM intact ENT: hearing intact, clear oral mucosa, dentition normal - Neck Neck: Present: supple, normal ROM - Respiratory Respiratory effort: normal Respiratory: bilateral: CTA - Cardiovascular Rhythm: regular Heart Sounds: Present: S1 & S2. Absent: gallop, rub - Extremities Extremities: no ischemia, No edema, Full ROM - Abdominal General gastrointestinal: soft, non-tender, non-distended, normal bowel sounds - Integumentary Integumentary: Present: clear, warm, dry - Neurologic Neurologic: CNII-XII intact, moves all extremities Results - Labs CBC & Chem 7: 08/02/20 05:22 08/02/20 05:22 Labs: Laboratory Last Values WBC 10.6 K/mm3 (4.5-11.0) 08/02/20 05:22 RBC 3.43 M/mm3 (3.65-5.03) L 08/02/20 05:22 Hgb 11.0 gm/dl (11.8-15.2) L 08/02/20 05:22 Hct 35.4 % (35.5-45.6) L 08/02/20 05:22 MCV 103 fl (84-94) H 08/02/20 05:22 MCH 32 pg (28-32) 08/02/20 05:22 MCHC 31 % (32-34) L 08/02/20 05:22 RDW 19.3 % (13.2-15.2) H 08/02/20 05:22 Plt Count 262 K/mm3 (140-440) 08/02/20 05:22 Lymph % (Auto) 10.0 % (13.4-35.0) L 08/02/20 05:22 [place] % (Auto) 11.5 % (0.0-7.3) H 08/02/20 05:22 Eos % (Auto) 1.0 % (0.0-4.3) 08/02/20 05:22 Baso % (Auto) 0.2 % (0.0-1.8) 08/02/20 05:22 Lymph # (Auto) 1.1 K/mm3 (1.2-5.4) L 08/02/20 05:22 [place] # (Auto) 1.2 K/mm3 (0.0-0.8) H 08/02/20 05:22 Eos # (Auto) 0.1 K/mm3 (0.0-0.4) 08/02/20 05:22 Baso # (Auto) 0.0 K/mm3 (0.0-0.1) 08/02/20 05:22 Add Manual Diff Complete 07/29/20 05:36 Total Counted 100 07/23/20 09:46 Seg Neutrophils % 77.3 % (40.0-70.0) H 08/02/20 05:22 Seg Neuts % (Manual) 94.0 % (40.0-70.0) H 07/23/20 09:46 Band Neutrophils % 1.0 % 07/23/20 09:46 Lymphocytes % (Manual) 1.0 % (13.4-35.0) L 07/23/20 09:46 Reactive Lymphs % (Man) 0 % 07/22/20 18:00 Monocytes % (Manual) 4.0 % (0.0-7.3) 07/23/20 09:46 Eosinophils % (Manual) 0 % (0.0-4.3) 07/22/20 18:00 Basophils % (Manual) 0 % (0.0-1.8) 07/22/20 18:00 Metamyelocytes % 0 % 07/22/20 18:00 Myelocytes % 0 % 07/22/20 18:00 Promyelocytes % 0 % 07/22/20 18:00 Blast Cells % 0 % 07/22/20 18:00 Nucleated RBC % Not Reportable 07/29/20 05:36 Seg Neutrophils # 8.2 K/mm3 (1.8-7.7) H 08/02/20 05:22 Seg Neutrophils # Man 16.2 K/mm3 (1.8-7.7) H 07/23/20 09:46 Band Neutrophils # 0.2 K/mm3 07/23/20 09:46 Lymphocytes # (Manual) 0.2 K/mm3 (1.2-5.4) L 07/23/20 09:46 Abs React Lymphs (Man) 0.0 K/mm3 07/23/20 09:46 Monocytes # (Manual) 0.7 K/mm3 (0.0-0.8) 07/23/20 09:46 Eosinophils # (Manual) 0.0 K/mm3 (0.0-0.4) 07/23/20 09:46 Basophils # (Manual) 0.0 K/mm3 (0.0-0.1) 07/23/20 09:46 Metamyelocytes # 0.0 K/mm3 07/23/20 09:46 Myelocytes # 0.0 K/mm3 07/23/20 09:46 Promyelocytes # 0.0 K/mm3 07/23/20 09:46 Blast Cells # 0.0 K/mm3 07/23/20 09:46 WBC Morphology Not Reportable 07/29/20 05:36 Hypersegmented Neuts Not Reportable 07/29/20 05:36 Hyposegmented Neuts Not Reportable 07/29/20 05:36 Hypogranular Neuts Not Reportable 07/29/20 05:36 Smudge Cells Not Reportable 07/29/20 05:36 Toxic Granulation Not Reportable 07/29/20 05:36 Toxic Vacuolation Not Reportable 07/29/20 05:36 Dohle Bodies Not Reportable 07/29/20 05:36 Pelger-Huet Anomaly Not Reportable 07/29/20 05:36 Svetlana Rods Not Reportable 07/29/20 05:36 Platelet Estimate Not Reportable 07/29/20 05:36 Clumped Platelets Not Reportable 07/29/20 05:36 Plt Clumps, EDTA Not Reportable 07/29/20 05:36 Large Platelets Not Reportable 07/29/20 05:36 Giant Platelets Not Reportable 07/29/20 05:36 Platelet Satelliting Not Reportable 07/29/20 05:36 Plt Morphology Comment Not Reportable 07/29/20 05:36 RBC Morphology Not Reportable 07/29/20 05:36 Dimorphic RBCs Not Reportable 07/29/20 05:36 Polychromasia Not Reportable 07/29/20 05:36 Hypochromasia Not Reportable 07/29/20 05:36 Poikilocytosis Not Reportable 07/29/20 05:36 Anisocytosis Not Reportable 07/29/20 05:36 Microcytosis Not Reportable 07/29/20 05:36 Macrocytosis Not Reportable 07/29/20 05:36 Spherocytes Not Reportable 07/29/20 05:36 Pappenheimer Bodies Not Reportable 07/29/20 05:36 Sickle Cells Not Reportable 07/29/20 05:36 Target Cells Not Reportable 07/29/20 05:36 Tear Drop Cells Not Reportable 07/29/20 05:36 Ovalocytes Not Reportable 07/29/20 05:36 Helmet Cells Not Reportable 07/29/20 05:36 [place] Bodies Not Reportable 07/29/20 05:36 [place] Rings Not Reportable 07/29/20 05:36 Alicia Cells Not Reportable 07/29/20 05:36 Bite Cells Not Reportable 07/29/20 05:36 Crenated Cell Not Reportable 07/29/20 05:36 Elliptocytes Not Reportable 07/29/20 05:36 Acanthocytes (Spur) Not Reportable 07/29/20 05:36 Rouleaux Not Reportable 07/29/20 05:36 Hemoglobin C Crystals Not Reportable 07/29/20 05:36 Schistocytes Not Reportable 07/29/20 05:36 Malaria parasites Not Reportable 07/29/20 05:36 Malachi Bodies Not Reportable 07/29/20 05:36 Hem Pathologist Commnt Not Reportable 07/29/20 05:36 PT 21.0 Sec. (12.2-14.9) H 07/23/20 23:01 INR 1.80 (0.87-1.13) H 07/23/20 23:01 APTT 39.4 Sec. (24.2-36.6) H 07/23/20 23:01 Fibrinogen 494 mg/dl (211-480) H 07/23/20 09:46 Heparin Anti-Xa Level 0.29 U.I./ml (0.3-0.7) L 07/29/20 09:45 Sodium 141 mmol/L (137-145) 08/02/20 05:22 Potassium 4.6 mmol/L (3.6-5.0) 08/02/20 05:22 Chloride 98.6 mmol/L (98-107) 08/02/20 05:22 Carbon Dioxide 31 mmol/L (22-30) H 08/02/20 05:22 Anion Gap 16 mmol/L 08/02/20 05:22 BUN 46 mg/dL (9-20) H 08/02/20 05:22 Creatinine 12.4 mg/dL (0.8-1.3) H 08/02/20 05:22 Estimated GFR 5 ml/min 08/02/20 05:22 BUN/Creatinine Ratio 4 % 08/02/20 05:22 Glucose 83 mg/dL (75-100) 08/02/20 05:22 POC Glucose 103 mg/dL (70-105) 08/02/20 11:15 Calcium 9.6 mg/dL (8.4-10.2) 08/02/20 05:22 Total Bilirubin 0.30 mg/dL (0.1-1.2) 08/01/20 16:10 Direct Bilirubin < 0.2 mg/dL (0-0.2) 08/01/20 16:10 Indirect Bilirubin 0.1 mg/dL 08/01/20 16:10 AST 37 units/L (5-40) 08/01/20 16:10 ALT 27 units/L (7-56) 08/01/20 16:10 Alkaline Phosphatase 63 units/L (35-129) 08/01/20 16:10 Lactate Dehydrogenase 226 units/L (91-180) H 08/01/20 16:10 C-Reactive Protein 7.20 mg/dL (0.00-1.30) H 08/01/20 14:16 Total Protein 6.0 g/dL (6.3-8.2) L 08/01/20 16:10 Albumin 3.2 g/dL (3.9-5) L 08/01/20 16:10 Albumin/Globulin Ratio 1.1 % 08/01/20 16:10 Procalcitonin 4.28 ng/mL (<0.15) 07/28/20 07:53 TSH 3.770 mlU/mL (0.270-4.200) 07/26/20 02:22 Free T4 1.01 ng/dL (0.76-1.46) 07/26/20 02:22 Random Vancomycin 13.9 ug/mL (0-40.0) 07/30/20 07:18 Hepatitis A IgM Ab Non-reactive (NonReactive) 07/22/20 18:00 Hep Bs Antigen Non-reactive (Negative) 07/22/20 18:00 Hep B Core IgM Ab Non-reactive (NonReactive) 07/22/20 18:00 Hepatitis C Antibody Non-reactive (NonReactive) 07/22/20 18:00 Blood Type O POSITIVE 07/30/20 07:24 Antibody Screen Negative 07/30/20 07:24 Microbiology: Microbiology 07/28/20 07:53 Peripheral/Venous Blood Culture - Final NO GROWTH AFTER 5 DAYS 07/28/20 00:29 Peripheral/Venous Blood Culture - Final NO GROWTH AFTER 5 DAYS - Diagnostic Impressions Diagnostic Impressions: Echocardiogram 07/26/20 08:06 Transthoracic Echocardiogram Indication: Tachycardia BP: 108/70 HR: 100 Conclusions *Global left ventricular systolic function is normal. *The estimated ejection fraction is 60-65%. *Mild concentric left ventricular hypertrophy is observed. *The left atrium is mildly dilated. *There is mild mitral regurgitation. *The right heart chambers are both mildly dilated. *There is mild to moderate tricuspid regurgitation. *There is evidence of moderate pulmonary hypertension. *The right ventricular systolic pressure is calculated at 46 mmHg. Findings Left Ventricle: The left ventricular chamber size is normal. Mild concentric left ventricular hypertrophy is observed. Global left ventricular systolic function is normal. The estimated ejection fraction is 60-65%. Left Atrium: The left atrium is mildly dilated. Right Ventricle: The right ventricle is mildly dilated. The right ventricular global systolic function is mildly reduced. Right Atrium: The right atrium is mildly dilated. Aortic Valve: The aortic valve is trileaflet. The aortic valve leaflets are mildly thickened. There is no evidence of aortic regurgitation. There is no evidence of aortic stenosis. Mitral Valve: The mitral valve leaflets are mildly thickened. There is mild mitral regurgitation. There is no evidence of mitral stenosis. Tricuspid Valve: There is mild to moderate tricuspid regurgitation. The right ventricular systolic pressure is calculated at 46 mmHg. There is evidence of moderate pulmonary hypertension. Pulmonic Valve: There is trace pulmonic regurgitation. Pericardium: There is no pericardial effusion. Aorta: There is no dilatation of the ascending aorta. There is no dilatation of the aortic root. Venous: The inferior vena cava appears normal in size. Measurements Chambers 2D Name Value Normal Range IVSd (2D) 1.03 cm (0.6 - 1.1) LVPWd (2D) 0.91 cm (0.6 - 1.1) LVIDd (2D) 4.7 cm (3.7 - 5.6) LVIDs (2D) 3.36 cm (2 - 3.8) LV FS (2D) 28.6 % - EF Teichholz (2D) 55.1 % - Ao root diameter (2D) 3.06 cm (2 - 3.7) Volumes/Mass Name Value Normal Range LA ESV SP 4CH (A/L) 47.57 ml - LA ESV SP 2CH (A/L) 41.21 ml - LA ESV BP (A/L) 45.97 ml - LA ESV BP (A/L) index 20.8 ml/m2 - LA ESV SP 4CH (MOD) 43.06 ml - LA ESV SP 2CH (MOD) 41.81 ml - LA ESV BP (MOD) 43.59 ml - LA ESV BP (MOD) index 19.72 ml/m2 - Diastolic/Systolic Function Name Value Normal Range MV E-wave Vmax 0.81 m/sec - MV deceleration time 179.23 msec - Aortic Valve Name Value Normal Range AV Vmax 1.25 m/sec - AV VTI 19.57 cm - AV peak gradient 6.28 mmHg - AV mean gradient 3.55 mmHg - LVOT diameter 2.06 cm - LVOT Vmax 0.92 m/sec - LVOT VTI 13.2 cm - LVOT peak gradient 3.38 mmHg - LVOT mean gradient 1.86 mmHg - SV LVOT 44.13 ml - JOSE EDUARDO (continuity Vmax) 2.45 cm2 - JOSE EDUARDO (continuity VTI) 2.25 cm2 - Tricuspid Valve Name Value Normal Range TR Vmax 3.31 m/sec - TR peak gradient 43 mmHg - RAP 3 mmHg - RVSP 46 mmHg - IVC diameter 1.79 cm (1.2 - 2.3) Pulmonic Valve/Qp:Qs Name Value Normal Range PV Vmax 0.82 m/sec - PV peak gradient 2.66 mmHg - PV acceleration time 98.95 msec - Rodriguez/IV: Voiding Method Urinal IV Catheter Type [Right INT / Saline Lock Forearm] IV Catheter Type [Left Forearm INT / Saline Lock ] IV Catheter Type [Right Graft Femoral] IV Catheter Type [Right INT / Saline Lock Antecubital] Active Medications - Current Medications Current Medications: Generic Name Dose Route Start Last Admin Trade Name Freq PRN Reason Stop Dose Admin Acetaminophen 650 mg 07/22/20 14:09 07/27/20 22:12 Acetaminophen 325 Mg Tab PO 650 mg Q6H PRN Administration Pain, Mild (1-3) Hydrocodone Bitart/Acetaminophen 2 each 07/22/20 14:09 08/02/20 09:15 Hydrocodone/Acetaminophen 5-325 Mg Tab PO 2 each Q6H PRN Administration Pain, Moderate (4-6) Albuterol 2.5 mg 07/26/20 08:34 Albuterol 2.5 Mg/3 Ml Nebu IH Q4HRT PRN Shortness Of Breath Amiodarone HCl 200 mg 08/02/20 14:30 Amiodarone 200 Mg Tab PO BID AALIYAH Apixaban 5 mg 07/30/20 22:00 08/01/20 22:50 Apixaban 5 Mg Tab PO 5 mg Q12HR AALIYAH Administration Protocol Aspirin 81 mg 07/22/20 15:00 08/01/20 09:20 Aspirin Ec 81 Mg Tab PO 81 mg QDAY AALIYAH Administration Hydromorphone HCl 1 mg 07/30/20 13:00 08/01/20 03:05 Hydromorphone 1 Mg/1 Ml Inj IV 1 mg Q4H PRN Administration Pain , Severe (7-10) Amiodarone HCl 300 mg/ 106 mls @ 600 mls/hr 08/02/20 14:00 Dextrose IV 08/02/20 14:10 ONCE ONE Metoprolol Tartrate 50 mg 07/29/20 10:00 08/01/20 22:45 Metoprolol Tartrate 50 Mg Tab PO 50 mg BID AALIYAH Administration Midodrine 10 mg 07/25/20 16:00 08/02/20 12:03 Midodrine 5 Mg Tab PO 10 mg TID@0800,1200,1600 AALIYAH Administration Ondansetron HCl 4 mg 07/22/20 14:09 Ondansetron 4 Mg/2 Ml Inj IV Q8H PRN Nausea And Vomiting Pregabalin 50 mg 08/01/20 10:00 08/02/20 09:13 Pregabalin 25 Mg Cap PO 50 mg QDAY AALIYAH Administration Sevelamer Carbonate 800 mg 07/23/20 18:30 08/02/20 12:03 Sevelamer Carbonate 800 Mg Tab PO 800 mg AC AALIYAH Administration Sodium Chloride 10 ml 07/22/20 13:00 08/01/20 22:45 Sodium Chloride 0.9% 10 Ml Flush Syringe IV 10 ml BID AALIYAH Administration Sodium Chloride 10 ml 07/22/20 13:00 07/31/20 06:49 Sodium Chloride 0.9% 10 Ml Flush Syringe IV 10 ml PRN PRN Administration LINE FLUSH Nutrition/Malnutrition Assess - Dietary Evaluation Nutrition/Malnutrition Findings: Nutrition Notes Start: 07/29/20 13:17 Freq: Status: Active Protocol: Document 07/31/20 13:06 BENTLEY (Rec: 07/31/20 13:22 BENTLEY [email or web address]) Co-Sign 07/31/20 13:06 LP Nutrition Notes Need for Assessment generated from: Education Initial or Follow up Reassessment Current Diagnosis CKD (stage V CKD) Other Pertinent Diagnosis ESRD w/ HD, thrombosis, HTN, peripheral artery dz s/p L BKA Current Diet Renal Labs/Tests BUN 46 Cr 13.3 no Phos record Pertinent Medications Renvela Height 6 ft 1 in Weight 97.1 kg [place] Body Weight (kg) 83.63 BMI 28.2 Weight change and time frame Noted dialysis Weight Status Overweight Subjective/Other Information F/u intakes. Pt reported dialysis treatment ongoing for years. Unaware of fluid restriction and provided education. Pt had no other questions about nutritional needs. Reported good intakes. Percent of energy/protein needs met: 100%/66% Burn Absent Trauma Absent GI Symptoms None Current % PO Good (75-100%) Minimum of two criteria No Fluid Accumulation Mild (non-severe) #1 Nutrition Diagnosis Increased nutrient needs ( specify in comment below) Comments: protein Etiology wound healing and dialysis As Evidenced by Signs and Symptoms pt on dialysis, had L BKA operation yesterday, and diet order provides 66% of protein needs Is patient on ventilator? No Is Patient Ambulatory and/or Out of Bed Yes REE-([place]-St. Jeor-ambulatory/OOB) [ [id number] [id number]] Calculation Used for Recommendations [place]-St Jeor Additional Notes Protein: at least 117 g (>1.2 g/kg with 50% HBV) Fluid: 1 Liter per MD fluid restriction Nutrition Intervention Change Diet Order: Continue Renal diet Add Supplement/Snack (indicate name/kcal ONS to Ensure High Protein for /protein ) less calories and to meet protein needs (no chocolate flavor) Provides kCal: 480 Provides Protein (gm) 48 Teaching Recipient Patient Learning Readiness Fair Teaching Methods Discussion,Handout Response to Teaching Verbalize understanding, Reinforcement needed Education Handouts Provided Fluid restrition therapy Renal MyPlate Barriers to Learning No Barriers RD phone number provided Yes Patient aware of follow up options Yes Goal #1 Meet at least 75% of energy and protein needs Goal #2 ONS tolerance Goal #3 Assist with wound healing Goal #4 Reinforcement of protein education and ONS. Anticipated Discharge Needs: Renal diet and protein oral supplements as needed (no chocolate flavor) Follow-Up By: 08/06/20 Additional Comments F/u intakes, ONS acceptance, and diet education about protein and dialysis.
[2020-08-02] MEDS ORDERED: AMIODARONE 300 MG in DEXTROSE 5% IN WATER 100 ML IV ONE (14:00)
[2020-08-02] MEDS: AMIODARONE 200 MG TAB PO SCH ×2 (16:42→21:53)
[2020-08-02] MEDS: APIXABAN 5 MG TAB PO SCH ×2 (16:42→21:50)
[2020-08-02] MEDS: ASPIRIN EC 81 MG TAB PO SCH (16:50)
[2020-08-02] MEDS: METOPROLOL TARTRATE 50 MG TAB PO SCH ×2 (16:57→21:51)
[2020-08-02] MEDS: HYDROmorphone 1 MG/1 ML INJ IV PRN (18:39)
[2020-08-03] MEDS: SEVELAMER CARBONATE 800 MG TAB PO SCH ×3 (07:32→17:27)
[2020-08-03] MEDS: MIDODRINE 5 MG TAB PO SCH ×3 (07:32→15:09)
[2020-08-03] MEDS: HYDROcodone/ACETAMINOPHEN 5-325 MG TAB PO PRN ×2 (07:38→15:09)
[2020-08-03 07:52] LABS: Basophils # (Auto) 0.1 K/mm3 (0.0-0.1); Basophils % (Auto) 0.7 % (0.0-1.8); Eosinophils # (Auto) 0.1 K/mm3 (0.0-0.4); Eosinophils % (Auto) 1.1 % (0.0-4.3); Hematocrit 40.6 % (35.5-45.6); Hemoglobin 12.6 gm/dl (11.8-15.2); Lymphocytes # (Auto) 0.8 K/mm3 (1.2-5.4); Lymphocytes % (Auto) 9.4 % (13.4-35.0); Mean Corpuscular HGB Conc 31 % (32-34); Mean Corpuscular Volume 104 fl (84-94); Monocytes # (Auto) 0.9 K/mm3 (0.0-0.8); Monocytes % (Auto) 10.9 % (0.0-7.3); Platelet Count 178 K/mm3 (140-440); Red Blood Count 3.91 M/mm3 (3.65-5.03)
[2020-08-03 07:58] LABS: Calcium 9.4 mg/dL (8.4-10.2)
--- NOTE | 2020-08-03 09:19 | Progress Note ---
Assessment and Plan Assessment and plan: 54 years old male with history of ESRD on hemodialysis, hypertension, tobacco abuse, PAD status post previous revascularization, admitted on 07/22/2020 secondary to worsening left leg pain for 3 days. Pain is 10 out of 10. Patient is unable to walk. Patient was seen at Dr. Hurt's office, vascular surgeon, and was found to have a left popliteal artery thrombosis complicated by a left lower limb ischemia was sent to the ED. Patient had revascularization May 2020 due to mild ischemic toes and since then discoloration of the toes has worsened. On arrival, initial temperature 97.3, HR 107, RR 16, O2 100, BP 163/92. Initial WBC 8. Hemoglobin 11.7. Procalcitonin 4.2. Patient underwent angiopl asty on 07/22/2020. By 07/27/2020 patient spiked a fever 101. Blood cultures 07/28/2020 no growth. Patient is planned to have a left BKA for nonsalvageable left leg per vascular -- Acute limb ischemia with thrombosis of left popliteal artery s/p angiogram and angioplasty for left popliteal artery occlusion Vascular surgery following. Plan for amputation 0n 07/30 -- End stage renal disease Nephrology team on board HD as per renal --Chronic hypotension Now on midodrine. BP better Continue to monitor blood pressure closely --Right loculated pleural effusion CT scan reveals right thick-walled loculated pleural effusion --Atrial flutter/fibrillation --left lower extremity DVT Patient is on Coumadin at home for this Holding Coumadin as patient is on heparin drip --DVT prophylaxis SCDs bilateral lower extremities while in bed, continue therapeutic anticoagulation 07/30. ID started Vanc and levaquin. Left BKA per Surgery 07/31. Continue IV antibiotics per ID recommendations. Patient is s/p left BKA yesterday (07/30). Physical therapy evaluation pending. Continue hemodialysis per nephrology recommendations. 08/01. Patient with what appears to be a right loculated pleural effusion. Check CT of chest. ID to monitor off antibiotics s/p amputation physical therapy recommends acute rehab. Continue hemodialysis per nephrology recommendations. 08/02. CT scan reveals thick-walled right loculated pleural effusion. IR to place CT-guided catheter and send specimen for culture/cytology Wednesday. ID to monitor off antibiotics for now. Follow-up quantiferon TB gold. quality assurance monitor body reports atrial flutter/fibrillation. Patient reports previous history and is followed by [facility]. Consult cardiology for further evaluation. 08/03. IR to place CT-guided catheter and send specimen for culture/cytology Shakila zarate. ID to monitor off antibiotics for now. Follow-up quantiferon TB gold. Await cardiology consultation for atrial flutter/fibrillation. History Interval history: no new issues Hospitalist Physical - Constitutional Vitals: Temp Pulse Resp BP Pulse Ox 98.2 F 86 20 109/64 100 08/03/20 03:50 08/03/20 03:50 08/03/20 03:50 08/03/20 03:50 08/03/20 03:50 General appearance: Present: no acute distress - EENT Eyes: Present: PERRL, EOM intact ENT: hearing intact, clear oral mucosa, dentition normal - Neck Neck: Present: supple, normal ROM - Respiratory Respiratory effort: normal Respiratory: bilateral: CTA - Cardiovascular Rhythm: regular Heart Sounds: Present: S1 & S2. Absent: gallop, rub - Extremities Extremities: no ischemia, No edema, Full ROM - Abdominal General gastrointestinal: soft, non-tender, non-distended, normal bowel sounds - Integumentary Integumentary: Present: clear, warm, dry - Neurologic Neurologic: CNII-XII intact, moves all extremities Results - Labs CBC & Chem 7: 08/03/20 06:47 08/03/20 06:47 Labs: Laboratory Last Values WBC 8.4 K/mm3 (4.5-11.0) 08/03/20 06:47 RBC 3.91 M/mm3 (3.65-5.03) 08/03/20 06:47 Hgb 12.6 gm/dl (11.8-15.2) 08/03/20 06:47 Hct 40.6 % (35.5-45.6) 08/03/20 06:47 MCV 104 fl (84-94) H 08/03/20 06:47 MCH 32 pg (28-32) 08/03/20 06:47 MCHC 31 % (32-34) L 08/03/20 06:47 RDW 19.0 % (13.2-15.2) H 08/03/20 06:47 Plt Count 178 K/mm3 (140-440) 08/03/20 06:47 Lymph % (Auto) 9.4 % (13.4-35.0) L 08/03/20 06:47 [place] % (Auto) 10.9 % (0.0-7.3) H 08/03/20 06:47 Eos % (Auto) 1.1 % (0.0-4.3) 08/03/20 06:47 Baso % (Auto) 0.7 % (0.0-1.8) 08/03/20 06:47 Lymph # (Auto) 0.8 K/mm3 (1.2-5.4) L 08/03/20 06:47 [place] # (Auto) 0.9 K/mm3 (0.0-0.8) H 08/03/20 06:47 Eos # (Auto) 0.1 K/mm3 (0.0-0.4) 08/03/20 06:47 Baso # (Auto) 0.1 K/mm3 (0.0-0.1) 08/03/20 06:47 Add Manual Diff Complete 07/29/20 05:36 Total Counted 100 07/23/20 09:46 Seg Neutrophils % 77.9 % (40.0-70.0) H 08/03/20 06:47 Seg Neuts % (Manual) 94.0 % (40.0-70.0) H 07/23/20 09:46 Band Neutrophils % 1.0 % 07/23/20 09:46 Lymphocytes % (Manual) 1.0 % (13.4-35.0) L 07/23/20 09:46 Reactive Lymphs % (Man) 0 % 07/22/20 18:00 Monocytes % (Manual) 4.0 % (0.0-7.3) 07/23/20 09:46 Eosinophils % (Manual) 0 % (0.0-4.3) 07/22/20 18:00 Basophils % (Manual) 0 % (0.0-1.8) 07/22/20 18:00 Metamyelocytes % 0 % 07/22/20 18:00 Myelocytes % 0 % 07/22/20 18:00 Promyelocytes % 0 % 07/22/20 18:00 Blast Cells % 0 % 07/22/20 18:00 Nucleated RBC % Not Reportable 07/29/20 05:36 Seg Neutrophils # 6.5 K/mm3 (1.8-7.7) 08/03/20 06:47 Seg Neutrophils # Man 16.2 K/mm3 (1.8-7.7) H 07/23/20 09:46 Band Neutrophils # 0.2 K/mm3 07/23/20 09:46 Lymphocytes # (Manual) 0.2 K/mm3 (1.2-5.4) L 07/23/20 09:46 Abs React Lymphs (Man) 0.0 K/mm3 07/23/20 09:46 Monocytes # (Manual) 0.7 K/mm3 (0.0-0.8) 07/23/20 09:46 Eosinophils # (Manual) 0.0 K/mm3 (0.0-0.4) 07/23/20 09:46 Basophils # (Manual) 0.0 K/mm3 (0.0-0.1) 07/23/20 09:46 Metamyelocytes # 0.0 K/mm3 07/23/20 09:46 Myelocytes # 0.0 K/mm3 07/23/20 09:46 Promyelocytes # 0.0 K/mm3 07/23/20 09:46 Blast Cells # 0.0 K/mm3 07/23/20 09:46 WBC Morphology Not Reportable 07/29/20 05:36 Hypersegmented Neuts Not Reportable 07/29/20 05:36 Hyposegmented Neuts Not Reportable 07/29/20 05:36 Hypogranular Neuts Not Reportable 07/29/20 05:36 Smudge Cells Not Reportable 07/29/20 05:36 Toxic Granulation Not Reportable 07/29/20 05:36 Toxic Vacuolation Not Reportable 07/29/20 05:36 Dohle Bodies Not Reportable 07/29/20 05:36 Pelger-Huet Anomaly Not Reportable 07/29/20 05:36 Svetlana Rods Not Reportable 07/29/20 05:36 Platelet Estimate Not Reportable 07/29/20 05:36 Clumped Platelets Not Reportable 07/29/20 05:36 Plt Clumps, EDTA Not Reportable 07/29/20 05:36 Large Platelets Not Reportable 07/29/20 05:36 Giant Platelets Not Reportable 07/29/20 05:36 Platelet Satelliting Not Reportable 07/29/20 05:36 Plt Morphology Comment Not Reportable 07/29/20 05:36 RBC Morphology Not Reportable 07/29/20 05:36 Dimorphic RBCs Not Reportable 07/29/20 05:36 Polychromasia Not Reportable 07/29/20 05:36 Hypochromasia Not Reportable 07/29/20 05:36 Poikilocytosis Not Reportable 07/29/20 05:36 Anisocytosis Not Reportable 07/29/20 05:36 Microcytosis Not Reportable 07/29/20 05:36 Macrocytosis Not Reportable 07/29/20 05:36 Spherocytes Not Reportable 07/29/20 05:36 Pappenheimer Bodies Not Reportable 07/29/20 05:36 Sickle Cells Not Reportable 07/29/20 05:36 Target Cells Not Reportable 07/29/20 05:36 Tear Drop Cells Not Reportable 07/29/20 05:36 Ovalocytes Not Reportable 07/29/20 05:36 Helmet Cells Not Reportable 07/29/20 05:36 [place] Bodies Not Reportable 07/29/20 05:36 Vest Rings Not Reportable 07/29/20 05:36 Melvern Cells Not Reportable 07/29/20 05:36 Bite Cells Not Reportable 07/29/20 05:36 Crenated Cell Not Reportable 07/29/20 05:36 Elliptocytes Not Reportable 07/29/20 05:36 Acanthocytes (Spur) Not Reportable 07/29/20 05:36 Rouleaux Not Reportable 07/29/20 05:36 Hemoglobin C Crystals Not Reportable 07/29/20 05:36 Schistocytes Not Reportable 07/29/20 05:36 Malaria parasites Not Reportable 07/29/20 05:36 Malachi Bodies Not Reportable 07/29/20 05:36 Hem Pathologist Commnt Not Reportable 07/29/20 05:36 PT 21.0 Sec. (12.2-14.9) H 07/23/20 23:01 INR 1.80 (0.87-1.13) H 07/23/20 23:01 APTT 39.4 Sec. (24.2-36.6) H 07/23/20 23:01 Fibrinogen 494 mg/dl (211-480) H 07/23/20 09:46 Heparin Anti-Xa Level 0.29 U.I./ml (0.3-0.7) L 07/29/20 09:45 Sodium 139 mmol/L (137-145) 08/03/20 06:47 Potassium 4.6 mmol/L (3.6-5.0) 08/03/20 06:47 Chloride 97.0 mmol/L (98-107) L 08/03/20 06:47 Carbon Dioxide 31 mmol/L (22-30) H 08/03/20 06:47 Anion Gap 16 mmol/L 08/03/20 06:47 BUN 31 mg/dL (9-20) H 08/03/20 06:47 Creatinine 9.1 mg/dL (0.8-1.3) H 08/03/20 06:47 Estimated GFR 7 ml/min 08/03/20 06:47 BUN/Creatinine Ratio 3 % 08/03/20 06:47 Glucose 87 mg/dL (75-100) 08/03/20 06:47 POC Glucose 121 mg/dL (70-105) H 08/02/20 20:56 Calcium 9.4 mg/dL (8.4-10.2) 08/03/20 06:47 Total Bilirubin 0.30 mg/dL (0.1-1.2) 08/01/20 16:10 Direct Bilirubin < 0.2 mg/dL (0-0.2) 08/01/20 16:10 Indirect Bilirubin 0.1 mg/dL 08/01/20 16:10 AST 37 units/L (5-40) 08/01/20 16:10 ALT 27 units/L (7-56) 08/01/20 16:10 Alkaline Phosphatase 63 units/L (35-129) 08/01/20 16:10 Lactate Dehydrogenase 226 units/L (91-180) H 08/01/20 16:10 C-Reactive Protein 7.20 mg/dL (0.00-1.30) H 08/01/20 14:16 Total Protein 6.0 g/dL (6.3-8.2) L 08/01/20 16:10 Albumin 3.2 g/dL (3.9-5) L 08/01/20 16:10 Albumin/Globulin Ratio 1.1 % 08/01/20 16:10 Procalcitonin 4.28 ng/mL (<0.15) 07/28/20 07:53 TSH 3.770 mlU/mL (0.270-4.200) 07/26/20 02:22 Free T4 1.01 ng/dL (0.76-1.46) 07/26/20 02:22 Random Vancomycin 13.9 ug/mL (0-40.0) 07/30/20 07:18 Hepatitis A IgM Ab Non-reactive (NonReactive) 07/22/20 18:00 Hep Bs Antigen Non-reactive (Negative) 07/22/20 18:00 Hep B Core IgM Ab Non-reactive (NonReactive) 07/22/20 18:00 Hepatitis C Antibody Non-reactive (NonReactive) 07/22/20 18:00 Blood Type O POSITIVE 07/30/20 07:24 Antibody Screen Negative 07/30/20 07:24 Microbiology: Microbiology 07/28/20 07:53 Peripheral/Venous Blood Culture - Final NO GROWTH AFTER 5 DAYS - Diagnostic Impressions Diagnostic Impressions: Echocardiogram 07/26/20 08:06 Transthoracic Echocardiogram Indication: Tachycardia BP: 108/70 HR: 100 Conclusions *Global left ventricular systolic function is normal. *The estimated ejection fraction is 60-65%. *Mild concentric left ventricular hypertrophy is observed. *The left atrium is mildly dilated. *There is mild mitral regurgitation. *The right heart chambers are both mildly dilated. *There is mild to moderate tricuspid regurgitation. *There is evidence of moderate pulmonary hypertension. *The right ventricular systolic pressure is calculated at 46 mmHg. Findings Left Ventricle: The left ventricular chamber size is normal. Mild concentric left ventricular hypertrophy is observed. Global left ventricular systolic function is normal. The estimated ejection fraction is 60-65%. Left Atrium: The left atrium is mildly dilated. Right Ventricle: The right ventricle is mildly dilated. The right ventricular global systolic function is mildly reduced. Right Atrium: The right atrium is mildly dilated. Aortic Valve: The aortic valve is trileaflet. The aortic valve leaflets are mildly thickened. There is no evidence of aortic regurgitation. There is no evidence of aortic stenosis. Mitral Valve: The mitral valve leaflets are mildly thickened. There is mild mitral regurgitation. There is no evidence of mitral stenosis. Tricuspid Valve: There is mild to moderate tricuspid regurgitation. The right ventricular systolic pressure is calculated at 46 mmHg. There is evidence of moderate pulmonary hypertension. Pulmonic Valve: There is trace pulmonic regurgitation. Pericardium: There is no pericardial effusion. Aorta: There is no dilatation of the ascending aorta. There is no dilatation of the aortic root. Venous: The inferior vena cava appears normal in size. Measurements Chambers 2D Name Value Normal Range IVSd (2D) 1.03 cm (0.6 - 1.1) LVPWd (2D) 0.91 cm (0.6 - 1.1) LVIDd (2D) 4.7 cm (3.7 - 5.6) LVIDs (2D) 3.36 cm (2 - 3.8) LV FS (2D) 28.6 % - EF Teichholz (2D) 55.1 % - Ao root diameter (2D) 3.06 cm (2 - 3.7) Volumes/Mass Name Value Normal Range LA ESV SP 4CH (A/L) 47.57 ml - LA ESV SP 2CH (A/L) 41.21 ml - LA ESV BP (A/L) 45.97 ml - LA ESV BP (A/L) index 20.8 ml/m2 - LA ESV SP 4CH (MOD) 43.06 ml - LA ESV SP 2CH (MOD) 41.81 ml - LA ESV BP (MOD) 43.59 ml - LA ESV BP (MOD) index 19.72 ml/m2 - Diastolic/Systolic Function Name Value Normal Range MV E-wave Vmax 0.81 m/sec - MV deceleration time 179.23 msec - Aortic Valve Name Value Normal Range AV Vmax 1.25 m/sec - AV VTI 19.57 cm - AV peak gradient 6.28 mmHg - AV mean gradient 3.55 mmHg - LVOT diameter 2.06 cm - LVOT Vmax 0.92 m/sec - LVOT VTI 13.2 cm - LVOT peak gradient 3.38 mmHg - LVOT mean gradient 1.86 mmHg - SV LVOT 44.13 ml - JOSE EDUARDO (continuity Vmax) 2.45 cm2 - JOSE EDUARDO (continuity VTI) 2.25 cm2 - Tricuspid Valve Name Value Normal Range TR Vmax 3.31 m/sec - TR peak gradient 43 mmHg - RAP 3 mmHg - RVSP 46 mmHg - IVC diameter 1.79 cm (1.2 - 2.3) Pulmonic Valve/Qp:Qs Name Value Normal Range PV Vmax 0.82 m/sec - PV peak gradient 2.66 mmHg - PV acceleration time 98.95 msec - Rodriguez/IV: Voiding Method Urinal IV Catheter Type [Right INT / Saline Lock Forearm] IV Catheter Type [Left Forearm INT / Saline Lock ] IV Catheter Type [Right Graft Femoral] IV Catheter Type [Right INT / Saline Lock Antecubital] Active Medications - Current Medications Current Medications: Generic Name Dose Route Start Last Admin Trade Name Freq PRN Reason Stop Dose Admin Acetaminophen 650 mg 07/22/20 14:09 07/27/20 22:12 Acetaminophen 325 Mg Tab PO 650 mg Q6H PRN Administration Pain, Mild (1-3) Hydrocodone Bitart/Acetaminophen 2 each 07/22/20 14:09 08/03/20 07:38 Hydrocodone/Acetaminophen 5-325 Mg Tab PO 2 each Q6H PRN Administration Pain, Moderate (4-6) Albuterol 2.5 mg 07/26/20 08:34 Albuterol 2.5 Mg/3 Ml Nebu IH Q4HRT PRN Shortness Of Breath Amiodarone HCl 200 mg 08/02/20 14:30 08/02/20 21:53 Amiodarone 200 Mg Tab PO 200 mg BID AALIYAH Administration Apixaban 5 mg 07/30/20 22:00 08/02/20 21:50 Apixaban 5 Mg Tab PO 5 mg Q12HR AALIYAH Administration Protocol Aspirin 81 mg 07/22/20 15:00 08/02/20 16:50 Aspirin Ec 81 Mg Tab PO 81 mg QDAY AALIYAH Administration Hydromorphone HCl 1 mg 07/30/20 13:00 08/02/20 18:39 Hydromorphone 1 Mg/1 Ml Inj IV 1 mg Q4H PRN Administration Pain , Severe (7-10) Metoprolol Tartrate 50 mg 07/29/20 10:00 08/02/20 21:51 Metoprolol Tartrate 50 Mg Tab PO 50 mg BID AALIYAH Administration Midodrine 10 mg 07/25/20 16:00 08/03/20 07:32 Midodrine 5 Mg Tab PO 10 mg TID@0800,1200,1600 AALIYAH Administration Ondansetron HCl 4 mg 07/22/20 14:09 Ondansetron 4 Mg/2 Ml Inj IV Q8H PRN Nausea And Vomiting Pregabalin 50 mg 08/01/20 10:00 08/02/20 09:13 Pregabalin 25 Mg Cap PO 50 mg QDAY AALIYAH Administration Sevelamer Carbonate 800 mg 07/23/20 18:30 08/03/20 07:32 Sevelamer Carbonate 800 Mg Tab PO 800 mg AC AALIYAH Administration Sodium Chloride 10 ml 07/22/20 13:00 08/02/20 21:51 Sodium Chloride 0.9% 10 Ml Flush Syringe IV 10 ml BID AALIYAH Administration Sodium Chloride 10 ml 07/22/20 13:00 07/31/20 06:49 Sodium Chloride 0.9% 10 Ml Flush Syringe IV 10 ml PRN PRN Administration LINE FLUSH Nutrition/Malnutrition Assess - Dietary Evaluation Nutrition/Malnutrition Findings: Nutrition Notes Start: 07/29/20 13:17 Freq: Status: Active Protocol: Document 07/31/20 13:06 BENTLEY (Rec: 07/31/20 13:22 BENTLEY [id number]) Co-Sign 07/31/20 13:06 LP Nutrition Notes Need for Assessment generated from: Education Initial or Follow up Reassessment Current Diagnosis CKD (stage V CKD) Other Pertinent Diagnosis ESRD w/ HD, thrombosis, HTN, peripheral artery dz s/p L BKA Current Diet Renal Labs/Tests BUN 46 Cr 13.3 no Phos record Pertinent Medications Renvela Height 6 ft 1 in Weight 97.1 kg [place] Body Weight (kg) 83.63 BMI 28.2 Weight change and time frame Noted dialysis Weight Status Overweight Subjective/Other Information F/u intakes. Pt reported dialysis treatment ongoing for years. Unaware of fluid restriction and provided education. Pt had no other questions about nutritional needs. Reported good intakes. Percent of energy/protein needs met: 100%/66% Burn Absent Trauma Absent GI Symptoms None Current % PO Good (75-100%) Minimum of two criteria No Fluid Accumulation Mild (non-severe) #1 Nutrition Diagnosis Increased nutrient needs ( specify in comment below) Comments: protein Etiology wound healing and dialysis As Evidenced by Signs and Symptoms pt on dialysis, had L BKA operation yesterday, and diet order provides 66% of protein needs Is patient on ventilator? No Is Patient Ambulatory and/or Out of Bed Yes REE-([place]-. Fredor-ambulatory/OOB) [ [id number] [id number]] Calculation Used for Recommendations [facility] Additional Notes Protein: at least 117 g (>1.2 g/kg with 50% HBV) Fluid: 1 Liter per MD fluid restriction Nutrition Intervention Change Diet Order: Continue Renal diet Add Supplement/Snack (indicate name/kcal ONS to Ensure High Protein for /protein ) less calories and to meet protein needs (no chocolate flavor) Provides kCal: 480 Provides Protein (gm) 48 Teaching Recipient Patient Learning Readiness Fair Teaching Methods Discussion,Handout Response to Teaching Verbalize understanding, Reinforcement needed Education Handouts Provided Fluid restrition therapy Renal MyPlate Barriers to Learning No Barriers RD phone number provided Yes Patient aware of follow up options Yes Goal #1 Meet at least 75% of energy and protein needs Goal #2 ONS tolerance Goal #3 Assist with wound healing Goal #4 Reinforcement of protein education and ONS. Anticipated Discharge Needs: Renal diet and protein oral supplements as needed (no chocolate flavor) Follow-Up By: 08/06/20 Additional Comments F/u intakes, ONS acceptance, and diet education about protein and dialysis.
[2020-08-03] MEDS: APIXABAN 5 MG TAB PO SCH ×2 (09:47→21:47)
[2020-08-03] MEDS: PREGABALIN 25 MG CAP PO SCH (09:47)
[2020-08-03] MEDS: AMIODARONE 200 MG TAB PO SCH ×2 (09:47→21:47)
[2020-08-03] MEDS: METOPROLOL TARTRATE 50 MG TAB PO SCH ×2 (09:47→22:32)
[2020-08-03] MEDS: ASPIRIN EC 81 MG TAB PO SCH (09:47)
--- NOTE | 2020-08-03 09:59 | Progress Note ---
Assessment and Plan Patient is doing well following amputation of his left lower leg although also noted to have right chest wall well loculated fluid collection. Case management efforts noted. Patient would do well with acute rehab. We will plan on CT-nunu ded placement of chest tube on Wednesday Subjective Date of service: 08/03/20 Principal diagnosis: ESRD on HD Interval history: Patient doing well resting comfortably in bed. No complaints of any pain or respiratory distress. Patient does not remember any upper respiratory tract or pulmonary infections recently. Objective - Constitutional Vitals: Vital Signs - 12hr 08/02/20 08/03/20 08/03/20 23:06 00:00 03:50 Temperature 98.2 F 98.2 F Pulse Rate 117 H 85 86 Respiratory 20 20 Rate Blood Pressure 108/62 109/64 O2 Sat by Pulse 99 100 Oximetry 08/03/20 07:30 Temperature 97.7 F Pulse Rate 53 L Respiratory 18 Rate Blood Pressure 102/61 O2 Sat by Pulse 95 Oximetry General appearance: Present: no acute distress - EENT Eyes: EOM intact ENT: hearing intact - Neck Neck: supple, normal ROM - Respiratory Respiratory effort: normal Extremities: abnormal - Gastrointestinal Rectal Exam: deferred - Genitourinary Male genitourinary: deferred - Psychiatric Psychiatric: appropriate mood/affect, cooperative - Labs CBC & Chem 7: 08/03/20 06:47 08/03/20 06:47 Labs: Abnormal lab results 08/02/20 08/02/20 08/02/20 Range/Units 16:55 17:36 20:56 MCV (84-94) fl MCHC (32-34) % RDW (13.2-15.2) % Lymph % (Auto) (13.4-35.0) % Williams % (Auto) (0.0-7.3) % Lymph # (Auto) (1.2-5.4) K/mm3 Williams # (Auto) (0.0-0.8) K/mm3 Seg Neutrophils % (40.0-70.0) % Chloride (98-107) mmol/L Carbon Dioxide (22-30) mmol/L BUN (9-20) mg/dL Creatinine (0.8-1.3) mg/dL POC Glucose 57 L 58 L 121 H (70-105) mg/dL 08/03/20 08/03/20 Range/Units 06:47 06:47 MCV 104 H (84-94) fl MCHC 31 L (32-34) % RDW 19.0 H (13.2-15.2) % Lymph % (Auto) 9.4 L (13.4-35.0) % Williams % (Auto) 10.9 H (0.0-7.3) % Lymph # (Auto) 0.8 L (1.2-5.4) K/mm3 Williams # (Auto) 0.9 H (0.0-0.8) K/mm3 Seg Neutrophils % 77.9 H (40.0-70.0) % Chloride 97.0 L (98-107) mmol/L Carbon Dioxide 31 H (22-30) mmol/L BUN 31 H (9-20) mg/dL Creatinine 9.1 H (0.8-1.3) mg/dL POC Glucose (70-105) mg/dL Medications & Allergies - Medications Allergies/Adverse Reactions: Allergies amoxicillin Allergy (Severe, Verified 07/30/20 10:27) Unknown PT STATES LIPS SWELLED CONTRAST DYE Adverse Reaction (Severe, Uncoded 07/30/20 10:27) Swelling PT STATES GROIN AREA HAD SWELLING ALSO STATES HE SWELLING OTHER AREAS OF BODY Home Medications: Home Medications Medication Instructions Recorded Confirmed Last Taken Type Metoprolol [Lopressor] 25 mg PO QDAY 07/24/20 07/24/20 07/17/20 History Sevelamer Carbonate [Renvela] 800 mg PO TIDAC 07/24/20 07/24/20 07/19/20 History Sucroferric Oxyhydroxide(Nf) 500 mg PO TIDAC 07/24/20 07/24/20 07/19/20 History [Velphoro (Nf)] Warfarin [Coumadin] 6 mg PO QDAY 07/24/20 07/24/20 07/19/20 History Active Medications: Generic Name Dose Route Start Last Admin Trade Name Freq PRN Reason Stop Dose Admin Acetaminophen 650 mg 07/22/20 14:09 07/27/20 22:12 Acetaminophen 325 Mg Tab PO 650 mg Q6H PRN Administration Pain, Mild (1-3) Hydrocodone Bitart/Acetaminophen 2 each 07/22/20 14:09 08/03/20 07:38 Hydrocodone/Acetaminophen 5-325 Mg Tab PO 2 each Q6H PRN Administration Pain, Moderate (4-6) Albuterol 2.5 mg 07/26/20 08:34 Albuterol 2.5 Mg/3 Ml Nebu IH Q4HRT PRN Shortness Of Breath Amiodarone HCl 200 mg 08/02/20 14:30 08/03/20 09:47 Amiodarone 200 Mg Tab PO 200 mg BID AALIYAH Administration Apixaban 5 mg 07/30/20 22:00 08/03/20 09:47 Apixaban 5 Mg Tab PO 5 mg Q12HR AALIYAH Administration Protocol Aspirin 81 mg 07/22/20 15:00 08/03/20 09:47 Aspirin Ec 81 Mg Tab PO 81 mg QDAY AALIYAH Administration Hydromorphone HCl 1 mg 07/30/20 13:00 08/02/20 18:39 Hydromorphone 1 Mg/1 Ml Inj IV 1 mg Q4H PRN Administration Pain , Severe (7-10) Metoprolol Tartrate 50 mg 07/29/20 10:00 08/03/20 09:47 Metoprolol Tartrate 50 Mg Tab PO 50 mg BID AALIYAH Administration Midodrine 10 mg 07/25/20 16:00 08/03/20 07:32 Midodrine 5 Mg Tab PO 10 mg TID@0800,1200,1600 AALIYAH Administration Ondansetron HCl 4 mg 07/22/20 14:09 Ondansetron 4 Mg/2 Ml Inj IV Q8H PRN Nausea And Vomiting Pregabalin 50 mg 08/01/20 10:00 08/03/20 09:47 Pregabalin 25 Mg Cap PO 50 mg QDAY AALIYAH Administration Sevelamer Carbonate 800 mg 07/23/20 18:30 08/03/20 07:32 Sevelamer Carbonate 800 Mg Tab PO 800 mg AC AALIYAH Administration Sodium Chloride 10 ml 07/22/20 13:00 08/03/20 09:49 Sodium Chloride 0.9% 10 Ml Flush Syringe IV 10 ml BID AALIYAH Administration Sodium Chloride 10 ml 07/22/20 13:00 07/31/20 06:49 Sodium Chloride 0.9% 10 Ml Flush Syringe IV 10 ml PRN PRN Administration LINE FLUSH
--- NOTE | 2020-08-03 10:08 | Progress Note ---
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 Awake and alert. Objective - Vital Signs Vital signs: Vital Signs - 12hr 08/02/20 08/03/20 08/03/20 23:06 00:00 03:50 Temperature 98.2 F 98.2 F Pulse Rate 117 H 85 86 Respiratory 20 20 Rate Blood Pressure 108/62 109/64 O2 Sat by Pulse 99 100 Oximetry 08/03/20 07:30 Temperature 97.7 F Pulse Rate 53 L Respiratory 18 Rate Blood Pressure 102/61 O2 Sat by Pulse 95 Oximetry - General Appearance General appearance: well-developed, appears stated age, fatigue EENT: ATNC, PERRL, hearing intact, vision intact Neck: no JVD, supple Respiratory: Present: Decreased Breath Sounds Cardiology: S1S2 Gastrointestinal: normoactive bowel sounds Integumentary: warm and dry Neurologic: alert and oriented x3 Musculoskeletal: other (Left BKA) - Lab 08/03/20 06:47 08/03/20 06:47 Most recent lab results Calcium 9.4 mg/dL (8.4-10.2) 08/03/20 06:47 Medications & Allergies - Medications Allergies/Adverse Reactions: Allergies amoxicillin Allergy (Severe, Verified 07/30/20 10:27) Unknown PT STATES LIPS SWELLED CONTRAST DYE Adverse Reaction (Severe, Uncoded 07/30/20 10:27) Swelling PT STATES GROIN AREA HAD SWELLING ALSO STATES HE SWELLING OTHER AREAS OF BODY Home Medications: Home Medications Medication Instructions Recorded Confirmed Last Taken Type Metoprolol [Lopressor] 25 mg PO QDAY 07/24/20 07/24/20 07/17/20 History Sevelamer Carbonate [Renvela] 800 mg PO TIDAC 07/24/20 07/24/20 07/19/20 History Sucroferric Oxyhydroxide(Nf) 500 mg PO TIDAC 07/24/20 07/24/20 07/19/20 History [Velphoro (Nf)] Warfarin [Coumadin] 6 mg PO QDAY 07/24/20 07/24/20 07/19/20 History Active Medications: Generic Name Dose Route Start Last Admin Trade Name Freq PRN Reason Stop Dose Admin Acetaminophen 650 mg 07/22/20 14:09 07/27/20 22:12 Acetaminophen 325 Mg Tab PO 650 mg Q6H PRN Administration Pain, Mild (1-3) Hydrocodone Bitart/Acetaminophen 2 each 07/22/20 14:09 08/03/20 07:38 Hydrocodone/Acetaminophen 5-325 Mg Tab PO 2 each Q6H PRN Administration Pain, Moderate (4-6) Albuterol 2.5 mg 07/26/20 08:34 Albuterol 2.5 Mg/3 Ml Nebu IH Q4HRT PRN Shortness Of Breath Amiodarone HCl 200 mg 08/02/20 14:30 08/03/20 09:47 Amiodarone 200 Mg Tab PO 200 mg BID AALIYAH Administration Apixaban 5 mg 07/30/20 22:00 08/03/20 09:47 Apixaban 5 Mg Tab PO 5 mg Q12HR AALIYAH Administration Protocol Aspirin 81 mg 07/22/20 15:00 08/03/20 09:47 Aspirin Ec 81 Mg Tab PO 81 mg QDAY AALIYAH Administration Hydromorphone HCl 1 mg 07/30/20 13:00 08/02/20 18:39 Hydromorphone 1 Mg/1 Ml Inj IV 1 mg Q4H PRN Administration Pain , Severe (7-10) Metoprolol Tartrate 50 mg 07/29/20 10:00 08/03/20 09:47 Metoprolol Tartrate 50 Mg Tab PO 50 mg BID AALIYAH Administration Midodrine 10 mg 07/25/20 16:00 08/03/20 07:32 Midodrine 5 Mg Tab PO 10 mg TID@0800,1200,1600 AALIYAH Administration Ondansetron HCl 4 mg 07/22/20 14:09 Ondansetron 4 Mg/2 Ml Inj IV Q8H PRN Nausea And Vomiting Pregabalin 50 mg 08/01/20 10:00 08/03/20 09:47 Pregabalin 25 Mg Cap PO 50 mg QDAY AALIYAH Administration Sevelamer Carbonate 800 mg 07/23/20 18:30 08/03/20 07:32 Sevelamer Carbonate 800 Mg Tab PO 800 mg AC AALIYAH Administration Sodium Chloride 10 ml 07/22/20 13:00 08/03/20 09:49 Sodium Chloride 0.9% 10 Ml Flush Syringe IV 10 ml BID AALIYAH Administration Sodium Chloride 10 ml 07/22/20 13:00 07/31/20 06:49 Sodium Chloride 0.9% 10 Ml Flush Syringe IV 10 ml PRN PRN Administration LINE FLUSH
[2020-08-03] MEDS: HYDROmorphone 1 MG/1 ML INJ IV PRN (17:30)
--- NOTE | 2020-08-03 17:59 | Progress Note ---
Assessment and Plan Atrial flutter Now treated with amiodarone and rate controlled Prior h/o long RP tachycardia - likely PAT Anticoagulated with eliquis PAD, left popliteal artery thrombosis complicated by left lower limb ischemia status post left BKA this admission now on Eliquis for anticoagulation Hypotension on midodrine End-stage renal disease Recommend: Continue current therapy from cardiac perspective Subjective Date of service: 08/03/20 Principal diagnosis: ESRD on HD Interval history: No acute events Objective Vital Signs Temp Pulse Pulse Resp BP Pulse Ox 08/03/20 15:28 98.5 F 69 18 91/52 99 08/03/20 10:55 98.5 F 82 18 99/64 98 08/03/20 10:00 76 76 08/03/20 07:30 97.7 F 53 L 18 102/61 95 08/03/20 03:50 98.2 F 86 20 109/64 100 08/03/20 00:00 85 08/02/20 23:06 98.2 F 117 H 20 108/62 99 08/02/20 19:42 98.3 F 121 H 20 105/65 97 - Physical Examination HEENT: Positive: PERRL Neck: Positive: trachea midline Cardiac: Positive: Regular Rhythm Lungs: Positive: clear to auscultation Neuro: Positive: Grossly Intact, Other (s/p left BKA) Abdomen: Positive: Soft, Active Bowel Sounds - Labs and Meds CBC 08/03/20 Range/Units 06:47 WBC 8.4 (4.5-11.0) K/mm3 RBC 3.91 (3.65-5.03) M/mm3 Hgb 12.6 (11.8-15.2) gm/dl Hct 40.6 (35.5-45.6) % Plt Count 178 (140-440) K/mm3 Lymph # (Auto) 0.8 L (1.2-5.4) K/mm3 [place] # (Auto) 0.9 H (0.0-0.8) K/mm3 Eos # (Auto) 0.1 (0.0-0.4) K/mm3 Baso # (Auto) 0.1 (0.0-0.1) K/mm3 Comprehensive Metabolic Panel 08/03/20 Range/Units 06:47 Sodium 139 (137-145) mmol/L Potassium 4.6 (3.6-5.0) mmol/L Chloride 97.0 L (98-107) mmol/L Carbon Dioxide 31 H (22-30) mmol/L BUN 31 H (9-20) mg/dL Creatinine 9.1 H (0.8-1.3) mg/dL Glucose 87 (75-100) mg/dL Calcium 9.4 (8.4-10.2) mg/dL
--- NOTE | 2020-08-03 19:46 | Progress Note ---
Assessment and Plan Imp: 1. Loculated pleural effusion 2. PAD s/p BKA 3. Atrial flutter 4. ESRD 5. Hypotension Rec: 1. Await chest tube placement and pleural fluid sampling by IR, to be done 08/05/2020 Plan of care reviewed w/ patient, he understands/agrees Subjective Date of service: 08/03/20 Principal diagnosis: ESRD on HD Interval history: No events. No complaints. Active Medications Acetaminophen (Acetaminophen 325 Mg Tab) 650 mg PO Q6H PRN PRN Reason: Pain, Mild (1-3) Last Admin: 07/27/20 22:12 Dose: 650 mg Documented by: Hydrocodone Bitart/Acetaminophen (Hydrocodone/Acetaminophen 5-325 Mg Tab) 2 each PO Q6H PRN PRN Reason: Pain, Moderate (4-6) Last Admin: 08/03/20 15:09 Dose: 2 each Documented by: Albuterol (Albuterol 2.5 Mg/3 Ml Nebu) 2.5 mg IH Q4HRT PRN PRN Reason: Shortness Of Breath Amiodarone HCl (Amiodarone 200 Mg Tab) 200 mg PO BID [facility] Last Admin: 08/03/20 09:47 Dose: 200 mg Documented by: Apixaban (Apixaban 5 Mg Tab) 5 mg PO Q12HR [facility]; Protocol Last Admin: 08/03/20 09:47 Dose: 5 mg Documented by: Aspirin (Aspirin Ec 81 Mg Tab) 81 mg PO QDAY [facility] Last Admin: 08/03/20 09:47 Dose: 81 mg Documented by: Hydromorphone HCl (Hydromorphone 1 Mg/1 Ml Inj) 1 mg IV Q4H PRN PRN Reason: Pain , Severe (7-10) Last Admin: 08/03/20 17:30 Dose: 1 mg Documented by: Metoprolol Tartrate (Metoprolol Tartrate 50 Mg Tab) 50 mg PO BID [facility] Last Admin: 08/03/20 09:47 Dose: 50 mg Documented by: Midodrine (Midodrine 5 Mg Tab) 10 mg PO TID@0800,1200,1600 [facility] Last Admin: 08/03/20 15:09 Dose: 10 mg Documented by: Ondansetron HCl (Ondansetron 4 Mg/2 Ml Inj) 4 mg IV Q8H PRN PRN Reason: Nausea And Vomiting Pregabalin (Pregabalin 25 Mg Cap) 50 mg PO QDAY [facility] Last Admin: 08/03/20 09:47 Dose: 50 mg Documented by: Sevelamer Carbonate (Sevelamer Carbonate 800 Mg Tab) 800 mg PO AC [facility] Last Admin: 08/03/20 17:27 Dose: 800 mg Documented by: Sodium Chloride (Sodium Chloride 0.9% 10 Ml Flush Syringe) 10 ml IV BID [facility] Last Admin: 08/03/20 09:49 Dose: 10 ml Documented by: Sodium Chloride (Sodium Chloride 0.9% 10 Ml Flush Syringe) 10 ml IV PRN PRN PRN Reason: LINE FLUSH Last Admin: 07/31/20 06:49 Dose: 10 ml Documented by: Objective Vital Signs - 12hr 08/03/20 08/03/20 08/03/20 10:00 10:55 15:28 Temperature 98.5 F 98.5 F Pulse Rate 76 82 69 Pulse Rate [ 76 Apical] Respiratory 18 18 Rate Blood Pressure 99/64 91/52 O2 Sat by Pulse 98 99 Oximetry 08/03/20 19:19 Temperature 98.0 F Pulse Rate 67 Pulse Rate [ Apical] Respiratory 20 Rate Blood Pressure 98/57 O2 Sat by Pulse 100 Oximetry Constitutional: no acute distress, alert Eyes: non-icteric ENT: oropharynx moist Neck: supple Effort: normal Ascultation: Bilateral: clear Cardiovascular: regular rate and rhythm (no mrg) Gastrointestinal: normoactive bowel sounds, soft Integumentary: normal Neurologic: normal mental status, non-focal exam, pupils equal and round Psychiatric: mood appropriate, affect normal CBC and BMP: 08/03/20 06:47 08/03/20 06:47 ABG, PT/INR, D-dimer: PT/INR, D-dimer PT 21.0 Sec. (12.2-14.9) H 07/23/20 23:01 INR 1.80 (0.87-1.13) H 07/23/20 23:01 Abnormal lab findings: Abnormal Labs 07/22/20 07/22/20 07/22/20 12:22 12:22 12:22 WBC RBC 3.22 L Hgb 11.2 L Hct 32.6 L MCV 101 H MCH 35 H MCHC RDW 19.3 H Lymph % (Auto) [facility] % (Auto) Lymph # (Auto) [facility] # (Auto) Seg Neutrophils % Seg Neuts % (Manual) 99.0 H Lymphocytes % (Manual) 1.0 L Seg Neutrophils # Seg Neutrophils # Man 10.3 H Lymphocytes # (Manual) 0.1 L PT 17.9 H INR 1.48 H APTT 69.7 H* Fibrinogen 1029 H Heparin Anti-Xa Level Potassium 6.0 H Chloride 90.4 L Carbon Dioxide BUN 82 H Creatinine 16.8 H Glucose 109 H POC Glucose Calcium Lactate Dehydrogenase C-Reactive Protein Total Protein Albumin 3.4 L 07/22/20 07/22/20 07/22/20 18:00 18:00 18:00 WBC 12.2 H RBC 3.49 L Hgb 11.5 L Hct MCV 104 H MCH 33 H MCHC RDW 19.2 H Lymph % (Auto) [facility] % (Auto) Lymph # (Auto) [facility] # (Auto) Seg Neutrophils % Seg Neuts % (Manual) 97.0 H Lymphocytes % (Manual) 2.0 L Seg Neutrophils # Seg Neutrophils # Man 11.8 H Lymphocytes # (Manual) 0.2 L PT INR APTT Fibrinogen 814 H Heparin Anti-Xa Level < 0.10 L Potassium 6.3 H* Chloride 91.0 L Carbon Dioxide BUN 87 H Creatinine 17.1 H Glucose 117 H POC Glucose Calcium Lactate Dehydrogenase C-Reactive Protein Total Protein Albumin 07/22/20 07/23/20 07/23/20 21:01 02:41 02:41 WBC 14.7 H RBC 3.43 L Hgb 11.4 L Hct 35.0 L MCV 102 H MCH 33 H MCHC RDW 18.4 H Lymph % (Auto) 3.0 L [facility] % (Auto) Lymph # (Auto) 0.4 L [facility] # (Auto) Seg Neutrophils % 91.5 H Seg Neuts % (Manual) Lymphocytes % (Manual) Seg Neutrophils # 13.4 H Seg Neutrophils # Man Lymphocytes # (Manual) PT INR APTT Fibrinogen Heparin Anti-Xa Level Potassium 6.6 H* Chloride 89.9 L Carbon Dioxide BUN 92 H Creatinine 18.8 H Glucose 101 H POC Glucose 107 H Calcium 10.6 H Lactate Dehydrogenase C-Reactive Protein Total Protein Albumin 3.5 L 07/23/20 07/23/20 07/23/20 02:41 09:46 09:46 WBC 17.2 H RBC 3.47 L Hgb 11.4 L Hct 35.3 L MCV 102 H MCH 33 H MCHC RDW 18.8 H Lymph % (Auto) [facility] % (Auto) Lymph # (Auto) [facility] # (Auto) Seg Neutrophils % Seg Neuts % (Manual) 94.0 H Lymphocytes % (Manual) 1.0 L Seg Neutrophils # Seg Neutrophils # Man 16.2 H Lymphocytes # (Manual) 0.2 L PT INR APTT Fibrinogen 688 H 494 H Heparin Anti-Xa Level 0.10 L < 0.10 L Potassium Chloride Carbon Dioxide BUN Creatinine Glucose POC Glucose Calcium Lactate Dehydrogenase C-Reactive Protein Total Protein Albumin 07/23/20 07/23/20 07/23/20 23:01 23:01 23:01 WBC RBC Hgb 11.7 L Hct MCV MCH MCHC RDW Lymph % (Auto) [facility] % (Auto) Lymph # (Auto) [facility] # (Auto) Seg Neutrophils % Seg Neuts % (Manual) Lymphocytes % (Manual) Seg Neutrophils # Seg Neutrophils # Man Lymphocytes # (Manual) PT 21.0 H INR 1.80 H APTT 39.4 H Fibrinogen Heparin Anti-Xa Level < 0.10 L Potassium 6.0 H Chloride 92.5 L Carbon Dioxide BUN 69 H Creatinine 14.7 H Glucose 104 H POC Glucose Calcium 10.3 H Lactate Dehydrogenase C-Reactive Protein Total Protein Albumin 07/24/20 07/24/20 07/25/20 05:33 13:55 04:22 WBC RBC Hgb Hct MCV MCH MCHC RDW Lymph % (Auto) [facility] % (Auto) Lymph # (Auto) [facility] # (Auto) Seg Neutrophils % Seg Neuts % (Manual) Lymphocytes % (Manual) Seg Neutrophils # Seg Neutrophils # Man Lymphocytes # (Manual) PT INR APTT Fibrinogen Heparin Anti-Xa Level Potassium 7.0 H* 6.0 H Chloride 96.3 L 93.5 L Carbon Dioxide BUN 71 H 77 H 54 H Creatinine 14.7 H 15.5 H 12.3 H Glucose 105 H POC Glucose Calcium Lactate Dehydrogenase C-Reactive Protein Total Protein Albumin 07/25/20 07/25/20 07/25/20 04:22 04:24 18:13 WBC RBC 3.48 L Hgb 11.4 L Hct MCV 102 H MCH 33 H MCHC RDW 18.4 H Lymph % (Auto) 9.4 L [facility] % (Auto) 10.4 H Lymph # (Auto) 0.7 L [facility] # (Auto) Seg Neutrophils % 78.8 H Seg Neuts % (Manual) Lymphocytes % (Manual) Seg Neutrophils # Seg Neutrophils # Man Lymphocytes # (Manual) PT INR APTT Fibrinogen Heparin Anti-Xa Level 0.10 L 0.16 L Potassium Chloride Carbon Dioxide BUN Creatinine Glucose POC Glucose Calcium Lactate Dehydrogenase C-Reactive Protein Total Protein Albumin 07/26/20 07/26/20 07/26/20 02:22 02:22 02:22 WBC RBC 3.35 L Hgb 11.1 L Hct 34.7 L MCV 104 H MCH 33 H MCHC RDW 18.9 H Lymph % (Auto) 9.2 L [facility] % (Auto) Lymph # (Auto) 0.9 L [facility] # (Auto) Seg Neutrophils % 81.8 H Seg Neuts % (Manual) Lymphocytes % (Manual) Seg Neutrophils # 8.3 H Seg Neutrophils # Man Lymphocytes # (Manual) PT INR APTT Fibrinogen Heparin Anti-Xa Level 0.28 L Potassium Chloride 95.2 L Carbon Dioxide BUN 66 H Creatinine 14.7 H Glucose 108 H POC Glucose Calcium Lactate Dehydrogenase C-Reactive Protein Total Protein Albumin 07/26/20 07/26/20 07/27/20 10:16 17:25 02:15 WBC 13.0 H RBC 3.29 L Hgb 10.8 L Hct 34.3 L MCV 104 H MCH 33 H MCHC RDW 19.5 H Lymph % (Auto) 6.1 L [facility] % (Auto) 7.8 H Lymph # (Auto) 0.8 L [facility] # (Auto) 1.0 H Seg Neutrophils % 84.3 H Seg Neuts % (Manual) Lymphocytes % (Manual) Seg Neutrophils # 10.9 H Seg Neutrophils # Man Lymphocytes # (Manual) PT INR APTT Fibrinogen Heparin Anti-Xa Level < 0.10 L Potassium Chloride Carbon Dioxide BUN Creatinine Glucose POC Glucose 64 L Calcium Lactate Dehydrogenase C-Reactive Protein Total Protein Albumin 07/27/20 07/28/20 07/28/20 02:15 07:53 07:53 WBC 15.3 H RBC 3.19 L Hgb 10.5 L Hct 33.2 L MCV 104 H MCH 33 H MCHC RDW 19.1 H Lymph % (Auto) 7.5 L [facility] % (Auto) 8.7 H Lymph # (Auto) 1.1 L [facility] # (Auto) 1.3 H Seg Neutrophils % 82.0 H Seg Neuts % (Manual) Lymphocytes % (Manual) Seg Neutrophils # 12.6 H Seg Neutrophils # Man Lymphocytes # (Manual) PT INR APTT Fibrinogen Heparin Anti-Xa Level Potassium 5.2 H D Chloride Carbon Dioxide BUN 43 H 57 H Creatinine 10.7 H 14.3 H Glucose 68 L 59 L POC Glucose Calcium 10.3 H Lactate Dehydrogenase C-Reactive Protein Total Protein Albumin 07/29/20 07/29/20 07/29/20 01:28 05:36 05:36 WBC 13.5 H RBC 3.17 L Hgb 10.2 L Hct 32.7 L MCV 103 H MCH MCHC 31 L RDW 19.3 H Lymph % (Auto) 7.4 L [facility] % (Auto) 9.3 H Lymph # (Auto) 1.0 L [facility] # (Auto) 1.3 H Seg Neutrophils % 81.3 H Seg Neuts % (Manual) Lymphocytes % (Manual) Seg Neutrophils # 11.0 H Seg Neutrophils # Man Lymphocytes # (Manual) PT INR APTT Fibrinogen Heparin Anti-Xa Level 0.10 L Potassium 5.1 H Chloride Carbon Dioxide BUN 67 H Creatinine 15.5 H Glucose 74 L POC Glucose Calcium Lactate Dehydrogenase C-Reactive Protein Total Protein Albumin 07/29/20 07/30/20 07/30/20 09:45 07:18 07:18 WBC RBC 3.19 L Hgb 10.5 L Hct 33.1 L MCV 104 H MCH 33 H MCHC RDW 19.5 H Lymph % (Auto) 7.5 L [facility] % (Auto) 10.5 H Lymph # (Auto) 0.8 L [facility] # (Auto) 1.1 H Seg Neutrophils % 80.0 H Seg Neuts % (Manual) Lymphocytes % (Manual) Seg Neutrophils # 8.4 H Seg Neutrophils # Man Lymphocytes # (Manual) PT INR APTT Fibrinogen Heparin Anti-Xa Level 0.29 L Potassium Chloride Carbon Dioxide BUN 37 H Creatinine 11.3 H Glucose POC Glucose Calcium 10.4 H Lactate Dehydrogenase C-Reactive Protein Total Protein Albumin 07/30/20 07/31/20 07/31/20 21:37 04:54 04:54 WBC RBC 3.04 L Hgb 10.3 L Hct 31.7 L MCV 104 H MCH 34 H MCHC RDW 19.8 H Lymph % (Auto) 7.7 L [facility] % (Auto) 7.8 H Lymph # (Auto) 0.7 L [facility] # (Auto) Seg Neutrophils % 83.2 H Seg Neuts % (Manual) Lymphocytes % (Manual) Seg Neutrophils # Seg Neutrophils # Man Lymphocytes # (Manual) PT INR APTT Fibrinogen Heparin Anti-Xa Level Potassium Chloride Carbon Dioxide BUN 46 H Creatinine 13.3 H Glucose 104 H POC Glucose 120 H Calcium Lactate Dehydrogenase C-Reactive Protein Total Protein Albumin 08/01/20 08/01/20 08/01/20 05:05 07:34 14:16 WBC RBC Hgb Hct MCV MCH MCHC RDW Lymph % (Auto) [facility] % (Auto) Lymph # (Auto) [facility] # (Auto) Seg Neutrophils % Seg Neuts % (Manual) Lymphocytes % (Manual) Seg Neutrophils # Seg Neutrophils # Man Lymphocytes # (Manual) PT INR APTT Fibrinogen Heparin Anti-Xa Level Potassium Chloride Carbon Dioxide BUN 35 H Creatinine 9.8 H Glucose POC Glucose 69 L Calcium Lactate Dehydrogenase C-Reactive Protein 7.20 H Total Protein Albumin 08/01/20 08/01/20 08/02/20 15:56 16:10 05:22 WBC RBC 3.43 L Hgb 11.0 L Hct 35.4 L MCV 103 H MCH MCHC 31 L RDW 19.3 H Lymph % (Auto) 10.0 L [facility] % (Auto) 11.5 H Lymph # (Auto) 1.1 L [facility] # (Auto) 1.2 H Seg Neutrophils % 77.3 H Seg Neuts % (Manual) Lymphocytes % (Manual) Seg Neutrophils # 8.2 H Seg Neutrophils # Man Lymphocytes # (Manual) PT INR APTT Fibrinogen Heparin Anti-Xa Level Potassium Chloride Carbon Dioxide BUN Creatinine Glucose POC Glucose 110 H Calcium Lactate Dehydrogenase 226 H C-Reactive Protein Total Protein 6.0 L Albumin 3.2 L 08/02/20 08/02/20 08/02/20 05:22 16:55 17:36 WBC RBC Hgb Hct MCV MCH MCHC RDW Lymph % (Auto) [facility] % (Auto) Lymph # (Auto) [facility] # (Auto) Seg Neutrophils % Seg Neuts % (Manual) Lymphocytes % (Manual) Seg Neutrophils # Seg Neutrophils # Man Lymphocytes # (Manual) PT INR APTT Fibrinogen Heparin Anti-Xa Level Potassium Chloride Carbon Dioxide 31 H BUN 46 H Creatinine 12.4 H Glucose POC Glucose 57 L 58 L Calcium Lactate Dehydrogenase C-Reactive Protein Total Protein Albumin 08/02/20 08/03/20 08/03/20 20:56 06:47 06:47 WBC RBC Hgb Hct MCV 104 H MCH MCHC 31 L RDW 19.0 H Lymph % (Auto) 9.4 L [facility] % (Auto) 10.9 H Lymph # (Auto) 0.8 L [facility] # (Auto) 0.9 H Seg Neutrophils % 77.9 H Seg Neuts % (Manual) Lymphocytes % (Manual) Seg Neutrophils # Seg Neutrophils # Man Lymphocytes # (Manual) PT INR APTT Fibrinogen Heparin Anti-Xa Level Potassium Chloride 97.0 L Carbon Dioxide 31 H BUN 31 H Creatinine 9.1 H Glucose POC Glucose 121 H Calcium Lactate Dehydrogenase C-Reactive Protein Total Protein Albumin Chest x-ray: report reviewed, image reviewed CT scan - chest: report reviewed, image reviewed
[2020-08-04] MEDS: HYDROcodone/ACETAMINOPHEN 5-325 MG TAB PO PRN ×2 (06:00→22:09)
[2020-08-04] MEDS: MIDODRINE 5 MG TAB PO SCH ×3 (08:12→17:27)
[2020-08-04] MEDS: SEVELAMER CARBONATE 800 MG TAB PO SCH ×3 (08:12→17:27)
[2020-08-04 08:52] LABS: Basophils # (Auto) 0.1 K/mm3 (0.0-0.1); Eosinophils # (Auto) 0.1 K/mm3 (0.0-0.4); Eosinophils % (Auto) 1.3 % (0.0-4.3); Hematocrit 31.1 % (35.5-45.6); Hemoglobin 10.2 gm/dl (11.8-15.2); Lymphocytes % (Auto) 10.2 % (13.4-35.0); Mean Corpuscular HGB Conc 33 % (32-34); Mean Corpuscular Volume 105 fl (84-94); Monocytes % (Auto) 9.8 % (0.0-7.3); Platelet Count 214 K/mm3 (140-440); Red Blood Count 2.98 M/mm3 (3.65-5.03); Red Cell Distribution Width 19.2 % (13.2-15.2)
[2020-08-04 09:21] LABS: Calcium 9.6 mg/dL (8.4-10.2)
--- NOTE | 2020-08-04 10:20 | Progress Note ---
Assessment and Plan Assessment and plan: 54 years old male with history of ESRD on hemodialysis, hypertension, tobacco abuse, PAD status post previous revascularization, admitted on 07/22/2020 secondary to worsening left leg pain for 3 days. Pain is 10 out of 10. Patient is unable to walk. Patient was seen at Dr. Hurt's office, vascular surgeon, and was found to have a left popliteal artery thrombosis complicated by a left lower limb ischemia was sent to the ED. Patient had revascularization May 2020 due to mild ischemic toes and since then discoloration of the toes has worsened. On arrival, initial temperature 97.3, HR 107, RR 16, O2 100, BP 163/92. Initial WBC 8. Hemoglobin 11.7. Procalcitonin 4.2. Patient underwent angiopl asty on 07/22/2020. By 07/27/2020 patient spiked a fever 101. Blood cultures 07/28/2020 no growth. Patient is planned to have a left BKA for nonsalvageable left leg per vascular -- Acute limb ischemia with thrombosis of left popliteal artery s/p angiogram and angioplasty for left popliteal artery occlusion Vascular surgery following. -- End stage renal disease Nephrology team on board --Chronic hypotension --Right loculated pleural effusion CT scan reveals right thick-walled loculated pleural effusion --Atrial flutter/fibrillation --left lower extremity DVT --DVT prophylaxis SCDs bilateral lower extremities while in bed, continue therapeutic anticoagulation 07/30. ID started Vanc and levaquin. Left BKA completed per Surgery 07/31. Continue IV antibiotics per ID recommendations. Patient is s/p left BKA yesterday (07/30). Physical therapy evaluation pending. Continue hemodialysis per nephrology recommendations. 08/01. Patient with what appears to be a right loculated pleural effusion. Check CT of chest. ID to monitor off antibiotics s/p amputation physical therapy recommends acute rehab. Continue hemodialysis per nephrology recommendations. 08/02. CT scan reveals thick-walled right loculated pleural effusion. IR to place CT-guided catheter and send specimen for culture/cytology Wednesday. ID to monitor off antibiotics for now. Follow-up quantiferon TB gold. 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 Patient reports previous history and is followed by [facility]. Consult cardiology for further evaluation. 08/03. IR to place CT-guided catheter and send specimen for culture/cytology Wednesday. ID to monitor off antibiotics for now. Follow-up quantiferon TB gold. Await cardiology consultation for atrial flutter/fibrillation. 08/04. Atrial flutter rate controlled with amiodarone. Continue anticoagulation with Eliquis (prior DVT and A. fib). Patient with prior history of PAT. IR to place CT-guided catheter and send specimen for culture/cytology Wednesday. ID to monitor off antibiotics for now. Follow-up quantiferon TB gold. Continue hemodialysis per nephrology. Continue midodrine for hypotension. Physical therapy recommends acute rehab placement. Case management follow-up after chest tube placement tomorrow. History Interval history: no new issues Hospitalist Physical - Constitutional Vitals: Temp Pulse Resp BP Pulse Ox 97.8 F 83 20 114/67 100 08/04/20 05:03 08/04/20 05:03 08/04/20 06:00 08/04/20 05:03 08/04/20 05:03 General appearance: Present: no acute distress - EENT Eyes: Present: PERRL, EOM intact ENT: hearing intact, clear oral mucosa, dentition normal - Neck Neck: Present: supple, normal ROM - Respiratory Respiratory effort: normal Respiratory: bilateral: CTA - Cardiovascular Rhythm: regular Heart Sounds: Present: S1 & S2. Absent: gallop, rub - Extremities Extremities: no ischemia, No edema, Full ROM - Abdominal General gastrointestinal: soft, non-tender, non-distended, normal bowel sounds - Integumentary Integumentary: Present: clear, warm, dry - Neurologic Neurologic: CNII-XII intact, moves all extremities Results - Labs CBC & Chem 7: 08/04/20 07:58 08/04/20 07:58 Labs: Laboratory Last Values WBC 10.0 K/mm3 (4.5-11.0) 08/04/20 07:58 RBC 2.98 M/mm3 (3.65-5.03) L 08/04/20 07:58 Hgb 10.2 gm/dl (11.8-15.2) L 08/04/20 07:58 Hct 31.1 % (35.5-45.6) L D 08/04/20 07:58 MCV 105 fl (84-94) H 08/04/20 07:58 MCH 34 pg (28-32) H 08/04/20 07:58 MCHC 33 % (32-34) 08/04/20 07:58 RDW 19.2 % (13.2-15.2) H 08/04/20 07:58 Plt Count 214 K/mm3 (140-440) 08/04/20 07:58 Lymph % (Auto) 10.2 % (13.4-35.0) L 08/04/20 07:58 [place] % (Auto) 9.8 % (0.0-7.3) H 08/04/20 07:58 Eos % (Auto) 1.3 % (0.0-4.3) 08/04/20 07:58 Baso % (Auto) 1.0 % (0.0-1.8) 08/04/20 07:58 Lymph # (Auto) 1.0 K/mm3 (1.2-5.4) L 08/04/20 07:58 [place] # (Auto) 1.0 K/mm3 (0.0-0.8) H 08/04/20 07:58 Eos # (Auto) 0.1 K/mm3 (0.0-0.4) 08/04/20 07:58 Baso # (Auto) 0.1 K/mm3 (0.0-0.1) 08/04/20 07:58 Add Manual Diff Complete 07/29/20 05:36 Total Counted 100 07/23/20 09:46 Seg Neutrophils % 77.7 % (40.0-70.0) H 08/04/20 07:58 Seg Neuts % (Manual) 94.0 % (40.0-70.0) H 07/23/20 09:46 Band Neutrophils % 1.0 % 07/23/20 09:46 Lymphocytes % (Manual) 1.0 % (13.4-35.0) L 07/23/20 09:46 Reactive Lymphs % (Man) 0 % 07/22/20 18:00 Monocytes % (Manual) 4.0 % (0.0-7.3) 07/23/20 09:46 Eosinophils % (Manual) 0 % (0.0-4.3) 07/22/20 18:00 Basophils % (Manual) 0 % (0.0-1.8) 07/22/20 18:00 Metamyelocytes % 0 % 07/22/20 18:00 Myelocytes % 0 % 07/22/20 18:00 Promyelocytes % 0 % 07/22/20 18:00 Blast Cells % 0 % 07/22/20 18:00 Nucleated RBC % Not Reportable 07/29/20 05:36 Seg Neutrophils # 7.7 K/mm3 (1.8-7.7) 08/04/20 07:58 Seg Neutrophils # Man 16.2 K/mm3 (1.8-7.7) H 07/23/20 09:46 Band Neutrophils # 0.2 K/mm3 07/23/20 09:46 Lymphocytes # (Manual) 0.2 K/mm3 (1.2-5.4) L 07/23/20 09:46 Abs React Lymphs (Man) 0.0 K/mm3 07/23/20 09:46 Monocytes # (Manual) 0.7 K/mm3 (0.0-0.8) 07/23/20 09:46 Eosinophils # (Manual) 0.0 K/mm3 (0.0-0.4) 07/23/20 09:46 Basophils # (Manual) 0.0 K/mm3 (0.0-0.1) 07/23/20 09:46 Metamyelocytes # 0.0 K/mm3 07/23/20 09:46 Myelocytes # 0.0 K/mm3 07/23/20 09:46 Promyelocytes # 0.0 K/mm3 07/23/20 09:46 Blast Cells # 0.0 K/mm3 07/23/20 09:46 WBC Morphology Not Reportable 07/29/20 05:36 Hypersegmented Neuts Not Reportable 07/29/20 05:36 Hyposegmented Neuts Not Reportable 07/29/20 05:36 Hypogranular Neuts Not Reportable 07/29/20 05:36 Smudge Cells Not Reportable 07/29/20 05:36 Toxic Granulation Not Reportable 07/29/20 05:36 Toxic Vacuolation Not Reportable 07/29/20 05:36 Dohle Bodies Not Reportable 07/29/20 05:36 Pelger-Huet Anomaly Not Reportable 07/29/20 05:36 Svetlana Rods Not Reportable 07/29/20 05:36 Platelet Estimate Not Reportable 07/29/20 05:36 Clumped Platelets Not Reportable 07/29/20 05:36 Plt Clumps, EDTA Not Reportable 07/29/20 05:36 Large Platelets Not Reportable 07/29/20 05:36 Giant Platelets Not Reportable 07/29/20 05:36 Platelet Satelliting Not Reportable 07/29/20 05:36 Plt Morphology Comment Not Reportable 07/29/20 05:36 RBC Morphology Not Reportable 07/29/20 05:36 Dimorphic RBCs Not Reportable 07/29/20 05:36 Polychromasia Not Reportable 07/29/20 05:36 Hypochromasia Not Reportable 07/29/20 05:36 Poikilocytosis Not Reportable 07/29/20 05:36 Anisocytosis Not Reportable 07/29/20 05:36 Microcytosis Not Reportable 07/29/20 05:36 Macrocytosis Not Reportable 07/29/20 05:36 Spherocytes Not Reportable 07/29/20 05:36 Pappenheimer Bodies Not Reportable 07/29/20 05:36 Sickle Cells Not Reportable 07/29/20 05:36 Target Cells Not Reportable 07/29/20 05:36 Tear Drop Cells Not Reportable 07/29/20 05:36 Ovalocytes Not Reportable 07/29/20 05:36 Helmet Cells Not Reportable 07/29/20 05:36 [place] Bodies Not Reportable 07/29/20 05:36 [place] Rings Not Reportable 07/29/20 05:36 Alicia Cells Not Reportable 07/29/20 05:36 Bite Cells Not Reportable 07/29/20 05:36 Crenated Cell Not Reportable 07/29/20 05:36 Elliptocytes Not Reportable 07/29/20 05:36 Acanthocytes (Spur) Not Reportable 07/29/20 05:36 Rouleaux Not Reportable 07/29/20 05:36 Hemoglobin C Crystals Not Reportable 07/29/20 05:36 Schistocytes Not Reportable 07/29/20 05:36 Malaria parasites Not Reportable 07/29/20 05:36 Malachi Bodies Not Reportable 07/29/20 05:36 Hem Pathologist Commnt Not Reportable 07/29/20 05:36 PT 21.0 Sec. (12.2-14.9) H 07/23/20 23:01 INR 1.80 (0.87-1.13) H 07/23/20 23:01 APTT 39.4 Sec. (24.2-36.6) H 07/23/20 23:01 Fibrinogen 494 mg/dl (211-480) H 07/23/20 09:46 Heparin Anti-Xa Level 0.29 U.I./ml (0.3-0.7) L 07/29/20 09:45 Sodium 141 mmol/L (137-145) 08/04/20 07:58 Potassium 4.9 mmol/L (3.6-5.0) 08/04/20 07:58 Chloride 98.1 mmol/L (98-107) 08/04/20 07:58 Carbon Dioxide 28 mmol/L (22-30) 08/04/20 07:58 Anion Gap 20 mmol/L 08/04/20 07:58 BUN 49 mg/dL (9-20) H 08/04/20 07:58 Creatinine 11.6 mg/dL (0.8-1.3) H 08/04/20 07:58 Estimated GFR 6 ml/min 08/04/20 07:58 BUN/Creatinine Ratio 4 % 08/04/20 07:58 Glucose 78 mg/dL (75-100) 08/04/20 07:58 POC Glucose 121 mg/dL (70-105) H 08/02/20 20:56 Calcium 9.6 mg/dL (8.4-10.2) 08/04/20 07:58 Total Bilirubin 0.30 mg/dL (0.1-1.2) 08/01/20 16:10 Direct Bilirubin < 0.2 mg/dL (0-0.2) 08/01/20 16:10 Indirect Bilirubin 0.1 mg/dL 08/01/20 16:10 AST 37 units/L (5-40) 08/01/20 16:10 ALT 27 units/L (7-56) 08/01/20 16:10 Alkaline Phosphatase 63 units/L (35-129) 08/01/20 16:10 Lactate Dehydrogenase 226 units/L (91-180) H 08/01/20 16:10 C-Reactive Protein 7.20 mg/dL (0.00-1.30) H 08/01/20 14:16 Total Protein 6.0 g/dL (6.3-8.2) L 08/01/20 16:10 Albumin 3.2 g/dL (3.9-5) L 08/01/20 16:10 Albumin/Globulin Ratio 1.1 % 08/01/20 16:10 Procalcitonin 4.28 ng/mL (<0.15) 07/28/20 07:53 TSH 3.770 mlU/mL (0.270-4.200) 07/26/20 02:22 Free T4 1.01 ng/dL (0.76-1.46) 07/26/20 02:22 Random Vancomycin 13.9 ug/mL (0-40.0) 07/30/20 07:18 Hepatitis A IgM Ab Non-reactive (NonReactive) 07/22/20 18:00 Hep Bs Antigen Non-reactive (Negative) 07/22/20 18:00 Hep B Core IgM Ab Non-reactive (NonReactive) 07/22/20 18:00 Hepatitis C Antibody Non-reactive (NonReactive) 07/22/20 18:00 Blood Type O POSITIVE 07/30/20 07:24 Antibody Screen Negative 07/30/20 07:24 - Diagnostic Impressions Diagnostic Impressions: Echocardiogram 07/26/20 08:06 Transthoracic Echocardiogram Indication: Tachycardia BP: 108/70 HR: 100 Conclusions *Global left ventricular systolic function is normal. *The estimated ejection fraction is 60-65%. *Mild concentric left ventricular hypertrophy is observed. *The left atrium is mildly dilated. *There is mild mitral regurgitation. *The right heart chambers are both mildly dilated. *There is mild to moderate tricuspid regurgitation. *There is evidence of moderate pulmonary hypertension. *The right ventricular systolic pressure is calculated at 46 mmHg. Findings Left Ventricle: The left ventricular chamber size is normal. Mild concentric left ventricular hypertrophy is observed. Global left ventricular systolic function is normal. The estimated ejection fraction is 60-65%. Left Atrium: The left atrium is mildly dilated. Right Ventricle: The right ventricle is mildly dilated. The right ventricular global systolic function is mildly reduced. Right Atrium: The right atrium is mildly dilated. Aortic Valve: The aortic valve is trileaflet. The aortic valve leaflets are mildly thickened. There is no evidence of aortic regurgitation. There is no evidence of aortic stenosis. Mitral Valve: The mitral valve leaflets are mildly thickened. There is mild mitral regurgitation. There is no evidence of mitral stenosis. Tricuspid Valve: There is mild to moderate tricuspid regurgitation. The right ventricular systolic pressure is calculated at 46 mmHg. There is evidence of moderate pulmonary hypertension. Pulmonic Valve: There is trace pulmonic regurgitation. Pericardium: There is no pericardial effusion. Aorta: There is no dilatation of the ascending aorta. There is no dilatation of the aortic root. Venous: The inferior vena cava appears normal in size. Measurements Chambers 2D Name Value Normal Range IVSd (2D) 1.03 cm (0.6 - 1.1) LVPWd (2D) 0.91 cm (0.6 - 1.1) LVIDd (2D) 4.7 cm (3.7 - 5.6) LVIDs (2D) 3.36 cm (2 - 3.8) LV FS (2D) 28.6 % - EF Teichholz (2D) 55.1 % - Ao root diameter (2D) 3.06 cm (2 - 3.7) Volumes/Mass Name Value Normal Range LA ESV SP 4CH (A/L) 47.57 ml - LA ESV SP 2CH (A/L) 41.21 ml - LA ESV BP (A/L) 45.97 ml - LA ESV BP (A/L) index 20.8 ml/m2 - LA ESV SP 4CH (MOD) 43.06 ml - LA ESV SP 2CH (MOD) 41.81 ml - LA ESV BP (MOD) 43.59 ml - LA ESV BP (MOD) index 19.72 ml/m2 - Diastolic/Systolic Function Name Value Normal Range MV E-wave Vmax 0.81 m/sec - MV deceleration time 179.23 msec - Aortic Valve Name Value Normal Range AV Vmax 1.25 m/sec - AV VTI 19.57 cm - AV peak gradient 6.28 mmHg - AV mean gradient 3.55 mmHg - LVOT diameter 2.06 cm - LVOT Vmax 0.92 m/sec - LVOT VTI 13.2 cm - LVOT peak gradient 3.38 mmHg - LVOT mean gradient 1.86 mmHg - SV LVOT 44.13 ml - JOSE EDUARDO (continuity Vmax) 2.45 cm2 - JOSE EDUARDO (continuity VTI) 2.25 cm2 - Tricuspid Valve Name Value Normal Range TR Vmax 3.31 m/sec - TR peak gradient 43 mmHg - RAP 3 mmHg - RVSP 46 mmHg - IVC diameter 1.79 cm (1.2 - 2.3) Pulmonic Valve/Qp:Qs Name Value Normal Range PV Vmax 0.82 m/sec - PV peak gradient 2.66 mmHg - PV acceleration time 98.95 msec - Rodriguez/IV: Voiding Method Urinal IV Catheter Type [Right INT / Saline Lock Forearm] IV Catheter Type [Left Forearm INT / Saline Lock ] IV Catheter Type [Right Graft Femoral] IV Catheter Type [Right INT / Saline Lock Antecubital] Active Medications - Current Medications Current Medications: Generic Name Dose Route Start Last Admin Trade Name Freq PRN Reason Stop Dose Admin Acetaminophen 650 mg 07/22/20 14:09 07/27/20 22:12 Acetaminophen 325 Mg Tab PO 650 mg Q6H PRN Administration Pain, Mild (1-3) Hydrocodone Bitart/Acetaminophen 2 each 07/22/20 14:09 08/04/20 06:00 Hydrocodone/Acetaminophen 5-325 Mg Tab PO 2 each Q6H PRN Administration Pain, Moderate (4-6) Albuterol 2.5 mg 07/26/20 08:34 Albuterol 2.5 Mg/3 Ml Nebu IH Q4HRT PRN Shortness Of Breath Amiodarone HCl 200 mg 08/02/20 14:30 08/03/20 21:47 Amiodarone 200 Mg Tab PO 200 mg BID AALIYAH Administration Apixaban 5 mg 07/30/20 22:00 08/03/20 21:47 Apixaban 5 Mg Tab PO 5 mg Q12HR AALIYAH Administration Protocol Aspirin 81 mg 07/22/20 15:00 08/03/20 09:47 Aspirin Ec 81 Mg Tab PO 81 mg QDAY AALIYAH Administration Hydromorphone HCl 1 mg 07/30/20 13:00 08/03/20 17:30 Hydromorphone 1 Mg/1 Ml Inj IV 1 mg Q4H PRN Administration Pain , Severe (7-10) Metoprolol Tartrate 50 mg 07/29/20 10:00 08/03/20 22:32 Metoprolol Tartrate 50 Mg Tab PO Not Given BID [facility] Midodrine 10 mg 07/25/20 16:00 08/04/20 08:12 Midodrine 5 Mg Tab PO 10 mg TID@0800,1200,1600 AALIYAH Administration Ondansetron HCl 4 mg 07/22/20 14:09 Ondansetron 4 Mg/2 Ml Inj IV Q8H PRN Nausea And Vomiting Pregabalin 50 mg 08/01/20 10:00 08/03/20 09:47 Pregabalin 25 Mg Cap PO 50 mg QDAY AALIYAH Administration Sevelamer Carbonate 800 mg 07/23/20 18:30 08/04/20 08:12 Sevelamer Carbonate 800 Mg Tab PO 800 mg AC AALIYAH Administration Sodium Chloride 10 ml 07/22/20 13:00 08/03/20 21:50 Sodium Chloride 0.9% 10 Ml Flush Syringe IV 10 ml BID AALIYAH Administration Sodium Chloride 10 ml 07/22/20 13:00 07/31/20 06:49 Sodium Chloride 0.9% 10 Ml Flush Syringe IV 10 ml PRN PRN Administration LINE FLUSH Nutrition/Malnutrition Assess - Dietary Evaluation Nutrition/Malnutrition Findings: Nutrition Notes Start: 07/29/20 13:17 Freq: Status: Active Protocol: Document 07/31/20 13:06 BENTLEY (Rec: 07/31/20 13:22 BENTLEY [id number]) Co-Sign 07/31/20 13:06 LP Nutrition Notes Need for Assessment generated from: Education Initial or Follow up Reassessment Current Diagnosis CKD (stage V CKD) Other Pertinent Diagnosis ESRD w/ HD, thrombosis, HTN, peripheral artery dz s/p L BKA Current Diet Renal Labs/Tests BUN 46 Cr 13.3 no Phos record Pertinent Medications Renvela Height 6 ft 1 in Weight 97.1 kg [place] Body Weight (kg) 83.63 BMI 28.2 Weight change and time frame Noted dialysis Weight Status Overweight Subjective/Other Information F/u intakes. Pt reported dialysis treatment ongoing for years. Unaware of fluid restriction and provided education. Pt had no other questions about nutritional needs. Reported good intakes. Percent of energy/protein needs met: 100%/66% Burn Absent Trauma Absent GI Symptoms None Current % PO Good (75-100%) Minimum of two criteria No Fluid Accumulation Mild (non-severe) #1 Nutrition Diagnosis Increased nutrient needs ( specify in comment below) Comments: protein Etiology wound healing and dialysis As Evidenced by Signs and Symptoms pt on dialysis, had L BKA operation yesterday, and diet order provides 66% of protein needs Is patient on ventilator? No Is Patient Ambulatory and/or Out of Bed Yes REE-([facility]-ambulatory/OOB) [ [id number] [id number]] Calculation Used for Recommendations [facility] Additional Notes Protein: at least 117 g (>1.2 g/kg with 50% HBV) Fluid: 1 Liter per MD fluid restriction Nutrition Intervention Change Diet Order: Continue Renal diet Add Supplement/Snack (indicate name/kcal ONS to Ensure High Protein for /protein ) less calories and to meet protein needs (no chocolate flavor) Provides kCal: 480 Provides Protein (gm) 48 Teaching Recipient Patient Learning Readiness Fair Teaching Methods Discussion,Handout Response to Teaching Verbalize understanding, Reinforcement needed Education Handouts Provided Fluid restrition therapy Renal MyPlate Barriers to Learning No Barriers RD phone number provided Yes Patient aware of follow up options Yes Goal #1 Meet at least 75% of energy and protein needs Goal #2 ONS tolerance Goal #3 Assist with wound healing Goal #4 Reinforcement of protein education and ONS. Anticipated Discharge Needs: Renal diet and protein oral supplements as needed (no chocolate flavor) Follow-Up By: 08/06/20 Additional Comments F/u intakes, ONS acceptance, and diet education about protein and dialysis.
--- NOTE | 2020-08-04 10:32 | Progress Note ---
Assessment and Plan Assessment Thrombosis of left popliteal artery End stage renal disease Hypertension S/P Hyperkalemia Peripheral artery disease DVT prophylaxis Plan: Hemodialysis tomorrow for UF and clearance Loculated right sided effusion-chest tube placement on Wednesday per IR S/P left BKA on 07/30/20 Fluid restriction of 1 liter per day Strict I&O's daily Obtain daily weights Renally dose medications Assess dialysis needs daily Subjective Date of service: 08/04/20 Principal diagnosis: ESRD on HD Interval history: Patient seen lying in bed. No family at bedside. Objective - Vital Signs Vital signs: Vital Signs - 12hr 08/03/20 08/03/20 08/04/20 22:32 23:02 05:03 Temperature 97.4 F L 97.8 F Pulse Rate 67 66 83 Respiratory 16 20 Rate Blood Pressure 98/57 95/58 Blood Pressure 114/67 [Left] O2 Sat by Pulse 100 100 Oximetry 08/04/20 06:00 Temperature Pulse Rate Respiratory 20 Rate Blood Pressure Blood Pressure [Left] O2 Sat by Pulse Oximetry - General Appearance General appearance: well-developed, appears stated age EENT: ATNC, PERRL, hearing intact, vision intact Neck: no JVD, supple Respiratory: Present: Decreased Breath Sounds Cardiology: S1S2 Gastrointestinal: normoactive bowel sounds Integumentary: warm and dry Neurologic: alert and oriented x3 Musculoskeletal: other (left BKA) Psychiatric: cooperative - Lab 08/04/20 07:58 08/04/20 07:58 Most recent lab results Calcium 9.6 mg/dL (8.4-10.2) 08/04/20 07:58 Medications & Allergies - Medications Allergies/Adverse Reactions: Allergies amoxicillin Allergy (Severe, Verified 07/30/20 10:27) Unknown PT STATES LIPS SWELLED CONTRAST DYE Adverse Reaction (Severe, Uncoded 07/30/20 10:27) Swelling PT STATES GROIN AREA HAD SWELLING ALSO STATES HE SWELLING OTHER AREAS OF BODY Home Medications: Home Medications Medication Instructions Recorded Confirmed Last Taken Type Metoprolol [Lopressor] 25 mg PO QDAY 07/24/20 07/24/20 07/17/20 History Sevelamer Carbonate [Renvela] 800 mg PO TIDAC 07/24/20 07/24/20 07/19/20 History Sucroferric Oxyhydroxide(Nf) 500 mg PO TIDAC 07/24/20 07/24/20 07/19/20 History [Velphoro (Nf)] Warfarin [Coumadin] 6 mg PO QDAY 07/24/20 07/24/20 07/19/20 History Active Medications: Generic Name Dose Route Start Last Admin Trade Name Freq PRN Reason Stop Dose Admin Acetaminophen 650 mg 07/22/20 14:09 07/27/20 22:12 Acetaminophen 325 Mg Tab PO 650 mg Q6H PRN Administration Pain, Mild (1-3) Hydrocodone Bitart/Acetaminophen 2 each 07/22/20 14:09 08/04/20 06:00 Hydrocodone/Acetaminophen 5-325 Mg Tab PO 2 each Q6H PRN Administration Pain, Moderate (4-6) Albuterol 2.5 mg 07/26/20 08:34 Albuterol 2.5 Mg/3 Ml Nebu IH Q4HRT PRN Shortness Of Breath Amiodarone HCl 200 mg 08/02/20 14:30 08/03/20 21:47 Amiodarone 200 Mg Tab PO 200 mg BID AALIYAH Administration Apixaban 5 mg 07/30/20 22:00 08/03/20 21:47 Apixaban 5 Mg Tab PO 5 mg Q12HR AALIYAH Administration Protocol Aspirin 81 mg 07/22/20 15:00 08/03/20 09:47 Aspirin Ec 81 Mg Tab PO 81 mg QDAY AALIYAH Administration Hydromorphone HCl 1 mg 07/30/20 13:00 08/03/20 17:30 Hydromorphone 1 Mg/1 Ml Inj IV 1 mg Q4H PRN Administration Pain , Severe (7-10) Metoprolol Tartrate 50 mg 07/29/20 10:00 08/03/20 22:32 Metoprolol Tartrate 50 Mg Tab PO Not Given BID AALIYAH Midodrine 10 mg 07/25/20 16:00 08/04/20 08:12 Midodrine 5 Mg Tab PO 10 mg TID@0800,1200,1600 AALIYAH Administration Ondansetron HCl 4 mg 07/22/20 14:09 Ondansetron 4 Mg/2 Ml Inj IV Q8H PRN Nausea And Vomiting Pregabalin 50 mg 08/01/20 10:00 08/03/20 09:47 Pregabalin 25 Mg Cap PO 50 mg QDAY AALIYAH Administration Sevelamer Carbonate 800 mg 07/23/20 18:30 08/04/20 08:12 Sevelamer Carbonate 800 Mg Tab PO 800 mg AC AALIYAH Administration Sodium Chloride 10 ml 07/22/20 13:00 08/03/20 21:50 Sodium Chloride 0.9% 10 Ml Flush Syringe IV 10 ml BID AALIYAH Administration Sodium Chloride 10 ml 07/22/20 13:00 07/31/20 06:49 Sodium Chloride 0.9% 10 Ml Flush Syringe IV 10 ml PRN PRN Administration LINE FLUSH
[2020-08-04] MEDS: AMIODARONE 200 MG TAB PO SCH ×2 (10:45→22:06)
[2020-08-04] MEDS: METOPROLOL TARTRATE 50 MG TAB PO SCH ×2 (10:45→22:06)
[2020-08-04] MEDS: PREGABALIN 25 MG CAP PO SCH (10:45)
[2020-08-04] MEDS: APIXABAN 5 MG TAB PO SCH ×2 (10:45→22:06)
[2020-08-04] MEDS: ASPIRIN EC 81 MG TAB PO SCH (10:45)
--- NOTE | 2020-08-04 14:57 | Progress Note ---
Assessment and Plan Atrial flutter Now treated with amiodarone and rate controlled Prior h/o long RP tachycardia - likely PAT Anticoagulated with eliquis PAD, left popliteal artery thrombosis complicated by left lower limb ischemia status post left BKA this admission now on Eliquis for anticoagulation Hypotension on midodrine End-stage renal disease Pleural effusion Recommend: Continue current therapy from cardiac perspective If eliquis needs to be held for procedure - start IV heparin 12 hours after stopping eliquis. Subjective Date of service: 08/04/20 Principal diagnosis: ESRD on HD Interval history: No acute events Objective Vital Signs Temp Pulse Pulse Resp BP BP Pulse Ox 08/04/20 12:19 97.8 F 72 20 125/74 100 08/04/20 12:00 77 08/04/20 08:22 97.3 F L 69 20 106/67 100 08/04/20 06:00 20 08/04/20 05:03 97.8 F 83 20 114/67 100 08/03/20 23:02 97.4 F L 66 16 95/58 100 08/03/20 22:32 67 98/57 08/03/20 22:00 66 76 08/03/20 19:19 98.0 F 67 20 98/57 100 08/03/20 15:28 98.5 F 69 18 91/52 99 - Physical Examination HEENT: Positive: PERRL Neck: Positive: trachea midline Cardiac: Positive: Irregularly Regular Lungs: Positive: Decreased Breath Sounds Neuro: Positive: Grossly Intact, Other (s/p left BKA) Abdomen: Positive: Soft, Active Bowel Sounds - Labs and Meds CBC 08/04/20 Range/Units 07:58 WBC 10.0 (4.5-11.0) K/mm3 RBC 2.98 L (3.65-5.03) M/mm3 Hgb 10.2 L (11.8-15.2) gm/dl Hct 31.1 L D (35.5-45.6) % Plt Count 214 (140-440) K/mm3 Lymph # (Auto) 1.0 L (1.2-5.4) K/mm3 [place] # (Auto) 1.0 H (0.0-0.8) K/mm3 Eos # (Auto) 0.1 (0.0-0.4) K/mm3 Baso # (Auto) 0.1 (0.0-0.1) K/mm3 Comprehensive Metabolic Panel 08/04/20 Range/Units 07:58 Sodium 141 (137-145) mmol/L Potassium 4.9 (3.6-5.0) mmol/L Chloride 98.1 (98-107) mmol/L Carbon Dioxide 28 (22-30) mmol/L BUN 49 H (9-20) mg/dL Creatinine 11.6 H (0.8-1.3) mg/dL Glucose 78 (75-100) mg/dL Calcium 9.6 (8.4-10.2) mg/dL
--- NOTE | 2020-08-04 18:13 | Progress Note ---
Assessment and Plan Imp: 1. Loculated pleural effusion 2. PAD s/p BKA 3. Atrial flutter 4. ESRD 5. Hypotension Rec: 1. Await chest tube placement and pleural fluid sampling by IR, to be done 08/05/2020; patient understands/agrees to proceed w/ procedure Plan of care reviewed w/ patient, he understands/agrees Subjective Date of service: 08/04/20 Principal diagnosis: ESRD on HD Interval history: No events. No complaints. Active Medications Acetaminophen (Acetaminophen 325 Mg Tab) 650 mg PO Q6H PRN PRN Reason: Pain, Mild (1-3) Last Admin: 07/27/20 22:12 Dose: 650 mg Documented by: Hydrocodone Bitart/Acetaminophen (Hydrocodone/Acetaminophen 5-325 Mg Tab) 2 each PO Q6H PRN PRN Reason: Pain, Moderate (4-6) Last Admin: 08/04/20 06:00 Dose: 2 each Documented by: Albuterol (Albuterol 2.5 Mg/3 Ml Nebu) 2.5 mg IH Q4HRT PRN PRN Reason: Shortness Of Breath Amiodarone HCl (Amiodarone 200 Mg Tab) 200 mg PO BID [facility] Last Admin: 08/04/20 10:45 Dose: 200 mg Documented by: Apixaban (Apixaban 5 Mg Tab) 5 mg PO Q12HR [facility]; Protocol Last Admin: 08/04/20 10:45 Dose: 5 mg Documented by: Aspirin (Aspirin Ec 81 Mg Tab) 81 mg PO QDAY [facility] Last Admin: 08/04/20 10:45 Dose: 81 mg Documented by: Hydromorphone HCl (Hydromorphone 1 Mg/1 Ml Inj) 1 mg IV Q4H PRN PRN Reason: Pain , Severe (7-10) Last Admin: 08/03/20 17:30 Dose: 1 mg Documented by: Metoprolol Tartrate (Metoprolol Tartrate 50 Mg Tab) 50 mg PO BID [facility] Last Admin: 08/04/20 10:45 Dose: 50 mg Documented by: Midodrine (Midodrine 5 Mg Tab) 10 mg PO TID@0800,1200,1600 [facility] Last Admin: 08/04/20 17:27 Dose: 10 mg Documented by: Ondansetron HCl (Ondansetron 4 Mg/2 Ml Inj) 4 mg IV Q8H PRN PRN Reason: Nausea And Vomiting Pregabalin (Pregabalin 25 Mg Cap) 50 mg PO QDAY [facility] Last Admin: 08/04/20 10:45 Dose: 50 mg Documented by: Sevelamer Carbonate (Sevelamer Carbonate 800 Mg Tab) 800 mg PO AC [facility] Last Admin: 08/04/20 17:27 Dose: 800 mg Documented by: Sodium Chloride (Sodium Chloride 0.9% 10 Ml Flush Syringe) 10 ml IV BID [facility] Last Admin: 08/04/20 10:45 Dose: 10 ml Documented by: Sodium Chloride (Sodium Chloride 0.9% 10 Ml Flush Syringe) 10 ml IV PRN PRN PRN Reason: LINE FLUSH Last Admin: 07/31/20 06:49 Dose: 10 ml Documented by: Objective Vital Signs - 12hr 08/04/20 08/04/20 08/04/20 08:22 12:00 12:19 Temperature 97.3 F L 97.8 F Pulse Rate 69 77 72 Respiratory 20 20 Rate Blood Pressure 106/67 125/74 O2 Sat by Pulse 100 100 Oximetry 08/04/20 16:10 Temperature 97.2 F L Pulse Rate 77 Respiratory 20 Rate Blood Pressure 110/63 O2 Sat by Pulse 90 Oximetry Constitutional: no acute distress, alert Eyes: non-icteric ENT: oropharynx moist Neck: supple Effort: normal Ascultation: Bilateral: clear Cardiovascular: regular rate and rhythm (no mrg) Gastrointestinal: normoactive bowel sounds, soft Integumentary: normal Neurologic: normal mental status, non-focal exam, pupils equal and round Psychiatric: mood appropriate, affect normal CBC and BMP: 08/04/20 07:58 08/04/20 07:58 ABG, PT/INR, D-dimer: PT/INR, D-dimer PT 21.0 Sec. (12.2-14.9) H 07/23/20 23:01 INR 1.80 (0.87-1.13) H 07/23/20 23:01 Abnormal lab findings: Abnormal Labs 07/22/20 07/22/20 07/22/20 12:22 12:22 12:22 WBC RBC 3.22 L Hgb 11.2 L Hct 32.6 L MCV 101 H MCH 35 H MCHC RDW 19.3 H Lymph % (Auto) [place] % (Auto) Lymph # (Auto) [place] # (Auto) Seg Neutrophils % Seg Neuts % (Manual) 99.0 H Lymphocytes % (Manual) 1.0 L Seg Neutrophils # Seg Neutrophils # Man 10.3 H Lymphocytes # (Manual) 0.1 L PT 17.9 H INR 1.48 H APTT 69.7 H* Fibrinogen 1029 H Heparin Anti-Xa Level Potassium 6.0 H Chloride 90.4 L Carbon Dioxide BUN 82 H Creatinine 16.8 H Glucose 109 H POC Glucose Calcium Lactate Dehydrogenase C-Reactive Protein Total Protein Albumin 3.4 L 07/22/20 07/22/20 07/22/20 18:00 18:00 18:00 WBC 12.2 H RBC 3.49 L Hgb 11.5 L Hct MCV 104 H MCH 33 H MCHC RDW 19.2 H Lymph % (Auto) [place] % (Auto) Lymph # (Auto) [place] # (Auto) Seg Neutrophils % Seg Neuts % (Manual) 97.0 H Lymphocytes % (Manual) 2.0 L Seg Neutrophils # Seg Neutrophils # Man 11.8 H Lymphocytes # (Manual) 0.2 L PT INR APTT Fibrinogen 814 H Heparin Anti-Xa Level < 0.10 L Potassium 6.3 H* Chloride 91.0 L Carbon Dioxide BUN 87 H Creatinine 17.1 H Glucose 117 H POC Glucose Calcium Lactate Dehydrogenase C-Reactive Protein Total Protein Albumin 07/22/20 07/23/20 07/23/20 21:01 02:41 02:41 WBC 14.7 H RBC 3.43 L Hgb 11.4 L Hct 35.0 L MCV 102 H MCH 33 H MCHC RDW 18.4 H Lymph % (Auto) 3.0 L [place] % (Auto) Lymph # (Auto) 0.4 L [place] # (Auto) Seg Neutrophils % 91.5 H Seg Neuts % (Manual) Lymphocytes % (Manual) Seg Neutrophils # 13.4 H Seg Neutrophils # Man Lymphocytes # (Manual) PT INR APTT Fibrinogen Heparin Anti-Xa Level Potassium 6.6 H* Chloride 89.9 L Carbon Dioxide BUN 92 H Creatinine 18.8 H Glucose 101 H POC Glucose 107 H Calcium 10.6 H Lactate Dehydrogenase C-Reactive Protein Total Protein Albumin 3.5 L 07/23/20 07/23/20 07/23/20 02:41 09:46 09:46 WBC 17.2 H RBC 3.47 L Hgb 11.4 L Hct 35.3 L MCV 102 H MCH 33 H MCHC RDW 18.8 H Lymph % (Auto) [place] % (Auto) Lymph # (Auto) [place] # (Auto) Seg Neutrophils % Seg Neuts % (Manual) 94.0 H Lymphocytes % (Manual) 1.0 L Seg Neutrophils # Seg Neutrophils # Man 16.2 H Lymphocytes # (Manual) 0.2 L PT INR APTT Fibrinogen 688 H 494 H Heparin Anti-Xa Level 0.10 L < 0.10 L Potassium Chloride Carbon Dioxide BUN Creatinine Glucose POC Glucose Calcium Lactate Dehydrogenase C-Reactive Protein Total Protein Albumin 07/23/20 07/23/20 07/23/20 23:01 23:01 23:01 WBC RBC Hgb 11.7 L Hct MCV MCH MCHC RDW Lymph % (Auto) [place] % (Auto) Lymph # (Auto) [place] # (Auto) Seg Neutrophils % Seg Neuts % (Manual) Lymphocytes % (Manual) Seg Neutrophils # Seg Neutrophils # Man Lymphocytes # (Manual) PT 21.0 H INR 1.80 H APTT 39.4 H Fibrinogen Heparin Anti-Xa Level < 0.10 L Potassium 6.0 H Chloride 92.5 L Carbon Dioxide BUN 69 H Creatinine 14.7 H Glucose 104 H POC Glucose Calcium 10.3 H Lactate Dehydrogenase C-Reactive Protein Total Protein Albumin 07/24/20 07/24/20 07/25/20 05:33 13:55 04:22 WBC RBC Hgb Hct MCV MCH MCHC RDW Lymph % (Auto) [place] % (Auto) Lymph # (Auto) [place] # (Auto) Seg Neutrophils % Seg Neuts % (Manual) Lymphocytes % (Manual) Seg Neutrophils # Seg Neutrophils # Man Lymphocytes # (Manual) PT INR APTT Fibrinogen Heparin Anti-Xa Level Potassium 7.0 H* 6.0 H Chloride 96.3 L 93.5 L Carbon Dioxide BUN 71 H 77 H 54 H Creatinine 14.7 H 15.5 H 12.3 H Glucose 105 H POC Glucose Calcium Lactate Dehydrogenase C-Reactive Protein Total Protein Albumin 07/25/20 07/25/20 07/25/20 04:22 04:24 18:13 WBC RBC 3.48 L Hgb 11.4 L Hct MCV 102 H MCH 33 H MCHC RDW 18.4 H Lymph % (Auto) 9.4 L [place] % (Auto) 10.4 H Lymph # (Auto) 0.7 L [place] # (Auto) Seg Neutrophils % 78.8 H Seg Neuts % (Manual) Lymphocytes % (Manual) Seg Neutrophils # Seg Neutrophils # Man Lymphocytes # (Manual) PT INR APTT Fibrinogen Heparin Anti-Xa Level 0.10 L 0.16 L Potassium Chloride Carbon Dioxide BUN Creatinine Glucose POC Glucose Calcium Lactate Dehydrogenase C-Reactive Protein Total Protein Albumin 07/26/20 07/26/20 07/26/20 02:22 02:22 02:22 WBC RBC 3.35 L Hgb 11.1 L Hct 34.7 L MCV 104 H MCH 33 H MCHC RDW 18.9 H Lymph % (Auto) 9.2 L [place] % (Auto) Lymph # (Auto) 0.9 L [place] # (Auto) Seg Neutrophils % 81.8 H Seg Neuts % (Manual) Lymphocytes % (Manual) Seg Neutrophils # 8.3 H Seg Neutrophils # Man Lymphocytes # (Manual) PT INR APTT Fibrinogen Heparin Anti-Xa Level 0.28 L Potassium Chloride 95.2 L Carbon Dioxide BUN 66 H Creatinine 14.7 H Glucose 108 H POC Glucose Calcium Lactate Dehydrogenase C-Reactive Protein Total Protein Albumin 07/26/20 07/26/20 07/27/20 10:16 17:25 02:15 WBC 13.0 H RBC 3.29 L Hgb 10.8 L Hct 34.3 L MCV 104 H MCH 33 H MCHC RDW 19.5 H Lymph % (Auto) 6.1 L [place] % (Auto) 7.8 H Lymph # (Auto) 0.8 L [place] # (Auto) 1.0 H Seg Neutrophils % 84.3 H Seg Neuts % (Manual) Lymphocytes % (Manual) Seg Neutrophils # 10.9 H Seg Neutrophils # Man Lymphocytes # (Manual) PT INR APTT Fibrinogen Heparin Anti-Xa Level < 0.10 L Potassium Chloride Carbon Dioxide BUN Creatinine Glucose POC Glucose 64 L Calcium Lactate Dehydrogenase C-Reactive Protein Total Protein Albumin 07/27/20 07/28/20 07/28/20 02:15 07:53 07:53 WBC 15.3 H RBC 3.19 L Hgb 10.5 L Hct 33.2 L MCV 104 H MCH 33 H MCHC RDW 19.1 H Lymph % (Auto) 7.5 L [place] % (Auto) 8.7 H Lymph # (Auto) 1.1 L [place] # (Auto) 1.3 H Seg Neutrophils % 82.0 H Seg Neuts % (Manual) Lymphocytes % (Manual) Seg Neutrophils # 12.6 H Seg Neutrophils # Man Lymphocytes # (Manual) PT INR APTT Fibrinogen Heparin Anti-Xa Level Potassium 5.2 H D Chloride Carbon Dioxide BUN 43 H 57 H Creatinine 10.7 H 14.3 H Glucose 68 L 59 L POC Glucose Calcium 10.3 H Lactate Dehydrogenase C-Reactive Protein Total Protein Albumin 07/29/20 07/29/20 07/29/20 01:28 05:36 05:36 WBC 13.5 H RBC 3.17 L Hgb 10.2 L Hct 32.7 L MCV 103 H MCH MCHC 31 L RDW 19.3 H Lymph % (Auto) 7.4 L [place] % (Auto) 9.3 H Lymph # (Auto) 1.0 L [place] # (Auto) 1.3 H Seg Neutrophils % 81.3 H Seg Neuts % (Manual) Lymphocytes % (Manual) Seg Neutrophils # 11.0 H Seg Neutrophils # Man Lymphocytes # (Manual) PT INR APTT Fibrinogen Heparin Anti-Xa Level 0.10 L Potassium 5.1 H Chloride Carbon Dioxide BUN 67 H Creatinine 15.5 H Glucose 74 L POC Glucose Calcium Lactate Dehydrogenase C-Reactive Protein Total Protein Albumin 07/29/20 07/30/20 07/30/20 09:45 07:18 07:18 WBC RBC 3.19 L Hgb 10.5 L Hct 33.1 L MCV 104 H MCH 33 H MCHC RDW 19.5 H Lymph % (Auto) 7.5 L [place] % (Auto) 10.5 H Lymph # (Auto) 0.8 L [place] # (Auto) 1.1 H Seg Neutrophils % 80.0 H Seg Neuts % (Manual) Lymphocytes % (Manual) Seg Neutrophils # 8.4 H Seg Neutrophils # Man Lymphocytes # (Manual) PT INR APTT Fibrinogen Heparin Anti-Xa Level 0.29 L Potassium Chloride Carbon Dioxide BUN 37 H Creatinine 11.3 H Glucose POC Glucose Calcium 10.4 H Lactate Dehydrogenase C-Reactive Protein Total Protein Albumin 07/30/20 07/31/20 07/31/20 21:37 04:54 04:54 WBC RBC 3.04 L Hgb 10.3 L Hct 31.7 L MCV 104 H MCH 34 H MCHC RDW 19.8 H Lymph % (Auto) 7.7 L [place] % (Auto) 7.8 H Lymph # (Auto) 0.7 L [place] # (Auto) Seg Neutrophils % 83.2 H Seg Neuts % (Manual) Lymphocytes % (Manual) Seg Neutrophils # Seg Neutrophils # Man Lymphocytes # (Manual) PT INR APTT Fibrinogen Heparin Anti-Xa Level Potassium Chloride Carbon Dioxide BUN 46 H Creatinine 13.3 H Glucose 104 H POC Glucose 120 H Calcium Lactate Dehydrogenase C-Reactive Protein Total Protein Albumin 08/01/20 08/01/20 08/01/20 05:05 07:34 14:16 WBC RBC Hgb Hct MCV MCH MCHC RDW Lymph % (Auto) [place] % (Auto) Lymph # (Auto) [place] # (Auto) Seg Neutrophils % Seg Neuts % (Manual) Lymphocytes % (Manual) Seg Neutrophils # Seg Neutrophils # Man Lymphocytes # (Manual) PT INR APTT Fibrinogen Heparin Anti-Xa Level Potassium Chloride Carbon Dioxide BUN 35 H Creatinine 9.8 H Glucose POC Glucose 69 L Calcium Lactate Dehydrogenase C-Reactive Protein 7.20 H Total Protein Albumin 08/01/20 08/01/20 08/02/20 15:56 16:10 05:22 WBC RBC 3.43 L Hgb 11.0 L Hct 35.4 L MCV 103 H MCH MCHC 31 L RDW 19.3 H Lymph % (Auto) 10.0 L [place] % (Auto) 11.5 H Lymph # (Auto) 1.1 L [place] # (Auto) 1.2 H Seg Neutrophils % 77.3 H Seg Neuts % (Manual) Lymphocytes % (Manual) Seg Neutrophils # 8.2 H Seg Neutrophils # Man Lymphocytes # (Manual) PT INR APTT Fibrinogen Heparin Anti-Xa Level Potassium Chloride Carbon Dioxide BUN Creatinine Glucose POC Glucose 110 H Calcium Lactate Dehydrogenase 226 H C-Reactive Protein Total Protein 6.0 L Albumin 3.2 L 08/02/20 08/02/20 08/02/20 05:22 16:55 17:36 WBC RBC Hgb Hct MCV MCH MCHC RDW Lymph % (Auto) [place] % (Auto) Lymph # (Auto) [place] # (Auto) Seg Neutrophils % Seg Neuts % (Manual) Lymphocytes % (Manual) Seg Neutrophils # Seg Neutrophils # Man Lymphocytes # (Manual) PT INR APTT Fibrinogen Heparin Anti-Xa Level Potassium Chloride Carbon Dioxide 31 H BUN 46 H Creatinine 12.4 H Glucose POC Glucose 57 L 58 L Calcium Lactate Dehydrogenase C-Reactive Protein Total Protein Albumin 08/02/20 08/03/20 08/03/20 20:56 06:47 06:47 WBC RBC Hgb Hct MCV 104 H MCH MCHC 31 L RDW 19.0 H Lymph % (Auto) 9.4 L [place] % (Auto) 10.9 H Lymph # (Auto) 0.8 L [place] # (Auto) 0.9 H Seg Neutrophils % 77.9 H Seg Neuts % (Manual) Lymphocytes % (Manual) Seg Neutrophils # Seg Neutrophils # Man Lymphocytes # (Manual) PT INR APTT Fibrinogen Heparin Anti-Xa Level Potassium Chloride 97.0 L Carbon Dioxide 31 H BUN 31 H Creatinine 9.1 H Glucose POC Glucose 121 H Calcium Lactate Dehydrogenase C-Reactive Protein Total Protein Albumin 08/04/20 08/04/20 07:58 07:58 WBC RBC 2.98 L Hgb 10.2 L Hct 31.1 L D MCV 105 H MCH 34 H MCHC RDW 19.2 H Lymph % (Auto) 10.2 L [place] % (Auto) 9.8 H Lymph # (Auto) 1.0 L [place] # (Auto) 1.0 H Seg Neutrophils % 77.7 H Seg Neuts % (Manual) Lymphocytes % (Manual) Seg Neutrophils # Seg Neutrophils # Man Lymphocytes # (Manual) PT INR APTT Fibrinogen Heparin Anti-Xa Level Potassium Chloride Carbon Dioxide BUN 49 H Creatinine 11.6 H Glucose POC Glucose Calcium Lactate Dehydrogenase C-Reactive Protein Total Protein Albumin Chest x-ray: report reviewed, image reviewed CT scan - chest: report reviewed, image reviewed
[2020-08-05] MEDS: HYDROcodone/ACETAMINOPHEN 5-325 MG TAB PO PRN ×3 (07:37→20:25)
[2020-08-05] MEDS: SEVELAMER CARBONATE 800 MG TAB PO SCH ×4 (07:38→19:22)
[2020-08-05] MEDS: MIDODRINE 5 MG TAB PO SCH ×3 (07:38→19:21)
[2020-08-05 08:42] LABS: Basophils # (Auto) 0.1 K/mm3 (0.0-0.1); Eosinophils # (Auto) 0.1 K/mm3 (0.0-0.4); Eosinophils % (Auto) 1.5 % (0.0-4.3); Hematocrit 32.8 % (35.5-45.6); Hemoglobin 10.5 gm/dl (11.8-15.2); Lymphocytes # (Auto) 0.8 K/mm3 (1.2-5.4); Lymphocytes % (Auto) 9.4 % (13.4-35.0); Mean Corpuscular HGB Conc 32 % (32-34); Mean Corpuscular Volume 103 fl (84-94); Monocytes # (Auto) 0.9 K/mm3 (0.0-0.8); Monocytes % (Auto) 10.6 % (0.0-7.3); Platelet Count 213 K/mm3 (140-440); Red Blood Count 3.19 M/mm3 (3.65-5.03); Red Cell Distribution Width 19.3 % (13.2-15.2)
[2020-08-05] MEDS ORDERED: MIDAZOLAM 5 MG/5 ML INJ MDV IV NR (09:00)
--- NOTE | 2020-08-05 09:02 | Progress Note ---
Assessment and Plan Assessment and plan: 54 years old male with history of ESRD on hemodialysis, hypertension, tobacco abuse, PAD status post previous revascularization, admitted on 07/22/2020 secondary to worsening left leg pain for 3 days. Pain is 10 out of 10. Patient is unable to walk. Patient was seen at Dr. Hurt's office, vascular surgeon, and was found to have a left popliteal artery thrombosis complicated by a left lower limb ischemia was sent to the ED. Patient had revascularization May 2020 due to mild ischemic toes and since then discoloration of the toes has worsened. On arrival, initial temperature 97.3, HR 107, RR 16, O2 100, BP 163/92. Initial WBC 8. Hemoglobin 11.7. Procalcitonin 4.2. Patient underwent angiopl asty on 07/22/2020. By 07/27/2020 patient spiked a fever 101. Blood cultures 07/28/2020 no growth. Patient is planned to have a left BKA for nonsalvageable left leg per vascular -- Acute limb ischemia with thrombosis of left popliteal artery s/p angiogram and angioplasty for left popliteal artery occlusion Vascular surgery following. -- End stage renal disease Nephrology team on board --Chronic hypotension --Right loculated pleural effusion CT scan reveals right thick-walled loculated pleural effusion --Atrial flutter/fibrillation --left lower extremity DVT --DVT prophylaxis SCDs bilateral lower extremities while in bed, continue therapeutic anticoagulation 07/30. ID started Vanc and levaquin. Left BKA completed per Surgery 07/31. Continue IV antibiotics per ID recommendations. Patient is s/p left BKA yesterday (07/30). Physical therapy evaluation pending. Continue hemodialysis per nephrology recommendations. 08/01. Patient with what appears to be a right loculated pleural effusion. Check CT of chest. ID to monitor off antibiotics s/p amputation physical therapy recommends acute rehab. Continue hemodialysis per nephrology recommendations. 08/02. CT scan reveals thick-walled right loculated pleural effusion. IR to place CT-guided catheter and send specimen for culture/cytology Wednesday. ID to monitor off antibiotics for now. Follow-up quantiferon TB gold. 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 Patient reports previous history and is followed by [place] [facility]. Consult cardiology for further evaluation. 08/03. IR to place CT-guided catheter and send specimen for culture/cytology Wednesday. ID to monitor off antibiotics for now. Follow-up quantiferon TB gold. Await cardiology consultation for atrial flutter/fibrillation. 08/04. Atrial flutter rate controlled with amiodarone. Continue anticoagulation with Eliquis (prior DVT and A. fib). Patient with prior history of PAT. IR to place CT-guided catheter and send specimen for culture/cytology Wednesday. ID to monitor off antibiotics for now. Follow-up quantiferon TB gold. Continue hemodialysis per nephrology. Continue midodrine for hypotension. Physical therapy recommends acute rehab placement. Case management follow-up after chest tube placement tomorrow. 08/05. Atrial flutter rate controlled with amiodarone. Continue anticoagulation with Eliquis (prior DVT and A. fib). Patient with prior history of PAT. IR to place CT-guided catheter and send specimen for culture/cytology today. ID to monitor off antibiotics for now. Follow-up quantiferon TB gold. Continue hemodialysis per nephrology. Continue midodrine for hypotension. Physical therapy recommends acute rehab placement. Case management follow-up after chest tube placement today for discharge planning--patient with s/p BKA this hospitalization. Physical therapy recommends acute rehab placement. History Interval history: no new issues Hospitalist Physical - Constitutional Vitals: Temp Pulse Resp BP Pulse Ox 98.0 F 75 20 109/67 97 08/05/20 04:45 08/05/20 04:45 08/05/20 07:37 08/05/20 04:45 08/05/20 04:45 General appearance: Present: no acute distress - EENT Eyes: Present: PERRL, EOM intact ENT: hearing intact, clear oral mucosa, dentition normal - Neck Neck: Present: supple, normal ROM - Respiratory Respiratory effort: normal Respiratory: bilateral: CTA - Cardiovascular Rhythm: regular Heart Sounds: Present: S1 & S2. Absent: gallop, rub - Extremities Extremities: no ischemia, No edema, Full ROM - Abdominal General gastrointestinal: soft, non-tender, non-distended, normal bowel sounds - Integumentary Integumentary: Present: clear, warm, dry - Neurologic Neurologic: CNII-XII intact, moves all extremities Results - Labs CBC & Chem 7: 08/05/20 08:10 08/04/20 07:58 Labs: Laboratory Last Values WBC 8.2 K/mm3 (4.5-11.0) 08/05/20 08:10 RBC 3.19 M/mm3 (3.65-5.03) L 08/05/20 08:10 Hgb 10.5 gm/dl (11.8-15.2) L 08/05/20 08:10 Hct 32.8 % (35.5-45.6) L 08/05/20 08:10 MCV 103 fl (84-94) H 08/05/20 08:10 MCH 33 pg (28-32) H 08/05/20 08:10 MCHC 32 % (32-34) 08/05/20 08:10 RDW 19.3 % (13.2-15.2) H 08/05/20 08:10 Plt Count 213 K/mm3 (140-440) 08/05/20 08:10 Lymph % (Auto) 9.4 % (13.4-35.0) L 08/05/20 08:10 Woodward % (Auto) 10.6 % (0.0-7.3) H 08/05/20 08:10 Eos % (Auto) 1.5 % (0.0-4.3) 08/05/20 08:10 Baso % (Auto) 1.0 % (0.0-1.8) 08/05/20 08:10 Lymph # (Auto) 0.8 K/mm3 (1.2-5.4) L 08/05/20 08:10 Woodward # (Auto) 0.9 K/mm3 (0.0-0.8) H 08/05/20 08:10 Eos # (Auto) 0.1 K/mm3 (0.0-0.4) 08/05/20 08:10 Baso # (Auto) 0.1 K/mm3 (0.0-0.1) 08/05/20 08:10 Add Manual Diff Complete 07/29/20 05:36 Total Counted 100 07/23/20 09:46 Seg Neutrophils % 77.5 % (40.0-70.0) H 08/05/20 08:10 Seg Neuts % (Manual) 94.0 % (40.0-70.0) H 07/23/20 09:46 Band Neutrophils % 1.0 % 07/23/20 09:46 Lymphocytes % (Manual) 1.0 % (13.4-35.0) L 07/23/20 09:46 Reactive Lymphs % (Man) 0 % 07/22/20 18:00 Monocytes % (Manual) 4.0 % (0.0-7.3) 07/23/20 09:46 Eosinophils % (Manual) 0 % (0.0-4.3) 07/22/20 18:00 Basophils % (Manual) 0 % (0.0-1.8) 07/22/20 18:00 Metamyelocytes % 0 % 07/22/20 18:00 Myelocytes % 0 % 07/22/20 18:00 Promyelocytes % 0 % 07/22/20 18:00 Blast Cells % 0 % 07/22/20 18:00 Nucleated RBC % Not Reportable 07/29/20 05:36 Seg Neutrophils # 6.3 K/mm3 (1.8-7.7) 08/05/20 08:10 Seg Neutrophils # Man 16.2 K/mm3 (1.8-7.7) H 07/23/20 09:46 Band Neutrophils # 0.2 K/mm3 07/23/20 09:46 Lymphocytes # (Manual) 0.2 K/mm3 (1.2-5.4) L 07/23/20 09:46 Abs React Lymphs (Man) 0.0 K/mm3 07/23/20 09:46 Monocytes # (Manual) 0.7 K/mm3 (0.0-0.8) 07/23/20 09:46 Eosinophils # (Manual) 0.0 K/mm3 (0.0-0.4) 07/23/20 09:46 Basophils # (Manual) 0.0 K/mm3 (0.0-0.1) 07/23/20 09:46 Metamyelocytes # 0.0 K/mm3 07/23/20 09:46 Myelocytes # 0.0 K/mm3 07/23/20 09:46 Promyelocytes # 0.0 K/mm3 07/23/20 09:46 Blast Cells # 0.0 K/mm3 07/23/20 09:46 WBC Morphology Not Reportable 07/29/20 05:36 Hypersegmented Neuts Not Reportable 07/29/20 05:36 Hyposegmented Neuts Not Reportable 07/29/20 05:36 Hypogranular Neuts Not Reportable 07/29/20 05:36 Smudge Cells Not Reportable 07/29/20 05:36 Toxic Granulation Not Reportable 07/29/20 05:36 Toxic Vacuolation Not Reportable 07/29/20 05:36 Dohle Bodies Not Reportable 07/29/20 05:36 Pelger-Huet Anomaly Not Reportable 07/29/20 05:36 Svetlana Rods Not Reportable 07/29/20 05:36 Platelet Estimate Not Reportable 07/29/20 05:36 Clumped Platelets Not Reportable 07/29/20 05:36 Plt Clumps, EDTA Not Reportable 07/29/20 05:36 Large Platelets Not Reportable 07/29/20 05:36 Giant Platelets Not Reportable 07/29/20 05:36 Platelet Satelliting Not Reportable 07/29/20 05:36 Plt Morphology Comment Not Reportable 07/29/20 05:36 RBC Morphology Not Reportable 07/29/20 05:36 Dimorphic RBCs Not Reportable 07/29/20 05:36 Polychromasia Not Reportable 07/29/20 05:36 Hypochromasia Not Reportable 07/29/20 05:36 Poikilocytosis Not Reportable 07/29/20 05:36 Anisocytosis Not Reportable 07/29/20 05:36 Microcytosis Not Reportable 07/29/20 05:36 Macrocytosis Not Reportable 07/29/20 05:36 Spherocytes Not Reportable 07/29/20 05:36 Pappenheimer Bodies Not Reportable 07/29/20 05:36 Sickle Cells Not Reportable 07/29/20 05:36 Target Cells Not Reportable 07/29/20 05:36 Tear Drop Cells Not Reportable 07/29/20 05:36 Ovalocytes Not Reportable 07/29/20 05:36 Helmet Cells Not Reportable 07/29/20 05:36 Seth-Cascade Bodies Not Reportable 07/29/20 05:36 Mcadoo Rings Not Reportable 07/29/20 05:36 Declo Cells Not Reportable 07/29/20 05:36 Bite Cells Not Reportable 07/29/20 05:36 Crenated Cell Not Reportable 07/29/20 05:36 Elliptocytes Not Reportable 07/29/20 05:36 Acanthocytes (Spur) Not Reportable 07/29/20 05:36 Rouleaux Not Reportable 07/29/20 05:36 Hemoglobin C Crystals Not Reportable 07/29/20 05:36 Schistocytes Not Reportable 07/29/20 05:36 Malaria parasites Not Reportable 07/29/20 05:36 Malachi Bodies Not Reportable 07/29/20 05:36 Hem Pathologist Commnt Not Reportable 07/29/20 05:36 PT 21.0 Sec. (12.2-14.9) H 07/23/20 23:01 INR 1.80 (0.87-1.13) H 07/23/20 23:01 APTT 39.4 Sec. (24.2-36.6) H 07/23/20 23:01 Fibrinogen 494 mg/dl (211-480) H 07/23/20 09:46 Heparin Anti-Xa Level 0.29 U.I./ml (0.3-0.7) L 07/29/20 09:45 Sodium 141 mmol/L (137-145) 08/04/20 07:58 Potassium 4.9 mmol/L (3.6-5.0) 08/04/20 07:58 Chloride 98.1 mmol/L (98-107) 08/04/20 07:58 Carbon Dioxide 28 mmol/L (22-30) 08/04/20 07:58 Anion Gap 20 mmol/L 08/04/20 07:58 BUN 49 mg/dL (9-20) H 08/04/20 07:58 Creatinine 11.6 mg/dL (0.8-1.3) H 08/04/20 07:58 Estimated GFR 6 ml/min 08/04/20 07:58 BUN/Creatinine Ratio 4 % 08/04/20 07:58 Glucose 78 mg/dL (75-100) 08/04/20 07:58 POC Glucose 121 mg/dL (70-105) H 08/02/20 20:56 Calcium 9.6 mg/dL (8.4-10.2) 08/04/20 07:58 Total Bilirubin 0.30 mg/dL (0.1-1.2) 08/01/20 16:10 Direct Bilirubin < 0.2 mg/dL (0-0.2) 08/01/20 16:10 Indirect Bilirubin 0.1 mg/dL 08/01/20 16:10 AST 37 units/L (5-40) 08/01/20 16:10 ALT 27 units/L (7-56) 08/01/20 16:10 Alkaline Phosphatase 63 units/L (35-129) 08/01/20 16:10 Lactate Dehydrogenase 226 units/L (91-180) H 08/01/20 16:10 C-Reactive Protein 7.20 mg/dL (0.00-1.30) H 08/01/20 14:16 Total Protein 6.0 g/dL (6.3-8.2) L 08/01/20 16:10 Albumin 3.2 g/dL (3.9-5) L 08/01/20 16:10 Albumin/Globulin Ratio 1.1 % 08/01/20 16:10 Procalcitonin 4.28 ng/mL (<0.15) 07/28/20 07:53 TSH 3.770 mlU/mL (0.270-4.200) 07/26/20 02:22 Free T4 1.01 ng/dL (0.76-1.46) 07/26/20 02:22 Random Vancomycin 13.9 ug/mL (0-40.0) 07/30/20 07:18 Hepatitis A IgM Ab Non-reactive (NonReactive) 07/22/20 18:00 Hep Bs Antigen Non-reactive (Negative) 07/22/20 18:00 Hep B Core IgM Ab Non-reactive (NonReactive) 07/22/20 18:00 Hepatitis C Antibody Non-reactive (NonReactive) 07/22/20 18:00 Blood Type O POSITIVE 07/30/20 07:24 Antibody Screen Negative 07/30/20 07:24 - Diagnostic Impressions Diagnostic Impressions: Echocardiogram 07/26/20 08:06 Transthoracic Echocardiogram Indication: Tachycardia BP: 108/70 HR: 100 Conclusions *Global left ventricular systolic function is normal. *The estimated ejection fraction is 60-65%. *Mild concentric left ventricular hypertrophy is observed. *The left atrium is mildly dilated. *There is mild mitral regurgitation. *The right heart chambers are both mildly dilated. *There is mild to moderate tricuspid regurgitation. *There is evidence of moderate pulmonary hypertension. *The right ventricular systolic pressure is calculated at 46 mmHg. Findings Left Ventricle: The left ventricular chamber size is normal. Mild concentric left ventricular hypertrophy is observed. Global left ventricular systolic function is normal. The estimated ejection fraction is 60-65%. Left Atrium: The left atrium is mildly dilated. Right Ventricle: The right ventricle is mildly dilated. The right ventricular global systolic function is mildly reduced. Right Atrium: The right atrium is mildly dilated. Aortic Valve: The aortic valve is trileaflet. The aortic valve leaflets are mildly thickened. There is no evidence of aortic regurgitation. There is no evidence of aortic stenosis. Mitral Valve: The mitral valve leaflets are mildly thickened. There is mild mitral regurgitation. There is no evidence of mitral stenosis. Tricuspid Valve: There is mild to moderate tricuspid regurgitation. The right ventricular systolic pressure is calculated at 46 mmHg. There is evidence of moderate pulmonary hypertension. Pulmonic Valve: There is trace pulmonic regurgitation. Pericardium: There is no pericardial effusion. Aorta: There is no dilatation of the ascending aorta. There is no dilatation of the aortic root. Venous: The inferior vena cava appears normal in size. Measurements Chambers 2D Name Value Normal Range IVSd (2D) 1.03 cm (0.6 - 1.1) LVPWd (2D) 0.91 cm (0.6 - 1.1) LVIDd (2D) 4.7 cm (3.7 - 5.6) LVIDs (2D) 3.36 cm (2 - 3.8) LV FS (2D) 28.6 % - EF Teichholz (2D) 55.1 % - Ao root diameter (2D) 3.06 cm (2 - 3.7) Volumes/Mass Name Value Normal Range LA ESV SP 4CH (A/L) 47.57 ml - LA ESV SP 2CH (A/L) 41.21 ml - LA ESV BP (A/L) 45.97 ml - LA ESV BP (A/L) index 20.8 ml/m2 - LA ESV SP 4CH (MOD) 43.06 ml - LA ESV SP 2CH (MOD) 41.81 ml - LA ESV BP (MOD) 43.59 ml - LA ESV BP (MOD) index 19.72 ml/m2 - Diastolic/Systolic Function Name Value Normal Range MV E-wave Vmax 0.81 m/sec - MV deceleration time 179.23 msec - Aortic Valve Name Value Normal Range AV Vmax 1.25 m/sec - AV VTI 19.57 cm - AV peak gradient 6.28 mmHg - AV mean gradient 3.55 mmHg - LVOT diameter 2.06 cm - LVOT Vmax 0.92 m/sec - LVOT VTI 13.2 cm - LVOT peak gradient 3.38 mmHg - LVOT mean gradient 1.86 mmHg - SV LVOT 44.13 ml - JOSE EDUARDO (continuity Vmax) 2.45 cm2 - JOSE EDUARDO (continuity VTI) 2.25 cm2 - Tricuspid Valve Name Value Normal Range TR Vmax 3.31 m/sec - TR peak gradient 43 mmHg - RAP 3 mmHg - RVSP 46 mmHg - IVC diameter 1.79 cm (1.2 - 2.3) Pulmonic Valve/Qp:Qs Name Value Normal Range PV Vmax 0.82 m/sec - PV peak gradient 2.66 mmHg - PV acceleration time 98.95 msec - Rodriguez/IV: Voiding Method Urinal IV Catheter Type [Right INT / Saline Lock Forearm] IV Catheter Type [Left Forearm INT / Saline Lock ] IV Catheter Type [Right Graft Femoral] IV Catheter Type [Right INT / Saline Lock Antecubital] Active Medications - Current Medications Current Medications: Generic Name Dose Route Start Last Admin Trade Name Freq PRN Reason Stop Dose Admin Acetaminophen 650 mg 07/22/20 14:09 07/27/20 22:12 Acetaminophen 325 Mg Tab PO 650 mg Q6H PRN Administration Pain, Mild (1-3) Hydrocodone Bitart/Acetaminophen 2 each 07/22/20 14:09 08/05/20 07:37 Hydrocodone/Acetaminophen 5-325 Mg Tab PO 2 each Q6H PRN Administration Pain, Moderate (4-6) Albuterol 2.5 mg 07/26/20 08:34 Albuterol 2.5 Mg/3 Ml Nebu IH Q4HRT PRN Shortness Of Breath Amiodarone HCl 200 mg 08/02/20 14:30 08/04/20 22:06 Amiodarone 200 Mg Tab PO 200 mg BID AALIYAH Administration Apixaban 5 mg 07/30/20 22:00 08/04/20 22:06 Apixaban 5 Mg Tab PO 5 mg Q12HR AALIYAH Administration Protocol Aspirin 81 mg 07/22/20 15:00 08/04/20 10:45 Aspirin Ec 81 Mg Tab PO 81 mg QDAY AALIYAH Administration Hydromorphone HCl 1 mg 07/30/20 13:00 08/03/20 17:30 Hydromorphone 1 Mg/1 Ml Inj IV 1 mg Q4H PRN Administration Pain , Severe (7-10) Metoprolol Tartrate 50 mg 07/29/20 10:00 08/04/20 22:06 Metoprolol Tartrate 50 Mg Tab PO 50 mg BID AALIYAH Administration Midodrine 10 mg 07/25/20 16:00 08/05/20 07:38 Midodrine 5 Mg Tab PO 10 mg TID@0800,1200,1600 AALIYAH Administration Ondansetron HCl 4 mg 07/22/20 14:09 Ondansetron 4 Mg/2 Ml Inj IV Q8H PRN Nausea And Vomiting Pregabalin 50 mg 08/01/20 10:00 08/04/20 10:45 Pregabalin 25 Mg Cap PO 50 mg QDAY AALIYAH Administration Sevelamer Carbonate 800 mg 07/23/20 18:30 08/05/20 07:44 Sevelamer Carbonate 800 Mg Tab PO Not Given AC AALIYAH Sodium Chloride 10 ml 07/22/20 13:00 08/04/20 22:06 Sodium Chloride 0.9% 10 Ml Flush Syringe IV 10 ml BID AALIYAH Administration Sodium Chloride 10 ml 07/22/20 13:00 07/31/20 06:49 Sodium Chloride 0.9% 10 Ml Flush Syringe IV 10 ml PRN PRN Administration LINE FLUSH Nutrition/Malnutrition Assess - Dietary Evaluation Nutrition/Malnutrition Findings: Nutrition Notes Start: 07/29/20 13:17 Freq: Status: Active Protocol: Document 07/31/20 13:06 BENTLEY (Rec: 07/31/20 13:22 BENTLEY [email or web address]) Co-Sign 07/31/20 13:06 LP Nutrition Notes Need for Assessment generated from: Education Initial or Follow up Reassessment Current Diagnosis CKD (stage V CKD) Other Pertinent Diagnosis ESRD w/ HD, thrombosis, HTN, peripheral artery dz s/p L BKA Current Diet Renal Labs/Tests BUN 46 Cr 13.3 no Phos record Pertinent Medications Renvela Height 6 ft 1 in Weight 97.1 kg Julian Body Weight (kg) 83.63 BMI 28.2 Weight change and time frame Noted dialysis Weight Status Overweight Subjective/Other Information F/u intakes. Pt reported dialysis treatment ongoing for years. Unaware of fluid restriction and provided education. Pt had no other questions about nutritional needs. Reported good intakes. Percent of energy/protein needs met: 100%/66% Burn Absent Trauma Absent GI Symptoms None Current % PO Good (75-100%) Minimum of two criteria No Fluid Accumulation Mild (non-severe) #1 Nutrition Diagnosis Increased nutrient needs ( specify in comment below) Comments: protein Etiology wound healing and dialysis As Evidenced by Signs and Symptoms pt on dialysis, had L BKA operation yesterday, and diet order provides 66% of protein needs Is patient on ventilator? No Is Patient Ambulatory and/or Out of Bed Yes REE-(Burson-St. Jeor-ambulatory/OOB) [ [id number] [id number]] Calculation Used for Recommendations Burson-St Jeor Additional Notes Protein: at least 117 g (>1.2 g/kg with 50% HBV) Fluid: 1 Liter per MD fluid restriction Nutrition Intervention Change Diet Order: Continue Renal diet Add Supplement/Snack (indicate name/kcal ONS to Ensure High Protein for /protein ) less calories and to meet protein needs (no chocolate flavor) Provides kCal: 480 Provides Protein (gm) 48 Teaching Recipient Patient Learning Readiness Fair Teaching Methods Discussion,Handout Response to Teaching Verbalize understanding, Reinforcement needed Education Handouts Provided Fluid restrition therapy Renal MyPlate Barriers to Learning No Barriers RD phone number provided Yes Patient aware of follow up options Yes Goal #1 Meet at least 75% of energy and protein needs Goal #2 ONS tolerance Goal #3 Assist with wound healing Goal #4 Reinforcement of protein education and ONS. Anticipated Discharge Needs: Renal diet and protein oral supplements as needed (no chocolate flavor) Follow-Up By: 08/06/20 Additional Comments F/u intakes, ONS acceptance, and diet education about protein and dialysis.
[2020-08-05 09:21] LABS: Calcium 9.5 mg/dL (8.4-10.2)
--- NOTE | 2020-08-05 09:57 | Progress Note ---
Assessment and Plan 54 y/o male with PVD, now found to have loculated right sided effusion. 08/05/20: Chest tube placement today. Labs ordered and are in [facility], fluid just needs to be sent. 08/02/20: IR unable to do CT guided chest tube today secondary to scheduling. Plan for Wednesday. Pulm status is stable. Will follow back up on Wednesday after chest tube is placed. 1. Spoke with IR and asked them to place a CT guided catheter so that It could be in good position to drain space. May need TPA if not able to drain space. 2. Once placed, please send fluid for LDH, protein, cell count with diff, gram stain and culture, afb, fungal and glucose. Please send for pathology as well. 3. Will continue to follow. Subjective Date of service: 08/05/20 Principal diagnosis: ESRD on HD Interval history: No acute events. Remains on room air. To have chest tube placed today by IR. Objective Vital Signs - 12hr 08/04/20 08/04/20 08/05/20 22:00 22:06 00:00 Temperature Pulse Rate 77 78 Pulse Rate [ 78 From Monitor] Respiratory 18 Rate Blood Pressure 111/63 O2 Sat by Pulse Oximetry 08/05/20 08/05/20 08/05/20 04:45 07:37 09:00 Temperature 98.0 F 97.9 F Pulse Rate 75 64 Pulse Rate [ From Monitor] Respiratory 18 20 20 Rate Blood Pressure 109/67 144/80 O2 Sat by Pulse 97 Oximetry 08/05/20 08/05/20 08/05/20 09:10 09:15 09:30 Temperature Pulse Rate 57 L 57 L 54 L Pulse Rate [ From Monitor] Respiratory Rate Blood Pressure 135/74 137/72 124/65 O2 Sat by Pulse Oximetry 08/05/20 09:45 Temperature Pulse Rate 62 Pulse Rate [ From Monitor] Respiratory Rate Blood Pressure 133/66 O2 Sat by Pulse Oximetry Constitutional: no acute distress, alert Eyes: non-icteric ENT: oropharynx moist Neck: supple Effort: normal Ascultation: Bilateral: clear Cardiovascular: regular rate and rhythm (no mrg) Gastrointestinal: normoactive bowel sounds, soft Integumentary: normal Neurologic: normal mental status, non-focal exam, pupils equal and round Psychiatric: mood appropriate, affect normal CBC and BMP: 08/05/20 08:10 08/05/20 08:10 ABG, PT/INR, D-dimer: PT/INR, D-dimer PT 21.0 Sec. (12.2-14.9) H 07/23/20 23:01 INR 1.80 (0.87-1.13) H 07/23/20 23:01 Abnormal lab findings: Abnormal Labs 07/22/20 07/22/20 07/22/20 12:22 12:22 12:22 WBC RBC 3.22 L Hgb 11.2 L Hct 32.6 L MCV 101 H MCH 35 H MCHC RDW 19.3 H Lymph % (Auto) Avery % (Auto) Lymph # (Auto) Avery # (Auto) Seg Neutrophils % Seg Neuts % (Manual) 99.0 H Lymphocytes % (Manual) 1.0 L Seg Neutrophils # Seg Neutrophils # Man 10.3 H Lymphocytes # (Manual) 0.1 L PT 17.9 H INR 1.48 H APTT 69.7 H* Fibrinogen 1029 H Heparin Anti-Xa Level Potassium 6.0 H Chloride 90.4 L Carbon Dioxide BUN 82 H Creatinine 16.8 H Glucose 109 H POC Glucose Calcium Lactate Dehydrogenase C-Reactive Protein Total Protein Albumin 3.4 L 07/22/20 07/22/20 07/22/20 18:00 18:00 18:00 WBC 12.2 H RBC 3.49 L Hgb 11.5 L Hct MCV 104 H MCH 33 H MCHC RDW 19.2 H Lymph % (Auto) Avery % (Auto) Lymph # (Auto) Avery # (Auto) Seg Neutrophils % Seg Neuts % (Manual) 97.0 H Lymphocytes % (Manual) 2.0 L Seg Neutrophils # Seg Neutrophils # Man 11.8 H Lymphocytes # (Manual) 0.2 L PT INR APTT Fibrinogen 814 H Heparin Anti-Xa Level < 0.10 L Potassium 6.3 H* Chloride 91.0 L Carbon Dioxide BUN 87 H Creatinine 17.1 H Glucose 117 H POC Glucose Calcium Lactate Dehydrogenase C-Reactive Protein Total Protein Albumin 07/22/20 07/23/20 07/23/20 21:01 02:41 02:41 WBC 14.7 H RBC 3.43 L Hgb 11.4 L Hct 35.0 L MCV 102 H MCH 33 H MCHC RDW 18.4 H Lymph % (Auto) 3.0 L Avery % (Auto) Lymph # (Auto) 0.4 L Avery # (Auto) Seg Neutrophils % 91.5 H Seg Neuts % (Manual) Lymphocytes % (Manual) Seg Neutrophils # 13.4 H Seg Neutrophils # Man Lymphocytes # (Manual) PT INR APTT Fibrinogen Heparin Anti-Xa Level Potassium 6.6 H* Chloride 89.9 L Carbon Dioxide BUN 92 H Creatinine 18.8 H Glucose 101 H POC Glucose 107 H Calcium 10.6 H Lactate Dehydrogenase C-Reactive Protein Total Protein Albumin 3.5 L 07/23/20 07/23/20 07/23/20 02:41 09:46 09:46 WBC 17.2 H RBC 3.47 L Hgb 11.4 L Hct 35.3 L MCV 102 H MCH 33 H MCHC RDW 18.8 H Lymph % (Auto) Avery % (Auto) Lymph # (Auto) Avery # (Auto) Seg Neutrophils % Seg Neuts % (Manual) 94.0 H Lymphocytes % (Manual) 1.0 L Seg Neutrophils # Seg Neutrophils # Man 16.2 H Lymphocytes # (Manual) 0.2 L PT INR APTT Fibrinogen 688 H 494 H Heparin Anti-Xa Level 0.10 L < 0.10 L Potassium Chloride Carbon Dioxide BUN Creatinine Glucose POC Glucose Calcium Lactate Dehydrogenase C-Reactive Protein Total Protein Albumin 07/23/20 07/23/20 07/23/20 23:01 23:01 23:01 WBC RBC Hgb 11.7 L Hct MCV MCH MCHC RDW Lymph % (Auto) Avery % (Auto) Lymph # (Auto) Avery # (Auto) Seg Neutrophils % Seg Neuts % (Manual) Lymphocytes % (Manual) Seg Neutrophils # Seg Neutrophils # Man Lymphocytes # (Manual) PT 21.0 H INR 1.80 H APTT 39.4 H Fibrinogen Heparin Anti-Xa Level < 0.10 L Potassium 6.0 H Chloride 92.5 L Carbon Dioxide BUN 69 H Creatinine 14.7 H Glucose 104 H POC Glucose Calcium 10.3 H Lactate Dehydrogenase C-Reactive Protein Total Protein Albumin 07/24/20 07/24/20 07/25/20 05:33 13:55 04:22 WBC RBC Hgb Hct MCV MCH MCHC RDW Lymph % (Auto) Avery % (Auto) Lymph # (Auto) A[place] # (Auto) Seg Neutrophils % Seg Neuts % (Manual) Lymphocytes % (Manual) Seg Neutrophils # Seg Neutrophils # Man Lymphocytes # (Manual) PT INR APTT Fibrinogen Heparin Anti-Xa Level Potassium 7.0 H* 6.0 H Chloride 96.3 L 93.5 L Carbon Dioxide BUN 71 H 77 H 54 H Creatinine 14.7 H 15.5 H 12.3 H Glucose 105 H POC Glucose Calcium Lactate Dehydrogenase C-Reactive Protein Total Protein Albumin 07/25/20 07/25/20 07/25/20 04:22 04:24 18:13 WBC RBC 3.48 L Hgb 11.4 L Hct MCV 102 H MCH 33 H MCHC RDW 18.4 H Lymph % (Auto) 9.4 L Avery % (Auto) 10.4 H Lymph # (Auto) 0.7 L [place] # (Auto) Seg Neutrophils % 78.8 H Seg Neuts % (Manual) Lymphocytes % (Manual) Seg Neutrophils # Seg Neutrophils # Man Lymphocytes # (Manual) PT INR APTT Fibrinogen Heparin Anti-Xa Level 0.10 L 0.16 L Potassium Chloride Carbon Dioxide BUN Creatinine Glucose POC Glucose Calcium Lactate Dehydrogenase C-Reactive Protein Total Protein Albumin 07/26/20 07/26/20 07/26/20 02:22 02:22 02:22 WBC RBC 3.35 L Hgb 11.1 L Hct 34.7 L MCV 104 H MCH 33 H MCHC RDW 18.9 H Lymph % (Auto) 9.2 L [place]very % (Auto) Lymph # (Auto) 0.9 L [place] # (Auto) Seg Neutrophils % 81.8 H Seg Neuts % (Manual) Lymphocytes % (Manual) Seg Neutrophils # 8.3 H Seg Neutrophils # Man Lymphocytes # (Manual) PT INR APTT Fibrinogen Heparin Anti-Xa Level 0.28 L Potassium Chloride 95.2 L Carbon Dioxide BUN 66 H Creatinine 14.7 H Glucose 108 H POC Glucose Calcium Lactate Dehydrogenase C-Reactive Protein Total Protein Albumin 07/26/20 07/26/20 07/27/20 10:16 17:25 02:15 WBC 13.0 H RBC 3.29 L Hgb 10.8 L Hct 34.3 L MCV 104 H MCH 33 H MCHC RDW 19.5 H Lymph % (Auto) 6.1 L [place] % (Auto) 7.8 H Lymph # (Auto) 0.8 L A[place] # (Auto) 1.0 H Seg Neutrophils % 84.3 H Seg Neuts % (Manual) Lymphocytes % (Manual) Seg Neutrophils # 10.9 H Seg Neutrophils # Man Lymphocytes # (Manual) PT INR APTT Fibrinogen Heparin Anti-Xa Level < 0.10 L Potassium Chloride Carbon Dioxide BUN Creatinine Glucose POC Glucose 64 L Calcium Lactate Dehydrogenase C-Reactive Protein Total Protein Albumin 07/27/20 07/28/20 07/28/20 02:15 07:53 07:53 WBC 15.3 H RBC 3.19 L Hgb 10.5 L Hct 33.2 L MCV 104 H MCH 33 H MCHC RDW 19.1 H Lymph % (Auto) 7.5 L Avery % (Auto) 8.7 H Lymph # (Auto) 1.1 L Avery # (Auto) 1.3 H Seg Neutrophils % 82.0 H Seg Neuts % (Manual) Lymphocytes % (Manual) Seg Neutrophils # 12.6 H Seg Neutrophils # Man Lymphocytes # (Manual) PT INR APTT Fibrinogen Heparin Anti-Xa Level Potassium 5.2 H D Chloride Carbon Dioxide BUN 43 H 57 H Creatinine 10.7 H 14.3 H Glucose 68 L 59 L POC Glucose Calcium 10.3 H Lactate Dehydrogenase C-Reactive Protein Total Protein Albumin 07/29/20 07/29/20 07/29/20 01:28 05:36 05:36 WBC 13.5 H RBC 3.17 L Hgb 10.2 L Hct 32.7 L MCV 103 H MCH MCHC 31 L RDW 19.3 H Lymph % (Auto) 7.4 L Avery % (Auto) 9.3 H Lymph # (Auto) 1.0 L Avery # (Auto) 1.3 H Seg Neutrophils % 81.3 H Seg Neuts % (Manual) Lymphocytes % (Manual) Seg Neutrophils # 11.0 H Seg Neutrophils # Man Lymphocytes # (Manual) PT INR APTT Fibrinogen Heparin Anti-Xa Level 0.10 L Potassium 5.1 H Chloride Carbon Dioxide BUN 67 H Creatinine 15.5 H Glucose 74 L POC Glucose Calcium Lactate Dehydrogenase C-Reactive Protein Total Protein Albumin 07/29/20 07/30/20 07/30/20 09:45 07:18 07:18 WBC RBC 3.19 L Hgb 10.5 L Hct 33.1 L MCV 104 H MCH 33 H MCHC RDW 19.5 H Lymph % (Auto) 7.5 L Avery % (Auto) 10.5 H Lymph # (Auto) 0.8 L A[place] # (Auto) 1.1 H Seg Neutrophils % 80.0 H Seg Neuts % (Manual) Lymphocytes % (Manual) Seg Neutrophils # 8.4 H Seg Neutrophils # Man Lymphocytes # (Manual) PT INR APTT Fibrinogen Heparin Anti-Xa Level 0.29 L Potassium Chloride Carbon Dioxide BUN 37 H Creatinine 11.3 H Glucose POC Glucose Calcium 10.4 H Lactate Dehydrogenase C-Reactive Protein Total Protein Albumin 07/30/20 07/31/20 07/31/20 21:37 04:54 04:54 WBC RBC 3.04 L Hgb 10.3 L Hct 31.7 L MCV 104 H MCH 34 H MCHC RDW 19.8 H Lymph % (Auto) 7.7 L Avery % (Auto) 7.8 H Lymph # (Auto) 0.7 L [place] # (Auto) Seg Neutrophils % 83.2 H Seg Neuts % (Manual) Lymphocytes % (Manual) Seg Neutrophils # Seg Neutrophils # Man Lymphocytes # (Manual) PT INR APTT Fibrinogen Heparin Anti-Xa Level Potassium Chloride Carbon Dioxide BUN 46 H Creatinine 13.3 H Glucose 104 H POC Glucose 120 H Calcium Lactate Dehydrogenase C-Reactive Protein Total Protein Albumin 08/01/20 08/01/20 08/01/20 05:05 07:34 14:16 WBC RBC Hgb Hct MCV MCH MCHC RDW Lymph % (Auto) Avery % (Auto) Lymph # (Auto) Avery # (Auto) Seg Neutrophils % Seg Neuts % (Manual) Lymphocytes % (Manual) Seg Neutrophils # Seg Neutrophils # Man Lymphocytes # (Manual) PT INR APTT Fibrinogen Heparin Anti-Xa Level Potassium Chloride Carbon Dioxide BUN 35 H Creatinine 9.8 H Glucose POC Glucose 69 L Calcium Lactate Dehydrogenase C-Reactive Protein 7.20 H Total Protein Albumin 08/01/20 08/01/20 08/02/20 15:56 16:10 05:22 WBC RBC 3.43 L Hgb 11.0 L Hct 35.4 L MCV 103 H MCH MCHC 31 L RDW 19.3 H Lymph % (Auto) 10.0 L Avery % (Auto) 11.5 H Lymph # (Auto) 1.1 L Avery # (Auto) 1.2 H Seg Neutrophils % 77.3 H Seg Neuts % (Manual) Lymphocytes % (Manual) Seg Neutrophils # 8.2 H Seg Neutrophils # Man Lymphocytes # (Manual) PT INR APTT Fibrinogen Heparin Anti-Xa Level Potassium Chloride Carbon Dioxide BUN Creatinine Glucose POC Glucose 110 H Calcium Lactate Dehydrogenase 226 H C-Reactive Protein Total Protein 6.0 L Albumin 3.2 L 08/02/20 08/02/20 08/02/20 05:22 16:55 17:36 WBC RBC Hgb Hct MCV MCH MCHC RDW Lymph % (Auto) Avery % (Auto) Lymph # (Auto) Avery # (Auto) Seg Neutrophils % Seg Neuts % (Manual) Lymphocytes % (Manual) Seg Neutrophils # Seg Neutrophils # Man Lymphocytes # (Manual) PT INR APTT Fibrinogen Heparin Anti-Xa Level Potassium Chloride Carbon Dioxide 31 H BUN 46 H Creatinine 12.4 H Glucose POC Glucose 57 L 58 L Calcium Lactate Dehydrogenase C-Reactive Protein Total Protein Albumin 08/02/20 08/03/20 08/03/20 20:56 06:47 06:47 WBC RBC Hgb Hct MCV 104 H MCH MCHC 31 L RDW 19.0 H Lymph % (Auto) 9.4 L Avery % (Auto) 10.9 H Lymph # (Auto) 0.8 L Avery # (Auto) 0.9 H Seg Neutrophils % 77.9 H Seg Neuts % (Manual) Lymphocytes % (Manual) Seg Neutrophils # Seg Neutrophils # Man Lymphocytes # (Manual) PT INR APTT Fibrinogen Heparin Anti-Xa Level Potassium Chloride 97.0 L Carbon Dioxide 31 H BUN 31 H Creatinine 9.1 H Glucose POC Glucose 121 H Calcium Lactate Dehydrogenase C-Reactive Protein Total Protein Albumin 08/04/20 08/04/20 08/05/20 07:58 07:58 08:10 WBC RBC 2.98 L 3.19 L Hgb 10.2 L 10.5 L Hct 31.1 L D 32.8 L MCV 105 H 103 H MCH 34 H 33 H MCHC RDW 19.2 H 19.3 H Lymph % (Auto) 10.2 L 9.4 L Avery % (Auto) 9.8 H 10.6 H Lymph # (Auto) 1.0 L 0.8 L Avery # (Auto) 1.0 H 0.9 H Seg Neutrophils % 77.7 H 77.5 H Seg Neuts % (Manual) Lymphocytes % (Manual) Seg Neutrophils # Seg Neutrophils # Man Lymphocytes # (Manual) PT INR APTT Fibrinogen Heparin Anti-Xa Level Potassium Chloride Carbon Dioxide BUN 49 H Creatinine 11.6 H Glucose POC Glucose Calcium Lactate Dehydrogenase C-Reactive Protein Total Protein Albumin 08/05/20 08:10 WBC RBC Hgb Hct MCV MCH MCHC RDW Lymph % (Auto) Avery % (Auto) Lymph # (Auto) Avery # (Auto) Seg Neutrophils % Seg Neuts % (Manual) Lymphocytes % (Manual) Seg Neutrophils # Seg Neutrophils # Man Lymphocytes # (Manual) PT INR APTT Fibrinogen Heparin Anti-Xa Level Potassium Chloride Carbon Dioxide BUN 63 H Creatinine 13.5 H Glucose POC Glucose Calcium Lactate Dehydrogenase C-Reactive Protein Total Protein Albumin
[2020-08-05] MEDS ORDERED: fentaNYL 100 MCG/2 ML INJ IV ONE (10:00)
--- NOTE | 2020-08-05 10:05 | Progress Note ---
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 Fluid restriction of 1 liter per day Strict I&O's daily Obtain daily weights Renally dose medications Assess dialysis needs daily Subjective Date of service: 08/05/20 Principal diagnosis: ESRD on HD Interval history: was in HD this AM Objective - Vital Signs Vital signs: Vital Signs - 12hr 08/04/20 08/05/20 08/05/20 22:06 00:00 04:45 Temperature 98.0 F Pulse Rate 77 78 75 Respiratory 18 Rate Blood Pressure 111/63 109/67 O2 Sat by Pulse 97 Oximetry 08/05/20 08/05/20 08/05/20 07:37 09:00 09:10 Temperature 97.9 F Pulse Rate 64 57 L Respiratory 20 20 Rate Blood Pressure 144/80 135/74 O2 Sat by Pulse Oximetry 08/05/20 08/05/20 08/05/20 09:15 09:30 09:45 Temperature Pulse Rate 57 L 54 L 62 Respiratory Rate Blood Pressure 137/72 124/65 133/66 O2 Sat by Pulse Oximetry - Lab 08/05/20 08:10 08/05/20 08:10 Most recent lab results Calcium 9.5 mg/dL (8.4-10.2) 08/05/20 08:10 Medications & Allergies - Medications Allergies/Adverse Reactions: Allergies amoxicillin Allergy (Severe, Verified 07/30/20 10:27) Unknown PT STATES LIPS SWELLED CONTRAST DYE Adverse Reaction (Severe, Uncoded 07/30/20 10:27) Swelling PT STATES GROIN AREA HAD SWELLING ALSO STATES HE SWELLING OTHER AREAS OF BODY Home Medications: Home Medications Medication Instructions Recorded Confirmed Last Taken Type Metoprolol [Lopressor] 25 mg PO QDAY 07/24/20 07/24/20 07/17/20 History Sevelamer Carbonate [Renvela] 800 mg PO TIDAC 07/24/20 07/24/20 07/19/20 History Sucroferric Oxyhydroxide(Nf) 500 mg PO TIDAC 07/24/20 07/24/20 07/19/20 History [Velphoro (Nf)] Warfarin [Coumadin] 6 mg PO QDAY 07/24/20 07/24/20 07/19/20 History Active Medications: Generic Name Dose Route Start Last Admin Trade Name Freq PRN Reason Stop Dose Admin Acetaminophen 650 mg 07/22/20 14:09 07/27/20 22:12 Acetaminophen 325 Mg Tab PO 650 mg Q6H PRN Administration Pain, Mild (1-3) Hydrocodone Bitart/Acetaminophen 2 each 07/22/20 14:09 08/05/20 07:37 Hydrocodone/Acetaminophen 5-325 Mg Tab PO 2 each Q6H PRN Administration Pain, Moderate (4-6) Albuterol 2.5 mg 07/26/20 08:34 Albuterol 2.5 Mg/3 Ml Nebu IH Q4HRT PRN Shortness Of Breath Amiodarone HCl 200 mg 08/02/20 14:30 08/04/20 22:06 Amiodarone 200 Mg Tab PO 200 mg BID AALIYAH Administration Apixaban 5 mg 07/30/20 22:00 08/04/20 22:06 Apixaban 5 Mg Tab PO 5 mg Q12HR AALIYAH Administration Protocol Aspirin 81 mg 07/22/20 15:00 08/04/20 10:45 Aspirin Ec 81 Mg Tab PO 81 mg QDAY AALIYAH Administration Hydromorphone HCl 1 mg 07/30/20 13:00 08/03/20 17:30 Hydromorphone 1 Mg/1 Ml Inj IV 1 mg Q4H PRN Administration Pain , Severe (7-10) Metoprolol Tartrate 50 mg 07/29/20 10:00 08/04/20 22:06 Metoprolol Tartrate 50 Mg Tab PO 50 mg BID AALIYAH Administration Midazolam HCl 5 mg 08/05/20 09:00 Midazolam 5 Mg/5 Ml Inj Mdv IV 08/05/20 23:59 ONCE NR Midodrine 10 mg 07/25/20 16:00 08/05/20 07:38 Midodrine 5 Mg Tab PO 10 mg TID@0800,1200,1600 AALIYAH Administration Ondansetron HCl 4 mg 07/22/20 14:09 Ondansetron 4 Mg/2 Ml Inj IV Q8H PRN Nausea And Vomiting Pregabalin 50 mg 08/01/20 10:00 08/04/20 10:45 Pregabalin 25 Mg Cap PO 50 mg QDAY AALIYAH Administration Sevelamer Carbonate 800 mg 07/23/20 18:30 08/05/20 07:44 Sevelamer Carbonate 800 Mg Tab PO Not Given AC AALIYAH Sodium Chloride 10 ml 07/22/20 13:00 08/04/20 22:06 Sodium Chloride 0.9% 10 Ml Flush Syringe IV 10 ml BID AALIYAH Administration Sodium Chloride 10 ml 07/22/20 13:00 07/31/20 06:49 Sodium Chloride 0.9% 10 Ml Flush Syringe IV 10 ml PRN PRN Administration LINE FLUSH
--- NOTE | 2020-08-05 10:16 | Event Note ---
Date: 08/05/[address] staff call for patient at 845, and patient was in dialysis and not able to come to the CT scanner. Will evaluate to see if patient needs to be rescheduled for tomorrow or may be able to come down later today.
[2020-08-05] MEDS: HYDROmorphone 1 MG/1 ML INJ IV PRN ×3 (10:45→23:52)
--- NOTE | 2020-08-05 11:59 | Progress Note ---
Assessment and Plan - Patient Problems (1) Paroxysmal atrial flutter Current Visit: Yes Status: Acute Plan to address problem: Patient is currently in stable sinus rhythm, continue medical therapy as previously outlined with beta-blockers and amiodarone, and Eliquis for long-term oral anticoagulation. Subjective Date of service: 08/05/20 Principal diagnosis: ESRD on HD Interval history: Patient is comfortable, currently undergoing hemodialysis. On cardiac monitor, is in a stable sinus rhythm at 60. Objective Vital Signs Temp Pulse Pulse Resp BP Pulse Ox 08/05/20 10:45 59 L 114/56 08/05/20 10:30 60 131/74 08/05/20 10:15 56 L 115/66 08/05/20 10:00 57 L 132/71 08/05/20 09:45 62 133/66 08/05/20 09:30 54 L 124/65 08/05/20 09:15 57 L 137/72 08/05/20 09:10 57 L 135/74 08/05/20 09:00 97.9 F 64 20 144/80 08/05/20 07:37 20 08/05/20 04:45 98.0 F 75 18 109/67 97 08/05/20 00:00 78 08/04/20 22:06 77 111/63 08/04/20 22:00 78 18 08/04/20 20:00 97 08/04/20 19:29 98.3 F 18 111/63 08/04/20 16:10 97.2 F L 77 20 110/63 90 08/04/20 12:19 97.8 F 72 20 125/74 100 08/04/20 12:00 77 - Physical Examination General: No Apparent Distress HEENT: Positive: PERRL Neck: Positive: trachea midline Cardiac: Positive: Reg Rate and Rhythm Lungs: Positive: Decreased Breath Sounds Neuro: Positive: Grossly Intact, Other (s/p left BKA) Abdomen: Positive: Soft, Active Bowel Sounds Skin: Positive: Clear Extremities: Absent: edema - Labs and Meds CBC 08/05/20 Range/Units 08:10 WBC 8.2 (4.5-11.0) K/mm3 RBC 3.19 L (3.65-5.03) M/mm3 Hgb 10.5 L (11.8-15.2) gm/dl Hct 32.8 L (35.5-45.6) % Plt Count 213 (140-440) K/mm3 Lymph # (Auto) 0.8 L (1.2-5.4) K/mm3 [place] # (Auto) 0.9 H (0.0-0.8) K/mm3 Eos # (Auto) 0.1 (0.0-0.4) K/mm3 Baso # (Auto) 0.1 (0.0-0.1) K/mm3 Comprehensive Metabolic Panel 08/05/20 Range/Units 08:10 Sodium 142 (137-145) mmol/L Potassium 4.6 (3.6-5.0) mmol/L Chloride 99.2 (98-107) mmol/L Carbon Dioxide 27 (22-30) mmol/L BUN 63 H (9-20) mg/dL Creatinine 13.5 H (0.8-1.3) mg/dL Glucose 86 (75-100) mg/dL Calcium 9.5 (8.4-10.2) mg/dL
[2020-08-05] MEDS: AMIODARONE 200 MG TAB PO SCH ×2 (14:09→22:23)
[2020-08-05] MEDS: APIXABAN 5 MG TAB PO SCH ×2 (14:09→22:23)
[2020-08-05] MEDS: METOPROLOL TARTRATE 50 MG TAB PO SCH ×2 (14:10→22:22)
[2020-08-05] MEDS: ASPIRIN EC 81 MG TAB PO SCH (14:10)
[2020-08-05] MEDS: PREGABALIN 25 MG CAP PO SCH (14:10)
--- NOTE | 2020-08-05 17:02 | Progress Note ---
Assessment and Plan Status post left BKA. Doing well. Change dressing. Can be changed daily. Will need rehab. Plan for chest tube placement tomorrow. Subjective Date of service: 08/05/20 Principal diagnosis: ESRD on HD Interval history: Status post left BKA. Change dressing. Remove small clot. Overall, BKA site looks good. Change dressing daily. Objective - Constitutional Vitals: Vital Signs - 12hr 08/05/20 08/05/20 08/05/20 07:37 09:00 09:10 Temperature 97.9 F Pulse Rate 64 57 L Respiratory 20 20 Rate Respiratory Rate [Left Lower Leg] Blood Pressure 144/80 135/74 O2 Sat by Pulse Oximetry 08/05/20 08/05/20 08/05/20 09:15 09:30 09:45 Temperature Pulse Rate 57 L 54 L 62 Respiratory Rate Respiratory Rate [Left Lower Leg] Blood Pressure 137/72 124/65 133/66 O2 Sat by Pulse Oximetry 08/05/20 08/05/20 08/05/20 10:00 10:15 10:30 Temperature Pulse Rate 57 L 56 L 60 Respiratory Rate Respiratory Rate [Left Lower Leg] Blood Pressure 132/71 115/66 131/74 O2 Sat by Pulse Oximetry 08/05/20 08/05/20 08/05/20 10:45 11:00 11:15 Temperature Pulse Rate 59 L 56 L 54 L Respiratory Rate Respiratory Rate [Left Lower Leg] Blood Pressure 114/56 121/60 120/65 O2 Sat by Pulse Oximetry 08/05/20 08/05/20 08/05/20 11:30 11:45 12:00 Temperature Pulse Rate 61 60 64 Respiratory Rate Respiratory Rate [Left Lower Leg] Blood Pressure 122/66 121/66 119/63 O2 Sat by Pulse Oximetry 08/05/20 08/05/20 08/05/20 12:20 14:00 14:09 Temperature 98.9 F Pulse Rate 64 Respiratory 18 200 H Rate Respiratory 20 Rate [Left Lower Leg] Blood Pressure 134/88 O2 Sat by Pulse 97 Oximetry General appearance: Present: no acute distress - EENT Eyes: EOM intact ENT: hearing intact - Respiratory Respiratory effort: normal Extremities: normal temperature, normal color, abnormal (Left BKA stump looks good, clean, dry, and intact except for 1 cm x 2 cm old blood clot which was r emoved.) - Psychiatric Psychiatric: appropriate mood/affect, cooperative - Labs CBC & Chem 7: 08/05/20 08:10 08/05/20 08:10 Labs: Abnormal lab results 08/05/20 08/05/20 Range/Units 08:10 08:10 RBC 3.19 L (3.65-5.03) M/mm3 Hgb 10.5 L (11.8-15.2) gm/dl Hct 32.8 L (35.5-45.6) % MCV 103 H (84-94) fl MCH 33 H (28-32) pg RDW 19.3 H (13.2-15.2) % Lymph % (Auto) 9.4 L (13.4-35.0) % [place]flower % (Auto) 10.6 H (0.0-7.3) % Lymph # (Auto) 0.8 L (1.2-5.4) K/mm3 [place] # (Auto) 0.9 H (0.0-0.8) K/mm3 Seg Neutrophils % 77.5 H (40.0-70.0) % BUN 63 H (9-20) mg/dL Creatinine 13.5 H (0.8-1.3) mg/dL Medications & Allergies - Medications Allergies/Adverse Reactions: Allergies amoxicillin Allergy (Severe, Verified 07/30/20 10:27) Unknown PT STATES LIPS SWELLED CONTRAST DYE Adverse Reaction (Severe, Uncoded 07/30/20 10:27) Swelling PT STATES GROIN AREA HAD SWELLING ALSO STATES HE SWELLING OTHER AREAS OF BODY Home Medications: Home Medications Medication Instructions Recorded Confirmed Last Taken Type Metoprolol [Lopressor] 25 mg PO QDAY 07/24/20 07/24/20 07/17/20 History Sevelamer Carbonate [Renvela] 800 mg PO TIDAC 07/24/20 07/24/20 07/19/20 History Sucroferric Oxyhydroxide(Nf) 500 mg PO TIDAC 07/24/20 07/24/20 07/19/20 History [Velphoro (Nf)] Warfarin [Coumadin] 6 mg PO QDAY 07/24/20 07/24/20 07/19/20 History Active Medications: Generic Name Dose Route Start Last Admin Trade Name Freq PRN Reason Stop Dose Admin Acetaminophen 650 mg 07/22/20 14:09 07/27/20 22:12 Acetaminophen 325 Mg Tab PO 650 mg Q6H PRN Administration Pain, Mild (1-3) Hydrocodone Bitart/Acetaminophen 2 each 07/22/20 14:09 08/05/20 14:09 Hydrocodone/Acetaminophen 5-325 Mg Tab PO 2 each Q6H PRN Administration Pain, Moderate (4-6) Albuterol 2.5 mg 07/26/20 08:34 Albuterol 2.5 Mg/3 Ml Nebu IH Q4HRT PRN Shortness Of Breath Amiodarone HCl 200 mg 08/02/20 14:30 08/05/20 14:09 Amiodarone 200 Mg Tab PO 200 mg BID AALIYAH Administration Apixaban 5 mg 07/30/20 22:00 08/05/20 14:09 Apixaban 5 Mg Tab PO 5 mg Q12HR AALIYAH Administration Protocol Aspirin 81 mg 07/22/20 15:00 08/05/20 14:10 Aspirin Ec 81 Mg Tab PO 81 mg QDAY AALIYAH Administration Hydromorphone HCl 1 mg 07/30/20 13:00 08/05/20 10:45 Hydromorphone 1 Mg/1 Ml Inj IV 1 mg Q4H PRN Administration Pain , Severe (7-10) Metoprolol Tartrate 50 mg 07/29/20 10:00 08/05/20 14:10 Metoprolol Tartrate 50 Mg Tab PO 50 mg BID AALIYAH Administration Midazolam HCl 5 mg 08/05/20 09:00 Midazolam 5 Mg/5 Ml Inj Mdv IV 08/05/20 23:59 ONCE NR Midodrine 10 mg 07/25/20 16:00 08/05/20 14:11 Midodrine 5 Mg Tab PO 10 mg TID@0800,1200,1600 AALIYAH Administration Ondansetron HCl 4 mg 07/22/20 14:09 Ondansetron 4 Mg/2 Ml Inj IV Q8H PRN Nausea And Vomiting Pregabalin 50 mg 08/01/20 10:00 08/05/20 14:10 Pregabalin 25 Mg Cap PO 50 mg QDAY AALIYAH Administration Sevelamer Carbonate 800 mg 07/23/20 18:30 08/05/20 14:11 Sevelamer Carbonate 800 Mg Tab PO 800 mg AC AALIYAH Administration Sodium Chloride 10 ml 07/22/20 13:00 08/04/20 22:06 Sodium Chloride 0.9% 10 Ml Flush Syringe IV 10 ml BID AALIYAH Administration Sodium Chloride 10 ml 07/22/20 13:00 07/31/20 06:49 Sodium Chloride 0.9% 10 Ml Flush Syringe IV 10 ml PRN PRN Administration LINE FLUSH
[2020-08-06] MEDS: HYDROcodone/ACETAMINOPHEN 5-325 MG TAB PO PRN ×3 (06:37→23:37)
--- NOTE | 2020-08-06 08:40 | Progress Note ---
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 Fluid restriction of 1 liter per day Strict I&O's daily Obtain daily weights Renally dose medications Assess dialysis needs daily Subjective Date of service: 08/06/20 Principal diagnosis: ESRD on HD Interval history: tolerated HD well yesterday Objective - Vital Signs Vital signs: Vital Signs - 12hr 08/05/20 08/05/20 08/05/20 22:00 22:22 23:35 Temperature 98.4 F Pulse Rate 73 71 Pulse Rate [ 71 From Monitor] Respiratory 18 18 Rate Blood Pressure 104/61 105/58 O2 Sat by Pulse 100 Oximetry 08/06/20 08/06/20 00:00 04:15 Temperature 98.4 F Pulse Rate 64 69 Pulse Rate [ From Monitor] Respiratory 18 Rate Blood Pressure 102/60 O2 Sat by Pulse 100 Oximetry - Lab 08/05/20 08:10 08/05/20 08:10 Most recent lab results Calcium 9.5 mg/dL (8.4-10.2) 08/05/20 08:10 Medications & Allergies - Medications Allergies/Adverse Reactions: Allergies amoxicillin Allergy (Severe, Verified 07/30/20 10:27) Unknown PT STATES LIPS SWELLED CONTRAST DYE Adverse Reaction (Severe, Uncoded 07/30/20 10:27) Swelling PT STATES GROIN AREA HAD SWELLING ALSO STATES HE SWELLING OTHER AREAS OF BODY Home Medications: Home Medications Medication Instructions Recorded Confirmed Last Taken Type Metoprolol [Lopressor] 25 mg PO QDAY 07/24/20 07/24/20 07/17/20 History Sevelamer Carbonate [Renvela] 800 mg PO TIDAC 07/24/20 07/24/20 07/19/20 History Sucroferric Oxyhydroxide(Nf) 500 mg PO TIDAC 07/24/20 07/24/20 07/19/20 History [Velphoro (Nf)] Warfarin [Coumadin] 6 mg PO QDAY 07/24/20 07/24/20 07/19/20 History Active Medications: Generic Name Dose Route Start Last Admin Trade Name Freq PRN Reason Stop Dose Admin Acetaminophen 650 mg 07/22/20 14:09 07/27/20 22:12 Acetaminophen 325 Mg Tab PO 650 mg Q6H PRN Administration Pain, Mild (1-3) Hydrocodone Bitart/Acetaminophen 2 each 07/22/20 14:09 08/06/20 06:37 Hydrocodone/Acetaminophen 5-325 Mg Tab PO 2 each Q6H PRN Administration Pain, Moderate (4-6) Albuterol 2.5 mg 07/26/20 08:34 Albuterol 2.5 Mg/3 Ml Nebu IH Q4HRT PRN Shortness Of Breath Amiodarone HCl 200 mg 08/02/20 14:30 08/05/20 22:23 Amiodarone 200 Mg Tab PO 200 mg BID AALIYAH Administration Apixaban 5 mg 07/30/20 22:00 08/05/20 22:23 Apixaban 5 Mg Tab PO 5 mg Q12HR AALIYAH Administration Protocol Aspirin 81 mg 07/22/20 15:00 08/05/20 14:10 Aspirin Ec 81 Mg Tab PO 81 mg QDAY AALIYAH Administration Hydromorphone HCl 1 mg 07/30/20 13:00 08/05/20 23:52 Hydromorphone 1 Mg/1 Ml Inj IV 1 mg Q4H PRN Administration Pain , Severe (7-10) Metoprolol Tartrate 50 mg 07/29/20 10:00 08/05/20 22:22 Metoprolol Tartrate 50 Mg Tab PO 50 mg BID AALIYAH Administration Midodrine 10 mg 07/25/20 16:00 08/05/20 19:21 Midodrine 5 Mg Tab PO 10 mg TID@0800,1200,1600 AALIYAH Administration Ondansetron HCl 4 mg 07/22/20 14:09 Ondansetron 4 Mg/2 Ml Inj IV Q8H PRN Nausea And Vomiting Pregabalin 50 mg 08/01/20 10:00 08/05/20 14:10 Pregabalin 25 Mg Cap PO 50 mg QDAY AALIYAH Administration Sevelamer Carbonate 800 mg 07/23/20 18:30 08/05/20 19:22 Sevelamer Carbonate 800 Mg Tab PO 800 mg AC AALIYAH Administration Sodium Chloride 10 ml 07/22/20 13:00 08/05/20 22:23 Sodium Chloride 0.9% 10 Ml Flush Syringe IV 10 ml BID AALIYAH Administration Sodium Chloride 10 ml 07/22/20 13:00 07/31/20 06:49 Sodium Chloride 0.9% 10 Ml Flush Syringe IV 10 ml PRN PRN Administration LINE FLUSH
--- NOTE | 2020-08-06 09:26 | Progress Note ---
Assessment and Plan Atrial flutter, paroxysmal currently in sinus rhythm; on amiodarone and metoprolol for suppression Prior h/o long RP tachycardia - likely PAT PAD, left popliteal artery thrombosis complicated by left lower limb ischemia status post left BKA this admission on Eliquis for anticoagulation Hypotension on midodrine End-stage renal disease Loculated pleural effusion Continue medical therapy for paroxysmal atrial flutter. Subjective Date of service: 08/06/20 Principal diagnosis: ESRD on HD Interval history: Patient is resting in bed and appears comfortable. No cardiac complaints. Awaits chest tube placement for right loculated pleural effusion. Currently he is sinus rhythm on telemetry. Objective Vital Signs Temp Pulse Pulse Resp Resp BP Pulse Ox 08/06/20 04:15 98.4 F 69 18 102/60 100 08/06/20 00:00 64 08/05/20 23:35 98.4 F 71 18 105/58 100 08/05/20 22:22 73 104/61 08/05/20 22:00 71 18 08/05/20 19:59 98.7 F 73 20 104/61 100 08/05/20 17:20 22 08/05/20 14:59 97.4 F L 74 18 116/61 96 08/05/20 14:09 200 H 08/05/20 14:00 20 97 08/05/20 12:20 98.9 F 64 18 134/88 08/05/20 12:00 64 119/63 08/05/20 11:45 60 121/66 08/05/20 11:30 61 122/66 08/05/20 11:15 54 L 120/65 08/05/20 11:00 56 L 121/60 08/05/20 10:45 59 L 114/56 08/05/20 10:30 60 131/74 08/05/20 10:15 56 L 115/66 08/05/20 10:00 57 L 132/71 08/05/20 09:45 62 133/66 08/05/20 09:30 54 L 124/65 - Physical Examination General: No Apparent Distress HEENT: Positive: PERRL Neck: Positive: trachea midline Cardiac: Positive: Reg Rate and Rhythm Lungs: Positive: Decreased Breath Sounds Neuro: Positive: Grossly Intact, Other (s/p left BKA) Extremities: Present: Other (s/p left BKA). Absent: edema - Labs and Meds Comprehensive Metabolic Panel 08/05/20 Range/Units 08:10 Creatinine 13.5 H (0.8-1.3) mg/dL
[2020-08-06] MEDS: MIDODRINE 5 MG TAB PO SCH ×3 (09:28→18:21)
[2020-08-06] MEDS: PREGABALIN 25 MG CAP PO SCH (09:28)
[2020-08-06] MEDS: METOPROLOL TARTRATE 50 MG TAB PO SCH ×2 (09:28→23:37)
[2020-08-06] MEDS: SEVELAMER CARBONATE 800 MG TAB PO SCH ×3 (09:28→18:24)
[2020-08-06] MEDS: AMIODARONE 200 MG TAB PO SCH ×2 (09:29→23:37)
[2020-08-06] MEDS: ASPIRIN EC 81 MG TAB PO SCH (09:29)
[2020-08-06] MEDS: APIXABAN 5 MG TAB PO SCH ×2 (09:29→23:37)
--- NOTE | 2020-08-06 10:31 | Progress Note ---
Assessment and Plan Cultures: Blood cultures 07/28/2020 no growth today. Assessment: 54 years old male with history of ESRD on hemodialysis, hypertension, tobacco abuse, PAD status post previous revascularization, admitted on 07/22/2020 secondary to worsening left leg pain for 3 days: #SIRS: Not present on admission, now with tachycardia, recent fever, elevated leukocytosis, likely secondary to left foot gangrene. Procalcitonin elevated likely in the setting of renal failure. #Left foot dry gangrene: With severe peripheral vascular disease. S/p left BKA on 07/30 #Right loculated pleural effusion: unclear etiology, he reports he has been cough some for a while. CT with thick-wall right pleural effusion loculated. CRP=7.2 #End-stage renal disease: On hemodialysis. #Amoxicillin allergy #Chronic SVC thrombosis Recommendations: -IR chest tube placement tomorrow per IR -monitor off abx for now, pt stable -check quantiferon TB gold pending Will follow. Amparo Collins MD Infectious Diseases [employer] [facility] ([facility]) M [phone] O [phone] Subjective Date of service: 08/06/20 Principal diagnosis: ESRD on HD Interval history: Patient feels good, no complaints no cough no chest pain. Objective - Exam Narrative Exam: eneral appearance: Alert in NAD pleasant Eyes: anicteric sclerae, moist conjunctivae; no lid-lag; PERRLA HENT: Normocephalic, Atraumatic; normal external ears, nares open, oropharynx clear. Neck: supple, tracheal midline, no JVD Lungs: right sided decreased BS CV: RRR no murmur Abdomen: Soft, non-tender; no masses or hepatosplenomegaly Extremities: Left BKA with surgical dressings Skin: No rash. Psych: no agitated Neuro: alert and oriented x 3. Moving all extermities - Constitutional Vitals: Vital Signs Temp Pulse Resp BP Pulse Ox 98.1 F 60 18 100/54 100 08/06/20 08:08 08/06/20 08:08 08/06/20 08:08 08/06/20 08:08 08/06/20 08:08 Temperature -Last 24 Hours Temperature 98.1 F Temperature 98.4 F Temperature 98.4 F Temperature 98.7 F Temperature 97.4 F Temperature 98.9 F - Labs CBC & Chem 7: 08/05/20 08:10 08/05/20 08:10
[2020-08-06] MEDS: HYDROmorphone 1 MG/1 ML INJ IV PRN (11:10)
--- NOTE | 2020-08-06 14:06 | Progress Note ---
Assessment and Plan Assessment and plan: 54 years old male with history of ESRD on hemodialysis, hypertension, tobacco abuse, PAD status post previous revascularization, admitted on 07/22/2020 secondary to worsening left leg pain for 3 days. Pain is 10 out of 10. Patient is unable to walk. Patient was seen at Dr. Hurt's office, vascular surgeon, and was found to have a left popliteal artery thrombosis complicated by a left lower limb ischemia was sent to the ED. Patient had revascularization May 2020 due to mild ischemic toes and since then discoloration of the toes has worsened. On arrival, initial temperature 97.3, HR 107, RR 16, O2 100, BP 163/92. Initial WBC 8. Hemoglobin 11.7. Procalcitonin 4.2. Patient underwent angio plasty on 07/22/2020. By 07/27/2020 patient spiked a fever 101. Blood cultures 07/28/2020 no growth. Patient is planned to have a left BKA for nonsalvageable left leg per vascular -- Acute limb ischemia with thrombosis of left popliteal artery s/p angiogram and angioplasty for left popliteal artery occlusion now s/p Left BKA -- End stage renal disease Nephrology team on board --Chronic hypotension --Right loculated pleural effusion CT scan reveals right thick-walled loculated pleural effusion Plan for chest tube placement --Atrial flutter/fibrillation --left lower extremity DVT --DVT prophylaxis SCDs bilateral lower extremities while in bed, continue therapeutic anticoagulation 07/30. ID started Vanc and levaquin. Left BKA completed per Surgery 07/31. Continue IV antibiotics per ID recommendations. Patient is s/p left BKA yesterday (07/30). Physical therapy evaluation pending. Continue hemodialysis per nephrology recommendations. 08/01. Patient with what appears to be a right loculated pleural effusion. Check CT of chest. ID to monitor off antibiotics s/p amputation physical therap y recommends acute rehab. Continue hemodialysis per nephrology recommendations. 08/02. CT scan reveals thick-walled right loculated pleural effusion. IR to place CT-guided catheter and send specimen for culture/cytology Wednesday. ID to monitor off antibiotics for now. Follow-up quantiferon TB gold. 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 Patient reports previous history and is followed by [facility]. Consult cardiology for further evaluation. 08/03. IR to place CT-guided catheter and send specimen for culture/cytology Wednesday. ID to monitor off antibiotics for now. Follow-up quantiferon TB gold. Await cardiology consultation for atrial flutter/fibrillation. 08/04. Atrial flutter rate controlled with amiodarone. Continue anticoagulation with Eliquis (prior DVT and A. fib). Patient with prior history of PAT. IR to place CT-guided catheter and send specimen for culture/cytology Wednesday. ID to monitor off antibiotics for now. Follow-up quantiferon TB gold. Continue hemodialysis per nephrology. Continue midodrine for hypotension. Physical therapy recommends acute rehab placement. Case management follow-up after chest tube placement tomorrow. 08/05. Atrial flutter rate controlled with amiodarone. Continue anticoagulation with Eliquis (prior DVT and A. fib). Patient with prior history of PAT. IR to place CT-guided catheter and send specimen for culture/cytology today. ID to monitor off antibiotics for now. Follow-up quantiferon TB gold. Continue hemodialysis per nephrology. Continue midodrine for hypotension. Physical therapy recommends acute rehab placement. Case management follow-up after chest tube placement today for discharge planning--patient with s/p BKA this hospitalization. Physical therapy recommends acute rehab placement.\ 08/06. Patient has right-sided pleural effusion that is loculated and will need to have drainage. Chest tube placement has been postponed today. On anticoagulation for DVT and atrial fibrillation. On amiodarone for atrial flutter/fibrillation. PT is recommending acute rehab placement. History Interval history: No acute events Hospitalist Physical - Physical exam Narrative exam: VITAL SIGNS: Reviewed. GENERAL: Awake HEAD: No signs of head trauma. EYES: Pupils are equal. Extraocular motions intact. MOUTH: Oropharynx is normal. NECK: No adenopathy, no JVD. CHEST: Chest with diminished breath sounds bilaterally. No wheezes, rales, or rhonchi. CARDIAC: normal S1 and S2, without murmurs, gallops, or rubs. ABDOMEN: Soft, non tender and non distended. No rebound or guarding, and no masses palpated. Bowel Sounds normal. MUSCULOSKELETAL: left BKA NEUROLOGIC EXAM: Alert and oriented x3. No focal neurologic deficits SKIN: No obvious lesions - Constitutional Vitals: Temp Pulse Resp BP Pulse Ox 98.0 F 63 18 99/54 100 08/06/20 12:16 08/06/20 12:16 08/06/20 12:16 08/06/20 12:16 08/06/20 12:16 Results - Labs CBC & Chem 7: 08/05/20 08:10 08/05/20 08:10 Labs: Laboratory Last Values WBC 8.2 K/mm3 (4.5-11.0) 08/05/20 08:10 RBC 3.19 M/mm3 (3.65-5.03) L 08/05/20 08:10 Hgb 10.5 gm/dl (11.8-15.2) L 08/05/20 08:10 Hct 32.8 % (35.5-45.6) L 08/05/20 08:10 MCV 103 fl (84-94) H 08/05/20 08:10 MCH 33 pg (28-32) H 08/05/20 08:10 MCHC 32 % (32-34) 08/05/20 08:10 RDW 19.3 % (13.2-15.2) H 08/05/20 08:10 Plt Count 213 K/mm3 (140-440) 08/05/20 08:10 Lymph % (Auto) 9.4 % (13.4-35.0) L 08/05/20 08:10 [place] % (Auto) 10.6 % (0.0-7.3) H 08/05/20 08:10 Eos % (Auto) 1.5 % (0.0-4.3) 08/05/20 08:10 Baso % (Auto) 1.0 % (0.0-1.8) 08/05/20 08:10 Lymph # (Auto) 0.8 K/mm3 (1.2-5.4) L 08/05/20 08:10 [place] # (Auto) 0.9 K/mm3 (0.0-0.8) H 08/05/20 08:10 Eos # (Auto) 0.1 K/mm3 (0.0-0.4) 08/05/20 08:10 Baso # (Auto) 0.1 K/mm3 (0.0-0.1) 08/05/20 08:10 Add Manual Diff Complete 07/29/20 05:36 Total Counted 100 07/23/20 09:46 Seg Neutrophils % 77.5 % (40.0-70.0) H 08/05/20 08:10 Seg Neuts % (Manual) 94.0 % (40.0-70.0) H 07/23/20 09:46 Band Neutrophils % 1.0 % 07/23/20 09:46 Lymphocytes % (Manual) 1.0 % (13.4-35.0) L 07/23/20 09:46 Reactive Lymphs % (Man) 0 % 07/22/20 18:00 Monocytes % (Manual) 4.0 % (0.0-7.3) 07/23/20 09:46 Eosinophils % (Manual) 0 % (0.0-4.3) 07/22/20 18:00 Basophils % (Manual) 0 % (0.0-1.8) 07/22/20 18:00 Metamyelocytes % 0 % 07/22/20 18:00 Myelocytes % 0 % 07/22/20 18:00 Promyelocytes % 0 % 07/22/20 18:00 Blast Cells % 0 % 07/22/20 18:00 Nucleated RBC % Not Reportable 07/29/20 05:36 Seg Neutrophils # 6.3 K/mm3 (1.8-7.7) 08/05/20 08:10 Seg Neutrophils # Man 16.2 K/mm3 (1.8-7.7) H 07/23/20 09:46 Band Neutrophils # 0.2 K/mm3 07/23/20 09:46 Lymphocytes # (Manual) 0.2 K/mm3 (1.2-5.4) L 07/23/20 09:46 Abs React Lymphs (Man) 0.0 K/mm3 07/23/20 09:46 Monocytes # (Manual) 0.7 K/mm3 (0.0-0.8) 07/23/20 09:46 Eosinophils # (Manual) 0.0 K/mm3 (0.0-0.4) 07/23/20 09:46 Basophils # (Manual) 0.0 K/mm3 (0.0-0.1) 07/23/20 09:46 Metamyelocytes # 0.0 K/mm3 07/23/20 09:46 Myelocytes # 0.0 K/mm3 07/23/20 09:46 Promyelocytes # 0.0 K/mm3 07/23/20 09:46 Blast Cells # 0.0 K/mm3 07/23/20 09:46 WBC Morphology Not Reportable 07/29/20 05:36 Hypersegmented Neuts Not Reportable 07/29/20 05:36 Hyposegmented Neuts Not Reportable 07/29/20 05:36 Hypogranular Neuts Not Reportable 07/29/20 05:36 Smudge Cells Not Reportable 07/29/20 05:36 Toxic Granulation Not Reportable 07/29/20 05:36 Toxic Vacuolation Not Reportable 07/29/20 05:36 Dohle Bodies Not Reportable 07/29/20 05:36 Pelger-Huet Anomaly Not Reportable 07/29/20 05:36 Svetlana Rods Not Reportable 07/29/20 05:36 Platelet Estimate Not Reportable 07/29/20 05:36 Clumped Platelets Not Reportable 07/29/20 05:36 Plt Clumps, EDTA Not Reportable 07/29/20 05:36 Large Platelets Not Reportable 07/29/20 05:36 Giant Platelets Not Reportable 07/29/20 05:36 Platelet Satelliting Not Reportable 07/29/20 05:36 Plt Morphology Comment Not Reportable 07/29/20 05:36 RBC Morphology Not Reportable 07/29/20 05:36 Dimorphic RBCs Not Reportable 07/29/20 05:36 Polychromasia Not Reportable 07/29/20 05:36 Hypochromasia Not Reportable 07/29/20 05:36 Poikilocytosis Not Reportable 07/29/20 05:36 Anisocytosis Not Reportable 07/29/20 05:36 Microcytosis Not Reportable 07/29/20 05:36 Macrocytosis Not Reportable 07/29/20 05:36 Spherocytes Not Reportable 07/29/20 05:36 Pappenheimer Bodies Not Reportable 07/29/20 05:36 Sickle Cells Not Reportable 07/29/20 05:36 Target Cells Not Reportable 07/29/20 05:36 Tear Drop Cells Not Reportable 07/29/20 05:36 Ovalocytes Not Reportable 07/29/20 05:36 Helmet Cells Not Reportable 07/29/20 05:36 [place] Bodies Not Reportable 07/29/20 05:36 [place] Rings Not Reportable 07/29/20 05:36 Alicia Cells Not Reportable 07/29/20 05:36 Bite Cells Not Reportable 07/29/20 05:36 Crenated Cell Not Reportable 07/29/20 05:36 Elliptocytes Not Reportable 07/29/20 05:36 Acanthocytes (Spur) Not Reportable 07/29/20 05:36 Rouleaux Not Reportable 07/29/20 05:36 Hemoglobin C Crystals Not Reportable 07/29/20 05:36 Schistocytes Not Reportable 07/29/20 05:36 Malaria parasites Not Reportable 07/29/20 05:36 Malachi Bodies Not Reportable 07/29/20 05:36 Hem Pathologist Commnt Not Reportable 07/29/20 05:36 PT 21.0 Sec. (12.2-14.9) H 07/23/20 23:01 INR 1.80 (0.87-1.13) H 07/23/20 23:01 APTT 39.4 Sec. (24.2-36.6) H 07/23/20 23:01 Fibrinogen 494 mg/dl (211-480) H 07/23/20 09:46 Heparin Anti-Xa Level 0.29 U.I./ml (0.3-0.7) L 07/29/20 09:45 Sodium 142 mmol/L (137-145) 08/05/20 08:10 Potassium 4.6 mmol/L (3.6-5.0) 08/05/20 08:10 Chloride 99.2 mmol/L (98-107) 08/05/20 08:10 Carbon Dioxide 27 mmol/L (22-30) 08/05/20 08:10 Anion Gap 20 mmol/L 08/05/20 08:10 BUN 63 mg/dL (9-20) H 08/05/20 08:10 Creatinine 13.5 mg/dL (0.8-1.3) H 08/05/20 08:10 Estimated GFR 5 ml/min 08/05/20 08:10 BUN/Creatinine Ratio 5 % 08/05/20 08:10 Glucose 86 mg/dL (75-100) 08/05/20 08:10 POC Glucose 90 mg/dL (70-105) 08/05/20 21:36 Calcium 9.5 mg/dL (8.4-10.2) 08/05/20 08:10 Total Bilirubin 0.30 mg/dL (0.1-1.2) 08/01/20 16:10 Direct Bilirubin < 0.2 mg/dL (0-0.2) 08/01/20 16:10 Indirect Bilirubin 0.1 mg/dL 08/01/20 16:10 AST 37 units/L (5-40) 08/01/20 16:10 ALT 27 units/L (7-56) 08/01/20 16:10 Alkaline Phosphatase 63 units/L (35-129) 08/01/20 16:10 Lactate Dehydrogenase 226 units/L (91-180) H 08/01/20 16:10 C-Reactive Protein 7.20 mg/dL (0.00-1.30) H 08/01/20 14:16 Total Protein 6.0 g/dL (6.3-8.2) L 08/01/20 16:10 Albumin 3.2 g/dL (3.9-5) L 08/01/20 16:10 Albumin/Globulin Ratio 1.1 % 08/01/20 16:10 Procalcitonin 4.28 ng/mL (<0.15) 07/28/20 07:53 TSH 3.770 mlU/mL (0.270-4.200) 07/26/20 02:22 Free T4 1.01 ng/dL (0.76-1.46) 07/26/20 02:22 Random Vancomycin 13.9 ug/mL (0-40.0) 07/30/20 07:18 Hepatitis A IgM Ab Non-reactive (NonReactive) 07/22/20 18:00 Hep Bs Antigen Non-reactive (Negative) 07/22/20 18:00 Hep B Core IgM Ab Non-reactive (NonReactive) 07/22/20 18:00 Hepatitis C Antibody Non-reactive (NonReactive) 07/22/20 18:00 Blood Type O POSITIVE 07/30/20 07:24 Antibody Screen Negative 07/30/20 07:24 - Diagnostic Impressions Diagnostic Impressions: Echocardiogram 07/26/20 08:06 Transthoracic Echocardiogram Indication: Tachycardia BP: 108/70 HR: 100 Conclusions *Global left ventricular systolic function is normal. *The estimated ejection fraction is 60-65%. *Mild concentric left ventricular hypertrophy is observed. *The left atrium is mildly dilated. *There is mild mitral regurgitation. *The right heart chambers are both mildly dilated. *There is mild to moderate tricuspid regurgitation. *There is evidence of moderate pulmonary hypertension. *The right ventricular systolic pressure is calculated at 46 mmHg. Findings Left Ventricle: The left ventricular chamber size is normal. Mild concentric left ventricular hypertrophy is observed. Global left ventricular systolic function is normal. The estimated ejection fraction is 60-65%. Left Atrium: The left atrium is mildly dilated. Right Ventricle: The right ventricle is mildly dilated. The right ventricular global systolic function is mildly reduced. Right Atrium: The right atrium is mildly dilated. Aortic Valve: The aortic valve is trileaflet. The aortic valve leaflets are mildly thickened. There is no evidence of aortic regurgitation. There is no evidence of aortic stenosis. Mitral Valve: The mitral valve leaflets are mildly thickened. There is mild mitral regurgitation. There is no evidence of mitral stenosis. Tricuspid Valve: There is mild to moderate tricuspid regurgitation. The right ventricular systolic pressure is calculated at 46 mmHg. There is evidence of moderate pulmonary hypertension. Pulmonic Valve: There is trace pulmonic regurgitation. Pericardium: There is no pericardial effusion. Aorta: There is no dilatation of the ascending aorta. There is no dilatation of the aortic root. Venous: The inferior vena cava appears normal in size. Measurements Chambers 2D Name Value Normal Range IVSd (2D) 1.03 cm (0.6 - 1.1) LVPWd (2D) 0.91 cm (0.6 - 1.1) LVIDd (2D) 4.7 cm (3.7 - 5.6) LVIDs (2D) 3.36 cm (2 - 3.8) LV FS (2D) 28.6 % - EF Teichholz (2D) 55.1 % - Ao root diameter (2D) 3.06 cm (2 - 3.7) Volumes/Mass Name Value Normal Range LA ESV SP 4CH (A/L) 47.57 ml - LA ESV SP 2CH (A/L) 41.21 ml - LA ESV BP (A/L) 45.97 ml - LA ESV BP (A/L) index 20.8 ml/m2 - LA ESV SP 4CH (MOD) 43.06 ml - LA ESV SP 2CH (MOD) 41.81 ml - LA ESV BP (MOD) 43.59 ml - LA ESV BP (MOD) index 19.72 ml/m2 - Diastolic/Systolic Function Name Value Normal Range MV E-wave Vmax 0.81 m/sec - MV deceleration time 179.23 msec - Aortic Valve Name Value Normal Range AV Vmax 1.25 m/sec - AV VTI 19.57 cm - AV peak gradient 6.28 mmHg - AV mean gradient 3.55 mmHg - LVOT diameter 2.06 cm - LVOT Vmax 0.92 m/sec - LVOT VTI 13.2 cm - LVOT peak gradient 3.38 mmHg - LVOT mean gradient 1.86 mmHg - SV LVOT 44.13 ml - JOSE EDUARDO (continuity Vmax) 2.45 cm2 - JOSE EDUARDO (continuity VTI) 2.25 cm2 - Tricuspid Valve Name Value Normal Range TR Vmax 3.31 m/sec - TR peak gradient 43 mmHg - RAP 3 mmHg - RVSP 46 mmHg - IVC diameter 1.79 cm (1.2 - 2.3) Pulmonic Valve/Qp:Qs Name Value Normal Range PV Vmax 0.82 m/sec - PV peak gradient 2.66 mmHg - PV acceleration time 98.95 msec - Rodriguez/IV: Voiding Method Urinal IV Catheter Type [Right INT / Saline Lock Forearm] IV Catheter Type [Left Forearm INT / Saline Lock ] IV Catheter Type [Right Graft Femoral] IV Catheter Type [Right INT / Saline Lock Antecubital] Active Medications - Current Medications Current Medications: Generic Name Dose Route Start Last Admin Trade Name Freq PRN Reason Stop Dose Admin Acetaminophen 650 mg 07/22/20 14:09 07/27/20 22:12 Acetaminophen 325 Mg Tab PO 650 mg Q6H PRN Administration Pain, Mild (1-3) Hydrocodone Bitart/Acetaminophen 2 each 07/22/20 14:09 08/06/20 06:37 Hydrocodone/Acetaminophen 5-325 Mg Tab PO 2 each Q6H PRN Administration Pain, Moderate (4-6) Albuterol 2.5 mg 07/26/20 08:34 Albuterol 2.5 Mg/3 Ml Nebu IH Q4HRT PRN Shortness Of Breath Amiodarone HCl 200 mg 08/02/20 14:30 08/06/20 09:29 Amiodarone 200 Mg Tab PO 200 mg BID AALIYAH Administration Apixaban 5 mg 07/30/20 22:00 08/06/20 09:29 Apixaban 5 Mg Tab PO Not Given Q12HR [facility] Protocol Aspirin 81 mg 07/22/20 15:00 08/06/20 09:29 Aspirin Ec 81 Mg Tab PO Not Given QDAY AALIYAH Hydromorphone HCl 1 mg 07/30/20 13:00 08/06/20 11:10 Hydromorphone 1 Mg/1 Ml Inj IV 1 mg Q4H PRN Administration Pain , Severe (7-10) Metoprolol Tartrate 50 mg 07/29/20 10:00 08/06/20 09:28 Metoprolol Tartrate 50 Mg Tab PO 50 mg BID AALIYAH Administration Midodrine 10 mg 07/25/20 16:00 08/06/20 09:28 Midodrine 5 Mg Tab PO 10 mg TID@0800,1200,1600 AALIYAH Administration Ondansetron HCl 4 mg 07/22/20 14:09 Ondansetron 4 Mg/2 Ml Inj IV Q8H PRN Nausea And Vomiting Pregabalin 50 mg 08/01/20 10:00 08/06/20 09:28 Pregabalin 25 Mg Cap PO 50 mg QDAY AALIYAH Administration Sevelamer Carbonate 800 mg 07/23/20 18:30 08/06/20 09:28 Sevelamer Carbonate 800 Mg Tab PO 800 mg AC AALIYAH Administration Sodium Chloride 10 ml 07/22/20 13:00 08/06/20 11:11 Sodium Chloride 0.9% 10 Ml Flush Syringe IV 10 ml BID AALIYAH Administration Sodium Chloride 10 ml 07/22/20 13:00 07/31/20 06:49 Sodium Chloride 0.9% 10 Ml Flush Syringe IV 10 ml PRN PRN Administration LINE FLUSH Nutrition/Malnutrition Assess - Dietary Evaluation Nutrition/Malnutrition Findings: Nutrition Notes Start: 07/29/20 13:17 Freq: Status: Active Protocol: Document 08/06/20 12:53 BENTLEY (Rec: 08/06/20 12:55 BENTLEY [id number]) Co-Sign 08/06/20 12:53 LP Nutrition Notes Initial or Follow up Brief Note Current Diagnosis CKD (stage V CKD) Other Pertinent Diagnosis ESRD w/ HD, thrombosis, HTN, peripheral artery dz s/p L BKA Current Diet NPO Subjective/Other Information F/u intakes, ONS acceptance, and diet education about protein and dialysis. Pt out of room at time of administration internship visit and is currently NPO for CT drain procedure. Nutrition Intervention Follow-Up By: 08/07/20 Additional Comments F/u diet advancement and if so , F/u intakes, ONS acceptance, and diet education about protein and dialysis.
--- NOTE | 2020-08-06 14:49 | Event Note ---
Date: 08/06/20 Was set up for chest tube placement today, but did not realize patient was on eliquis for atrial fibrillation. Need to hold 2 days before chest tube placement. Hold today, and tomorrow, with plan for placement on . Can restart on wednesday.
[2020-08-07] MEDS: HYDROmorphone 1 MG/1 ML INJ IV PRN ×3 (01:44→23:41)
--- NOTE | 2020-08-07 10:02 | Progress Note ---
Assessment and Plan 54 y/o male with PVD, now found to have loculated right sided effusion. 08/07/20: Clinically the patient is asymptomatic, on room air and in no distress. The likelihood that this is an active infection is very low. This is almost sure to be chronic and has been there for an extended period of time. The chest tube was merely for diagnostic purposes and nothing therapeutic would come from it. Given the need for anticoagulation therapy. I think the risk of holding for this procedure outweigh the benefits of thoracentesis/tube thoracostomy placement and can be aborted for now. Patient can follow up in the office to make sure the area does not enlarge or symptoms develop. 08/05/20: Chest tube placement today. [facility], fluid just needs to be sent. 08/02/20: IR unable to do CT guided chest tube today secondary to scheduling. Plan for Wednesday. Pulm status is stable. Will follow back up on Wednesday after chest tube is placed. 1. Spoke with IR and asked them to place a CT guided catheter so that It could be in good position to drain space. May need TPA if not able to drain space. 2. Once placed, please send fluid for LDH, protein, cell count with diff, gram stain and culture, afb, fungal and glucose. Please send for pathology as well. 3. Will continue to follow. Subjective Date of service: 08/07/20 Principal diagnosis: ESRD on HD Interval history: Patient unable to get chest tube yesterday secondary to anticoagulation therapy. Objective Vital Signs - 12hr 08/07/20 08/07/20 08/07/20 00:00 00:05 04:41 Temperature 98.2 F 97.9 F Pulse Rate 67 66 65 Respiratory 20 20 Rate Blood Pressure 113/58 123/67 O2 Sat by Pulse 99 100 Oximetry 08/07/20 08/07/20 08/07/20 09:00 09:15 09:30 Temperature 97.9 F Pulse Rate 70 62 65 Respiratory 18 Rate Blood Pressure 147/84 122/87 120/67 O2 Sat by Pulse Oximetry 08/07/20 09:45 Temperature Pulse Rate 58 L Respiratory Rate Blood Pressure 121/68 O2 Sat by Pulse Oximetry Constitutional: no acute distress, alert Eyes: non-icteric ENT: oropharynx moist Neck: supple Effort: normal Ascultation: Bilateral: clear Cardiovascular: regular rate and rhythm (no mrg) Gastrointestinal: normoactive bowel sounds, soft Integumentary: normal Neurologic: normal mental status, non-focal exam, pupils equal and round Psychiatric: mood appropriate, affect normal CBC and BMP: 08/05/20 08:10 08/05/20 08:10 ABG, PT/INR, D-dimer: PT/INR, D-dimer PT 21.0 Sec. (12.2-14.9) H 07/23/20 23:01 INR 1.80 (0.87-1.13) H 07/23/20 23:01 Abnormal lab findings: Abnormal Labs 07/22/20 07/22/20 07/22/20 12:22 12:22 12:22 WBC RBC 3.22 L Hgb 11.2 L Hct 32.6 L MCV 101 H MCH 35 H MCHC RDW 19.3 H Lymph % (Auto) Owen % (Auto) Lymph # (Auto) Owen # (Auto) Seg Neutrophils % Seg Neuts % (Manual) 99.0 H Lymphocytes % (Manual) 1.0 L Seg Neutrophils # Seg Neutrophils # Man 10.3 H Lymphocytes # (Manual) 0.1 L PT 17.9 H INR 1.48 H APTT 69.7 H* Fibrinogen 1029 H Heparin Anti-Xa Level Potassium 6.0 H Chloride 90.4 L Carbon Dioxide BUN 82 H Creatinine 16.8 H Glucose 109 H POC Glucose Calcium Lactate Dehydrogenase C-Reactive Protein Total Protein Albumin 3.4 L 07/22/20 07/22/20 07/22/20 18:00 18:00 18:00 WBC 12.2 H RBC 3.49 L Hgb 11.5 L Hct MCV 104 H MCH 33 H MCHC RDW 19.2 H Lymph % (Auto) Owen % (Auto) Lymph # (Auto) Owen # (Auto) Seg Neutrophils % Seg Neuts % (Manual) 97.0 H Lymphocytes % (Manual) 2.0 L Seg Neutrophils # Seg Neutrophils # Man 11.8 H Lymphocytes # (Manual) 0.2 L PT INR APTT Fibrinogen 814 H Heparin Anti-Xa Level < 0.10 L Potassium 6.3 H* Chloride 91.0 L Carbon Dioxide BUN 87 H Creatinine 17.1 H Glucose 117 H POC Glucose Calcium Lactate Dehydrogenase C-Reactive Protein Total Protein Albumin 07/22/20 07/23/20 07/23/20 21:01 02:41 02:41 WBC 14.7 H RBC 3.43 L Hgb 11.4 L Hct 35.0 L MCV 102 H MCH 33 H MCHC RDW 18.4 H Lymph % (Auto) 3.0 L Owen % (Auto) Lymph # (Auto) 0.4 L Owen # (Auto) Seg Neutrophils % 91.5 H Seg Neuts % (Manual) Lymphocytes % (Manual) Seg Neutrophils # 13.4 H Seg Neutrophils # Man Lymphocytes # (Manual) PT INR APTT Fibrinogen Heparin Anti-Xa Level Potassium 6.6 H* Chloride 89.9 L Carbon Dioxide BUN 92 H Creatinine 18.8 H Glucose 101 H POC Glucose 107 H Calcium 10.6 H Lactate Dehydrogenase C-Reactive Protein Total Protein Albumin 3.5 L 07/23/20 07/23/20 07/23/20 02:41 09:46 09:46 WBC 17.2 H RBC 3.47 L Hgb 11.4 L Hct 35.3 L MCV 102 H MCH 33 H MCHC RDW 18.8 H Lymph % (Auto) Owen % (Auto) Lymph # (Auto) Owen # (Auto) Seg Neutrophils % Seg Neuts % (Manual) 94.0 H Lymphocytes % (Manual) 1.0 L Seg Neutrophils # Seg Neutrophils # Man 16.2 H Lymphocytes # (Manual) 0.2 L PT INR APTT Fibrinogen 688 H 494 H Heparin Anti-Xa Level 0.10 L < 0.10 L Potassium Chloride Carbon Dioxide BUN Creatinine Glucose POC Glucose Calcium Lactate Dehydrogenase C-Reactive Protein Total Protein Albumin 07/23/20 07/23/20 07/23/20 23:01 23:01 23:01 WBC RBC Hgb 11.7 L Hct MCV MCH MCHC RDW Lymph % (Auto) Owen % (Auto) Lymph # (Auto) Owen # (Auto) Seg Neutrophils % Seg Neuts % (Manual) Lymphocytes % (Manual) Seg Neutrophils # Seg Neutrophils # Man Lymphocytes # (Manual) PT 21.0 H INR 1.80 H APTT 39.4 H Fibrinogen Heparin Anti-Xa Level < 0.10 L Potassium 6.0 H Chloride 92.5 L Carbon Dioxide BUN 69 H Creatinine 14.7 H Glucose 104 H POC Glucose Calcium 10.3 H Lactate Dehydrogenase C-Reactive Protein Total Protein Albumin 07/24/20 07/24/20 07/25/20 05:33 13:55 04:22 WBC RBC Hgb Hct MCV MCH MCHC RDW Lymph % (Auto) Owen % (Auto) Lymph # (Auto) Owen # (Auto) Seg Neutrophils % Seg Neuts % (Manual) Lymphocytes % (Manual) Seg Neutrophils # Seg Neutrophils # Man Lymphocytes # (Manual) PT INR APTT Fibrinogen Heparin Anti-Xa Level Potassium 7.0 H* 6.0 H Chloride 96.3 L 93.5 L Carbon Dioxide BUN 71 H 77 H 54 H Creatinine 14.7 H 15.5 H 12.3 H Glucose 105 H POC Glucose Calcium Lactate Dehydrogenase C-Reactive Protein Total Protein Albumin 07/25/20 07/25/20 07/25/20 04:22 04:24 18:13 WBC RBC 3.48 L Hgb 11.4 L Hct MCV 102 H MCH 33 H MCHC RDW 18.4 H Lymph % (Auto) 9.4 L Owen % (Auto) 10.4 H Lymph # (Auto) 0.7 L Owen # (Auto) Seg Neutrophils % 78.8 H Seg Neuts % (Manual) Lymphocytes % (Manual) Seg Neutrophils # Seg Neutrophils # Man Lymphocytes # (Manual) PT INR APTT Fibrinogen Heparin Anti-Xa Level 0.10 L 0.16 L Potassium Chloride Carbon Dioxide BUN Creatinine Glucose POC Glucose Calcium Lactate Dehydrogenase C-Reactive Protein Total Protein Albumin 07/26/20 07/26/20 07/26/20 02:22 02:22 02:22 WBC RBC 3.35 L Hgb 11.1 L Hct 34.7 L MCV 104 H MCH 33 H MCHC RDW 18.9 H Lymph % (Auto) 9.2 L Owen % (Auto) Lymph # (Auto) 0.9 L Owen # (Auto) Seg Neutrophils % 81.8 H Seg Neuts % (Manual) Lymphocytes % (Manual) Seg Neutrophils # 8.3 H Seg Neutrophils # Man Lymphocytes # (Manual) PT INR APTT Fibrinogen Heparin Anti-Xa Level 0.28 L Potassium Chloride 95.2 L Carbon Dioxide BUN 66 H Creatinine 14.7 H Glucose 108 H POC Glucose Calcium Lactate Dehydrogenase C-Reactive Protein Total Protein Albumin 07/26/20 07/26/20 07/27/20 10:16 17:25 02:15 WBC 13.0 H RBC 3.29 L Hgb 10.8 L Hct 34.3 L MCV 104 H MCH 33 H MCHC RDW 19.5 H Lymph % (Auto) 6.1 L Owen % (Auto) 7.8 H Lymph # (Auto) 0.8 L Owen # (Auto) 1.0 H Seg Neutrophils % 84.3 H Seg Neuts % (Manual) Lymphocytes % (Manual) Seg Neutrophils # 10.9 H Seg Neutrophils # Man Lymphocytes # (Manual) PT INR APTT Fibrinogen Heparin Anti-Xa Level < 0.10 L Potassium Chloride Carbon Dioxide BUN Creatinine Glucose POC Glucose 64 L Calcium Lactate Dehydrogenase C-Reactive Protein Total Protein Albumin 07/27/20 07/28/20 07/28/20 02:15 07:53 07:53 WBC 15.3 H RBC 3.19 L Hgb 10.5 L Hct 33.2 L MCV 104 H MCH 33 H MCHC RDW 19.1 H Lymph % (Auto) 7.5 L Owen % (Auto) 8.7 H Lymph # (Auto) 1.1 L Owen # (Auto) 1.3 H Seg Neutrophils % 82.0 H Seg Neuts % (Manual) Lymphocytes % (Manual) Seg Neutrophils # 12.6 H Seg Neutrophils # Man Lymphocytes # (Manual) PT INR APTT Fibrinogen Heparin Anti-Xa Level Potassium 5.2 H D Chloride Carbon Dioxide BUN 43 H 57 H Creatinine 10.7 H 14.3 H Glucose 68 L 59 L POC Glucose Calcium 10.3 H Lactate Dehydrogenase C-Reactive Protein Total Protein Albumin 07/29/20 07/29/20 07/29/20 01:28 05:36 05:36 WBC 13.5 H RBC 3.17 L Hgb 10.2 L Hct 32.7 L MCV 103 H MCH MCHC 31 L RDW 19.3 H Lymph % (Auto) 7.4 L Owen % (Auto) 9.3 H Lymph # (Auto) 1.0 L Owen # (Auto) 1.3 H Seg Neutrophils % 81.3 H Seg Neuts % (Manual) Lymphocytes % (Manual) Seg Neutrophils # 11.0 H Seg Neutrophils # Man Lymphocytes # (Manual) PT INR APTT Fibrinogen Heparin Anti-Xa Level 0.10 L Potassium 5.1 H Chloride Carbon Dioxide BUN 67 H Creatinine 15.5 H Glucose 74 L POC Glucose Calcium Lactate Dehydrogenase C-Reactive Protein Total Protein Albumin 07/29/20 07/30/20 07/30/20 09:45 07:18 07:18 WBC RBC 3.19 L Hgb 10.5 L Hct 33.1 L MCV 104 H MCH 33 H MCHC RDW 19.5 H Lymph % (Auto) 7.5 L Owen % (Auto) 10.5 H Lymph # (Auto) 0.8 L Owen # (Auto) 1.1 H Seg Neutrophils % 80.0 H Seg Neuts % (Manual) Lymphocytes % (Manual) Seg Neutrophils # 8.4 H Seg Neutrophils # Man Lymphocytes # (Manual) PT INR APTT Fibrinogen Heparin Anti-Xa Level 0.29 L Potassium Chloride Carbon Dioxide BUN 37 H Creatinine 11.3 H Glucose POC Glucose Calcium 10.4 H Lactate Dehydrogenase C-Reactive Protein Total Protein Albumin 07/30/20 07/31/20 07/31/20 21:37 04:54 04:54 WBC RBC 3.04 L Hgb 10.3 L Hct 31.7 L MCV 104 H MCH 34 H MCHC RDW 19.8 H Lymph % (Auto) 7.7 L Owen % (Auto) 7.8 H Lymph # (Auto) 0.7 L Owen # (Auto) Seg Neutrophils % 83.2 H Seg Neuts % (Manual) Lymphocytes % (Manual) Seg Neutrophils # Seg Neutrophils # Man Lymphocytes # (Manual) PT INR APTT Fibrinogen Heparin Anti-Xa Level Potassium Chloride Carbon Dioxide BUN 46 H Creatinine 13.3 H Glucose 104 H POC Glucose 120 H Calcium Lactate Dehydrogenase C-Reactive Protein Total Protein Albumin 08/01/20 08/01/20 08/01/20 05:05 07:34 14:16 WBC RBC Hgb Hct MCV MCH MCHC RDW Lymph % (Auto) Owen % (Auto) Lymph # (Auto) Owen # (Auto) Seg Neutrophils % Seg Neuts % (Manual) Lymphocytes % (Manual) Seg Neutrophils # Seg Neutrophils # Man Lymphocytes # (Manual) PT INR APTT Fibrinogen Heparin Anti-Xa Level Potassium Chloride Carbon Dioxide BUN 35 H Creatinine 9.8 H Glucose POC Glucose 69 L Calcium Lactate Dehydrogenase C-Reactive Protein 7.20 H Total Protein Albumin 08/01/20 08/01/20 08/02/20 15:56 16:10 05:22 WBC RBC 3.43 L Hgb 11.0 L Hct 35.4 L MCV 103 H MCH MCHC 31 L RDW 19.3 H Lymph % (Auto) 10.0 L Owen % (Auto) 11.5 H Lymph # (Auto) 1.1 L Owen # (Auto) 1.2 H Seg Neutrophils % 77.3 H Seg Neuts % (Manual) Lymphocytes % (Manual) Seg Neutrophils # 8.2 H Seg Neutrophils # Man Lymphocytes # (Manual) PT INR APTT Fibrinogen Heparin Anti-Xa Level Potassium Chloride Carbon Dioxide BUN Creatinine Glucose POC Glucose 110 H Calcium Lactate Dehydrogenase 226 H C-Reactive Protein Total Protein 6.0 L Albumin 3.2 L 08/02/20 08/02/20 08/02/20 05:22 16:55 17:36 WBC RBC Hgb Hct MCV MCH MCHC RDW Lymph % (Auto) Owen % (Auto) Lymph # (Auto) Owen # (Auto) Seg Neutrophils % Seg Neuts % (Manual) Lymphocytes % (Manual) Seg Neutrophils # Seg Neutrophils # Man Lymphocytes # (Manual) PT INR APTT Fibrinogen Heparin Anti-Xa Level Potassium Chloride Carbon Dioxide 31 H BUN 46 H Creatinine 12.4 H Glucose POC Glucose 57 L 58 L Calcium Lactate Dehydrogenase C-Reactive Protein Total Protein Albumin 08/02/20 08/03/20 08/03/20 20:56 06:47 06:47 WBC RBC Hgb Hct MCV 104 H MCH MCHC 31 L RDW 19.0 H Lymph % (Auto) 9.4 L Owen % (Auto) 10.9 H Lymph # (Auto) 0.8 L Owen # (Auto) 0.9 H Seg Neutrophils % 77.9 H Seg Neuts % (Manual) Lymphocytes % (Manual) Seg Neutrophils # Seg Neutrophils # Man Lymphocytes # (Manual) PT INR APTT Fibrinogen Heparin Anti-Xa Level Potassium Chloride 97.0 L Carbon Dioxide 31 H BUN 31 H Creatinine 9.1 H Glucose POC Glucose 121 H Calcium Lactate Dehydrogenase C-Reactive Protein Total Protein Albumin 08/04/20 08/04/20 08/05/20 07:58 07:58 08:10 WBC RBC 2.98 L 3.19 L Hgb 10.2 L 10.5 L Hct 31.1 L D 32.8 L MCV 105 H 103 H MCH 34 H 33 H MCHC RDW 19.2 H 19.3 H Lymph % (Auto) 10.2 L 9.4 L Owen % (Auto) 9.8 H 10.6 H Lymph # (Auto) 1.0 L 0.8 L Owen # (Auto) 1.0 H 0.9 H Seg Neutrophils % 77.7 H 77.5 H Seg Neuts % (Manual) Lymphocytes % (Manual) Seg Neutrophils # Seg Neutrophils # Man Lymphocytes # (Manual) PT INR APTT Fibrinogen Heparin Anti-Xa Level Potassium Chloride Carbon Dioxide BUN 49 H Creatinine 11.6 H Glucose POC Glucose Calcium Lactate Dehydrogenase C-Reactive Protein Total Protein Albumin 08/05/20 08:10 WBC RBC Hgb Hct MCV MCH MCHC RDW Lymph % (Auto) Owen % (Auto) Lymph # (Auto) Owen # (Auto) Seg Neutrophils % Seg Neuts % (Manual) Lymphocytes % (Manual) Seg Neutrophils # Seg Neutrophils # Man Lymphocytes # (Manual) PT INR APTT Fibrinogen Heparin Anti-Xa Level Potassium Chloride Carbon Dioxide BUN 63 H Creatinine 13.5 H Glucose POC Glucose Calcium Lactate Dehydrogenase C-Reactive Protein Total Protein Albumin
[2020-08-07] MEDS: SEVELAMER CARBONATE 800 MG TAB PO SCH ×3 (10:14→17:13)
[2020-08-07] MEDS: APIXABAN 5 MG TAB PO SCH ×2 (10:14→23:08)
[2020-08-07] MEDS: MIDODRINE 5 MG TAB PO SCH ×3 (10:14→17:13)
--- NOTE | 2020-08-07 10:22 | Progress Note ---
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 Tolerating HD well. Objective - Vital Signs Vital signs: Vital Signs - 12hr 08/07/20 08/07/20 08/07/20 00:00 00:05 04:41 Temperature 98.2 F 97.9 F Pulse Rate 67 66 65 Respiratory 20 20 Rate Blood Pressure 113/58 123/67 O2 Sat by Pulse 99 100 Oximetry 08/07/20 08/07/20 08/07/20 09:00 09:15 09:30 Temperature 97.9 F Pulse Rate 70 62 65 Respiratory 18 Rate Blood Pressure 147/84 122/87 120/67 O2 Sat by Pulse Oximetry 08/07/20 08/07/20 09:45 10:00 Temperature Pulse Rate 58 L 60 Respiratory Rate Blood Pressure 121/68 127/70 O2 Sat by Pulse Oximetry - General Appearance General appearance: well-developed, appears stated age EENT: ATNC, PERRL, hearing intact, vision intact Neck: no JVD, supple Respiratory: Present: Decreased Breath Sounds Cardiology: S1S2 Gastrointestinal: normoactive bowel sounds Integumentary: warm and dry Neurologic: alert and oriented x3 Musculoskeletal: joint swelling Psychiatric: cooperative - Lab 08/05/20 08:10 08/05/20 08:10 Most recent lab results Calcium 9.5 mg/dL (8.4-10.2) 08/05/20 08:10 Medications & Allergies - Medications Allergies/Adverse Reactions: Allergies amoxicillin Allergy (Severe, Verified 07/30/20 10:27) Unknown PT STATES LIPS SWELLED CONTRAST DYE Adverse Reaction (Severe, Uncoded 07/30/20 10:27) Swelling PT STATES GROIN AREA HAD SWELLING ALSO STATES HE SWELLING OTHER AREAS OF BODY Home Medications: Home Medications Medication Instructions Recorded Confirmed Last Taken Type Metoprolol [Lopressor] 25 mg PO QDAY 07/24/20 07/24/20 07/17/20 History Sevelamer Carbonate [Renvela] 800 mg PO TIDAC 07/24/20 07/24/20 07/19/20 History Sucroferric Oxyhydroxide(Nf) 500 mg PO TIDAC 07/24/20 07/24/20 07/19/20 History [Velphoro (Nf)] Warfarin [Coumadin] 6 mg PO QDAY 07/24/20 07/24/20 07/19/20 History Active Medications: Generic Name Dose Route Start Last Admin Trade Name Freq PRN Reason Stop Dose Admin Acetaminophen 650 mg 07/22/20 14:09 07/27/20 22:12 Acetaminophen 325 Mg Tab PO 650 mg Q6H PRN Administration Pain, Mild (1-3) Hydrocodone Bitart/Acetaminophen 2 each 07/22/20 14:09 08/06/20 23:37 Hydrocodone/Acetaminophen 5-325 Mg Tab PO 2 each Q6H PRN Administration Pain, Moderate (4-6) Albuterol 2.5 mg 07/26/20 08:34 Albuterol 2.5 Mg/3 Ml Nebu IH Q4HRT PRN Shortness Of Breath Amiodarone HCl 200 mg 08/02/20 14:30 08/06/20 23:37 Amiodarone 200 Mg Tab PO 200 mg BID [facility] Administration Apixaban 5 mg 08/06/20 22:00 08/07/20 10:14 Apixaban 5 Mg Tab PO Not Given Q12HR [facility] Protocol Aspirin 81 mg 07/22/20 15:00 08/06/20 09:29 Aspirin Ec 81 Mg Tab PO Not Given QDAY [facility] Hydromorphone HCl 1 mg 07/30/20 13:00 08/07/20 10:08 Hydromorphone 1 Mg/1 Ml Inj IV 1 mg Q4H PRN Administration Pain , Severe (7-10) Metoprolol Tartrate 50 mg 07/29/20 10:00 08/06/20 23:37 Metoprolol Tartrate 50 Mg Tab PO 50 mg BID [facility] Administration Midodrine 10 mg 07/25/20 16:00 08/07/20 10:14 Midodrine 5 Mg Tab PO Not Given TID@0800,1200,1600 [facility] Ondansetron HCl 4 mg 07/22/20 14:09 Ondansetron 4 Mg/2 Ml Inj IV Q8H PRN Nausea And Vomiting Pregabalin 50 mg 08/01/20 10:00 08/06/20 09:28 Pregabalin 25 Mg Cap PO 50 mg QDAY AALIYAH Administration Sevelamer Carbonate 800 mg 07/23/20 18:30 08/07/20 10:14 Sevelamer Carbonate 800 Mg Tab PO Not Given AC AALIYAH Sodium Chloride 10 ml 07/22/20 13:00 08/06/20 23:37 Sodium Chloride 0.9% 10 Ml Flush Syringe IV 10 ml BID AALIYAH Administration Sodium Chloride 10 ml 07/22/20 13:00 07/31/20 06:49 Sodium Chloride 0.9% 10 Ml Flush Syringe IV 10 ml PRN PRN Administration LINE FLUSH
--- NOTE | 2020-08-07 11:19 | Progress Note ---
Assessment and Plan Atrial flutter, paroxysmal currently in sinus rhythm; on amiodarone and metoprolol for suppression warfarin changed to Eliquis this presentation Prior h/o long RP tachycardia - likely PAT PAD, left popliteal artery thrombosis complicated by left lower limb ischemia status post left BKA this admission on Eliquis for anticoagulation Hypotension on midodrine End-stage renal disease Loculated pleural effusion Continue medical therapy for paroxysmal atrial flutter. Subjective Date of service: 08/07/20 Principal diagnosis: ESRD on HD Interval history: Seen in dialysis. No cardiac complaints. Currently he is sinus rhythm on telemetry. Objective Vital Signs Temp Pulse Resp BP Pulse Ox 08/07/20 11:15 56 L 115/66 08/07/20 11:00 54 L 121/67 08/07/20 10:45 56 L 117/60 08/07/20 10:30 64 107/69 08/07/20 10:15 57 L 119/62 08/07/20 10:00 60 127/70 08/07/20 09:45 58 L 121/68 08/07/20 09:30 65 120/67 08/07/20 09:15 62 122/87 08/07/20 09:00 97.9 F 70 18 147/84 08/07/20 04:41 97.9 F 65 20 123/67 100 08/07/20 00:05 98.2 F 66 20 113/58 99 08/07/20 00:00 67 08/06/20 19:50 18 08/06/20 19:21 98.4 F 73 20 118/72 100 08/06/20 12:16 98.0 F 63 18 99/54 100 - Physical Examination General: No Apparent Distress HEENT: Positive: PERRL Neck: Positive: trachea midline Cardiac: Positive: Reg Rate and Rhythm Neuro: Positive: Grossly Intact, Other (s/p left BKA) Extremities: Present: Other (s/p left BKA). Absent: edema
--- NOTE | 2020-08-07 12:10 | Progress Note ---
Assessment and Plan Assessment and plan: 54 years old male with history of ESRD on hemodialysis, hypertension, tobacco abuse, PAD status post previous revascularization, admitted on 07/22/2020 secondary to worsening left leg pain for 3 days. Pain is 10 out of 10. Patient is unable to walk. Patient was seen at Dr. Hurt's office, vascular surgeon, and was found to have a left popliteal artery thrombosis complicated by a left lower limb ischemia was sent to the ED. Patient had revascularization May 2020 due to mild ischemic toes and since then discoloration of the toes has worsened. On arrival, initial temperature 97.3, HR 107, RR 16, O2 100, BP 163/92. Initial WBC 8. Hemoglobin 11.7. Procalcitonin 4.2. Patient underwent angio plasty on 07/22/2020. By 07/27/2020 patient spiked a fever 101. Blood cultures 07/28/2020 no growth. Patient is planned to have a left BKA for nonsalvageable left leg per vascular -- Acute limb ischemia with thrombosis of left popliteal artery s/p angiogram and angioplasty for left popliteal artery occlusion now s/p Left BKA -- End stage renal disease Nephrology team on board HD as scheduled --Chronic hypotension -Improved -On midodrine --Right loculated pleural effusion CT scan reveals right thick-walled loculated pleural effusion Plan for chest tube placement as per vascular. Hold eliquis --Atrial flutter/fibrillation -Continue amiodarone and metoprolol -Cardiology recs appreciated --Left lower extremity DVT --DVT prophylaxis SCDs bilateral lower extremities while in bed. 07/30. ID started Vanc and levaquin. Left BKA completed per Surgery 07/31. Continue IV antibiotics per ID recommendations. Patient is s/p left BKA yesterday (07/30). Physical therapy evaluation pending. Continue hemodialysis per nephrology recommendations. 08/01. Patient with what appears to be a right loculated pleural effusion. Check CT of chest. ID to monitor off antibiotics s/p amputation physical therapy recommends acute rehab. Continue hemodialysis per nephrology recommendations. 08/02. CT scan reveals thick-walled right loculated pleural effusion. IR to place CT-guided catheter and send specimen for culture/cytology Wednesday. ID to monitor off antibiotics for now. Follow-up quantiferon TB gold. color television console monitor reports atrial flutter/fibrillation. Patient reports previous history and is followed by [facility]. Consult cardiology for further evaluation. 08/03. IR to place CT-guided catheter and send specimen for culture/cytology Wednesday. ID to monitor off antibiotics for now. Follow-up quantiferon TB gold. Await cardiology consultation for atrial flutter/fibrillation. 08/04. Atrial flutter rate controlled with amiodarone. Continue anticoagulation with Eliquis (prior DVT and A. fib). Patient with prior history of PAT. IR to place CT-guided catheter and send specimen for culture/cytology Wednesday. ID to monitor off antibiotics for now. Follow-up quantiferon TB gold. Continue hemodialysis per nephrology. Continue midodrine for hypotension. Physical therapy recommends acute rehab placement. Case management follow-up after chest tube placement tomorrow. 08/05. Atrial flutter rate controlled with amiodarone. Continue anticoagulation with Eliquis (prior DVT and A. fib). Patient with prior history of PAT. IR to place CT-guided catheter and send specimen for culture/cytology today. ID to monitor off antibiotics for now. Follow-up quantiferon TB gold. Continue hemodialysis per nephrology. Continue midodrine for hypotension. Physical therapy recommends acute rehab placement. Case management follow-up after chest tube placement today for discharge planning--patient with s/p BKA this hospitalization. Physical therapy recommends acute rehab placement.\ 08/06. Patient has right-sided pleural effusion that is loculated and will need to have drainage. Chest tube placement has been postponed today. On anticoagul ation for DVT and atrial fibrillation. On amiodarone for atrial flutter/fibrillation. PT is recommending acute rehab placement. 08/07. Plan for chest tube placement on 08/07. Holding eliquis. No other complaints today. Will need placement when medically stable History Interval history: No acute events Hospitalist Physical - Physical exam Narrative exam: VITAL SIGNS: Reviewed. GENERAL: Awake HEAD: No signs of head trauma. EYES: Pupils are equal. Extraocular motions intact. MOUTH: Oropharynx is normal. NECK: No adenopathy, no JVD. CHEST: Diminished breath sounds on the right CARDIAC: normal S1 and S2, without murmurs, gallops, or rubs. ABDOMEN: Soft, non tender and non distended. No rebound or guarding, and no masses palpated. Bowel Sounds normal. MUSCULOSKELETAL: left BKA NEUROLOGIC EXAM: Alert and oriented x3. No focal neurologic deficits SKIN: No obvious lesions - Constitutional Vitals: Temp Pulse Resp BP Pulse Ox 97.9 F 57 L 18 124/70 100 08/07/20 09:00 08/07/20 11:45 08/07/20 09:00 08/07/20 11:45 08/07/20 04:41 Results - Labs CBC & Chem 7: 08/05/20 08:10 08/05/20 08:10 Labs: Laboratory Last Values WBC 8.2 K/mm3 (4.5-11.0) 08/05/20 08:10 RBC 3.19 M/mm3 (3.65-5.03) L 08/05/20 08:10 Hgb 10.5 gm/dl (11.8-15.2) L 08/05/20 08:10 Hct 32.8 % (35.5-45.6) L 08/05/20 08:10 MCV 103 fl (84-94) H 08/05/20 08:10 MCH 33 pg (28-32) H 08/05/20 08:10 MCHC 32 % (32-34) 08/05/20 08:10 RDW 19.3 % (13.2-15.2) H 08/05/20 08:10 Plt Count 213 K/mm3 (140-440) 08/05/20 08:10 Lymph % (Auto) 9.4 % (13.4-35.0) L 08/05/20 08:10 [place] % (Auto) 10.6 % (0.0-7.3) H 08/05/20 08:10 Eos % (Auto) 1.5 % (0.0-4.3) 08/05/20 08:10 Baso % (Auto) 1.0 % (0.0-1.8) 08/05/20 08:10 Lymph # (Auto) 0.8 K/mm3 (1.2-5.4) L 08/05/20 08:10 [place] # (Auto) 0.9 K/mm3 (0.0-0.8) H 08/05/20 08:10 Eos # (Auto) 0.1 K/mm3 (0.0-0.4) 08/05/20 08:10 Baso # (Auto) 0.1 K/mm3 (0.0-0.1) 08/05/20 08:10 Add Manual Diff Complete 07/29/20 05:36 Total Counted 100 07/23/20 09:46 Seg Neutrophils % 77.5 % (40.0-70.0) H 08/05/20 08:10 Seg Neuts % (Manual) 94.0 % (40.0-70.0) H 07/23/20 09:46 Band Neutrophils % 1.0 % 07/23/20 09:46 Lymphocytes % (Manual) 1.0 % (13.4-35.0) L 07/23/20 09:46 Reactive Lymphs % (Man) 0 % 07/22/20 18:00 Monocytes % (Manual) 4.0 % (0.0-7.3) 07/23/20 09:46 Eosinophils % (Manual) 0 % (0.0-4.3) 07/22/20 18:00 Basophils % (Manual) 0 % (0.0-1.8) 07/22/20 18:00 Metamyelocytes % 0 % 07/22/20 18:00 Myelocytes % 0 % 07/22/20 18:00 Promyelocytes % 0 % 07/22/20 18:00 Blast Cells % 0 % 07/22/20 18:00 Nucleated RBC % Not Reportable 07/29/20 05:36 Seg Neutrophils # 6.3 K/mm3 (1.8-7.7) 08/05/20 08:10 Seg Neutrophils # Man 16.2 K/mm3 (1.8-7.7) H 07/23/20 09:46 Band Neutrophils # 0.2 K/mm3 07/23/20 09:46 Lymphocytes # (Manual) 0.2 K/mm3 (1.2-5.4) L 07/23/20 09:46 Abs React Lymphs (Man) 0.0 K/mm3 07/23/20 09:46 Monocytes # (Manual) 0.7 K/mm3 (0.0-0.8) 07/23/20 09:46 Eosinophils # (Manual) 0.0 K/mm3 (0.0-0.4) 07/23/20 09:46 Basophils # (Manual) 0.0 K/mm3 (0.0-0.1) 07/23/20 09:46 Metamyelocytes # 0.0 K/mm3 07/23/20 09:46 Myelocytes # 0.0 K/mm3 07/23/20 09:46 Promyelocytes # 0.0 K/mm3 07/23/20 09:46 Blast Cells # 0.0 K/mm3 07/23/20 09:46 WBC Morphology Not Reportable 07/29/20 05:36 Hypersegmented Neuts Not Reportable 07/29/20 05:36 Hyposegmented Neuts Not Reportable 07/29/20 05:36 Hypogranular Neuts Not Reportable 07/29/20 05:36 Smudge Cells Not Reportable 07/29/20 05:36 Toxic Granulation Not Reportable 07/29/20 05:36 Toxic Vacuolation Not Reportable 07/29/20 05:36 Dohle Bodies Not Reportable 07/29/20 05:36 Pelger-Huet Anomaly Not Reportable 07/29/20 05:36 Svetlana Rods Not Reportable 07/29/20 05:36 Platelet Estimate Not Reportable 07/29/20 05:36 Clumped Platelets Not Reportable 07/29/20 05:36 Plt Clumps, EDTA Not Reportable 07/29/20 05:36 Large Platelets Not Reportable 07/29/20 05:36 Giant Platelets Not Reportable 07/29/20 05:36 Platelet Satelliting Not Reportable 07/29/20 05:36 Plt Morphology Comment Not Reportable 07/29/20 05:36 RBC Morphology Not Reportable 07/29/20 05:36 Dimorphic RBCs Not Reportable 07/29/20 05:36 Polychromasia Not Reportable 07/29/20 05:36 Hypochromasia Not Reportable 07/29/20 05:36 Poikilocytosis Not Reportable 07/29/20 05:36 Anisocytosis Not Reportable 07/29/20 05:36 Microcytosis Not Reportable 07/29/20 05:36 Macrocytosis Not Reportable 07/29/20 05:36 Spherocytes Not Reportable 07/29/20 05:36 Pappenheimer Bodies Not Reportable 07/29/20 05:36 Sickle Cells Not Reportable 07/29/20 05:36 Target Cells Not Reportable 07/29/20 05:36 Tear Drop Cells Not Reportable 07/29/20 05:36 Ovalocytes Not Reportable 07/29/20 05:36 Helmet Cells Not Reportable 07/29/20 05:36 [place] Bodies Not Reportable 07/29/20 05:36 Ault Rings Not Reportable 07/29/20 05:36 [place] Cells Not Reportable 07/29/20 05:36 Bite Cells Not Reportable 07/29/20 05:36 Crenated Cell Not Reportable 07/29/20 05:36 Elliptocytes Not Reportable 07/29/20 05:36 Acanthocytes (Spur) Not Reportable 07/29/20 05:36 Rouleaux Not Reportable 07/29/20 05:36 Hemoglobin C Crystals Not Reportable 07/29/20 05:36 Schistocytes Not Reportable 07/29/20 05:36 Malaria parasites Not Reportable 07/29/20 05:36 Malachi Bodies Not Reportable 07/29/20 05:36 Hem Pathologist Commnt Not Reportable 07/29/20 05:36 PT 21.0 Sec. (12.2-14.9) H 07/23/20 23:01 INR 1.80 (0.87-1.13) H 07/23/20 23:01 APTT 39.4 Sec. (24.2-36.6) H 07/23/20 23:01 Fibrinogen 494 mg/dl (211-480) H 07/23/20 09:46 Heparin Anti-Xa Level 0.29 U.I./ml (0.3-0.7) L 07/29/20 09:45 Sodium 142 mmol/L (137-145) 08/05/20 08:10 Potassium 4.6 mmol/L (3.6-5.0) 08/05/20 08:10 Chloride 99.2 mmol/L (98-107) 08/05/20 08:10 Carbon Dioxide 27 mmol/L (22-30) 08/05/20 08:10 Anion Gap 20 mmol/L 08/05/20 08:10 BUN 63 mg/dL (9-20) H 08/05/20 08:10 Creatinine 13.5 mg/dL (0.8-1.3) H 08/05/20 08:10 Estimated GFR 5 ml/min 08/05/20 08:10 BUN/Creatinine Ratio 5 % 08/05/20 08:10 Glucose 86 mg/dL (75-100) 08/05/20 08:10 POC Glucose 90 mg/dL (70-105) 08/05/20 21:36 Calcium 9.5 mg/dL (8.4-10.2) 08/05/20 08:10 Total Bilirubin 0.30 mg/dL (0.1-1.2) 08/01/20 16:10 Direct Bilirubin < 0.2 mg/dL (0-0.2) 08/01/20 16:10 Indirect Bilirubin 0.1 mg/dL 08/01/20 16:10 AST 37 units/L (5-40) 08/01/20 16:10 ALT 27 units/L (7-56) 08/01/20 16:10 Alkaline Phosphatase 63 units/L (35-129) 08/01/20 16:10 Lactate Dehydrogenase 226 units/L (91-180) H 08/01/20 16:10 C-Reactive Protein 7.20 mg/dL (0.00-1.30) H 08/01/20 14:16 Total Protein 6.0 g/dL (6.3-8.2) L 08/01/20 16:10 Albumin 3.2 g/dL (3.9-5) L 08/01/20 16:10 Albumin/Globulin Ratio 1.1 % 08/01/20 16:10 Procalcitonin 4.28 ng/mL (<0.15) 07/28/20 07:53 TSH 3.770 mlU/mL (0.270-4.200) 07/26/20 02:22 Free T4 1.01 ng/dL (0.76-1.46) 07/26/20 02:22 Random Vancomycin 13.9 ug/mL (0-40.0) 07/30/20 07:18 Hepatitis A IgM Ab Non-reactive (NonReactive) 07/22/20 18:00 Hep Bs Antigen Non-reactive (Negative) 07/22/20 18:00 Hep B Core IgM Ab Non-reactive (NonReactive) 07/22/20 18:00 Hepatitis C Antibody Non-reactive (NonReactive) 01/11/21 18:00 TB (QFT) Gold In Tube Negative (NEGATIVE) 08/02/20 14:36 TB Test (QFT) Nil 0.02 IU/mL 08/02/20 14:36 TB Test Mitogen - Nil 2.28 IU/mL 08/02/20 14:36 TB Test Ag - Nil 1 <0.00 IU/mL 08/02/20 14:36 TB Test Ag - Nil 2 <0.00 IU/mL 08/02/20 14:36 Blood Type O POSITIVE 07/30/20 07:24 Antibody Screen Negative 07/30/20 07:24 - Diagnostic Impressions Diagnostic Impressions: Echocardiogram 07/26/20 08:06 Transthoracic Echocardiogram Indication: Tachycardia BP: 108/70 HR: 100 Conclusions *Global left ventricular systolic function is normal. *The estimated ejection fraction is 60-65%. *Mild concentric left ventricular hypertrophy is observed. *The left atrium is mildly dilated. *There is mild mitral regurgitation. *The right heart chambers are both mildly dilated. *There is mild to moderate tricuspid regurgitation. *There is evidence of moderate pulmonary hypertension. *The right ventricular systolic pressure is calculated at 46 mmHg. Findings Left Ventricle: The left ventricular chamber size is normal. Mild concentric left ventricular hypertrophy is observed. Global left ventricular systolic function is normal. The estimated ejection fraction is 60-65%. Left Atrium: The left atrium is mildly dilated. Right Ventricle: The right ventricle is mildly dilated. The right ventricular global systolic function is mildly reduced. Right Atrium: The right atrium is mildly dilated. Aortic Valve: The aortic valve is trileaflet. The aortic valve leaflets are mildly thickened. There is no evidence of aortic regurgitation. There is no evidence of aortic stenosis. Mitral Valve: The mitral valve leaflets are mildly thickened. There is mild mitral regurgitation. There is no evidence of mitral stenosis. Tricuspid Valve: There is mild to moderate tricuspid regurgitation. The right ventricular systolic pressure is calculated at 46 mmHg. There is evidence of moderate pulmonary hypertension. Pulmonic Valve: There is trace pulmonic regurgitation. Pericardium: There is no pericardial effusion. Aorta: There is no dilatation of the ascending aorta. There is no dilatation of the aortic root. Venous: The inferior vena cava appears normal in size. Measurements Chambers 2D Name Value Normal Range IVSd (2D) 1.03 cm (0.6 - 1.1) LVPWd (2D) 0.91 cm (0.6 - 1.1) LVIDd (2D) 4.7 cm (3.7 - 5.6) LVIDs (2D) 3.36 cm (2 - 3.8) LV FS (2D) 28.6 % - EF Teichholz (2D) 55.1 % - Ao root diameter (2D) 3.06 cm (2 - 3.7) Volumes/Mass Name Value Normal Range LA ESV SP 4CH (A/L) 47.57 ml - LA ESV SP 2CH (A/L) 41.21 ml - LA ESV BP (A/L) 45.97 ml - LA ESV BP (A/L) index 20.8 ml/m2 - LA ESV SP 4CH (MOD) 43.06 ml - LA ESV SP 2CH (MOD) 41.81 ml - LA ESV BP (MOD) 43.59 ml - LA ESV BP (MOD) index 19.72 ml/m2 - Diastolic/Systolic Function Name Value Normal Range MV E-wave Vmax 0.81 m/sec - MV deceleration time 179.23 msec - Aortic Valve Name Value Normal Range AV Vmax 1.25 m/sec - AV VTI 19.57 cm - AV peak gradient 6.28 mmHg - AV mean gradient 3.55 mmHg - LVOT diameter 2.06 cm - LVOT Vmax 0.92 m/sec - LVOT VTI 13.2 cm - LVOT peak gradient 3.38 mmHg - LVOT mean gradient 1.86 mmHg - SV LVOT 44.13 ml - JOSE EDUARDO (continuity Vmax) 2.45 cm2 - JOSE EDUARDO (continuity VTI) 2.25 cm2 - Tricuspid Valve Name Value Normal Range TR Vmax 3.31 m/sec - TR peak gradient 43 mmHg - RAP 3 mmHg - RVSP 46 mmHg - IVC diameter 1.79 cm (1.2 - 2.3) Pulmonic Valve/Qp:Qs Name Value Normal Range PV Vmax 0.82 m/sec - PV peak gradient 2.66 mmHg - PV acceleration time 98.95 msec - Rodriguez/IV: Voiding Method Urinal IV Catheter Type [Right INT / Saline Lock Forearm] IV Catheter Type [Left Forearm INT / Saline Lock ] IV Catheter Type [Right Graft Femoral] IV Catheter Type [Right INT / Saline Lock Antecubital] Active Medications - Current Medications Current Medications: Generic Name Dose Route Start Last Admin Trade Name Freq PRN Reason Stop Dose Admin Acetaminophen 650 mg 07/22/20 14:09 07/27/20 22:12 Acetaminophen 325 Mg Tab PO 650 mg Q6H PRN Administration Pain, Mild (1-3) Hydrocodone Bitart/Acetaminophen 2 each 07/22/20 14:09 08/06/20 23:37 Hydrocodone/Acetaminophen 5-325 Mg Tab PO 2 each Q6H PRN Administration Pain, Moderate (4-6) Albuterol 2.5 mg 07/26/20 08:34 Albuterol 2.5 Mg/3 Ml Nebu IH Q4HRT PRN Shortness Of Breath Amiodarone HCl 200 mg 08/02/20 14:30 08/06/20 23:37 Amiodarone 200 Mg Tab PO 200 mg BID AALIYAH Administration Aspirin 81 mg 07/22/20 15:00 08/06/20 09:29 Aspirin Ec 81 Mg Tab PO Not Given QDAY AALIYAH Hydromorphone HCl 1 mg 07/30/20 13:00 08/07/20 10:08 Hydromorphone 1 Mg/1 Ml Inj IV 1 mg Q4H PRN Administration Pain , Severe (7-10) Metoprolol Tartrate 50 mg 07/29/20 10:00 08/06/20 23:37 Metoprolol Tartrate 50 Mg Tab PO 50 mg BID AALIYAH Administration Midodrine 10 mg 07/25/20 16:00 08/07/20 10:14 Midodrine 5 Mg Tab PO Not Given TID@0800,1200,1600 AALIYAH Ondansetron HCl 4 mg 07/22/20 14:09 Ondansetron 4 Mg/2 Ml Inj IV Q8H PRN Nausea And Vomiting Pregabalin 50 mg 08/01/20 10:00 08/06/20 09:28 Pregabalin 25 Mg Cap PO 50 mg QDAY AALIYAH Administration Sevelamer Carbonate 800 mg 07/23/20 18:30 08/07/20 10:14 Sevelamer Carbonate 800 Mg Tab PO Not Given AC AALIYAH Sodium Chloride 10 ml 07/22/20 13:00 08/06/20 23:37 Sodium Chloride 0.9% 10 Ml Flush Syringe IV 10 ml BID AALIYAH Administration Sodium Chloride 10 ml 07/22/20 13:00 07/31/20 06:49 Sodium Chloride 0.9% 10 Ml Flush Syringe IV 10 ml PRN PRN Administration LINE FLUSH Nutrition/Malnutrition Assess - Dietary Evaluation Nutrition/Malnutrition Findings: Nutrition Notes Start: 07/29/20 13:17 Freq: Status: Active Protocol: Document 08/07/20 11:55 BENTLEY (Rec: 08/07/20 11:59 BENTLEY [id number]) Co-Sign 08/07/20 11:55 MK Nutrition Notes Initial or Follow up Brief Note Current Diagnosis CKD (stage V CKD) Other Pertinent Diagnosis ESRD w/ HD, thrombosis, HTN, peripheral artery dz s/p L BKA Current Diet NPO Subjective/Other Information F/u diet advancement and if so , F/u intakes, ONS acceptance, and diet education about protein and dialysis. Pt was out of room for dialysis. Will continue to try and see pt in person. Observed one opened Ensure with >75% of liquid remaining and two Ensure unopened. Pt's breakfast tray delivered but untouched due to dialysis. Pt had one PB&J wrapper selector empty. Juices piling up in room. Will modify diet order for preferences once NPO lifted. Nutrition Intervention Follow-Up By: 08/08/20 Additional Comments F/u diet advancement and if so , F/u intakes, ONS acceptance, and diet education about protein and dialysis.
[2020-08-07] MEDS: ASPIRIN EC 81 MG TAB PO SCH (12:38)
[2020-08-07] MEDS: METOPROLOL TARTRATE 50 MG TAB PO SCH ×2 (12:48→22:10)
[2020-08-07] MEDS: PREGABALIN 25 MG CAP PO SCH (12:48)
[2020-08-07] MEDS: AMIODARONE 200 MG TAB PO SCH ×2 (12:49→22:10)
[2020-08-07] MEDS: HYDROcodone/ACETAMINOPHEN 5-325 MG TAB PO PRN ×2 (12:55→20:28)
[2020-08-07] MEDS ORDERED: LOPERAMIDE 2 MG CAP PO ONE (22:17)
--- NOTE | 2020-08-08 08:40 | Progress Note ---
Assessment and Plan Thrombosis of left popliteal artery End stage renal disease Hypertension S/P Hyperkalemia Peripheral artery disease DVT prophylaxis Plan: no indication for HD today S/P left BKA on 07/30/20 Fluid restriction of 1 liter per day Strict I&O's daily Obtain daily weights Renally dose medications Assess dialysis needs daily Subjective Date of service: 08/08/20 Principal diagnosis: ESRD on HD Interval history: tolerated HD yesterday Objective - Vital Signs Vital signs: Vital Signs - 12hr 08/07/20 08/07/20 08/08/20 22:00 23:48 00:00 Temperature 98 F Pulse Rate 68 65 Pulse Rate [ 68 From Monitor] Respiratory 20 20 Rate Blood Pressure Blood Pressure 110/68 [Left] O2 Sat by Pulse 98 98 Oximetry 08/08/20 03:49 Temperature 98.0 F Pulse Rate 69 Pulse Rate [ From Monitor] Respiratory 18 Rate Blood Pressure 122/64 Blood Pressure [Left] O2 Sat by Pulse 98 Oximetry - Lab 08/08/20 10:37 08/08/20 10:37 Most recent lab results Calcium 9.5 mg/dL (8.4-10.2) 08/05/20 08:10 Medications & Allergies - Medications Allergies/Adverse Reactions: Allergies amoxicillin Allergy (Severe, Verified 07/30/20 10:27) Unknown PT STATES LIPS SWELLED CONTRAST DYE Adverse Reaction (Severe, Uncoded 07/30/20 10:27) Swelling PT STATES GROIN AREA HAD SWELLING ALSO STATES HE SWELLING OTHER AREAS OF BODY Home Medications: Home Medications Medication Instructions Recorded Confirmed Last Taken Type Metoprolol [Lopressor] 25 mg PO QDAY 07/24/20 07/24/20 07/17/20 History Sevelamer Carbonate [Renvela] 800 mg PO TIDAC 07/24/20 07/24/20 07/19/20 History Sucroferric Oxyhydroxide(Nf) 500 mg PO TIDAC 07/24/20 07/24/20 07/19/20 History [Velphoro (Nf)] Warfarin [Coumadin] 6 mg PO QDAY 07/24/20 07/24/20 07/19/20 History Active Medications: Generic Name Dose Route Start Last Admin Trade Name Freq PRN Reason Stop Dose Admin Acetaminophen 650 mg 07/22/20 14:09 07/27/20 22:12 Acetaminophen 325 Mg Tab PO 650 mg Q6H PRN Administration Pain, Mild (1-3) Hydrocodone Bitart/Acetaminophen 2 each 07/22/20 14:09 08/07/20 20:28 Hydrocodone/Acetaminophen 5-325 Mg Tab PO 2 each Q6H PRN Administration Pain, Moderate (4-6) Albuterol 2.5 mg 07/26/20 08:34 Albuterol 2.5 Mg/3 Ml Nebu IH Q4HRT PRN Shortness Of Breath Amiodarone HCl 200 mg 08/02/20 14:30 08/07/20 22:10 Amiodarone 200 Mg Tab PO 200 mg BID AALIYAH Administration Apixaban 5 mg 08/07/20 22:00 08/07/20 23:08 Apixaban 5 Mg Tab PO Not Given Q12HR AALIYAH Protocol Aspirin 81 mg 07/22/20 15:00 08/07/20 12:38 Aspirin Ec 81 Mg Tab PO Not Given QDAY AALIYAH Hydromorphone HCl 1 mg 07/30/20 13:00 08/07/20 23:41 Hydromorphone 1 Mg/1 Ml Inj IV 1 mg Q4H PRN Administration Pain , Severe (7-10) Metoprolol Tartrate 50 mg 07/29/20 10:00 08/07/20 22:10 Metoprolol Tartrate 50 Mg Tab PO 50 mg BID AALIYAH Administration Midodrine 10 mg 07/25/20 16:00 08/07/20 17:13 Midodrine 5 Mg Tab PO 10 mg TID@0800,1200,1600 AALIYAH Administration Ondansetron HCl 4 mg 07/22/20 14:09 Ondansetron 4 Mg/2 Ml Inj IV Q8H PRN Nausea And Vomiting Pregabalin 50 mg 08/01/20 10:00 08/07/20 12:48 Pregabalin 25 Mg Cap PO 50 mg QDAY AALIYAH Administration Sevelamer Carbonate 800 mg 07/23/20 18:30 08/07/20 17:13 Sevelamer Carbonate 800 Mg Tab PO 800 mg AC AALIYAH Administration Sodium Chloride 10 ml 07/22/20 13:00 08/08/20 00:33 Sodium Chloride 0.9% 10 Ml Flush Syringe IV 10 ml BID AALIYAH Administration Sodium Chloride 10 ml 07/22/20 13:00 08/07/20 23:07 Sodium Chloride 0.9% 10 Ml Flush Syringe IV 10 ml PRN PRN Administration LINE FLUSH
[2020-08-08] MEDS: SEVELAMER CARBONATE 800 MG TAB PO SCH ×3 (08:43→17:42)
[2020-08-08] MEDS: MIDODRINE 5 MG TAB PO SCH ×3 (08:44→17:42)
[2020-08-08] MEDS ORDERED: MIDAZOLAM 5 MG/5 ML INJ MDV IV NR (09:38)
[2020-08-08] MEDS ORDERED: fentaNYL 100 MCG/2 ML INJ IV NR (09:39)
[2020-08-08] MEDS ORDERED: SODIUM CHLORIDE 0.9% 500 ML 500 ML IV SCH (10:00)
--- NOTE | 2020-08-08 10:26 | Event Note ---
Date: 08/08/20 Patient stable from a respiratory status. Patient was brought down in anticipation of performing CT-guided placement of drainage tube. Dr. Zarco notes were reviewed. Given the patient's lack of symptoms and the like the chronicity of this fluid collection, will defer to pulmonology. A CT of the chest noncontrast was performed while the patient was downstairs which demonstrates that the fluid collection looks exactly the same as on prior CT.
[2020-08-08 11:08] LABS: Basophils # (Auto) 0.1 K/mm3 (0.0-0.1); Basophils % (Auto) 1.3 % (0.0-1.8); Eosinophils # (Auto) 0.2 K/mm3 (0.0-0.4); Eosinophils % (Auto) 2.4 % (0.0-4.3); Hematocrit 30.7 % (35.5-45.6); Hemoglobin 9.8 gm/dl (11.8-15.2); Lymphocytes # (Auto) 0.7 K/mm3 (1.2-5.4); Lymphocytes % (Auto) 10.4 % (13.4-35.0); Mean Corpuscular HGB Conc 32 % (32-34); Mean Corpuscular Volume 104 fl (84-94); Monocytes # (Auto) 0.7 K/mm3 (0.0-0.8); Monocytes % (Auto) 10.6 % (0.0-7.3); Platelet Count 195 K/mm3 (140-440); Red Blood Count 2.96 M/mm3 (3.65-5.03)
[2020-08-08 11:29] LABS: Albumin 3.6 g/dL (3.9-5); Calcium 9.6 mg/dL (8.4-10.2)
--- NOTE | 2020-08-08 11:37 | Progress Note ---
Assessment and Plan Assessment and plan: 54 years old male with history of ESRD on hemodialysis, hypertension, tobacco abuse, PAD status post previous revascularization, admitted on 07/22/2020 secondary to worsening left leg pain for 3 days. Pain is 10 out of 10. Patient is unable to walk. Patient was seen at Dr. Hurt's office, vascular surgeon, and was found to have a left popliteal artery thrombosis complicated by a left lower limb ischemia was sent to the ED. Patient had revascularization May 2020 due to mild ischemic toes and since then discoloration of the toes has worsened. On arrival, initial temperature 97.3, HR 107, RR 16, O2 100, BP 163/92. Initial WBC 8. Hemoglobin 11.7. Procalcitonin 4.2. Patient underwent angio plasty on 07/22/2020. By 07/27/2020 patient spiked a fever 101. Blood cultures 07/28/2020 no growth. Patient is planned to have a left BKA for nonsalvageable left leg per vascular -- Acute limb ischemia with thrombosis of left popliteal artery s/p angiogram and angioplasty for left popliteal artery occlusion now s/p Left BKA -- End stage renal disease Nephrology team on board HD as scheduled --Chronic hypotension -Improved -On midodrine --Right loculated pleural effusion CT scan reveals right thick-walled loculated pleural effusion Plan for chest tube placement as per vascular. Hold eliquis --Atrial flutter/fibrillation -Continue amiodarone and metoprolol -Cardiology recs appreciated --Left lower extremity DVT --DVT prophylaxis SCDs bilateral lower extremities while in bed. 07/30. ID started Vanc and levaquin. Left BKA completed per Surgery 07/31. Continue IV antibiotics per ID recommendations. Patient is s/p left BKA yesterday (07/30). Physical therapy evaluation pending. Continue hemodialysis per nephrology recommendations. 08/01. Patient with what appears to be a right loculated pleural effusion. Check CT of chest. ID to monitor off antibiotics s/p amputation physical therapy recommends acute rehab. Continue hemodialysis per nephrology recommendations. 08/02. CT scan reveals thick-walled right loculated pleural effusion. IR to place CT-guided catheter and send specimen for culture/cytology Wednesday. ID to monitor off antibiotics for now. Follow-up quantiferon TB gold. facility practice specialist reports atrial flutter/fibrillation. Patient reports previous history and is followed by [facility]. Consult cardiology for further evaluation. 08/03. IR to place CT-guided catheter and send specimen for culture/cytology Wednesday. ID to monitor off antibiotics for now. Follow-up quantiferon TB gold. Await cardiology consultation for atrial flutter/fibrillation. 08/04. Atrial flutter rate controlled with amiodarone. Continue anticoagulation with Eliquis (prior DVT and A. fib). Patient with prior history of PAT. IR to place CT-guided catheter and send specimen for culture/cytology Wednesday. ID to monitor off antibiotics for now. Follow-up quantiferon TB gold. Continue hemodialysis per nephrology. Continue midodrine for hypotension. Physical therapy recommends acute rehab placement. Case management follow-up after chest tube placement tomorrow. 08/05. Atrial flutter rate controlled with amiodarone. Continue anticoagulation with Eliquis (prior DVT and A. fib). Patient with prior history of PAT. IR to place CT-guided catheter and send specimen for culture/cytology today. ID to monitor off antibiotics for now. Follow-up quantiferon TB gold. Continue hemodialysis per nephrology. Continue midodrine for hypotension. Physical therapy recommends acute rehab placement. Case management follow-up after chest tube placement today for discharge planning--patient with s/p BKA this hospitalization. Physical therapy recommends acute rehab placement.\ 08/06. Patient has right-sided pleural effusion that is loculated and will need to have drainage. Chest tube placement has been postponed today. On anticoagul ation for DVT and atrial fibrillation. On amiodarone for atrial flutter/fibrillation. PT is recommending acute rehab placement. 08/07. Plan for chest tube placement on 08/07. Holding eliquis. No other complaints today. Will need placement when medically stable 08/08. Chest tube placement as per pulmonology. Will need placement. History Interval history: No acute events Hospitalist Physical - Physical exam Narrative exam: VITAL SIGNS: Reviewed. GENERAL: Awake HEAD: No signs of head trauma. EYES: Pupils are equal. Extraocular motions intact. MOUTH: Oropharynx is normal. NECK: No adenopathy, no JVD. CHEST: Diminished breath sounds on the right CARDIAC: normal S1 and S2, without murmurs, gallops, or rubs. ABDOMEN: Soft, non tender and non distended. No rebound or guarding, and no masses palpated. Bowel Sounds normal. MUSCULOSKELETAL: left BKA NEUROLOGIC EXAM: Alert and oriented x3. No focal neurologic deficits SKIN: No obvious lesions - Constitutional Vitals: Temp Pulse Resp BP Pulse Ox 98.0 F 61 20 122/64 98 08/08/20 03:49 08/08/20 10:44 08/08/20 10:44 08/08/20 03:49 08/08/20 10:44 Results - Labs CBC & Chem 7: 08/08/20 10:37 08/08/20 10:37 Labs: Laboratory Last Values WBC 6.6 K/mm3 (4.5-11.0) 08/08/20 10:37 RBC 2.96 M/mm3 (3.65-5.03) L 08/08/20 10:37 Hgb 9.8 gm/dl (11.8-15.2) L 08/08/20 10:37 Hct 30.7 % (35.5-45.6) L 08/08/20 10:37 MCV 104 fl (84-94) H 08/08/20 10:37 MCH 33 pg (28-32) H 08/08/20 10:37 MCHC 32 % (32-34) 08/08/20 10:37 RDW 19.0 % (13.2-15.2) H 08/08/20 10:37 Plt Count 195 K/mm3 (140-440) 08/08/20 10:37 Lymph % (Auto) 10.4 % (13.4-35.0) L 08/08/20 10:37 [place] % (Auto) 10.6 % (0.0-7.3) H 08/08/20 10:37 Eos % (Auto) 2.4 % (0.0-4.3) 08/08/20 10:37 Baso % (Auto) 1.3 % (0.0-1.8) 08/08/20 10:37 Lymph # (Auto) 0.7 K/mm3 (1.2-5.4) L 08/08/20 10:37 [place] # (Auto) 0.7 K/mm3 (0.0-0.8) 08/08/20 10:37 Eos # (Auto) 0.2 K/mm3 (0.0-0.4) 08/08/20 10:37 Baso # (Auto) 0.1 K/mm3 (0.0-0.1) 08/08/20 10:37 Add Manual Diff Complete 07/29/20 05:36 Total Counted 100 07/23/20 09:46 Seg Neutrophils % 75.3 % (40.0-70.0) H 08/08/20 10:37 Seg Neuts % (Manual) 94.0 % (40.0-70.0) H 07/23/20 09:46 Band Neutrophils % 1.0 % 07/23/20 09:46 Lymphocytes % (Manual) 1.0 % (13.4-35.0) L 07/23/20 09:46 Reactive Lymphs % (Man) 0 % 07/22/20 18:00 Monocytes % (Manual) 4.0 % (0.0-7.3) 07/23/20 09:46 Eosinophils % (Manual) 0 % (0.0-4.3) 07/22/20 18:00 Basophils % (Manual) 0 % (0.0-1.8) 07/22/20 18:00 Metamyelocytes % 0 % 07/22/20 18:00 Myelocytes % 0 % 07/22/20 18:00 Promyelocytes % 0 % 07/22/20 18:00 Blast Cells % 0 % 07/22/20 18:00 Nucleated RBC % Not Reportable 07/29/20 05:36 Seg Neutrophils # 5.0 K/mm3 (1.8-7.7) 08/08/20 10:37 Seg Neutrophils # Man 16.2 K/mm3 (1.8-7.7) H 07/23/20 09:46 Band Neutrophils # 0.2 K/mm3 07/23/20 09:46 Lymphocytes # (Manual) 0.2 K/mm3 (1.2-5.4) L 07/23/20 09:46 Abs React Lymphs (Man) 0.0 K/mm3 07/23/20 09:46 Monocytes # (Manual) 0.7 K/mm3 (0.0-0.8) 07/23/20 09:46 Eosinophils # (Manual) 0.0 K/mm3 (0.0-0.4) 07/23/20 09:46 Basophils # (Manual) 0.0 K/mm3 (0.0-0.1) 07/23/20 09:46 Metamyelocytes # 0.0 K/mm3 07/23/20 09:46 Myelocytes # 0.0 K/mm3 07/23/20 09:46 Promyelocytes # 0.0 K/mm3 07/23/20 09:46 Blast Cells # 0.0 K/mm3 07/23/20 09:46 WBC Morphology Not Reportable 07/29/20 05:36 Hypersegmented Neuts Not Reportable 07/29/20 05:36 Hyposegmented Neuts Not Reportable 07/29/20 05:36 Hypogranular Neuts Not Reportable 07/29/20 05:36 Smudge Cells Not Reportable 07/29/20 05:36 Toxic Granulation Not Reportable 07/29/20 05:36 Toxic Vacuolation Not Reportable 07/29/20 05:36 Dohle Bodies Not Reportable 07/29/20 05:36 Pelger-Huet Anomaly Not Reportable 07/29/20 05:36 Svetlana Rods Not Reportable 07/29/20 05:36 Platelet Estimate Not Reportable 07/29/20 05:36 Clumped Platelets Not Reportable 07/29/20 05:36 Plt Clumps, EDTA Not Reportable 07/29/20 05:36 Large Platelets Not Reportable 07/29/20 05:36 Giant Platelets Not Reportable 07/29/20 05:36 Platelet Satelliting Not Reportable 07/29/20 05:36 Plt Morphology Comment Not Reportable 07/29/20 05:36 RBC Morphology Not Reportable 07/29/20 05:36 Dimorphic RBCs Not Reportable 07/29/20 05:36 Polychromasia Not Reportable 07/29/20 05:36 Hypochromasia Not Reportable 07/29/20 05:36 Poikilocytosis Not Reportable 07/29/20 05:36 Anisocytosis Not Reportable 07/29/20 05:36 Microcytosis Not Reportable 07/29/20 05:36 Macrocytosis Not Reportable 07/29/20 05:36 Spherocytes Not Reportable 07/29/20 05:36 Pappenheimer Bodies Not Reportable 07/29/20 05:36 Sickle Cells Not Reportable 07/29/20 05:36 Target Cells Not Reportable 07/29/20 05:36 Tear Drop Cells Not Reportable 07/29/20 05:36 Ovalocytes Not Reportable 07/29/20 05:36 Helmet Cells Not Reportable 07/29/20 05:36 Seth-Pangburn Bodies Not Reportable 07/29/20 05:36 Rake Rings Not Reportable 07/29/20 05:36 Alicia Cells Not Reportable 07/29/20 05:36 Bite Cells Not Reportable 07/29/20 05:36 Crenated Cell Not Reportable 07/29/20 05:36 Elliptocytes Not Reportable 07/29/20 05:36 Acanthocytes (Spur) Not Reportable 07/29/20 05:36 Rouleaux Not Reportable 07/29/20 05:36 Hemoglobin C Crystals Not Reportable 07/29/20 05:36 Schistocytes Not Reportable 07/29/20 05:36 Malaria parasites Not Reportable 07/29/20 05:36 Malachi Bodies Not Reportable 07/29/20 05:36 Hem Pathologist Commnt Not Reportable 07/29/20 05:36 PT 21.0 Sec. (12.2-14.9) H 07/23/20 23:01 INR 1.80 (0.87-1.13) H 07/23/20 23:01 APTT 39.4 Sec. (24.2-36.6) H 07/23/20 23:01 Fibrinogen 494 mg/dl (211-480) H 07/23/20 09:46 Heparin Anti-Xa Level 0.29 U.I./ml (0.3-0.7) L 07/29/20 09:45 Sodium 138 mmol/L (137-145) 08/08/20 10:37 Potassium 4.9 mmol/L (3.6-5.0) 08/08/20 10:37 Chloride 96.9 mmol/L (98-107) L 08/08/20 10:37 Carbon Dioxide 30 mmol/L (22-30) 08/08/20 10:37 Anion Gap 16 mmol/L 08/08/20 10:37 BUN 43 mg/dL (9-20) H 08/08/20 10:37 Creatinine 13.5 mg/dL (0.8-1.3) H 08/05/20 08:10 Estimated GFR 5 ml/min 08/05/20 08:10 BUN/Creatinine Ratio 5 % 08/05/20 08:10 Glucose 79 mg/dL (75-100) 08/08/20 10:37 POC Glucose 90 mg/dL (70-105) 08/05/20 21:36 Calcium 9.6 mg/dL (8.4-10.2) 08/08/20 10:37 Total Bilirubin 0.50 mg/dL (0.1-1.2) 08/08/20 10:37 Direct Bilirubin < 0.2 mg/dL (0-0.2) 08/01/20 16:10 Indirect Bilirubin 0.1 mg/dL 08/01/20 16:10 AST 19 units/L (5-40) 08/08/20 10:37 ALT 18 units/L (7-56) 08/08/20 10:37 Alkaline Phosphatase 67 units/L (35-129) 08/08/20 10:37 Lactate Dehydrogenase 226 units/L (91-180) H 08/01/20 16:10 C-Reactive Protein 7.20 mg/dL (0.00-1.30) H 08/01/20 14:16 Total Protein 6.3 g/dL (6.3-8.2) 08/08/20 10:37 Albumin 3.6 g/dL (3.9-5) L 08/08/20 10:37 Albumin/Globulin Ratio 1.3 % 08/08/20 10:37 Procalcitonin 4.28 ng/mL (<0.15) 07/28/20 07:53 TSH 3.770 mlU/mL (0.270-4.200) 07/26/20 02:22 Free T4 1.01 ng/dL (0.76-1.46) 07/26/20 02:22 Random Vancomycin 13.9 ug/mL (0-40.0) 07/30/20 07:18 Hepatitis A IgM Ab Non-reactive (NonReactive) 07/22/20 18:00 Hep Bs Antigen Non-reactive (Negative) 07/22/20 18:00 Hep B Core IgM Ab Non-reactive (NonReactive) 07/22/20 18:00 Hepatitis C Antibody Non-reactive (NonReactive) 07/22/20 18:00 TB (QFT) Gold In Tube Negative (NEGATIVE) 08/02/20 14:36 TB Test (QFT) Nil 0.02 IU/mL 08/02/20 14:36 TB Test Mitogen - Nil 2.28 IU/mL 08/02/20 14:36 TB Test Ag - Nil 1 <0.00 IU/mL 08/02/20 14:36 TB Test Ag - Nil 2 <0.00 IU/mL 08/02/20 14:36 Blood Type O POSITIVE 07/30/20 07:24 Antibody Screen Negative 07/30/20 07:24 - Diagnostic Impressions Diagnostic Impressions: Echocardiogram 07/26/20 08:06 Transthoracic Echocardiogram Indication: Tachycardia BP: 108/70 HR: 100 Conclusions *Global left ventricular systolic function is normal. *The estimated ejection fraction is 60-65%. *Mild concentric left ventricular hypertrophy is observed. *The left atrium is mildly dilated. *There is mild mitral regurgitation. *The right heart chambers are both mildly dilated. *There is mild to moderate tricuspid regurgitation. *There is evidence of moderate pulmonary hypertension. *The right ventricular systolic pressure is calculated at 46 mmHg. Findings Left Ventricle: The left ventricular chamber size is normal. Mild concentric left ventricular hypertrophy is observed. Global left ventricular systolic function is normal. The estimated ejection fraction is 60-65%. Left Atrium: The left atrium is mildly dilated. Right Ventricle: The right ventricle is mildly dilated. The right ventricular global systolic function is mildly reduced. Right Atrium: The right atrium is mildly dilated. Aortic Valve: The aortic valve is trileaflet. The aortic valve leaflets are mildly thickened. There is no evidence of aortic regurgitation. There is no evidence of aortic stenosis. Mitral Valve: The mitral valve leaflets are mildly thickened. There is mild mitral regurgitation. There is no evidence of mitral stenosis. Tricuspid Valve: There is mild to moderate tricuspid regurgitation. The right ventricular systolic pressure is calculated at 46 mmHg. There is evidence of moderate pulmonary hypertension. Pulmonic Valve: There is trace pulmonic regurgitation. Pericardium: There is no pericardial effusion. Aorta: There is no dilatation of the ascending aorta. There is no dilatation of the aortic root. Venous: The inferior vena cava appears normal in size. Measurements Chambers 2D Name Value Normal Range IVSd (2D) 1.03 cm (0.6 - 1.1) LVPWd (2D) 0.91 cm (0.6 - 1.1) LVIDd (2D) 4.7 cm (3.7 - 5.6) LVIDs (2D) 3.36 cm (2 - 3.8) LV FS (2D) 28.6 % - EF Teichholz (2D) 55.1 % - Ao root diameter (2D) 3.06 cm (2 - 3.7) Volumes/Mass Name Value Normal Range LA ESV SP 4CH (A/L) 47.57 ml - LA ESV SP 2CH (A/L) 41.21 ml - LA ESV BP (A/L) 45.97 ml - LA ESV BP (A/L) index 20.8 ml/m2 - LA ESV SP 4CH (MOD) 43.06 ml - LA ESV SP 2CH (MOD) 41.81 ml - LA ESV BP (MOD) 43.59 ml - LA ESV BP (MOD) index 19.72 ml/m2 - Diastolic/Systolic Function Name Value Normal Range MV E-wave Vmax 0.81 m/sec - MV deceleration time 179.23 msec - Aortic Valve Name Value Normal Range AV Vmax 1.25 m/sec - AV VTI 19.57 cm - AV peak gradient 6.28 mmHg - AV mean gradient 3.55 mmHg - LVOT diameter 2.06 cm - LVOT Vmax 0.92 m/sec - LVOT VTI 13.2 cm - LVOT peak gradient 3.38 mmHg - LVOT mean gradient 1.86 mmHg - SV LVOT 44.13 ml - JOSE EDUARDO (continuity Vmax) 2.45 cm2 - JOSE EDUARDO (continuity VTI) 2.25 cm2 - Tricuspid Valve Name Value Normal Range TR Vmax 3.31 m/sec - TR peak gradient 43 mmHg - RAP 3 mmHg - RVSP 46 mmHg - IVC diameter 1.79 cm (1.2 - 2.3) Pulmonic Valve/Qp:Qs Name Value Normal Range PV Vmax 0.82 m/sec - PV peak gradient 2.66 mmHg - PV acceleration time 98.95 msec - Rodriguez/IV: Voiding Method Urinal IV Catheter Type [Right INT / Saline Lock Forearm] IV Catheter Type [Left Forearm INT / Saline Lock ] IV Catheter Type [Right Graft Femoral] IV Catheter Type [Right INT / Saline Lock Antecubital] Active Medications - Current Medications Current Medications: Generic Name Dose Route Start Last Admin Trade Name Freq PRN Reason Stop Dose Admin Acetaminophen 650 mg 07/22/20 14:09 07/27/20 22:12 Acetaminophen 325 Mg Tab PO 650 mg Q6H PRN Administration Pain, Mild (1-3) Hydrocodone Bitart/Acetaminophen 2 each 07/22/20 14:09 08/07/20 20:28 Hydrocodone/Acetaminophen 5-325 Mg Tab PO 2 each Q6H PRN Administration Pain, Moderate (4-6) Albuterol 2.5 mg 07/26/20 08:34 Albuterol 2.5 Mg/3 Ml Nebu IH Q4HRT PRN Shortness Of Breath Amiodarone HCl 200 mg 08/02/20 14:30 08/07/20 22:10 Amiodarone 200 Mg Tab PO 200 mg BID AALIYAH Administration Apixaban 5 mg 08/07/20 22:00 08/07/20 23:08 Apixaban 5 Mg Tab PO Not Given Q12HR [facility] Protocol Aspirin 81 mg 07/22/20 15:00 08/07/20 12:38 Aspirin Ec 81 Mg Tab PO Not Given QDAY AALIYAH Fentanyl 100 mcg 08/08/20 09:39 Fentanyl 100 Mcg/2 Ml Inj IV 08/08/20 16:00 ONCE NR Hydromorphone HCl 1 mg 07/30/20 13:00 08/07/20 23:41 Hydromorphone 1 Mg/1 Ml Inj IV 1 mg Q4H PRN Administration Pain , Severe (7-10) Sodium Chloride 500 mls @ 50 mls/hr 08/08/20 10:00 Nacl 0.9% 500 Ml IV DIRECT AALIYAH Metoprolol Tartrate 50 mg 07/29/20 10:00 08/07/20 22:10 Metoprolol Tartrate 50 Mg Tab PO 50 mg BID AALIYAH Administration Midazolam HCl 5 mg 08/08/20 09:38 Midazolam 5 Mg/5 Ml Inj Mdv IV 08/08/20 16:00 ONCE NR Midodrine 10 mg 07/25/20 16:00 08/08/20 08:44 Midodrine 5 Mg Tab PO 10 mg TID@0800,1200,1600 AALIYAH Administration Ondansetron HCl 4 mg 07/22/20 14:09 Ondansetron 4 Mg/2 Ml Inj IV Q8H PRN Nausea And Vomiting Pregabalin 50 mg 08/01/20 10:00 08/07/20 12:48 Pregabalin 25 Mg Cap PO 50 mg QDAY AALIYAH Administration Sevelamer Carbonate 800 mg 07/23/20 18:30 08/08/20 08:43 Sevelamer Carbonate 800 Mg Tab PO 800 mg AC AALIYAH Administration Sodium Chloride 10 ml 07/22/20 13:00 08/08/20 00:33 Sodium Chloride 0.9% 10 Ml Flush Syringe IV 10 ml BID AALIYAH Administration Sodium Chloride 10 ml 07/22/20 13:00 08/07/20 23:07 Sodium Chloride 0.9% 10 Ml Flush Syringe IV 10 ml PRN PRN Administration LINE FLUSH Nutrition/Malnutrition Assess - Dietary Evaluation Nutrition/Malnutrition Findings: Nutrition Notes Start: 07/29/20 13:17 Freq: Status: Active Protocol: Document 08/07/20 11:55 BENTLEY (Rec: 08/07/20 11:59 BENTLEY [id number]) Co-Sign 08/07/20 11:55 MK Nutrition Notes Initial or Follow up Brief Note Current Diagnosis CKD (stage V CKD) Other Pertinent Diagnosis ESRD w/ HD, thrombosis, HTN, peripheral artery dz s/p L BKA Current Diet NPO Subjective/Other Information F/u diet advancement and if so , F/u intakes, ONS acceptance, and diet education about protein and dialysis. Pt was out of room for dialysis. Will continue to try and see pt in person. Observed one opened Ensure with <75% of liquid remaining and two Ensures unopened. Pt's breakfast tray delivered but untouched due to dialysis. Pt had one PB&J napkin band wrapper empty. Juices piling up in room. Will modify diet order for preferences once NPO lifted. Nutrition Intervention Follow-Up By: 08/08/20 Additional Comments F/u diet advancement and if so , F/u intakes, ONS acceptance, and diet education about protein and dialysis.
--- NOTE | 2020-08-08 11:51 | Cat Scan Report ---
CT CHEST WITHOUT CONTRAST INDICATION / CLINICAL INFORMATION: Right chronic pleural effusion. TECHNIQUE: Axial CT images were obtained through the chest without contrast. All CT scans at this location are p erformed using CT dose reduction for ALARA by means of automated exposure control. COMPARISON: 08/01/2020 FINDINGS: THORACIC AORTA/GREAT VESSELS: Calcified atherosclerotic plaque is noted throughout the nonaneurysmal thoracic aorta and major braches, to include the coronary arteries. Superior vena cava is chronically thrombosed. There are multiple collaterals again seen within the chest wall. HEART: There is mild cardiac enlargement with trace pericardial effusion, unchanged MEDIASTINUM / BEVERLY: Shotty mediastinal lymph nodes are similar. No new or increasing thoracic lymphad enopathy. LUNGS/PLEURA: Stable size of chronic thick-walled right pleural fluid collection, which is partially loculated . There is similar rounded atelectasis of the right middle and right lower lobes. No new or increasing consolidation. There is scarring and seen within the anterior left upper lobe and volume loss and/or scarring in the left lower lobe. No pleural effusion on the left. No evidence pneumothora x. ADDITIONAL CHEST FINDINGS: None. UPPER ABDOMEN: Innumerable bilateral renal cysts are partially imaged. No acute findings in the upper abdomen. SKELETAL SYSTEM: No significant abnormality. IMPRESSION: 1. Stable chronic partially loculated right pleural effusion and rounded atelectasis in the right mid dle and right lower lobes. 2. Other stable chronic and incidental findings as above. Signer Name: Bharathi Diaz MD Signed: 08/08/2020 11:46 AM Workstation Name: [id number]
--- NOTE | 2020-08-08 11:58 | Progress Note ---
Assessment and Plan Cultures: Blood cultures 07/28/2020 no growth today. Assessment: 54 years old male with history of ESRD on hemodialysis, hypertension, tobacco abuse, PAD status post previous revascularization, admitted on 07/22/2020 secondary to worsening left leg pain for 3 days: #SIRS: Not present on admission, now with tachycardia, recent fever, elevated leukocytosis, likely secondary to left foot gangrene. Procalcitonin elevated likely in the setting of renal failure. #Left foot dry gangrene: With severe peripheral vascular disease. S/p left BKA on 07/30 #Right loculated pleural effusion: unclear etiology, he reports he has been cough some for a while. CT with thick-wall right pleural effusion loculated. CRP=7.2 #End-stage renal disease: On hemodialysis. #Amoxicillin allergy #Chronic SVC thrombosis Recommendations: -IR chest tube placement tomorrow per IR -monitor off abx for now, pt stable -check quantiferon TB gold pending Will follow. Amparo Collins MD Infectious Diseases Rn [facility] ([facility]) M [phone] O [phone] Subjective Date of service: 08/08/20 Principal diagnosis: ESRD on HD Interval history: Patient feels good, no complaints no cough no chest pain. Objective - Exam Narrative Exam: eneral appearance: Alert in NAD pleasant Eyes: anicteric sclerae, moist conjunctivae; no lid-lag; PERRLA HENT: Normocephalic, Atraumatic; normal external ears, nares open, oropharynx clear. Neck: supple, tracheal midline, no JVD Lungs: right sided decreased BS CV: RRR no murmur Abdomen: Soft, non-tender; no masses or hepatosplenomegaly Extremities: Left BKA with surgical dressings Skin: No rash. Psych: no agitated Neuro: alert and oriented x 3. Moving all extermities - Constitutional Vitals: Vital Signs Temp Pulse Resp BP Pulse Ox 98.0 F 61 20 122/64 98 08/08/20 03:49 08/08/20 10:44 08/08/20 10:44 08/08/20 03:49 08/08/20 10:44 Temperature -Last 24 Hours Temperature 98.0 F Temperature 98 F Temperature 98.2 F Temperature 98.0 F Temperature 97.2 F Temperature 98.0 F - Labs CBC & Chem 7: 08/08/20 10:37 08/08/20 10:37 Labs: Abnormal lab results 08/08/20 08/08/20 Range/Units 10:37 10:37 RBC 2.96 L (3.65-5.03) M/mm3 Hgb 9.8 L (11.8-15.2) gm/dl Hct 30.7 L (35.5-45.6) % MCV 104 H (84-94) fl MCH 33 H (28-32) pg RDW 19.0 H (13.2-15.2) % Lymph % (Auto) 10.4 L (13.4-35.0) % [place] % (Auto) 10.6 H (0.0-7.3) % Lymph # (Auto) 0.7 L (1.2-5.4) K/mm3 Seg Neutrophils % 75.3 H (40.0-70.0) % Chloride 96.9 L (98-107) mmol/L BUN 43 H (9-20) mg/dL Creatinine 9.4 H (0.8-1.3) mg/dL Albumin 3.6 L (3.9-5) g/dL
[2020-08-08 12:02] LABS: INR 1.29 (0.87-1.13)
--- NOTE | 2020-08-08 12:02 | Progress Note ---
Assessment and Plan Atrial flutter, paroxysmal currently in sinus rhythm; on amiodarone and metoprolol for suppression warfarin changed to Eliquis this presentation Prior h/o long RP tachycardia - likely PAT PAD, left popliteal artery thrombosis complicated by left lower limb ischemia status post left BKA this admission on Eliquis for anticoagulation Hypotension on midodrine End-stage renal disease Loculated right pleural effusion Continue medical therapy for paroxysmal atrial flutter. Subjective Date of service: 08/08/20 Principal diagnosis: ESRD on HD Interval history: No cardiac events reported. Currently he is sinus rhythm on telemetry. Objective Vital Signs Temp Pulse Pulse Resp BP BP Pulse Ox 08/08/20 10:44 61 20 98 08/08/20 03:49 98.0 F 69 18 122/64 98 08/08/20 00:00 65 08/07/20 23:48 98 F 68 20 110/68 98 08/07/20 22:00 68 20 98 08/07/20 19:02 98.2 F 68 20 117/67 99 08/07/20 15:15 98.0 F 68 19 108/56 100 08/07/20 12:45 97.2 F L 68 18 119/67 96 08/07/20 12:15 98.0 F 65 18 126/77 - Physical Examination General: No Apparent Distress HEENT: Positive: PERRL Cardiac: Positive: Reg Rate and Rhythm Neuro: Positive: Grossly Intact Extremities: Present: Other (s/p left BKA). Absent: edema - Labs and Meds Cardiac Enzymes 08/08/20 Range/Units 10:37 AST 19 (5-40) units/L CBC 08/08/20 Range/Units 10:37 WBC 6.6 (4.5-11.0) K/mm3 RBC 2.96 L (3.65-5.03) M/mm3 Hgb 9.8 L (11.8-15.2) gm/dl Hct 30.7 L (35.5-45.6) % Plt Count 195 (140-440) K/mm3 Lymph # (Auto) 0.7 L (1.2-5.4) K/mm3 Harper # (Auto) 0.7 (0.0-0.8) K/mm3 Eos # (Auto) 0.2 (0.0-0.4) K/mm3 Baso # (Auto) 0.1 (0.0-0.1) K/mm3 Comprehensive Metabolic Panel 08/08/20 Range/Units 10:37 Sodium 138 (137-145) mmol/L Potassium 4.9 (3.6-5.0) mmol/L Chloride 96.9 L (98-107) mmol/L Carbon Dioxide 30 (22-30) mmol/L BUN 43 H (9-20) mg/dL Creatinine 9.4 H (0.8-1.3) mg/dL Glucose 79 (75-100) mg/dL Calcium 9.6 (8.4-10.2) mg/dL AST 19 (5-40) units/L ALT 18 (7-56) units/L Alkaline Phosphatase 67 (35-129) units/L Total Protein 6.3 (6.3-8.2) g/dL Albumin 3.6 L (3.9-5) g/dL
[2020-08-08] MEDS: METOPROLOL TARTRATE 50 MG TAB PO SCH ×2 (12:13→22:29)
[2020-08-08] MEDS: HYDROcodone/ACETAMINOPHEN 5-325 MG TAB PO PRN (12:13)
[2020-08-08] MEDS: ASPIRIN EC 81 MG TAB PO SCH (12:13)
[2020-08-08] MEDS: AMIODARONE 200 MG TAB PO SCH ×2 (12:14→22:30)
[2020-08-08] MEDS: APIXABAN 5 MG TAB PO SCH ×2 (12:15→22:30)
[2020-08-08] MEDS: PREGABALIN 25 MG CAP PO SCH (12:53)
[2020-08-08] MEDS: HYDROmorphone 1 MG/1 ML INJ IV PRN ×2 (14:18→17:41)
--- NOTE | 2020-08-08 18:27 | Progress Note ---
Assessment and Plan Cultures: Blood cultures 07/28/2020 no growth today. Assessment: 54 years old male with history of ESRD on hemodialysis, hypertension, tobacco abuse, PAD status post previous revascularization, admitted on 07/22/2020 secondary to worsening left leg pain for 3 days: #SIRS: Not present on admission, now with tachycardia, recent fever, elevated leukocytosis, likely secondary to left foot gangrene. Procalcitonin elevated likely in the setting of renal failure. #Left foot dry gangrene: With severe peripheral vascular disease. S/p left BKA on 07/30 #Right loculated pleural effusion: unclear etiology, he reports he has been cough some for a while. CT with thick-wall right pleural effusion loculated. CRP=7.2 #End-stage renal disease: On hemodialysis. #Amoxicillin allergy #Chronic SVC thrombosis Recommendations: -OK to d/c to have pleural effusion eval as an outpatient with Pulmonary since patient is stable -monitor off abx for now, pt stable -f/u quantiferon TB gold pending D/w Dr Zarco Will follow. Amparo Collins MD Infectious Diseases [place] [facility] ([facility]) M [phone] O [phone] Subjective Date of service: 08/08/20 Principal diagnosis: ESRD on HD Interval history: Patient feels ok no complaints Objective - Exam Narrative Exam: eneral appearance: Alert in NAD pleasant Eyes: anicteric sclerae, moist conjunctivae; no lid-lag; PERRLA HENT: Normocephalic, Atraumatic; normal external ears, nares open, oropharynx clear. Neck: supple, tracheal midline, no JVD Lungs: right sided decreased BS CV: RRR no murmur Abdomen: Soft, non-tender; no masses or hepatosplenomegaly Extremities: Left BKA with surgical dressings Skin: No rash. Psych: no agitated Neuro: alert and oriented x 3. Moving all extermities - Constitutional Vitals: Vital Signs Temp Pulse Resp BP Pulse Ox 98.0 F 61 20 122/64 98 08/08/20 03:49 08/08/20 10:44 08/08/20 17:41 08/08/20 03:49 08/08/20 10:44 Temperature -Last 24 Hours Temperature 98.0 F Temperature 98 F Temperature 98.2 F - Labs CBC & Chem 7: 08/08/20 10:37 08/08/20 10:37 Labs: Abnormal lab results 08/08/20 08/08/20 08/08/20 Range/Units 10:37 10:37 10:37 RBC 2.96 L (3.65-5.03) M/mm3 Hgb 9.8 L (11.8-15.2) gm/dl Hct 30.7 L (35.5-45.6) % MCV 104 H (84-94) fl MCH 33 H (28-32) pg RDW 19.0 H (13.2-15.2) % Lymph % (Auto) 10.4 L (13.4-35.0) % Cedar % (Auto) 10.6 H (0.0-7.3) % Lymph # (Auto) 0.7 L (1.2-5.4) K/mm3 Seg Neutrophils % 75.3 H (40.0-70.0) % PT 16.1 H (12.2-14.9) Sec. INR 1.29 H (0.87-1.13) Chloride 96.9 L (98-107) mmol/L BUN 43 H (9-20) mg/dL Creatinine 9.4 H (0.8-1.3) mg/dL Albumin 3.6 L (3.9-5) g/dL
[2020-08-09 06:41] LABS: Calcium 9.6 mg/dL (8.4-10.2)
[2020-08-09] MEDS: HYDROcodone/ACETAMINOPHEN 5-325 MG TAB PO PRN (08:35)
[2020-08-09] MEDS: SEVELAMER CARBONATE 800 MG TAB PO SCH ×2 (08:36→12:23)
[2020-08-09] MEDS: MIDODRINE 5 MG TAB PO SCH ×2 (08:56→12:22)
[2020-08-09] MEDS: HYDROmorphone 1 MG/1 ML INJ IV PRN (11:40)
--- NOTE | 2020-08-09 12:10 | Progress Note ---
Assessment and Plan Atrial flutter, paroxysmal currently in sinus rhythm; on amiodarone and metoprolol for suppression warfarin changed to Eliquis this presentation Prior h/o long RP tachycardia - likely PAT PAD, left popliteal artery thrombosis complicated by left lower limb ischemia status post left BKA this admission on Eliquis for anticoagulation Hypotension on midodrine End-stage renal disease Loculated right pleural effusion Continue medical therapy for paroxysmal atrial flutter. Otherwise, conservative cardiac management. Subjective Date of service: 08/09/20 Principal diagnosis: ESRD on HD Interval history: Patient has no cardiac complaints. Awaits rehab placement. Currently he is sinus rhythm on telemetry. Objective Vital Signs Temp Pulse Resp BP BP Pulse Ox 08/09/20 09:01 92 08/09/20 08:46 97.4 F L 72 18 134/75 100 08/09/20 04:32 65 08/09/20 04:00 98.2 F 67 18 115/64 99 08/08/20 23:43 98.7 F 69 18 108/62 93 08/08/20 23:39 100 08/08/20 22:29 106/58 08/08/20 22:28 98.5 F 20 106/58 08/08/20 20:08 98.4 F 65 19 108/63 100 08/08/20 17:41 20 08/08/20 14:19 99.1 F 66 18 117/58 100 08/08/20 14:18 20 08/08/20 12:13 20 - Physical Examination General: No Apparent Distress HEENT: Positive: PERRL Neck: Positive: trachea midline Cardiac: Positive: Reg Rate and Rhythm Lungs: Positive: Decreased Breath Sounds Neuro: Positive: Grossly Intact Extremities: Present: Other (s/p left BKA). Absent: edema - Labs and Meds Comprehensive Metabolic Panel 08/09/20 Range/Units 05:38 Sodium 137 (137-145) mmol/L Potassium 5.3 H (3.6-5.0) mmol/L Chloride 94.8 L (98-107) mmol/L Carbon Dioxide 27 (22-30) mmol/L BUN 58 H (9-20) mg/dL Creatinine 11.9 H (0.8-1.3) mg/dL Glucose 77 (75-100) mg/dL Calcium 9.6 (8.4-10.2) mg/dL
[2020-08-09] MEDS: METOPROLOL TARTRATE 50 MG TAB PO SCH (12:22)
[2020-08-09] MEDS: APIXABAN 5 MG TAB PO SCH (12:22)
[2020-08-09] MEDS: AMIODARONE 200 MG TAB PO SCH (12:23)
[2020-08-09] MEDS: PREGABALIN 25 MG CAP PO SCH (12:23)
--- NOTE | 2020-08-09 12:27 | Discharge Summary ---
Providers - Providers Date of Admission: 07/22/20 12:39 Date of discharge: 08/09/20 Attending physician: SCOTT CRUZ 07/22/20 12:38 Consult to Physician [CONS] Stat Comment: Consulting Provider: GILMA SHARMA Physician Instructions: Reason For Exam: popliteal artery thrombosis 07/22/20 14:06 Consult to Physician [CONS] Stat Comment: Consulting Provider: KRISTIAN FARNSWORTH Physician Instructions: Reason For Exam: ESRD on HD 07/25/20 11:22 Occupational Therapy Evaluate and Treat [CONS] Routine Comment: Reason For Exam: debility Physical Therapy Evaluation and Treat [CONS] Routine Comment: Reason For Exam: debility 07/28/20 14:06 Consult to Physician [CONS] Routine Comment: Consulting Provider: EDUIN PINON Physician Instructions: Reason For Exam: Cellulitis 07/30/20 Consult to Case Management [CONS] Routine Services Needed at Discharge: Physical Therapy Occupational Therapy DME Equipment Notified:: case workersales program manager Therapy Evaluate and Treat [CONS] Routine Comment: Reason For Exam: s/p amputation Physical Therapy Evaluation and Treat [CONS] Routine Comment: Reason For Exam: s/p amputation 07/30/20 12:31 Consult Acute Rehabilitation [CONS] Routine Consulting Provider: JOSE LUIS CORNELIUS Physician Instructions: Reason For Exam: eval for acute rehab 07/30/20 12:32 Consult to Dice Table Operator [CONS] Routine 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 Pain is 10 out of 10. Patient is unable to walk. Patient was seen at Dr. Sharma's office, vascular surgeon, and was found to have a left popliteal artery thrombosis complicated by a left lower limb ischemia was sent to the ED. Patient had revascularization May 2020 due to mild ischemic toes and since then discoloration of the toes has worsened. On arrival, initial temperature 97.3, HR 107, RR 16, O2 100, BP 163/92. Initial WBC 8. Hemoglobin 11.7. Procalcitonin 4.2. Patient underwent angioplasty on 07/22/2020. By 07/27/2020 patient spiked a fever 101. Blood cultures 07/28/2020 no growth. Patient is planned to have a left BKA for nonsalvageable left leg per vascular 07/30. ID started Vanc and levaquin. Left BKA completed per Surgery 07/31. Continue IV antibiotics per ID recommendations. Patient is s/p left BKA yesterday (07/30). Physical therapy evaluation pending. Continue hemodialysis per nephrology recommendations. 08/01. Patient with what appears to be a right loculated pleural effusion. Check CT of chest. ID to monitor off antibiotics s/p amputation physical therapy recommends acute rehab. Continue hemodialysis per nephrology recommendations. 08/02. CT scan reveals thick-walled right loculated pleural effusion. IR to place CT-guided catheter and send specimen for culture/cytology Wednesday. ID to monitor off antibiotics for now. Follow-up quantiferon TB gold. 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 Patient reports previous history and is followed by [facility]. Consult cardiology for further evaluation. 08/03. IR to place CT-guided catheter and send specimen for culture/cytology Wednesday. ID to monitor off antibiotics for now. Follow-up quantiferon TB gold. Await cardiology consultation for atrial flutter/fibrillation. 08/04. Atrial flutter rate controlled with amiodarone. Continue anticoagulation with Eliquis (prior DVT and A. fib). Patient with prior history of PAT. IR to place CT-guided catheter and send specimen for culture/cytology Wednesday. ID to monitor off antibiotics for now. Follow-up quantiferon TB gold. Continue hemodialysis per nephrology. Continue midodrine for hypotension. Physical therapy recommends acute rehab placement. Case management follow-up after chest tube placement tomorrow. 08/05. Atrial flutter rate controlled with amiodarone. Continue anticoagulation with Eliquis (prior DVT and A. fib). Patient with prior history of PAT. IR to place CT-guided catheter and send specimen for culture/cytology today. ID to monitor off antibiotics for now. Follow-up quantiferon TB gold. Continue hemodialysis per nephrology. Continue midodrine for hypotension. Physical therapy recommends acute rehab placement. Case management follow-up after chest tube placement today for discharge planning--patient with s/p BKA this hospitalization. Physical therapy recommends acute rehab placement.\ 08/06. Patient has right-sided pleural effusion that is loculated and will need to have drainage. Chest tube placement has been postponed today. On anticoagulation for DVT and atrial fibrillation. On amiodarone for atrial flutter/fibrillation. PT is recommending acute rehab placement. 08/07. Plan for chest tube placement on 08/07. Holding eliquis. No other complaints today. Will need placement when medically stable 08/08. As per pulmonology, he does not need emergent chest tube placement. He will need to have close monitoring instead with repeat imaging. he will follow up with pulmonology team. Anticoagulation has been resumed. 08/09. He will be discharged to rehab today. Remains stable for DC> He agrees with plan. Disposition: [id number] INPT REHAB FACILITY Time spent for discharge: 45 mins - Discharge Diagnoses (1) Pleural effusion Status: Acute (2) End stage renal disease Status: Acute (3) Nicotine dependence Status: Acute Qualifiers: Nicotine product type: cigarettes Substance use status: in withdrawal Qualified Code(s): F17.213 - Nicotine dependence, cigarettes, with withdrawal (4) Paroxysmal atrial flutter Status: Acute (5) Peripheral artery disease Status: Acute (6) Thrombosis of left popliteal artery Status: Acute Core Measure Documentation - Palliative Care Palliative Care/ Comfort Measures: Not Applicable - Core Measures Any of the following diagnoses?: none Exam - Physical Exam Narrative exam: VITAL SIGNS: Reviewed. GENERAL: Awake HEAD: No signs of head trauma. EYES: Pupils are equal. Extraocular motions intact. MOUTH: Oropharynx is normal. NECK: No adenopathy, no JVD. CHEST: Diminished breath sounds on the right CARDIAC: normal S1 and S2, without murmurs, gallops, or rubs. ABDOMEN: Soft, non tender and non distended. No rebound or guarding, and no masses palpated. Bowel Sounds normal. MUSCULOSKELETAL: left BKA NEUROLOGIC EXAM: Alert and oriented x3. No focal neurologic deficits SKIN: No obvious lesions - Constitutional Vitals: Temp Pulse Resp BP Pulse Ox 97.4 F L 72 18 134/75 92 08/09/20 08:46 08/09/20 08:46 08/09/20 08:46 08/09/20 08:46 08/09/20 09:01 Plan Activity: no restrictions Diet: low fat, low cholesterol, low salt Additional Instructions: Continue eliquis. Follow up with pulmonology for repeat CT chest to follow up plueral effusion. Continue rest of home medications. Follow up with PCP in 1-2 weeks Follow up with: PRIMARY MD MAX [Primary Care Provider] - 7 Days JESSICA BANGURA MD [Staff Physician] - 7 Days Prescriptions: Amiodarone [Cordarone 200 MG TAB] 200 mg PO BID #60 tablet Apixaban [Eliquis] 5 mg PO Q12HR #60 tablet Aspirin EC [Halfprin EC] 81 mg PO QDAY #30 tablet Metoprolol [Lopressor TAB] 50 mg PO BID #60 tablet Pregabalin 50 mg PO QDAY #60 capsule Midodrine [Proamatine] 10 mg PO TID@0800,1200,1600 PRN #30 tablet PRN Reason: Hypotension Sevelamer Carbonate [Renvela] 800 mg PO AC #30 tablet
[2020-08-09] MEDS: ASPIRIN EC 81 MG TAB PO SCH (13:13)
--- NOTE | 2020-08-09 13:15 | Progress Note ---
Assessment and Plan Thrombosis of left popliteal artery End stage renal disease Hypertension S/P Hyperkalemia Peripheral artery disease DVT prophylaxis Plan: HD today for clearance and volume removal S/P left BKA on 07/30/20 Fluid restriction of 1 liter per day Strict I&O's daily Obtain daily weights Renally dose medications Assess dialysis needs daily Subjective Date of service: 08/09/20 Principal diagnosis: ESRD on HD Interval history: patient is waiting to be discharged to inpatient rehab Objective - Vital Signs Vital signs: Vital Signs - 12hr 08/09/20 08/09/20 08/09/20 04:00 04:32 08:46 Temperature 98.2 F 97.4 F L Pulse Rate 67 65 72 Respiratory 18 18 Rate Blood Pressure 115/64 Blood Pressure 134/75 [Left] O2 Sat by Pulse 99 100 Oximetry 08/09/20 08/09/20 09:01 12:22 Temperature Pulse Rate 100 H Respiratory Rate Blood Pressure 134/75 Blood Pressure [Left] O2 Sat by Pulse 92 Oximetry - Lab 08/08/20 10:37 08/09/20 05:38 Most recent lab results Calcium 9.6 mg/dL (8.4-10.2) 08/09/20 05:38 Medications & Allergies - Medications Allergies/Adverse Reactions: Allergies amoxicillin Allergy (Severe, Verified 07/30/20 10:27) Unknown PT STATES LIPS SWELLED CONTRAST DYE Adverse Reaction (Severe, Uncoded 07/30/20 10:27) Swelling PT STATES GROIN AREA HAD SWELLING ALSO STATES HE SWELLING OTHER AREAS OF BODY Home Medications: Home Medications Medication Instructions Recorded Confirmed Last Taken Type Amiodarone [Cordarone 200 MG TAB] 200 mg PO BID #60 tablet 08/09/20 Unknown Rx Apixaban [Eliquis] 5 mg PO Q12HR #60 tablet 08/09/20 Unknown Rx Aspirin EC [Halfprin EC] 81 mg PO QDAY #30 tablet 08/09/20 Unknown Rx Metoprolol [Lopressor TAB] 50 mg PO BID #60 tablet 08/09/20 Unknown Rx Midodrine [Proamatine] 10 mg PO TID@0800,1200,1600 PRN 08/09/20 Unknown Rx #30 tablet Pregabalin 50 mg PO QDAY #60 capsule 08/09/20 Unknown Rx Sevelamer Carbonate [Renvela] 800 mg PO AC #30 tablet 08/09/20 Unknown Rx Active Medications: Generic Name Dose Route Start Last Admin Trade Name Freq PRN Reason Stop Dose Admin Acetaminophen 650 mg 07/22/20 14:09 07/27/20 22:12 Acetaminophen 325 Mg Tab PO 650 mg Q6H PRN Administration Pain, Mild (1-3) Hydrocodone Bitart/Acetaminophen 2 each 07/22/20 14:09 08/09/20 08:35 Hydrocodone/Acetaminophen 5-325 Mg Tab PO 2 each Q6H PRN Administration Pain, Moderate (4-6) Albuterol 2.5 mg 07/26/20 08:34 Albuterol 2.5 Mg/3 Ml Nebu IH Q4HRT PRN Shortness Of Breath Amiodarone HCl 200 mg 08/02/20 14:30 08/09/20 12:23 Amiodarone 200 Mg Tab PO 200 mg BID AALIYAH Administration Apixaban 5 mg 08/07/20 22:00 08/09/20 12:22 Apixaban 5 Mg Tab PO 5 mg Q12HR AALIYAH Administration Protocol Aspirin 81 mg 07/22/20 15:00 08/09/20 13:13 Aspirin Ec 81 Mg Tab PO 81 mg QDAY AALIYAH Administration Hydromorphone HCl 1 mg 07/30/20 13:00 08/09/20 11:40 Hydromorphone 1 Mg/1 Ml Inj IV 1 mg Q4H PRN Administration Pain , Severe (7-10) Sodium Chloride 500 mls @ 50 mls/hr 08/08/20 10:00 Nacl 0.9% 500 Ml IV DIRECT AALIYAH Metoprolol Tartrate 50 mg 07/29/20 10:00 08/09/20 12:22 Metoprolol Tartrate 50 Mg Tab PO 50 mg BID AALIYAH Administration Midodrine 10 mg 07/25/20 16:00 08/09/20 12:22 Midodrine 5 Mg Tab PO 10 mg TID@0800,1200,1600 AALIYAH Administration Ondansetron HCl 4 mg 07/22/20 14:09 Ondansetron 4 Mg/2 Ml Inj IV Q8H PRN Nausea And Vomiting Pregabalin 50 mg 08/01/20 10:00 08/09/20 12:23 Pregabalin 25 Mg Cap PO 50 mg QDAY AALIYAH Administration Sevelamer Carbonate 800 mg 07/23/20 18:30 08/09/20 12:23 Sevelamer Carbonate 800 Mg Tab PO 800 mg AC AALIYAH Administration Sodium Chloride 10 ml 07/22/20 13:00 08/09/20 12:23 Sodium Chloride 0.9% 10 Ml Flush Syringe IV 10 ml BID AALIYAH Administration Sodium Chloride 10 ml 07/22/20 13:00 08/07/20 23:07 Sodium Chloride 0.9% 10 Ml Flush Syringe IV 10 ml PRN PRN Administration LINE FLUSH
[2020-08-09 17:52] VITALS: BP 138/72
== END 2020-08-09 16:34 | DRG 270 ==
LOC: ED 11:46 → IMCU 12:39 → CC1 14:55 → IMCU 07-23 14:11 → 4A 07-27 14:00
PROVIDERS: ADMIT Internal Medicine; ATTEND Internal Medicine
PROC: 04FN3Z0 Fragmentation of Left Popliteal Artery, Percutaneous Approach, Ultrasonic (ICD-10-PCS; principal; 2020-07-22)
PROC: 04FU3Z0 Fragmentation of Left Peroneal Artery, Percutaneous Approach, Ultrasonic (ICD-10-PCS; 2020-07-22)
PROC: 3E05317 Introduction of Other Thrombolytic into Peripheral Artery, Percutaneous Approach (ICD-10-PCS; 2020-07-22)
PROC: 04CU3ZZ Extirpation of Matter from Left Peroneal Artery, Percutaneous Approach (ICD-10-PCS; 2020-07-23)
PROC: 047U3ZZ Dilation of Left Peroneal Artery, Percutaneous Approach (ICD-10-PCS; 2020-07-23)
PROC: B41GYZZ Fluoroscopy of Left Lower Extremity Arteries using Other Contrast (ICD-10-PCS; 2020-07-23)
PROC: 04PY33Z Removal of Infusion Device from Lower Artery, Percutaneous Approach (ICD-10-PCS; 2020-07-23)
PROC: B41GYZZ Fluoroscopy of Left Lower Extremity Arteries using Other Contrast (ICD-10-PCS; 2020-07-23)
PROC: 3E05317 Introduction of Other Thrombolytic into Peripheral Artery, Percutaneous Approach (ICD-10-PCS; 2020-07-23)
PROC: 0Y6J0Z1 Detachment at Left Lower Leg, High, Open Approach (ICD-10-PCS; 2020-07-30)
PROC: 5A1D70Z Performance of Urinary Filtration, Intermittent, Less than 6 Hours Per Day (ICD-10-PCS; 2020-08-05)
PROC: 5A1D70Z Performance of Urinary Filtration, Intermittent, Less than 6 Hours Per Day (ICD-10-PCS; 2020-08-07)
PROC: 5A1D70Z Performance of Urinary Filtration, Intermittent, Less than 6 Hours Per Day (ICD-10-PCS; 2020-08-09)
DX: I82.432 Acute embolism and thrombosis of left popliteal vein (principal); N18.6 End stage renal disease; F17.213 Nicotine dependence, cigarettes, with withdrawal; R65.10 Systemic inflammatory response syndrome (SIRS) of non-infectious origin without acute organ dysfunction; J90 Pleural effusion, not elsewhere classified; I96 Gangrene, not elsewhere classified; I48.92 Unspecified atrial flutter; I48.19 Other persistent atrial fibrillation; I12.0 Hypertensive chronic kidney disease with stage 5 chronic kidney disease or end stage renal disease; I73.9 Peripheral vascular disease, unspecified; E87.5 Hyperkalemia; I95.9 Hypotension, unspecified; R00.0 Tachycardia, unspecified; Z20.822 Contact with and (suspected) exposure to COVID-19; Z71.6 Tobacco abuse counseling; Z88.1 Allergy status to other antibiotic agents
CPT/HCPCS: 36247; 36415; 37184; 37211; 37214; 37228; 71045; 71250; 75710; 80048; 80053; 80074; 80076; 80202; 82164; 82962; 83615; 84145; 84439; 84443; 85007; 85014; 85018; 85025; 85049; 85384; 85520; 85610; 85730; 86140; 86850; 86900; 86901; 87040; 88307; 88311; 93005; 93306; 94640; 94760; 96365; 96374; 96376; G0378; C1725; C1757; C1760; C1769; C1887; J0282; J0330; J0610; J1100; J1170; J1200; J1644; J1815; J1956; J2250; J2370; J2405; J2704; J2930; J2997; J3010; J3370; J7030; J7040; Q9967; U0003

== ENCOUNTER 2020-09-18 06:25 | Day surgery (SDC) | payer MEDICARE ==
[2020-09-18 07:37] LABS: Basophils % (Auto) 0.9 % (0.0-1.8); Eosinophils # (Auto) 0.1 K/mm3 (0.0-0.4); Eosinophils % (Auto) 1.1 % (0.0-4.3); Hematocrit 34.9 % (35.5-45.6); Lymphocytes # (Auto) 0.7 K/mm3 (1.2-5.4); Lymphocytes % (Auto) 15.4 % (13.4-35.0); Mean Corpuscular HGB Conc 32 % (32-34); Mean Corpuscular Volume 92 fl (84-94); Monocytes # (Auto) 0.3 K/mm3 (0.0-0.8); Monocytes % (Auto) 7.8 % (0.0-7.3); Platelet Count 185 K/mm3 (140-440); Red Blood Count 3.79 M/mm3 (3.65-5.03); Red Cell Distribution Width 17.6 % (13.2-15.2)
[2020-09-18 07:47] LABS: INR 1.4 (0.87-1.13)
[2020-09-18 07:49] LABS: Calcium 9.5 mg/dL (8.4-10.2)
[2020-09-18 07:52] LABS: Partial Thromboplastin Time 43.3 Sec. (24.2-36.6)
[2020-09-18] MEDS ORDERED: SODIUM CHLORIDE 0.9% 500 ML 500 ML IV SCH (08:00)
[2020-09-18] MEDS ORDERED: HEPARIN/NS 5000 UNIT/500ML 1,000 ML IR ONE (08:14)
[2020-09-18] MEDS ORDERED: HEPARIN 10,000 UNITS/10 ML VIAL ONE (08:14)
[2020-09-18] MEDS: fentaNYL 100 MCG/2 ML INJ ONE ×3 (08:58→10:37)
[2020-09-18] MEDS ORDERED: FAMOTIDINE 20 MG/2 ML INJ IV ONE (09:00)
[2020-09-18] MEDS ORDERED: methylPREDNISolone Sod Succinate 125 MG/2 ML INJ IV NR (09:00)
[2020-09-18] MEDS ORDERED: diphenhydrAMINE 50 MG/ML VIAL IV ONE (09:00)
[2020-09-18] MEDS: MIDAZOLAM 2 MG/2 ML INJ ONE ×2 (10:16→10:37)
[2020-09-18] MEDS: LIDOCAINE (2%) 20 MG/1 ML VIAL 20 ML MDV INFILTRATI ONE ×2 (10:17→10:37)
[2020-09-18] MEDS ORDERED: fentaNYL 100 MCG/2 ML INJ ONE (11:11)
[2020-09-18] MEDS ORDERED: MIDAZOLAM 2 MG/2 ML INJ ONE (11:11)
[2020-09-18] MEDS ORDERED: NITROGLYCERIN SYRINGE 6 ML ONE (11:18)
--- NOTE | 2020-09-18 12:05 | Short Stay Summary ---
Short Stay Documentation Date of service: 09/18/20 Narrative H&P: See H&P - History H&P: obtained from office - Allergies and Medications Current Medications: Allergies amoxicillin Allergy (Severe, Verified 07/30/20 10:27) Unknown PT STATES LIPS SWELLED CONTRAST DYE Allergy (Severe, Uncoded 09/18/20 07:49) Swelling PT STATES GROIN AREA HAD SWELLING ALSO STATES HE SWELLING OTHER AREAS OF BODY Home Medications Medication Instructions Recorded Confirmed Last Taken Type Amiodarone [Cordarone 200 MG TAB] 200 mg PO BID #60 tablet 08/16/20 09/18/20 09/17/20 Rx 200 mg Apixaban [Eliquis] 5 mg PO Q12HR #60 tablet 08/16/20 09/18/20 09/17/20 Rx 5 mg Aspirin EC [Halfprin EC] 81 mg PO QDAY #30 tablet 08/16/20 09/18/20 09/17/20 Rx 81 mg Metoprolol [Lopressor TAB] 50 mg PO BID #60 tablet 08/16/20 09/18/20 09/17/20 Rx 50 mg Midodrine [Proamatine] 10 mg PO TID@0800,1200,1600 #180 08/16/20 09/18/20 09/17/20 Rx tablet 10 mg Pregabalin 25 mg PO TID #90 capsule 08/16/20 09/18/20 09/17/20 Rx 25 mg Sevelamer Carbonate [Renvela] 800 mg PO AC #90 tablet 08/16/20 09/18/20 09/17/20 Rx 800 mg Active Medications Sodium Chloride (Nacl 0.9% 500 Ml) 500 mls @ 50 mls/hr IV DIRECT AALIYAH Methylprednisolone Sodium Succinate (Methylprednisolone Sod Succinate 125 Mg/2 Ml Inj) 125 mg IV PREOP NR Stop: 09/18/20 13:00 Last Admin: 09/18/20 09:08 Dose: 125 mg Documented by: - Brief post op/procedure progress note Date of procedure: 09/18/20 Pre-op diagnosis: PVD with Poorly Healing Left BKA Stump Post-op diagnosis: same Procedure: 1. Ultrasound Guided Access Right Common Femoral Artery 2. Diagnostic Aortogram (Patient Had a Clinical Change) 3. Diagnostic Left Lower Extremity Angiogram (Patient Had a Clinical Change) 4. Angioplasty of Left SFA and Popliteal Artery with 8 x 40 Angiosculpt Balloon 5. Angioplasty of Outflow Branches of Distal Popliteal Artery with 5 x 150 Seth Balloon, 4 x 200 Angiosculpt Balloon, and 3.5-3.0 x 210 Nanocross Balloon 6. Closure of Right Femoral Arteriotomy with Pro-Caldwell Closure Device 7. Radiologic Supervision with Interpretation 8. Monitored Moderate Sedation (Total Anesthesia Time: 54 Minutes) Anesthesia: local, other (Monitored moderate sedation) Surgeon: ORACIO VIVEROS Estimated blood loss: minimal Pathology: none Condition: stable - Disposition Condition at discharge: Good Disposition: DC-01 TO HOME OR SELFCARE Short Stay Discharge Plan Activity: other (No strenuous activity for 24 hours) Wound: remove dressing (48 hours), other (Okay to shower in 48 hours) Follow up with: ORACIO VIVEROS MD [Staff Physician] - 14 Days Prescriptions: HYDROcodone/APAP 5-325 [[place] 5/325] 1 each PO Q4HR PRN #30 tablet PRN Reason: Pain
[2020-09-18] MEDS ORDERED: HYDROcodone/ACETAMINOPHEN 5-325 MG TAB PO PRN (12:45)
[2020-09-18] MEDS ORDERED: APIXABAN 5 MG TAB PO SCH (13:00)
--- NOTE | 2020-09-18 13:05 | Operative Report ---
Operative Report Operative Report: Date of Procedure: 09/18/2020 Pre-operative Diagnosis: Peripheral Vascular Disease with Nonhealing Left Below- Knee Amputation Post-operative Diagnosis: Same Procedure(s): 1. Ultrasound Guided Access Right Common Femoral Artery 2. Diagnostic Aortogram (Patient Had a Clinical Change) 3. Diagnostic Left Lower Extremity Angiogram (Patient Had a Clinical Change) 4. Angioplasty of Left SFA and Popliteal Artery with 8 x 40 Angiosculpt Balloon 5. Angioplasty of Outflow Branches of Distal Popliteal Artery with 5 x 150 Seth Balloon, 4 x 200 Angiosculpt Balloon, and 3.5-3.0 x 210 Nanocross Balloon 6. Closure of Right Femoral Arteriotomy with Pro-Tropic Closure Device 7. Radiologic Supervision with Interpretation 8. Monitored Moderate Sedation (Total Anesthesia Time: 54 Minutes) Surgeon: Karthikeyan Hansen M.D. Winding Inspector And Tester: Ksenia Anesthesia: Monitored Moderate Sedation/Local Total Anesthesia Time: 54 Minutes EBL: Minimal Counts: Correct Complications: None Condition: Stable Specimen: None Indication: The patient is a 54-year-old male with a history of end-stage renal disease and peripheral vascular disease who recently underwent a left below-knee amputation. He presented to the office with a poorly healing left stump and an ultrasound that revealed decreased flow to the distal stump. He is in need of a diagnostic angiogram of the left lower extremity and possible intervention. He was given the risk, benefits, and alternative procedures and consented to the procedure. Angiographic Findings: The diagnostic aortogram revealed that the aorta and bilateral common iliac arteries were patent without evidence of flow-limiting stenosis. The left lower extremity angiogram revealed that the left hypogastric and external iliac artery were patent without evidence of flow-limiting stenosis. The left common femoral artery or profunda artery were patent without evidence of flow-limiting stenosis. The proximal SFA was patent without evidence of flow-limiting stenosis. The flow throughout the left lower extremity was sluggish throughout. There was approximately 30% stenosis within the mid SFA. There was approximately 40 to 50% stenosis within the distal SFA. There was 40 to 50% stenosis within the proximal and mid popliteal artery. The distal popliteal artery was ligated at the level of the tibial plateau. There were several branches providing flow to the distal stump and the largest branch had approximately 60% stenosis at its origin the smaller of the 2 branches had approximately 85% stenosis at its origin however this branch provided significantly more collaterals to the stent. After intervention there was less than 10% residual stenosis in the SFA and popliteal arteries. The larger of the collateral branches had less than 10% residual stenosis at its origin and the smaller of the collateral branches had less than 10% residual stenosis at its branch and significantly improved flow to this time. Description of Procedure: The patient was brought to the angio suite and laid in supine position. After a timeout was performed his right groin was prepped and draped in normal sterile fashion. Ultrasound was used to identify the right common femoral artery and confirm patency. Once patency was confirmed the overlying skin and soft tissue was anesthetized with lidocaine. An 11 blade was used to make a small stab incision and a curved hemostat was used to bluntly dissect down to the anterior surface of the right common femoral artery using ultrasound guidance. A 21- gauge micropuncture needle was used with ultrasound guidance to access the right common femoral artery and a 0.018 micropuncture wire was advanced to the artery. The needle was removed and a micropuncture sheath was placed by Seldinger technique. The inner cannula and wire were removed and a 0.035 Bentson wire was advanced into the aorta under fluoroscopy. The micropuncture sheath was exchanged for 5 [place] sheath by Seldinger technique. An Omni Flush catheter was advanced to the aorta and after removing the wire a diagnostic aortogram was performed the previously described findings. The Bentson wire and Omni Flush catheter were advanced up and over the bifurcation and a diagnostic left lower extremity angiogram was performed to previously described findings. A 0.035 advantage wire was advanced into the stump of the popliteal artery and the 5 [place] sheath was exchanged for a 6 [place] 65 cm destination sheath by Seldinger technique. At this point the patient was systemically heparinized with 4000 units of heparin IV. I then used Navicross catheter and 0.014 Choice PT wire and was able to cannulate a distal branch which was the larger of the 2 collateral branches. I performed angioplasty of the branch using a 5 x 150 Seth Balloon with a result of less than 10% residual stenosis at the origin of the branch. I then performed angioplasty of the popliteal artery and stenotic segments of the SFA using an 8 x 40 Angiosculpt Balloon with a result of less than 10% residual stenosis. I reinserted the Navicross catheter and was able to cannulate the more proximal sidebranch originating off of the medial aspect of the popliteal artery above the knee. This was a small sidebranch however it provided significantly more collateral flow to the stump. I initially performed angioplasty of the proximal segment with a 4.0 x 200 Angiculpt Balloon and then was able to advance a 3.5-3.0 x 210 Nanocross balloon slightly more distal to the original ang ioplasty. I injected 600 mcg of nitroglycerin into the artery secondary to spasm created by the wire. This resulted in less than 10% residual stenosis in the proximal segment of the artery with significantly more flow into the distal stump. At this point I removed the Choice PT wire and pulled the sheath back into the right external iliac artery. I advanced the [employer] wire into the aorta and then after removing the sheath used a Pro-glide closure device to close the right femoral arteriotomy. A sterile dressing was then applied to the right groin and the patient was transported to the recovery area in stable condition.
[2020-09-18 14:15] VITALS: BP 140/67
[2020-09-18] MEDS ORDERED: APIXABAN 5 MG TAB ONE (14:26)
== END 2020-09-18 15:00 | disposition home or self-care (01) ==
LOC: CATHLABREC 06:25
PROVIDERS: ATTEND Surgery Vascular Surgery
DX: I73.9 Peripheral vascular disease, unspecified (principal); I74.3 Embolism and thrombosis of arteries of the lower extremities; I12.0 Hypertensive chronic kidney disease with stage 5 chronic kidney disease or end stage renal disease; N18.6 End stage renal disease; I48.92 Unspecified atrial flutter; F17.210 Nicotine dependence, cigarettes, uncomplicated; J90 Pleural effusion, not elsewhere classified; Z89.512 Acquired absence of left leg below knee; Z98.890 Other specified postprocedural states; Z88.6 Allergy status to analgesic agent; Z91.041 Radiographic dye allergy status; Z79.899 Other long term (current) drug therapy; Z79.82 Long term (current) use of aspirin; Z82.49 Family history of ischemic heart disease and other diseases of the circulatory system
CPT/HCPCS: 36415; 37224; 75625; 75710; 76937; 80048; 85025; 85610; 85730; 99156; 99157; C1725; C1760; C1769; C1887; J1200; J1644; J2250; J2930; J3010; J7040; 96374; 96375; Q9967

== ENCOUNTER 2020-09-27 07:33 | Day surgery (SDC) | payer MEDICARE ==
[~2020-09-27 07:33] MED LIST: ACETAMINOPHEN 500 MG TAB PO SCH; LACTATED RINGERS 1,000 ML IV SCH; MIDAZOLAM 2 MG/2 ML INJ IV NR
[2020-09-27] MEDS ORDERED: ONDANSETRON 4 MG/2 ML INJ IV PRN (09:17)
[2020-09-27] MEDS ORDERED: METOPROLOL TARTRATE 50 MG TAB PO ONE (09:18)
[2020-09-27] MEDS ORDERED: AMIODARONE 200 MG TAB PO NR (09:18)
[2020-09-27] MEDS ORDERED: PREGABALIN 25 MG CAP PO ONE (09:18)
--- NOTE | 2020-09-27 09:20 | Anesthesia Consultation ---
Anesthesia Consult and Med Hx Date of service: 09/27/20 - Airway Anesthetic Teeth Evaluation: Poor ROM Head & Neck: Adequate Mental/Hyoid Distance: Adequate Mallampati Class: Class III Intubation Access Assessment: Possibly Difficult - Pulmonary Exam CTA: Yes - Cardiac Exam Cardiac Exam: RRR - Pre-Operative Health Status ASA Pre-Surgery Classification: ASA3 Proposed Anesthetic Plan: General - Pulmonary Hx Smoking: No Hx Respiratory Symptoms: No Hx Sleep Apnea: No - Cardiovascular System Hx Hypertension: Yes (normal EF TTE 07/2020) Hx Cardia Arrhythmia: Yes (a-fib/flutter) Hx Peripheral Vascular Disease: Yes (Thrombosis left Pooliteal artery; DVTx 2; Hx. PE) - Central Nervous System CVA: No - Gastrointestinal Hx Gastroesophageal Reflux Disease: No - Endocrine Hx End Stage Renal Disease: Yes (last HD 09/25/20) Hx Liver Disease: No Hx Insulin Dependent Diabetes: No Hx Non-Insulin Dependent Diabetes: No Hx Thyroid Disease: No - Hematic Hx Anemia: Yes - Other Systems Hx Obesity: No - Additional Comments Anesthesia Medical History Comments: No hx anesthetic complications. Ran out of all medications 2 days ago. Will give home dose metoprolol, amiodarone, and pregabalin in preop. Has been off Eliquis and ASA x 2 days.
--- NOTE | 2020-09-27 09:21 | Anesthesia Day of Surgery ---
Anesthesia Day of Surgery - Day of Surgery Patient Examined: Yes Patient H&P Reviewed: Yes Patient is NPO: Yes Beta Blockers: Yes
[2020-09-27 09:23] LABS: Hematocrit 36.8 % (35.5-45.6); Hemoglobin 11.6 gm/dl (11.8-15.2); Mean Corpuscular HGB Conc 32 % (32-34); Mean Corpuscular Volume 92 fl (84-94); Platelet Count 143 K/mm3 (140-440); Red Blood Count 3.99 M/mm3 (3.65-5.03); Red Cell Distribution Width 18.3 % (13.2-15.2)
[2020-09-27] MEDS ORDERED: SODIUM CHLORIDE 0.9% 1000 ML 1,000 ML IV SCH (09:30)
[2020-09-27 09:33] LABS: Calcium 8.8 mg/dL (8.4-10.2)
[2020-09-27] MEDS ORDERED: ONDANSETRON 4 MG/2 ML INJ ONE (11:33)
[2020-09-27] MEDS ORDERED: LIDOCAINE MPF (2%) 20 MG/1 ML VIAL 5 ML ONE (11:33)
[2020-09-27] MEDS ORDERED: HYDROmorphone 1 MG/1 ML INJ ONE (11:33)
[2020-09-27] MEDS ORDERED: propofoL 200 MG/20 ML VIAL IV ONE (11:33)
[2020-09-27] MEDS ORDERED: PHENYLEPHRINE/NS 1,000 MCG/10 ML SYRINGE (OR USE) IV ONE (12:10)
[2020-09-27] MEDS ORDERED: ePHEDrine SULFATE 50 MG/1 ML INJ ONE (12:13)
[2020-09-27] MEDS ORDERED: SODIUM CHLORIDE 0.9% IRR 1,500 ML BOTTLE IR ONE (12:45)
--- NOTE | 2020-09-27 13:07 | Short Stay Summary ---
Short Stay Documentation Date of service: 09/27/20 Narrative H&P: See H&P - History H&P: obtained from office - Allergies and Medications Current Medications: Allergies amoxicillin Allergy (Severe, Verified 07/30/20 10:27) Unknown PT STATES LIPS SWELLED CONTRAST DYE Allergy (Severe, Uncoded 09/18/20 07:49) Swelling PT STATES GROIN AREA HAD SWELLING ALSO STATES HE SWELLING OTHER AREAS OF BODY Home Medications Medication Instructions Recorded Confirmed Last Taken Type Amiodarone [Cordarone 200 MG TAB] 200 mg PO BID #60 tablet 08/16/20 09/27/20 09/27/20 09:45 Rx Apixaban [Eliquis] 5 mg PO Q12HR #60 tablet 08/16/20 09/26/20 09/17/20 Rx 5 mg Aspirin EC [Halfprin EC] 81 mg PO QDAY #30 tablet 08/16/20 09/27/20 09/26/20 09:00 Rx Metoprolol [Lopressor TAB] 50 mg PO BID #60 tablet 08/16/20 09/27/20 09/27/20 09:45 Rx Midodrine [Proamatine] 10 mg PO TID@0800,1200,1600 #180 08/16/20 09/26/20 09/17/20 Rx tablet 10 mg Pregabalin 25 mg PO TID #90 capsule 08/16/20 09/27/20 09/27/20 09:45 Rx Sevelamer Carbonate [Renvela] 800 mg PO AC #90 tablet 08/16/20 09/27/20 09/26/20 19:00 Rx HYDROcodone/APAP 5-325 [[place] 1 each PO Q4HR PRN #30 tablet 09/18/20 09/26/20 Unknown Rx 5/325] Active Medications Acetaminophen (Acetaminophen 500 Mg Tab) 1,000 mg PO PREOP AALIYAH Last Admin: 09/27/20 09:45 Dose: 1,000 mg Documented by: Fentanyl (Fentanyl 100 Mcg/2 Ml Inj) 50 mcg IV Q5MIN PRN PRN Reason: Pain , Severe (7-10) Stop: 09/27/20 23:00 Sodium Chloride (Nacl 0.9% 1000 Ml) 1,000 mls @ 42 mls/hr IV DIRECT AALIYAH Last Admin: 09/27/20 10:00 Dose: 42 mls/hr Documented by: Midazolam HCl (Midazolam 2 Mg/2 Ml Inj) 2 mg IV PREOP NR Stop: 09/27/20 23:01 Ondansetron HCl (Ondansetron 4 Mg/2 Ml Inj) 4 mg IV ONCE PRN PRN Reason: Nausea And Vomiting Stop: 09/27/20 16:00 - Brief post op/procedure progress note Date of procedure: 09/27/20 Pre-op diagnosis: Nonhealing Left Below-Knee Amputation Post-op diagnosis: same Procedure: 1. Excisional Debridement of Skin, Muscle, and Soft Tissue Left Below-Knee Amputation (Wound Measures 15 x 9 x 2 cm) 2. Wound VAC Placement (Wound Measures 15 x 9 x 2 cm) Anesthesia: GETA Surgeon: ORACIO VIVEROS Estimated blood loss: 50-100ml Pathology: list (Skin, muscle, and soft tissue of left below-knee amputation sent to pathology) Specimen disposition: to lab Condition: stable - Disposition Condition at discharge: Good Disposition: DC- TO HOME OR SELFCARE Short Stay Discharge Plan Wound: per wound nurse instructions (Wound VAC changes per home health) Follow up with: ORACIO VIVEROS MD [Staff Physician] - 14 Days Prescriptions: HYDROcodone/APAP 5-325 [[place] 5/325] 1 each PO Q4HR PRN #40 tablet PRN Reason: Pain
--- NOTE | 2020-09-27 13:12 | Operative Report ---
Operative Report Operative Report: Date of Procedure: 09/27/2020 Pre-operative Diagnosis: Peripheral Vascular Disease with Nonhealing Left Below- Knee Amputation Post-operative Diagnosis: Same Procedure(s): 1. Excisional Debridement of Skin, Muscle, and Soft Tissue Left Below-Knee Amputation (Wound Measures 15 x 9 x 2 cm) 2. Wound VAC Placement (Wound Measures 15 x 9 x 2 cm) Surgeon: Karthikeyan Hansen M.D. Community Artist: None Anesthesia: General Endotracheal Anesthesia EBL: 50 mL Counts: Correct Complications: None Condition: Stable Findings: Wound was debrided to healthy tissue. Specimen: Skin, muscle, and soft tissue of left below-knee amputation was sent to pathology. Indication: The patient is a 54-year-old male with a history of peripheral vascular disease who underwent a left below amputation. He had been placing Coban on the wound and developed a pressure ulcer on the anterior surface along the staple line. He is in need of debridement of the wound with wound VAC placement. He was given the risk, benefits, and alternatives and consented to the procedure. Description of Procedure: The patient was brought to the operating room and laid in supine position. After general endotracheal anesthesia was achieved his left leg was prepped and draped in normal sterile fashion. [place] along the medial aspect of the wound that were not involved in the eschar were removed with a hemostat. A 10 blade was then used to make an incision around the eschar and this was carried down through the dermal layer and to the fascia. A combination of cautery and sharp dissection with a 10 blade and curved Mayos were used to sharply debride the underlying necrotic muscle and soft tissue. The wound was debrided until all n ecrotic muscle and soft tissue was adequately debrided. The wound was then copiously irrigated and hemostasis was achieved with a combination of manual pressure and cautery. Once hemostasis was achieved the wound VAC was placed and an adequate seal was obtained. A Kerlix was then used as a dressing. The patient tolerated the procedure well. All sponge, needle, and instrument counts were correct. The patient was transported to the recovery area in stable condition.
[2020-09-27] MEDS: fentaNYL 100 MCG/2 ML INJ IV PRN ×2 (13:29→13:45)
[2020-09-27 14:54] VITALS: BP 105/60
== END 2020-09-27 07:34 | disposition home or self-care (01) ==
LOC: OR 07:33
PROVIDERS: ATTEND Surgery Vascular Surgery
DX: I73.9 Peripheral vascular disease, unspecified (principal); I12.0 Hypertensive chronic kidney disease with stage 5 chronic kidney disease or end stage renal disease; N18.6 End stage renal disease; I48.92 Unspecified atrial flutter; I74.3 Embolism and thrombosis of arteries of the lower extremities; J90 Pleural effusion, not elsewhere classified; I42.9 Cardiomyopathy, unspecified; Z99.2 Dependence on renal dialysis; Z88.6 Allergy status to analgesic agent; Z91.041 Radiographic dye allergy status; Z79.899 Other long term (current) drug therapy; Z79.82 Long term (current) use of aspirin; Z89.612 Acquired absence of left leg above knee; Z89.611 Acquired absence of right leg above knee; Z98.890 Other specified postprocedural states; Z91.81 History of falling; Z82.49 Family history of ischemic heart disease and other diseases of the circulatory system
CPT/HCPCS: 11043; 11046; 36415; 80048; 85027; 86850; 86900; 86901; 88304; 88305; J1170; J2370; J2405; J2704; J3010; J7030